=== PATIENT | female | born 1965 | race Caucasian/White ===

== ENCOUNTER 2016-11-14 01:05 | Emergency (ER) | payer MEDICARE, OTHER ==
[2016-11-14 01:13] VITALS: BP 182/86; PULSE 85; RESP 18; TEMP 98.2
[2016-11-14 01:25] LABS: Glucose,Whole Blood 173 mg/dL (75-99)
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
== END 2016-11-14 01:36 | disposition home or self-care (01) ==
LOC: EC 01:05
DX: E11.65 Type 2 diabetes mellitus with hyperglycemia (principal); Z79.4 Long term (current) use of insulin; E03.9 Hypothyroidism, unspecified; Z79.51 Long term (current) use of inhaled steroids; E78.5 Hyperlipidemia, unspecified; Z79.84 Long term (current) use of oral hypoglycemic drugs; Z88.6 Allergy status to analgesic agent; Z88.5 Allergy status to narcotic agent; G47.33 Obstructive sleep apnea (adult) (pediatric); J45.909 Unspecified asthma, uncomplicated; F41.9 Anxiety disorder, unspecified; F32.9 Major depressive disorder, single episode, unspecified; Z87.891 Personal history of nicotine dependence
CPT/HCPCS: 36415; 99283

== ENCOUNTER 2017-04-09 20:17 | Emergency (ER) | payer MEDICARE, OTHER ==
[2017-04-09 20:52] LABS: Glucose,Whole Blood 124 mg/dL (75-99)
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
[2017-04-09 21:09] LABS: Basophils % (A) 0 %; CHCM 33.2; Eosinophils # (A) 0.4 k/uL (0-0.7); Eosinophils % (A) 3 %; HCT 41.3 % (34.0-46.0); HDW 2.81; HGB 13.9 gm/dL (11.4-16.0); Luc # (Auto) 0.33; Luc % (Auto) 3; Lymphocytes # (A) 2.4 k/uL (1.0-4.8); Lymphocytes % (A) 22 %; MCH 30.5 pg (25.0-35.0); MCHC 33.6 g/dL (31.0-37.0); MCV 90.9 fL (80.0-100.0); Mean Platelet Volume 6.9; Monocytes # (A) 0.6 k/uL (0-1.0); Monocytes % (A) 6 %; Neutrophils # (A) 7.5 k/uL (1.3-7.7); Neutrophils % (A) 67 %; RBC 4.54 m/uL (3.80-5.40); RDW 14.4 % (11.5-15.5); WBC 11.2 k/uL (3.8-10.6); WBC (Perox) 11.27
[2017-04-09 21:28] LABS: ALT 39 U/L (9-52); AST 27 U/L (14-36); Alkaline Phosphatase 84 U/L (38-126); Anion Gap 10 mmol/L; Blood Urea Nitrogen 16 mg/dL (7-17); Calcium 9.4 mg/dL (8.4-10.2); Carbon Dioxide 31 mmol/L (22-30); Chloride 101 mmol/L (98-107); Glucose 120 mg/dL (74-99); Non-African American GFR(MDRD) >60 (>60 ml/min/1.73 sqM); Potassium 4.4 mmol/L (3.5-5.1); Sodium 142 mmol/L (137-145); Total Bilirubin 0.5 mg/dL (0.2-1.3); Total Protein 7.1 g/dL (6.3-8.2)
[2017-04-09 21:32] VITALS: RESP 18
[2017-04-09 22:45] VITALS: BP 124/56; PULSE 70; TEMP 98.9
== END 2017-04-09 22:45 | disposition home or self-care (01) ==
LOC: EC 20:17
DX: R20.2 Paresthesia of skin (principal); E78.5 Hyperlipidemia, unspecified; E11.9 Type 2 diabetes mellitus without complications; E03.9 Hypothyroidism, unspecified; J45.909 Unspecified asthma, uncomplicated; E66.01 Morbid (severe) obesity due to excess calories; F32.9 Major depressive disorder, single episode, unspecified; F41.9 Anxiety disorder, unspecified; Z87.891 Personal history of nicotine dependence; Z79.4 Long term (current) use of insulin; Z79.51 Long term (current) use of inhaled steroids; Z79.84 Long term (current) use of oral hypoglycemic drugs; Z79.899 Other long term (current) drug therapy; Z88.5 Allergy status to narcotic agent; Z88.6 Allergy status to analgesic agent; Z86.79 Personal history of other diseases of the circulatory system; Z68.44 Body mass index [BMI] 60.0-69.9, adult
CPT/HCPCS: 36415; 80053; 85025; 99284

== ENCOUNTER → 2017-04-14 | Outpatient (CLI) | payer MEDICARE, OTHER ==
[2017-04-14 15:50] VITALS: BP 159/63; PULSE 88; TEMP 97.8; BMI 55.0
[2017-04-14 16:41] LABS: CH 29.6; CHCM 31.5; HCT 44.4 % (34.0-46.0); HDW 2.72; HGB 13.8 gm/dL (11.4-16.0); Hypochromasia Slight; MCH 29.3 pg (25.0-35.0); MCHC 31.1 g/dL (31.0-37.0); MCV 94.2 fL (80.0-100.0); Mean Platelet Volume 7.3; RBC 4.72 m/uL (3.80-5.40); RDW 14.5 % (11.5-15.5); WBC 11.4 k/uL (3.8-10.6)
[2017-04-14 16:55] LABS: ALT 57 U/L (9-52); AST 35 U/L (14-36); Alkaline Phosphatase 88 U/L (38-126); Anion Gap 11 mmol/L; Blood Urea Nitrogen 16 mg/dL (7-17); Calcium 9.7 mg/dL (8.4-10.2); Carbon Dioxide 28 mmol/L (22-30); Chloride 104 mmol/L (98-107); Glucose 80 mg/dL (74-99); Iron 45 ug/dL (37-170); Non-African American GFR(MDRD) >60 (>60 ml/min/1.73 sqM); Potassium 4.6 mmol/L (3.5-5.1); Sodium 143 mmol/L (137-145); Total Bilirubin 0.5 mg/dL (0.2-1.3)
[2017-04-14 17:04] LABS: % Iron Saturation 12.7 % (20-50); Total Iron Binding Capacity 353 ug/dL (265-497)
[2017-04-14 18:01] LABS: Vitamin B12 662 pg/mL (239-931)
[2017-04-14 20:38] LABS: Cholesterol 127 mg/dL (<200); HDL Cholesterol 46 mg/dL (40-60); Triglycerides 190 mg/dL (<150)
[2017-04-14 20:50] LABS: Hemoglobin A1C 7.7 % (4.2-6.1)
--- NOTE | 2017-05-04 19:53 | P.PN ---
Progress Note - Text DATE OF CONSULTATION: 04/14/2017 REASON FOR CONSULTATION: Initial bariatric evaluation. HISTORY OF PRESENT ILLNESS: The patient is a 51-year-old female who presents with a long-standing history of morbid obesity. At her height of 5 foot 6.5, her ideal body weight is 154 pounds. Today she comes in weighing 362 pounds. Her highest weight is 380 pounds. She has been able to lose 50 pounds with caloric restriction. She has maintained 18 pound weight loss. She is 208 pounds overweight. Her personal goal is to get down under 200 pounds. She reports losing 2 inches from her height after developing osteoarthritis of her lower back including slipped disk of her spine. She has developed diabetes type 2 since 2014. She has been placed on insulin as of 2016. She has obstructive sleep apnea. She has tried weight loss with minimal success with caloric restriction. She has bilateral knee pain and bilateral edema from osteoarthritis. She denies any family history or personal history of Crohn's disease, gastrointestinal cancer, DVTs or pulmonary embolisms. She still has her gallbladder. She reports a family history of gallbladder disease in her mother. She also has a family history of morbid obesity. She comes in for evaluation for a sleeve gastrectomy. She reports eating 3 meals a day. She has history of an adjustable gastric band without improvement of her weight. PAST MEDICAL HISTORY: 1. Diabetes type 2, insulin dependent. 2. Asthma. 3. Morbid obesity. 4. Osteoarthritis of the bilateral hips. 5. Osteoarthritis of the bilateral knees. 6. Seasonal ALLERGIES. 7. Obstructive sleep apnea. 8. Osteoarthritis of the lower back. 9. Hypothyroidism. PAST SURGICAL HISTORY: 1. Lap band in 2008. 2. . 3. Tubal ligation. 4. Uterine ablation. 5. Postoperative nausea and vomiting. HOME MEDICATIONS: 1. Wellbutrin 2. Adderall. 3. Vitamin D. ALLERGIES: 1. Hydrocodone 2. Naproxen. SOCIAL HISTORY: No active tobacco use. She uses a walker for mobility. FAMILY HISTORY: Denies any DVTs, pulmonary embolisms in her family. Denies any ulcerative colitis disease or Crohn's. She does have a family history of morbid obesity. Daughter with easy bruising. She reports a family history of gallbladder disease in her mother. She also has a family history of morbid obesity. REVIEW OF ORGAN SYSTEMS: CONSTITUTIONAL: At her height of 5 foot 6.5, her ideal body weight is 154 pounds. Today she comes in weighing 362 pounds. Her highest weight is 380 pounds. She has been able to lose 50 pounds with caloric restriction. She has maintained 18 pound weight loss. She is 208 pounds overweight. HEENT: Denies any active troubles with vision or hearing. ENDOCRINE: Has diabetes and hypothyroidism. CARDIOVASCULAR: No reports of palpitations or heart attacks or chest pain. RESPIRATORY: Has sleep apnea. Has asthma. GI: Denies any bright red blood per rectum, diarrhea or constipation. Has intermittent heartburn. MUSCULOSKELETAL: Has osteoarthritis of the knees and lower back. NEURO: No reports of headaches or seizure disorders. PSYCH: Has depression without suicidal ideation. Has anxiety. HEMATOLOGIC: Denies any abnormal bleeding or bruising. PHYSICAL EXAM: VITAL SIGNS: height 5 foot 6.5 inches, weight 362 pounds. BMI 57.6 Vital Signs Temp 97.8 F 04/14/17 15:29 Pulse 88 04/14/17 15:29 Resp BP 159/63 04/14/17 15:29 Pulse Ox GENERAL: Well-developed female in no acute distress. HEENT: No scleral icterus. Extraocular was grossly intact. No nasal drainage. NECK: Supple without lymphadenopathy. CHEST: Nonlabored respirations with equal bilateral excursions. CARDIOVASCULAR: Regular rate. Distal 2+ pulses. ABDOMEN: Obese, soft, nontender, nondistended. MUSCULOSKELETAL: No clubbing, cyanosis. Has 1+ bilateral edema. Gross strength 5 /5 distal lower extremities. NEURO: No focal or lateralizing signs. Cranial nerves 2 through 12 grossly within normal limits. PSYCH: Appropriate affect. Alert and oriented to person, place and time. ASSESSMENT: 1. Morbid obesity due to excess calories. 2. Body mass index of 57.6. 3. History of adjustable gastric band. 4. Family history of morbid obesity. 5. Diabetes type 2, insulin dependent. 6. Asthma. 7. Vitamin D deficiency. 8. Osteoarthritis of the lower back. 9. Osteoarthritis of the bilateral knees. 10. Obstructive sleep apnea. 11. Seasonal ALLERGIES. 12. Obstructive sleep apnea. 13. Hypothyroidism. 14. Hypertensive heart disease. 15. Leukocytosis. 16. Hypertriglyceridemia. 17. Vitamin D deficiency. PLAN: 1. I have recommended that she proceed with an upper endoscopy as she has history of reflux disease. 2. Per insurance guidelines, recommend medical supervised weight loss. 3. Recommend a bariatric metabolic panel to evaluate for micro, including macronutrient deficiencies. 4. Dietary surveillance and counseling was reviewed with goal protein intake of 70 grams daily. 5. Psych assessment recommended with history of depression and anxiety. 6. Recommend 12-lead EKG for cardiac risk assessment. 7. Medical risk assessment advised. 8. As she has minimal improvement with her adjustable gastric band, may need removal. 9. Recommend Vitamin D supplement 59621 units weekly. Thank you for this consultation. Laboratory Last Values WBC 11.4 k/uL (3.8-10.6) H 04/14/17 16:24 RBC 4.72 m/uL (3.80-5.40) 04/14/17 16:24 Hgb 13.8 gm/dL (11.4-16.0) 04/14/17 16:24 Hct 44.4 % (34.0-46.0) 04/14/17 16:24 MCV 94.2 fL (80.0-100.0) 04/14/17 16:24 MCH 29.3 pg (25.0-35.0) 04/14/17 16:24 MCHC 31.1 g/dL (31.0-37.0) 04/14/17 16:24 RDW 14.5 % (11.5-15.5) 04/14/17 16:24 Plt Count 336 k/uL (150-450) 04/14/17 16:24 Hypochromasia Slight 04/14/17 16:24 Sodium 143 mmol/L (137-145) 04/14/17 16:24 Potassium 4.6 mmol/L (3.5-5.1) 04/14/17 16:24 Chloride 104 mmol/L (98-107) 04/14/17 16:24 Carbon Dioxide 28 mmol/L (22-30) 04/14/17 16:24 Anion Gap 11 mmol/L 04/14/17 16:24 BUN 16 mg/dL (7-17) 04/14/17 16:24 Creatinine 0.90 mg/dL (0.52-1.04) 04/14/17 16:24 Est GFR (MDRD) Af Amer >60 (>60 ml/min/1.73 sqM) 04/14/17 16:24 Est GFR (MDRD) Non-Af >60 (>60 ml/min/1.73 sqM) 04/14/17 16:24 Glucose 80 mg/dL (74-99) 04/14/17 16:[address] Glu mg/dL 174 mg/dL 04/14/17 16:24 Hemoglobin A1c 7.7 % (4.2-6.1) H 04/14/17 16:24 Calcium 9.7 mg/dL (8.4-10.2) 04/14/17 16:24 Iron 45 ug/dL (37-170) 04/14/17 16:24 TIBC 353 ug/dL (265-497) 04/14/17 16:24 % Saturation 12.7 % (20-50) L 04/14/17 16:24 Ferritin 23 ng/mL (11-264) 04/14/17 16:24 Total Bilirubin 0.5 mg/dL (0.2-1.3) 04/14/17 16:24 AST 35 U/L (14-36) 04/14/17 16:24 ALT 57 U/L (9-52) H 04/14/17 16:24 Alkaline Phosphatase 88 U/L (38-126) 04/14/17 16:24 Total Protein 7.0 g/dL (6.3-8.2) 04/14/17 16:24 Albumin 4.2 g/dL (3.5-5.0) 04/14/17 16:24 Triglycerides 190 mg/dL (<150) H 04/14/17 16:24 Cholesterol 127 mg/dL (<200) 04/14/17 16:24 LDL Cholesterol, Calc 43 mg/dL (0-99) 04/14/17 16:24 HDL Cholesterol 46 mg/dL (40-60) 04/14/17 16:24 Vitamin B1 72 ug/L (38-122) 04/14/17 16:24 Vitamin B12 662 pg/mL (239-931) 04/14/17 16:24 Vitamin D 25-Hydroxy 10.4 ng/mL (30.0-100.0) L 04/14/17 16:24 Folate 13.60 ng/mL (>2.75) 04/14/17 16:24 TSH 3.020 mIU/L (0.465-4.680) 04/14/17 16:24
== END | disposition home or self-care (01) ==
LOC: BARWHC3 13:55
PROVIDERS: ATTEND Surgery Plastic and Reconstructive Surgery
DX: Z48.815 Encounter for surgical aftercare following surgery on the digestive system (principal); E66.01 Morbid (severe) obesity due to excess calories; J45.909 Unspecified asthma, uncomplicated; E55.9 Vitamin D deficiency, unspecified; M47.816 Spondylosis without myelopathy or radiculopathy, lumbar region; M17.0 Bilateral primary osteoarthritis of knee; G47.33 Obstructive sleep apnea (adult) (pediatric); E03.9 Hypothyroidism, unspecified; I11.9 Hypertensive heart disease without heart failure; D72.829 Elevated white blood cell count, unspecified; E78.1 Pure hyperglyceridemia; E11.9 Type 2 diabetes mellitus without complications; Z68.43 Body mass index [BMI] 50.0-59.9, adult; Z79.4 Long term (current) use of insulin; Z79.899 Other long term (current) drug therapy; Z88.5 Allergy status to narcotic agent; Z88.6 Allergy status to analgesic agent; Z98.84 Bariatric surgery status
CPT/HCPCS: 84425; 80061; 80053; 82607; 82728; 83036; 82746; 83540; 83550; 84443; 85027; 82306; G0463; 99211

== ENCOUNTER 2017-05-05 06:47 | Day surgery (SDC) | payer MEDICARE, OTHER ==
[2017-04-30 10:18] VITALS: BMI 57.5
[~2017-05-05 06:47] MED LIST: DEXAMETHASONE SOD PHOSPHATE 10 MG/ML 1 ML VIAL IV ONE; LACTATED RINGERS 1,000 ML IV SCH; MIDAZOLAM 2 MG/2 ML VIAL IV PRN; ONDANSETRON 4 MG/2 ML VIAL IVP ONE; SCOPOLAMINE 1.5MG/72HR PATCH TRANSDERM ONE; fentaNYL (PF) 50 MCG/ML 2 ML AMP IV PRN
[2017-05-05 07:50] VITALS: TEMP 98.2
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
[2017-05-05] MEDS ORDERED: LACTATED RINGERS 1,000 ML IV ONE (07:54)
[2017-05-05] MEDS ORDERED: LIDOCAINE 1% INJ 10MG/ML (20 ML MDV) ONE (08:02)
[2017-05-05] MEDS ORDERED: PROPOFOL 10 MG/ML 20 ML VIAL IV ONE (08:02)
[2017-05-05 08:07] LABS: Glucose,Whole Blood 158 mg/dL (75-99)
--- NOTE | 2017-05-05 08:31 | P.PCN ---
Date of Procedure: 05/05/17 Preoperative Diagnosis: Postoperative Diagnosis: Procedure(s) Performed: Implants: Indications for Procedure: Operative Findings: Description of Procedure: PREOPERATIVE DIAGNOSIS: Gastroesophageal reflux disease. Morbid obesity. POSTOPERATIVE DIAGNOSIS: Morbid obesity. Gastritis. Gastroesophageal reflux disease. Diaphragmatic hiatal hernia, sliding type. Erosive esophagitis. Severe obstructive sleep apnea. OPERATION: Esophagogastroduodenoscopy with biopsies along antrum. SURGEON: Tila Banks MD ANESTHESIA: MAC. INDICATIONS: The patient is a 51-year-old female who presents with a history of reflux disease. Benefits and risks of the procedure were described. Informed consent was obtained. DESCRIPTION: The patient was brought into the endoscopy suite and laid in the left lateral decubitus position. An Olympus gastroscope was passed along the posterior oropharynx down to the distal esophagus where the squamocolumnar junction was encountered at 38 cm from the incisors. The stomach was entered and no bile reflux was found. Additional findings are listed below. Biopsies with cold forceps were obtained of the antrum. The first through third portion of the duodenum was examined and unremarkable. Retroflexion of the scope confirmed Hill grade 4 lower esophageal valve. The squamocolumnar junction demostrated early and acute LA grade B erosive esophagitis. The stomach was desufflated. The patient tolerated the procedure well. FINDINGS: Squamocolumnar junction 38 cm from the incisors. Diaphragmatic hiatus at 40 cm. Hiatal hernia 2 cm, sliding type. Hill grade 4 lower esophageal valve. LA grade B erosive esophagitis. No active duodenitis. Chronic gastritis. RECOMMENDATIONS: Start medical therapy. Further recommendations pending results of pathology report. Upper endoscopy as needed. Will benefit from antireflux surgical procedure Plan - Discharge Summary New Discharge Prescriptions: New Ergocalciferol [Vitamin D2 (DRISDOL)] 50,000 unit PO Q7D #12 cap Omeprazole 40 mg PO DAILY #30 capsule.dr No Action Simvastatin [Zocor] 40 mg PO HS Fluticasone/Salmeterol [Advair 250-50 Diskus] 1 puff INHALATION RT-BID Levothyroxine Sodium [Synthroid] 25 mcg PO DAILY Albuterol Inhaler [Ventolin Hfa Inhaler] 2 puff INHALATION RT-Q6H PRN PRN Reason: Shortness Of Breath Escitalopram [Lexapro] 10 mg PO DAILY metFORMIN HCL 1,000 mg PO BID lamoTRIgine 200 mg PO QAM Insulin Glargine [Lantus] 100 unit SQ QAM ARIPiprazole [Abilify] 5 mg PO DAILY Albuterol Nebulized [Ventolin Nebulized] 2.5 mg INHALATION Q4H PRN #25 nebu PRN Reason: Shortness Of Breath glipiZIDE [Glucotrol] 10 mg PO AC-BID Enalapril [Vasotec] 20 mg PO DAILY Discharge Medication List Fluticasone/Salmeterol [Advair 250-50 Diskus] 1 puff INHALATION RT-BID 10/11/14 [History] Levothyroxine Sodium [Synthroid] 25 mcg PO DAILY 10/11/14 [History] Simvastatin [Zocor] 40 mg PO HS 10/11/14 [History] Albuterol Inhaler [Ventolin Hfa Inhaler] 2 puff INHALATION RT-Q6H PRN 04/12/15 [ History] Escitalopram [Lexapro] 10 mg PO DAILY 12/11/15 [History] lamoTRIgine 200 mg PO QAM 12/11/15 [History] metFORMIN HCL 1,000 mg PO BID 12/11/15 [History] Insulin Glargine [Lantus] 100 unit SQ QAM 07/08/16 [History] ARIPiprazole [Abilify] 5 mg PO DAILY 07/30/16 [History] Albuterol Nebulized [Ventolin Nebulized] 2.5 mg INHALATION Q4H PRN #25 nebu [Rx] glipiZIDE [Glucotrol] 10 mg PO AC-BID 11/14/16 [History] Enalapril [Vasotec] 20 mg PO DAILY 04/09/17 [History] Ergocalciferol [Vitamin D2 (DRISDOL)] 50,000 unit PO Q7D #12 cap 05/05/17 [Rx] Omeprazole 40 mg PO DAILY #30 capsule. 05/05/17 [Rx] Follow up Appointment(s)/Referral(s): Tila Banks MD [STAFF PHYSICIAN] - 05/19/17 ([facility]) Patient Instructions/Handouts: Gastroesophageal Reflux Disease (GEN), Hiatal Hernia (DC), Vitamin D (By mouth), Vitamin D Deficiency (GEN) Activity/Diet/Wound Care/Special Instructions: Medication is at your local pharmacy Discharge Disposition: HOME SELF-CARE
[2017-05-05 08:54] VITALS: BP 127/69; PULSE 95; RESP 18
[2017-05-05 08:55] LABS: Glucose,Whole Blood 150 mg/dL (75-99)
== END 2017-05-05 09:15 | disposition home or self-care (01) ==
LOC: ORWHC2ENDO 06:47
PROVIDERS: ATTEND Surgery Plastic and Reconstructive Surgery
DX: K29.50 Unspecified chronic gastritis without bleeding (principal); K21.0 Gastro-esophageal reflux disease with esophagitis; K44.9 Diaphragmatic hernia without obstruction or gangrene; E66.01 Morbid (severe) obesity due to excess calories; G47.33 Obstructive sleep apnea (adult) (pediatric); Z99.89 Dependence on other enabling machines and devices; J45.909 Unspecified asthma, uncomplicated; E11.9 Type 2 diabetes mellitus without complications; E78.5 Hyperlipidemia, unspecified; E07.9 Disorder of thyroid, unspecified; I10 Essential (primary) hypertension; Z79.84 Long term (current) use of oral hypoglycemic drugs; Z79.4 Long term (current) use of insulin; Z79.51 Long term (current) use of inhaled steroids; Z79.899 Other long term (current) drug therapy; Z88.6 Allergy status to analgesic agent; Z88.5 Allergy status to narcotic agent; Z87.891 Personal history of nicotine dependence
CPT/HCPCS: 88305; 88342; 43239; J2001; J2704

== ENCOUNTER → 2017-05-19 | Outpatient (CLI) | payer MEDICARE, OTHER ==
[2017-05-19 14:30] VITALS: BP 128/66; PULSE 52; RESP 16; TEMP 98.6; BMI 58.1
--- NOTE | 2017-06-12 21:51 | P.PN ---
Progress Note - Text DATE OF CONSULTATION: 05/19/2017 CHIEF COMPLAINT: Bariatric assessment. HISTORY OF PRESENT ILLNESS: The patient is a 51-year-old female who presents with a long-standing history of morbid obesity. At her height of 5 foot 6.5, her ideal body weight is 154 pounds. Today she comes in weighing 362 pounds. Her highest weight was 380 pounds. Today she comes in weighing 365 pounds. She has gained 3 pounds in 1 month. She has also completed upper endoscopy findings consistent with H. pylori gastritis. She is evaluating for bariatric procedures. She is seeking a Diandra-en-Y gastric bypass. She is 211 pounds overweight. Her body mass index is reduced from 60.5 down to 58.1. PAST MEDICAL HISTORY: 1. Diabetes type 2, insulin dependent. 2. Asthma. 3. Morbid obesity. 4. Osteoarthritis of the bilateral hips. 5. Osteoarthritis of the bilateral knees. 6. Seasonal ALLERGIES. 7. Obstructive sleep apnea. 8. Osteoarthritis of the lower back. 9. Hypothyroidism. PAST SURGICAL HISTORY: 1. Lap band in 2008. 2. . 3. Tubal ligation. 4. Uterine ablation. 5. Postoperative nausea and vomiting. HOME MEDICATIONS: 1. Wellbutrin 2. Adderall. 3. Vitamin D. ALLERGIES: 1. Hydrocodone 2. Naproxen. SOCIAL HISTORY: No active tobacco use. She uses a walker for mobility. FAMILY HISTORY: Denies any DVTs, pulmonary embolisms in her family. Denies any ulcerative colitis disease or Crohn's. She does have a family history of morbid obesity. Daughter with easy bruising. She reports a family history of gallbladder disease in her mother. She also has a family history of morbid obesity. REVIEW OF ORGAN SYSTEMS: CONSTITUTIONAL: At her height of 5 foot 6.5, her ideal body weight is 154 pounds. Today she comes in weighing 362 pounds. Her highest weight is 380 pounds. She is 211 pounds overweight. Her body mass index is reduced from 60.5 down to 58.1. HEENT: Denies any active troubles with vision or hearing. ENDOCRINE: Has diabetes and hypothyroidism. CARDIOVASCULAR: No reports of palpitations or heart attacks or chest pain. RESPIRATORY: Has sleep apnea. Has asthma. GI: Denies any bright red blood per rectum, diarrhea or constipation. Has intermittent heartburn. MUSCULOSKELETAL: Has osteoarthritis of the knees and lower back. NEURO: No reports of headaches or seizure disorders. PSYCH: Has depression without suicidal ideation. Has anxiety. HEMATOLOGIC: Denies any abnormal bleeding or bruising. SKIN: Has panniculitis. No recent skin cancer. PHYSICAL EXAM: VITAL SIGNS: height 5 foot 6.5 inches, weight 365 pounds. BMI 58.1 Vital Signs Temp 98.6 F 05/19/17 14:28 Pulse 52 L 05/19/17 14:28 Resp 16 05/19/17 14:28 BP 128/66 05/19/17 14:28 Pulse Ox GENERAL: Well-developed female in no acute distress. HEENT: No scleral icterus. Extraocular was grossly intact. No nasal drainage. NECK: Supple without lymphadenopathy. CHEST: Nonlabored respirations with equal bilateral excursions. CARDIOVASCULAR: Regular rate. Distal 2+ pulses. ABDOMEN: Obese, soft, nontender, nondistended. MUSCULOSKELETAL: No clubbing, cyanosis. Has 1+ bilateral edema. Gross strength 5 /5 distal lower extremities. NEURO: No focal or lateralizing signs. Cranial nerves 2 through 12 grossly within normal limits. PSYCH: Appropriate affect. Alert and oriented to person, place and time. EGD FINDINGS: Squamocolumnar junction 38 cm from the incisors. Diaphragmatic hiatus at 40 cm. Hiatal hernia 2 cm, sliding type. Hill grade 4 lower esophageal valve. LA grade B erosive esophagitis. No active duodenitis. Chronic gastritis. LABS: White blood cell count is elevated. Hemoglobin A1c 7.7%. Vitamin D low at 10.4. ASSESSMENT: 1. Morbid obesity due to excess calories. 2. Body mass index of 58.1. 3. History of adjustable gastric band. 4. Family history of morbid obesity. 5. Diabetes type 2, insulin dependent. 6. Asthma. 7. Vitamin D deficiency. 8. Osteoarthritis of the lower back. 9. Osteoarthritis of the bilateral knees. 10. Obstructive sleep apnea. 11. Seasonal ALLERGIES. 12. Obstructive sleep apnea. 13. Hypothyroidism. 14. Hypertensive heart disease. 15. Leukocytosis. 16. Hypertriglyceridemia. 17. Vitamin D deficiency. 18. H. pylori gastritis. PLAN: 1. I have gone over options of bariatric procedures including her band, sleeve and Diandra-en-Y gastric bypass. 2. Benefits and risks including bleeding, infection, leaks and nutritional deficiencies. 3. Recommend treatment of vitamin D deficiency with 50,000 units weekly. 4. Also recommend treatment of H. pylori gastritis for at least 2 weeks. 5. Will need completion of bariatric profile including psych as well as primary care provider. 6. Surgery is pending complete treatment of her H. pylori gastritis and will need repeat H. pylori testing prior to any bariatric procedure. 7. Also recommend repeat vitamin D treatment results.
== END | disposition home or self-care (01) ==
LOC: BARWHC3 13:21
PROVIDERS: ATTEND Surgery Plastic and Reconstructive Surgery
DX: Z48.815 Encounter for surgical aftercare following surgery on the digestive system (principal); E11.9 Type 2 diabetes mellitus without complications; J45.909 Unspecified asthma, uncomplicated; E55.9 Vitamin D deficiency, unspecified; M47.816 Spondylosis without myelopathy or radiculopathy, lumbar region; M17.0 Bilateral primary osteoarthritis of knee; G47.33 Obstructive sleep apnea (adult) (pediatric); E03.9 Hypothyroidism, unspecified; I11.9 Hypertensive heart disease without heart failure; D72.829 Elevated white blood cell count, unspecified; E78.1 Pure hyperglyceridemia; B96.81 Helicobacter pylori [H. pylori] as the cause of diseases classified elsewhere; J30.2 Other seasonal allergic rhinitis; E66.01 Morbid (severe) obesity due to excess calories; Z68.43 Body mass index [BMI] 50.0-59.9, adult; Z79.4 Long term (current) use of insulin; Z79.899 Other long term (current) drug therapy; Z88.5 Allergy status to narcotic agent; Z88.6 Allergy status to analgesic agent; Z98.84 Bariatric surgery status
CPT/HCPCS: 99211

== ENCOUNTER → 2017-06-02 | Outpatient (CLI) | payer MEDICARE, OTHER ==
[2017-06-02 15:21] VITALS: BP 114/67; PULSE 80; RESP 16; TEMP 98.8; BMI 58.5
--- NOTE | 2017-06-13 17:27 | P.PN ---
Progress Note - Text DATE OF SERVICE: 06/02/2017 CHIEF COMPLAINT: Bariatric assessment. HISTORY OF PRESENT ILLNESS: The patient is a 51-year-old female who presents with a long-standing history of morbid obesity. She completed an upper endoscopy with findings consistent with hiatal hernia including reflux disease. She also has history of H. pylori gastritis. She is evaluating for the gastric bypass to address her diabetes. Separately she is pending completion of her bariatric profile. She is pending medical assessment including psych assessment. She has history of diabetes, sleep apnea, hypertension as a result of her obesity. At her height of 5 foot 6.5, her ideal body weight is 154 pounds. Today she comes in weighing 367 pounds. She gained 5 pounds in 2 weeks. Her highest weight was 380 pounds. She is 213 pounds overweight. Her body mass index is reduced from 60.5 down to 58.5. PAST MEDICAL HISTORY: 1. Diabetes type 2, insulin dependent. 2. Asthma. 3. Morbid obesity. 4. Osteoarthritis of the bilateral hips. 5. Osteoarthritis of the bilateral knees. 6. Seasonal ALLERGIES. 7. Obstructive sleep apnea. 8. Osteoarthritis of the lower back. 9. Hypothyroidism. 10. H. pylori gastritis. PAST SURGICAL HISTORY: 1. Lap band in 2008. 2. . 3. Tubal ligation. 4. Uterine ablation. 5. Postoperative nausea and vomiting. 6. EGD. HOME MEDICATIONS: 1. Metformin. 2. Lamotrigine. 3. Glipizide. 4. Zocor. 5. Omeprazole. 6. Synthroid. 7. Lantus. 8. Advair. 9. Lexapro. 10. Vitamin D 11. Vasotec. 12. Amoxicillin 13. Albuterol 14. Abilify. ALLERGIES: 1. Hydrocodone 2. Naproxen. SOCIAL HISTORY: No active tobacco use. She uses a walker for mobility. FAMILY HISTORY: Denies any DVTs, pulmonary embolisms in her family. Denies any ulcerative colitis disease or Crohn's. She does have a family history of morbid obesity. Daughter with easy bruising. She reports a family history of gallbladder disease in her mother. She also has a family history of morbid obesity. REVIEW OF ORGAN SYSTEMS: CONSTITUTIONAL: At her height of 5 foot 6.5, her ideal body weight is 154 pounds. Today she comes in weighing 367 pounds. Her highest weight is 380 pounds. She is 213 pounds overweight. Her body mass index is reduced from 60.5 down to 58.5. HEENT: Denies any active troubles with vision or hearing. ENDOCRINE: Has diabetes and hypothyroidism. CARDIOVASCULAR: No reports of palpitations or heart attacks or chest pain. RESPIRATORY: Has sleep apnea. Has asthma. GI: Denies any bright red blood per rectum, diarrhea or constipation. Has intermittent heartburn. MUSCULOSKELETAL: Has osteoarthritis of the knees and lower back. NEURO: No reports of headaches or seizure disorders. PSYCH: Has depression without suicidal ideation. Has anxiety. HEMATOLOGIC: Denies any abnormal bleeding or bruising. SKIN: Has panniculitis. No recent skin cancer. PHYSICAL EXAM: VITAL SIGNS: height 5 foot 6.5 inches, weight 367 pounds. BMI 58.5. Vital Signs 06/02/17 15:17 Temperature 98.8 F Pulse Rate 80 Respiratory 16 Rate Blood Pressure 114/67 GENERAL: Well-developed female in no acute distress. HEENT: No scleral icterus. Extraocular was grossly intact. No nasal drainage. NECK: Supple without lymphadenopathy. CHEST: Nonlabored respirations with equal bilateral excursions. CARDIOVASCULAR: Regular rate. Distal 2+ pulses. ABDOMEN: Obese, soft, nontender, nondistended. MUSCULOSKELETAL: No clubbing, cyanosis, or edema. Gross strength 5/5 distal lower extremities. NEURO: No focal or lateralizing signs. Cranial nerves 2 through 12 grossly within normal limits. PSYCH: Appropriate affect. Alert and oriented to person, place and time. SKIN: Has panniculitis. Good skin turgor. LABS: White blood cell count is elevated. Hemoglobin A1c 7.7%. Vitamin D low at 10.4. PATHOLOGY: H. pylori gastritis. ASSESSMENT: 1. Morbid obesity due to excess calories. 2. Body mass index of 58.5. 3. H. pylori gastritis. 4. Family history of morbid obesity. 5. Diabetes type 2, insulin dependent. 6. Asthma. 7. Vitamin D deficiency. 8. Osteoarthritis of the lower back. 9. Osteoarthritis of the bilateral knees. 10. Obstructive sleep apnea. 11. Seasonal ALLERGIES. 12. Obstructive sleep apnea. 13. Hypothyroidism. 14. Hypertensive heart disease. 15. Leukocytosis. 16. Hypertriglyceridemia. 17. Vitamin D deficiency. PLAN: 1. For her H. pylori gastritis, recommend at minimum 2 week antibiotic treatment including Flagyl and amoxicillin. Her insurance does not cover additional antibiotics. 2. Recommend completion of her bariatric metabolic profile. 3. Recommend completion of her psych assessment. 4. Recommend repeat upper endoscopy for history of H. pylori gastritis. 5. Will need nutrition classes. 6. She demonstrates difficult to understand the bariatric lifestyle. Recommend additional education. 7. Her surgery is on hold until repeat treatment and finding of H. pylori gastritis. 8. Recommend follow-up upon completion of her bariatric workup.
== END | disposition home or self-care (01) ==
LOC: BARWHC3 14:15
PROVIDERS: ATTEND Surgery Plastic and Reconstructive Surgery
DX: E66.01 Morbid (severe) obesity due to excess calories (principal); K29.70 Gastritis, unspecified, without bleeding; E11.9 Type 2 diabetes mellitus without complications; J45.909 Unspecified asthma, uncomplicated; E55.9 Vitamin D deficiency, unspecified; M47.816 Spondylosis without myelopathy or radiculopathy, lumbar region; M17.0 Bilateral primary osteoarthritis of knee; G47.33 Obstructive sleep apnea (adult) (pediatric); J30.2 Other seasonal allergic rhinitis; I11.0 Hypertensive heart disease with heart failure; D72.829 Elevated white blood cell count, unspecified; E78.1 Pure hyperglyceridemia; Z79.4 Long term (current) use of insulin; Z68.43 Body mass index [BMI] 50.0-59.9, adult; Z79.899 Other long term (current) drug therapy; Z98.84 Bariatric surgery status
CPT/HCPCS: 99211

== ENCOUNTER → 2017-06-14 | Outpatient (CLI) | payer MEDICARE, OTHER ==
[2017-06-14 17:17] VITALS: BMI 59.7
== END | disposition home or self-care (01) ==
LOC: BARWHC3 08:39
PROVIDERS: ATTEND Surgery Plastic and Reconstructive Surgery
DX: E66.01 Morbid (severe) obesity due to excess calories (principal); Z68.43 Body mass index [BMI] 50.0-59.9, adult; Z71.3 Dietary counseling and surveillance
CPT/HCPCS: 97804

== ENCOUNTER 2017-07-05 20:05 | Emergency (ER) | payer MEDICARE, OTHER ==
[2017-07-05 20:11] VITALS: RESP 18
[2017-07-05 20:20] LABS: Glucose,Whole Blood 183 mg/dL (75-99)
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
[2017-07-05 20:50] LABS: Basophils % (A) 0 %; CH 30.6; CHCM 33.6; Eosinophils # (A) 0.3 k/uL (0-0.7); Eosinophils % (A) 3 %; HCT 40.8 % (34.0-46.0); HDW 2.65; HGB 13.1 gm/dL (11.4-16.0); Luc # (Auto) 0.27; Luc % (Auto) 2; Lymphocytes # (A) 2.3 k/uL (1.0-4.8); Lymphocytes % (A) 20 %; MCH 29.5 pg (25.0-35.0); MCHC 32.2 g/dL (31.0-37.0); MCV 91.6 fL (80.0-100.0); Mean Platelet Volume 7.8; Monocytes # (A) 0.7 k/uL (0-1.0); Monocytes % (A) 6 %; Neutrophils % (A) 69 %; RBC 4.45 m/uL (3.80-5.40); RDW 15.5 % (11.5-15.5); WBC 11.6 k/uL (3.8-10.6); WBC (Perox) 11.21
--- NOTE | 2017-07-05 21:03 | XR ---
Exam: X-ray tibia and fibula left TECHNIQUE: 2 views of the left tibia and fibula were obtained. HISTORY: Pain COMPARISON: April 12, 2015. FINDINGS: No acute fracture subluxation is identified. There are no osteolytic or osteoblastic lesions. There i s mineralized focus medial and posterior to the tibia which was present on the previous study. IMPRESSION: No acute abnormality identified.
[2017-07-05 21:11] LABS: ALT 54 U/L (9-52); AST 33 U/L (14-36); Alkaline Phosphatase 96 U/L (38-126); Anion Gap 10 mmol/L; Blood Urea Nitrogen 21 mg/dL (7-17); Calcium 9.7 mg/dL (8.4-10.2); Carbon Dioxide 30 mmol/L (22-30); Chloride 98 mmol/L (98-107); Creatine Kinase 63 U/L (30-135); Glucose 207 mg/dL (74-99); Non-African American GFR(MDRD) >60 (>60 ml/min/1.73 sqM); Potassium 4.9 mmol/L (3.5-5.1); Sodium 138 mmol/L (137-145); Total Bilirubin 0.5 mg/dL (0.2-1.3); Total Protein 6.9 g/dL (6.3-8.2)
--- NOTE | 2017-07-05 21:31 | US ---
EXAMINATION TYPE: US venous doppler duplex LE BI DATE OF EXAM: 07/05/2017 9:22 PM COMPARISON: NONE CLINICAL HISTORY: Pain. SIDE PERFORMED: Bilateral TECHNIQUE: The lower extremity deep venous system is examined utilizing real time linear array sonog deya with graded compression, doppler sonography and color-flow sonography. VESSELS IMAGED: External Iliac Vein (EIV) Common Femoral Vein Deep Femoral Vein not seen due to obesity and swelling Greater Saphenous Vein *not seen due to obesity and swelling Femoral Vein Popliteal Vein Small Saphenous Vein * Proximal Calf Veins (* superficial vessels) Patient 5'6", 371lbs, with severe leg swelling and edema. Right Leg: Exam severely limited, unable to visualize for compression views, appears negative for DV T in this very limited study. Left Leg: Exam severely limited, unable to visualize for compression views, appears negative for DVT in this very limited study. IMPRESSION: Grayscale, color doppler, spectral doppler imaging performed of the deep veins of the lo wer extremities. This examination is suboptimal due to patient obesity and swelling. No definite deep venous thrombosis is identified.
[2017-07-05 21:44] LABS: Appearance,Urine Clear (Clear); Bilirubin,Urine Negative (Negative); Glucose,Urine (UA) Negative (Negative); Ketones,Urine Negative (Negative); Leukocyte Esterase,Urine Negative (Negative); Nitrite,Urine Negative (Negative); PH, Urine 5.5 (5.0-8.0); Protein,Urine Trace (Negative); Specific Gravity,Urine 1.025 (1.001-1.035); UA Billing (MACRO vs. MICRO) CHEM
[2017-07-05 22:08] VITALS: BP 129/60; PULSE 75; TEMP 98
== END 2017-07-05 22:08 | disposition home or self-care (01) ==
LOC: EC 20:05
DX: E10.42 Type 1 diabetes mellitus with diabetic polyneuropathy (principal); J44.9 Chronic obstructive pulmonary disease, unspecified; K21.9 Gastro-esophageal reflux disease without esophagitis; E78.5 Hyperlipidemia, unspecified; E03.9 Hypothyroidism, unspecified; E66.01 Morbid (severe) obesity due to excess calories; Z68.43 Body mass index [BMI] 50.0-59.9, adult; F32.9 Major depressive disorder, single episode, unspecified; F41.9 Anxiety disorder, unspecified; Z87.891 Personal history of nicotine dependence; Z79.4 Long term (current) use of insulin; Z79.899 Other long term (current) drug therapy; Z88.5 Allergy status to narcotic agent; M79.605 Pain in left leg; M79.604 Pain in right leg
CPT/HCPCS: 36415; 80053; 81003; 82009; 82550; 83605; 85025; 93970; 99285

== ENCOUNTER → 2017-07-07 | Outpatient (CLI) | payer MEDICARE, OTHER ==
[2017-07-07 16:08] VITALS: BP 136/63; PULSE 72; RESP 16; TEMP 98.1; BMI 60.9
--- NOTE | 2017-07-31 18:19 | P.PN ---
Progress Note - Text DATE OF SERVICE: 07/07/2017 CHIEF COMPLAINT: Bariatric assessment. HISTORY OF PRESENT ILLNESS: The patient is a 51-year-old female who presents with diabetes, sleep apnea, hypertension as a result of her obesity. At her height of 5 foot 6.5, her ideal body weight is 154 pounds. Today she comes in weighing 382 pounds. She gained 8 pounds in 1 month. Today is her highest weight. She is 228 pounds overweight. Her body mass index is 60.9. She has completed a dietary class however with moderate difficulty understanding the details and function of her surgery. She still pending completion of treatment for H. pylori gastritis. Concerns has been expressed by the dietitian regarding the patient's understanding of her bariatric diet postprocedure. She denies any new complaints today. She is a value for the gastric bypass. PAST MEDICAL HISTORY: 1. Diabetes type 2, insulin dependent. 2. Asthma. 3. Morbid obesity. 4. Osteoarthritis of the bilateral hips. 5. Osteoarthritis of the bilateral knees. 6. Seasonal ALLERGIES. 7. Obstructive sleep apnea. 8. Osteoarthritis of the lower back. 9. Hypothyroidism. 10. H. pylori gastritis. PAST SURGICAL HISTORY: 1. Lap band in 2008. 2. . 3. Tubal ligation. 4. Uterine ablation. 5. Postoperative nausea and vomiting. 6. EGD. HOME MEDICATIONS: 1. Metformin. 2. Lamotrigine. 3. Glipizide. 4. Zocor. 5. Omeprazole. 6. Synthroid. 7. Lantus. 8. Advair. 9. Lexapro. 10. Vitamin D 11. Vasotec. 12. Amoxicillin 13. Albuterol 14. Abilify. ALLERGIES: 1. Hydrocodone 2. Naproxen. SOCIAL HISTORY: No active tobacco use. She uses a walker for mobility. FAMILY HISTORY: Denies any DVTs, pulmonary embolisms in her family. Denies any ulcerative colitis disease or Crohn's. She does have a family history of morbid obesity. Daughter with easy bruising. She reports a family history of gallbladder disease in her mother. She also has a family history of morbid obesity. REVIEW OF ORGAN SYSTEMS: CONSTITUTIONAL: At her height of 5 foot 6.5, her ideal body weight is 154 pounds. Today she comes in weighing 367 pounds. Her highest weight is 380 pounds. She is 213 pounds overweight. Her body mass index is reduced from 60.5 down to 58.5. HEENT: Denies any active troubles with vision or hearing. ENDOCRINE: Has diabetes and hypothyroidism. CARDIOVASCULAR: No reports of palpitations or heart attacks or chest pain. RESPIRATORY: Has sleep apnea. Has asthma. GI: Denies any bright red blood per rectum, diarrhea or constipation. Has intermittent heartburn. Has H. pylori gastritis. MUSCULOSKELETAL: Has osteoarthritis of the knees and lower back. NEURO: No reports of headaches or seizure disorders. PSYCH: Has depression without suicidal ideation. Has anxiety. HEMATOLOGIC: Denies any abnormal bleeding or bruising. SKIN: Has panniculitis. No recent skin cancer. PHYSICAL EXAM: VITAL SIGNS: height 5 foot 6.5 inches, weight 382 pounds. BMI 60.9. Vital Signs Temp 98.1 F 07/07/17 16:05 Pulse 72 07/07/17 16:05 Resp 16 07/07/17 16:05 BP 136/63 07/07/17 16:05 Pulse Ox GENERAL: Well-developed female in no acute distress. HEENT: No scleral icterus. Extraocular was grossly intact. No nasal drainage. NECK: Supple without lymphadenopathy. CHEST: Nonlabored respirations with equal bilateral excursions. CARDIOVASCULAR: Regular rate. Distal 2+ pulses. ABDOMEN: Obese, soft, nontender, nondistended. MUSCULOSKELETAL: No clubbing, cyanosis, or edema. Gross strength 5/5 distal lower extremities. NEURO: No focal or lateralizing signs. Cranial nerves 2 through 12 grossly within normal limits. PSYCH: Appropriate affect. Alert and oriented to person, place and time. SKIN: Has panniculitis. Good skin turgor. LABS: White blood cell count is elevated. Hemoglobin A1c 7.7%. Vitamin D low at 10.4. PATHOLOGY: H. pylori gastritis. ASSESSMENT: 1. Morbid obesity due to excess calories. 2. Body mass index of 60.9. 3. H. pylori gastritis. 4. Family history of morbid obesity. 5. Diabetes type 2, insulin dependent. 6. Asthma. 7. Vitamin D deficiency. 8. Osteoarthritis of the lower back. 9. Osteoarthritis of the bilateral knees. 10. Obstructive sleep apnea. 11. Seasonal ALLERGIES. 12. Obstructive sleep apnea. 13. Hypothyroidism. 14. Hypertensive heart disease. 15. Leukocytosis. 16. Hypertriglyceridemia. 17. Vitamin D deficiency. PLAN: 1. She has had incomplete treatment of H. pylori gastritis secondary to difficulty of coverage of her antibiotics due to insurance. 2. Recommend repeat testing for H. pylori. She still reports epigastric abdominal pain and we'll proceed with a repeat upper endoscopy. 3. Recommend reeducation regarding gastrectomy diets including with a history of diabetes. 4. At this time, patient demonstrates difficulty with understanding the bariatric process including diet. She will need additional time to understand her procedure prior to surgery. 5. She is seeking the gastric bypass and is currently on hold pending repeat upper endoscopy including repeat dietary classes for both diabetes and gastrectomy diets.
== END | disposition home or self-care (01) ==
LOC: BARWHC3 15:09
PROVIDERS: ATTEND Surgery Plastic and Reconstructive Surgery
DX: Z48.815 Encounter for surgical aftercare following surgery on the digestive system (principal); E66.01 Morbid (severe) obesity due to excess calories; Z68.44 Body mass index [BMI] 60.0-69.9, adult; K29.70 Gastritis, unspecified, without bleeding; B96.81 Helicobacter pylori [H. pylori] as the cause of diseases classified elsewhere; E11.9 Type 2 diabetes mellitus without complications; J45.909 Unspecified asthma, uncomplicated; E55.9 Vitamin D deficiency, unspecified; M16.0 Bilateral primary osteoarthritis of hip; M47.816 Spondylosis without myelopathy or radiculopathy, lumbar region; M17.0 Bilateral primary osteoarthritis of knee; G47.33 Obstructive sleep apnea (adult) (pediatric); E03.9 Hypothyroidism, unspecified; I11.9 Hypertensive heart disease without heart failure; D72.829 Elevated white blood cell count, unspecified; E78.1 Pure hyperglyceridemia; Z79.4 Long term (current) use of insulin; Z88.5 Allergy status to narcotic agent; Z88.6 Allergy status to analgesic agent; Z79.899 Other long term (current) drug therapy; Z79.51 Long term (current) use of inhaled steroids; Z98.84 Bariatric surgery status
CPT/HCPCS: 99211

== ENCOUNTER → 2017-09-15 | Outpatient (CLI) | payer MEDICARE, OTHER ==
[2017-09-15 13:50] VITALS: BP 135/61; PULSE 85; RESP 16; TEMP 98.9; BMI 59.4
--- NOTE | 2017-11-13 22:58 | P.PN ---
Subjective Progress Note Date: 09/15/17 DATE OF SERVICE: 09/15/2017 CHIEF COMPLAINT: Bariatric assessment. HISTORY OF PRESENT ILLNESS: The patient is a 52-year-old female who presents with diabetes, sleep apnea, hypertension as a result of her obesity. She has been undergoing the bariatric program. She denies any abdominal pain. She is evaluating for the gastric bypass. At her height of 5 foot 6.5, her ideal body weight is 154 pounds. Today she comes in weighing 373 pounds. Her weight is stable in the last 2 months. Her highest weight is 385 pounds. She is 219 pounds overweight. Her body mass index is reduced from 61.3 down to 59.5. PAST MEDICAL HISTORY: 1. Diabetes type 2, insulin dependent. 2. Asthma. 3. Morbid obesity. 4. Osteoarthritis of the bilateral hips. 5. Osteoarthritis of the bilateral knees. 6. Seasonal ALLERGIES. 7. Obstructive sleep apnea. 8. Osteoarthritis of the lower back. 9. Hypothyroidism. 10. H. pylori gastritis. 11. Congestive heart failure. PAST SURGICAL HISTORY: 1. Upper endoscopy. 2. . 3. Tubal ligation. 4. Uterine ablation. 5. Postoperative nausea and vomiting. HOME MEDICATIONS: 1. Metformin. 2. Lamotrigine. 3. Glipizide. 4. Zocor. 5. Omeprazole. 6. Synthroid. 7. Lantus. 8. Advair. 9. Lexapro. 10. Vitamin D 11. Vasotec. 12. Amoxicillin 13. Albuterol 14. Abilify. 15. Lasix. ALLERGIES: 1. Hydrocodone 2. Naproxen. SOCIAL HISTORY: No active tobacco use. She uses a walker for mobility. FAMILY HISTORY: Denies any DVTs, pulmonary embolisms in her family. Denies any ulcerative colitis disease or Crohn's. She does have a family history of morbid obesity. Daughter with easy bruising. She reports a family history of gallbladder disease in her mother. She also has a family history of morbid obesity. REVIEW OF ORGAN SYSTEMS: CONSTITUTIONAL: At her height of 5 foot 6.5, her ideal body weight is 154 pounds. Today she comes in weighing 373 pounds. Her highest weight is 385 pounds. She is 219 pounds overweight. Her body mass index is reduced from 61.3 down to 59.5. HEENT: Denies any active troubles with vision or hearing. ENDOCRINE: Has diabetes and hypothyroidism. CARDIOVASCULAR: No reports of palpitations or heart attacks or chest pain. RESPIRATORY: Has sleep apnea. Has asthma. History of COPD exacerbation. GI: Denies any bright red blood per rectum, diarrhea or constipation. Has intermittent heartburn. Has H. pylori gastritis now resolved. MUSCULOSKELETAL: Has osteoarthritis of the knees and lower back. NEURO: No reports of headaches or seizure disorders. PSYCH: Has depression without suicidal ideation. Has anxiety. HEMATOLOGIC: Denies any abnormal bleeding or bruising. SKIN: Has panniculitis. No recent skin cancer. PHYSICAL EXAM: VITAL SIGNS: Height 5 foot 6.5 inches. Weight 373 pounds. BMI 59.5. Vital Signs Temp 98.9 F 09/15/17 13:47 Pulse 85 09/15/17 13:47 Resp 16 09/15/17 13:47 BP 135/61 09/15/17 13:47 Pulse Ox GENERAL: Well-developed female in no acute distress. HEENT: No scleral icterus. Extraocular was grossly intact. No nasal drainage. NECK: Supple without lymphadenopathy. CHEST: Nonlabored respirations with equal bilateral excursions. CARDIOVASCULAR: Regular rate. Distal 2+ pulses. ABDOMEN: Obese, soft, nontender, nondistended. MUSCULOSKELETAL: No clubbing, cyanosis, or edema. Gross strength 5/5 distal lower extremities. NEURO: No focal or lateralizing signs. Cranial nerves 2 through 12 grossly within normal limits. PSYCH: Appropriate affect. Alert and oriented to person, place and time. SKIN: Has panniculitis. Good skin turgor. ASSESSMENT: 1. Morbid obesity due to excess calories. 2. Body mass index of 61.3 down to 59.5. 3. Congestive heart failure. 4. Diabetes type 2, insulin dependent. 5. Osteoarthritis of the lower back. 6. Osteoarthritis of the bilateral knees. 7. Obstructive sleep apnea, severe. 8. Seasonal ALLERGIES. 9. Chronic obstructive pulmonary disease. 10. Hypothyroidism. 11. Hypertensive heart disease. 12. Hypertriglyceridemia. PLAN: 1. Bariatric options between a sleeve and a Diandra-en-Y gastric bypass were reviewed in detail. She elected for a Diandra-en-Y gastric bypass. 2. The [place] [facility] Data was also reviewed with benefits and risks as described. 3. An 8 page second-generation bariatric consent form was reviewed in detail including potential of bleeding, infection, leaks, adequate weight loss, nutritional deficiencies which she demonstrated understanding of the risks. 4. Recommend 2 week high-protein low caloric 800 kcal diet to address hepatomegaly. 5. Preoperative labs including comprehensive metabolic panel and CBC with type and screen. 6. DVT prophylaxis per [place] [facility]. 7. Antibiotic prophylaxis. 8. Inpatient hospitalization anticipated for more than 2 nights. 9. All questions and concerns were addressed with the patient. 10. Recommend diet classes. Objective - Vital Signs Vital signs: Vital Signs Temp 98.9 F 09/15/17 13:47 Pulse 85 09/15/17 13:47 Resp 16 09/15/17 13:47 BP 135/61 09/15/17 13:47 Pulse Ox
== END | disposition home or self-care (01) ==
LOC: BARWHC3 13:20
PROVIDERS: ATTEND Surgery Plastic and Reconstructive Surgery
DX: Z48.815 Encounter for surgical aftercare following surgery on the digestive system (principal); E66.01 Morbid (severe) obesity due to excess calories; Z68.43 Body mass index [BMI] 50.0-59.9, adult; I50.9 Heart failure, unspecified; E11.9 Type 2 diabetes mellitus without complications; Z79.4 Long term (current) use of insulin; M47.816 Spondylosis without myelopathy or radiculopathy, lumbar region; M17.0 Bilateral primary osteoarthritis of knee; G47.33 Obstructive sleep apnea (adult) (pediatric); J30.2 Other seasonal allergic rhinitis; J44.9 Chronic obstructive pulmonary disease, unspecified; E03.9 Hypothyroidism, unspecified; I11.9 Hypertensive heart disease without heart failure; E78.1 Pure hyperglyceridemia; Z79.899 Other long term (current) drug therapy; Z79.51 Long term (current) use of inhaled steroids; Z88.5 Allergy status to narcotic agent; Z88.6 Allergy status to analgesic agent; Z98.890 Other specified postprocedural states
CPT/HCPCS: 99211

== ENCOUNTER → 2017-09-20 | Outpatient (CLI) | payer MEDICARE, OTHER ==
[2017-09-20 10:34] LABS: Basophils % (A) 0 %; CH 29.6; CHCM 32.2; Eosinophils # (A) 0.2 k/uL (0-0.7); Eosinophils % (A) 2 %; HCT 41.8 % (34.0-46.0); HGB 13.2 gm/dL (11.4-16.0); Luc # (Auto) 0.39; Luc % (Auto) 4; Lymphocytes # (A) 2.4 k/uL (1.0-4.8); Lymphocytes % (A) 23 %; MCH 29.2 pg (25.0-35.0); MCHC 31.6 g/dL (31.0-37.0); MCV 92.3 fL (80.0-100.0); Mean Platelet Volume 7.1; Monocytes # (A) 0.6 k/uL (0-1.0); Monocytes % (A) 5 %; Neutrophils # (A) 6.9 k/uL (1.3-7.7); Neutrophils % (A) 66 %; RBC 4.53 m/uL (3.80-5.40); RDW 14.2 % (11.5-15.5); WBC 10.5 k/uL (3.8-10.6); WBC (Perox) 10.57
[2017-09-20 11:06] LABS: ALT 50 U/L (9-52); AST 43 U/L (14-36); Alkaline Phosphatase 79 U/L (38-126); Anion Gap 10 mmol/L; Blood Urea Nitrogen 20 mg/dL (7-17); Calcium 9.8 mg/dL (8.4-10.2); Carbon Dioxide 30 mmol/L (22-30); Chloride 99 mmol/L (98-107); Glucose 147 mg/dL (74-99); Non-African American GFR(MDRD) 60 (>60 ml/min/1.73 sqM); Potassium 4.7 mmol/L (3.5-5.1); Sodium 139 mmol/L (137-145); Total Bilirubin 0.4 mg/dL (0.2-1.3); Total Protein 6.8 g/dL (6.3-8.2)
== END | disposition home or self-care (01) ==
LOC: LABPAT 09:55
PROVIDERS: ATTEND Surgery Plastic and Reconstructive Surgery
DX: Z01.810 Encounter for preprocedural cardiovascular examination (principal)
CPT/HCPCS: 36415; 80053; 85025

== ENCOUNTER → 2017-09-28 | Outpatient (CLI) | payer MEDICARE, OTHER | END | disposition home or self-care (01) | LOC: LABWHC1 16:51 | PROVIDERS: ATTEND Surgery Plastic and Reconstructive Surgery | DX: Z01.810 Encounter for preprocedural cardiovascular examination (principal) | CPT/HCPCS: 86850; 86900; 86901; 93005 ==

== ENCOUNTER → 2017-09-30 | Day surgery (SDC) | payer MEDICARE, OTHER ==
[2017-09-28 15:33] VITALS: BMI 57.9
[~2017-09-30] MED LIST changes: +CHLORHEXIDINE GLUCONATE 15 ML CUP MUCOUS MEM ONE; +ENOXAPARIN 40 MG/0.4 ML SYRINGE SQ STA; +HYDROmorphone 0.5 MG/0.5 ML SYRINGE IVP PRN; -LACTATED RINGERS 1,000 ML IV SCH; +PANTOPRAZOLE 40 MG/10 ML VIAL IV STA; -SCOPOLAMINE 1.5MG/72HR PATCH TRANSDERM ONE; +SCOPOLAMINE 1.5MG/72HR PATCH TRANSDERM STA; +ceFAZolin 3 GM in SODIUM CHLORIDE 0.9% 100 ML IVPB ONE; -fentaNYL (PF) 50 MCG/ML 2 ML AMP IV PRN
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
[2017-09-30 10:51] VITALS: PULSE 83; RESP 16; TEMP 97.7
[2017-09-30] MEDS: LACTATED RINGERS 1,000 ML IV SCH (10:58)
[2017-09-30 11:06] LABS: Glucose,Whole Blood 182 mg/dL (75-99)
[2017-09-30 13:36] VITALS: BP 120/60
--- NOTE | 2017-09-30 16:45 | P.PN ---
Progress Note - Text Progress Note Date: 09/30/17 Secondary to moderate delay from previous case, case has now been rescheduled to tomorrow. All questions and answers have been discussed with the patient. Patient has been discharged home for surgery tomorrow.
== END ==
LOC: ORWHC2ENDO 10:11 → UNDOADMIN 10:11 → 2ORWHC 10:11 → EDSTATUS 13:55 → UNDODISIN 15:55
PROVIDERS: ATTEND Surgery Plastic and Reconstructive Surgery
DX: E66.01 Morbid (severe) obesity due to excess calories (principal); Z53.8 Procedure and treatment not carried out for other reasons; I11.0 Hypertensive heart disease with heart failure; I50.9 Heart failure, unspecified; E55.9 Vitamin D deficiency, unspecified; E03.9 Hypothyroidism, unspecified; E11.9 Type 2 diabetes mellitus without complications; E78.1 Pure hyperglyceridemia; G47.33 Obstructive sleep apnea (adult) (pediatric); J44.9 Chronic obstructive pulmonary disease, unspecified; K21.9 Gastro-esophageal reflux disease without esophagitis; M16.0 Bilateral primary osteoarthritis of hip; M17.0 Bilateral primary osteoarthritis of knee; M47.9 Spondylosis, unspecified; Z68.43 Body mass index [BMI] 50.0-59.9, adult; Z79.4 Long term (current) use of insulin; Z79.899 Other long term (current) drug therapy; Z83.3 Family history of diabetes mellitus; Z87.891 Personal history of nicotine dependence; Z98.84 Bariatric surgery status; Z88.5 Allergy status to narcotic agent; Z88.8 Allergy status to other drugs, medicaments and biological substances
CPT/HCPCS: 86900; 86901; 86850; 93005; J1100; J2405; J1650; C9113

== ENCOUNTER → 2017-10-06 | Outpatient (CLI) | payer MEDICARE, OTHER ==
[2017-10-06 16:40] VITALS: BMI 57.9
[2017-10-06 16:57] VITALS: BP 128/57; PULSE 82; RESP 16; TEMP 98.3
--- NOTE | 2017-11-20 22:21 | P.PN ---
Subjective Progress Note Date: 10/06/17 DATE OF SERVICE: 10/06/2017 CHIEF COMPLAINT: Follow gastric bypass HISTORY OF PRESENT ILLNESS: Arielle Calabrese is a 52-year-old female who is status post robotic-assisted gastric bypass 10/01/2017. She is now postoperative day 5. She has discontinued her insulin and diabetic medications. She is tolerating diet. GAL drain with moderate serous drainage. She is passing flatus. She is pending bowel movement. Pain is controlled. At her height of 5 foot 6.5, her ideal body weight is 154 pounds. Today she comes in weighing 363 pounds. She has lost 10 pounds in 3 weeks. Her highest weight is 385 pounds. Her body mass index is reduced from 61.3 down to 57.9. PHYSICAL EXAM: VITAL SIGNS: Height 5 foot 6.5 inches. Weight 363 pounds. BMI 57.9. Vital Signs Temp 98.3 F 10/06/17 16:51 Pulse 82 10/06/17 16:51 Resp 16 10/06/17 16:51 BP 128/57 10/06/17 16:51 Pulse Ox GENERAL: Well-developed female in no acute distress. HEENT: No scleral icterus. Extraocular was grossly intact. No nasal drainage. NECK: Supple without lymphadenopathy. CHEST: Nonlabored respirations with equal bilateral excursions. CARDIOVASCULAR: Regular rate. Distal 2+ pulses. ABDOMEN: Obese, soft, nontender, mild distention. GAL serosanguineous. No signs of infection. Dressing discontinued. MUSCULOSKELETAL: No clubbing, cyanosis, or edema. Gross strength 5/5 distal lower extremities. NEURO: No focal or lateralizing signs. Cranial nerves 2 through 12 grossly within normal limits. PSYCH: Appropriate affect. Alert and oriented to person, place and time. SKIN: Has panniculitis. Good skin turgor. ASSESSMENT: 1. Morbid obesity due to excess calories. 2. Body mass index of 61.3 down to 57.9 3. Congestive heart failure. 4. Diabetes type 2, insulin dependent. 5. Osteoarthritis of the lower back. 6. Osteoarthritis of the bilateral knees. 7. Obstructive sleep apnea, severe. 8. Seasonal ALLERGIES. 9. Chronic obstructive pulmonary disease. 10. Hypothyroidism. 11. Hypertensive heart disease. 12. Hypertriglyceridemia. 13. Status post gastric bypass. PLAN: 1. Continue GAL drain. 2. Milk of magnesia for constipation. 3. Follow-up in 1 week. 4. Continue checking blood sugars. Objective - Vital Signs Vital signs: Vital Signs Temp 98.3 F 10/06/17 16:51 Pulse 82 10/06/17 16:51 Resp 16 10/06/17 16:51 BP 128/57 10/06/17 16:51 Pulse Ox Intake & Output 10/05/17 10/06/17 10/06/17 18:59 06:59 18:59 Weight 165.198 kg
== END | disposition home or self-care (01) ==
LOC: BARWHC3 15:53
PROVIDERS: ATTEND Surgery Plastic and Reconstructive Surgery
DX: Z48.89 Encounter for other specified surgical aftercare (principal); E66.01 Morbid (severe) obesity due to excess calories; I11.0 Hypertensive heart disease with heart failure; I50.9 Heart failure, unspecified; E11.9 Type 2 diabetes mellitus without complications; K59.00 Constipation, unspecified; M17.0 Bilateral primary osteoarthritis of knee; M47.9 Spondylosis, unspecified; G47.33 Obstructive sleep apnea (adult) (pediatric); J30.2 Other seasonal allergic rhinitis; J44.9 Chronic obstructive pulmonary disease, unspecified; E03.9 Hypothyroidism, unspecified; E78.1 Pure hyperglyceridemia; Z98.890 Other specified postprocedural states; Z98.84 Bariatric surgery status; Z79.4 Long term (current) use of insulin; Z68.43 Body mass index [BMI] 50.0-59.9, adult
CPT/HCPCS: 97803; G0463; 99211

== ENCOUNTER → 2017-10-14 | Outpatient (CLI) | payer MEDICARE, OTHER ==
[2017-10-14 11:16] VITALS: BMI 56.6
[2017-10-14 11:32] VITALS: BP 154/83; PULSE 86; RESP 16; TEMP 98.2
--- NOTE | 2017-11-30 06:01 | P.PN ---
Subjective Progress Note Date: 10/14/17 DATE OF SERVICE: 10/14/2017 CHIEF COMPLAINT: Follow gastric bypass HISTORY OF PRESENT ILLNESS: Arielle Calabrese is a 52-year-old female who is status post robotic-assisted gastric bypass 10/01/2017. She is now 2 weeks out. She went to the ER less than 5 days ago as her GAL drain fell off. No reports of nausea or vomiting. No reports of abdominal pain. She is tolerating her liquids. No reports of fevers or chills. Her blood sugar is improving. She is off all diabetic medications. At her height of 5 foot 6.5, her ideal body weight is 154 pounds. Today she comes in weighing 355 pounds. She has lost 8 pounds in 1 week. Her highest weight is 385 pounds. Total weight loss of 30 pounds. Her body mass index is reduced from 61.3 down to 56.6. PHYSICAL EXAM: VITAL SIGNS: Height 5 foot 6.5 inches. Weight 355 pounds. BMI 56.6 Vital Signs Temp 98.2 F 10/14/17 11:29 Pulse 86 10/14/17 11:29 Resp 16 10/14/17 11:29 BP 154/83 10/14/17 11:29 Pulse Ox GENERAL: Well-developed female in no acute distress. HEENT: No scleral icterus. Extraocular was grossly intact. No nasal drainage. NECK: Supple without lymphadenopathy. CHEST: Nonlabored respirations with equal bilateral excursions. CARDIOVASCULAR: Regular rate. Distal 2+ pulses. ABDOMEN: Obese, soft, nontender, mild distention. GAL serosanguineous. No signs of infection. GAL drain discontinued at bedside. MUSCULOSKELETAL: No clubbing, cyanosis, or edema. Gross strength 5/5 distal lower extremities. NEURO: No focal or lateralizing signs. Cranial nerves 2 through 12 grossly within normal limits. PSYCH: Appropriate affect. Alert and oriented to person, place and time. ASSESSMENT: 1. Morbid obesity due to excess calories. 2. Body mass index of 61.3 down to 56.6 3. Congestive heart failure. 4. Diabetes type 2, insulin dependent. 5. Osteoarthritis of the lower back. 6. Osteoarthritis of the bilateral knees. 7. Obstructive sleep apnea, severe. 8. Seasonal ALLERGIES. 9. Chronic obstructive pulmonary disease. 10. Hypothyroidism. 11. Hypertensive heart disease. 12. Hypertriglyceridemia. 13. Status post gastric bypass. PLAN: 1. Her GAL drain has been discontinued. 2. Her constipation has also resolved. 3. She is high risk for presentation to the ER including readmission and recommend follow-up in 1 week. Objective - Vital Signs Vital signs: Intake & Output 10/13/17 10/14/17 10/14/17 18:59 06:59 18:59 Weight 161.479 kg
== END | disposition home or self-care (01) ==
LOC: BARWHC3 10:12
PROVIDERS: ATTEND Surgery Plastic and Reconstructive Surgery
DX: Z48.815 Encounter for surgical aftercare following surgery on the digestive system (principal); E66.01 Morbid (severe) obesity due to excess calories; I50.9 Heart failure, unspecified; E11.9 Type 2 diabetes mellitus without complications; M47.816 Spondylosis without myelopathy or radiculopathy, lumbar region; M17.0 Bilateral primary osteoarthritis of knee; G47.33 Obstructive sleep apnea (adult) (pediatric); J30.2 Other seasonal allergic rhinitis; J44.9 Chronic obstructive pulmonary disease, unspecified; E03.9 Hypothyroidism, unspecified; I11.9 Hypertensive heart disease without heart failure; E78.1 Pure hyperglyceridemia; Z68.43 Body mass index [BMI] 50.0-59.9, adult; Z79.4 Long term (current) use of insulin; Z98.84 Bariatric surgery status
CPT/HCPCS: 97803; G0463; 99211

== ENCOUNTER → 2017-10-20 | Outpatient (CLI) | payer MEDICARE, OTHER ==
[2017-10-21 11:32] VITALS: BP 174/82; PULSE 68; RESP 16; TEMP 98.4; BMI 55.9
--- NOTE | 2017-12-01 04:50 | P.PN ---
Subjective Progress Note Date: 10/20/17 DATE OF SERVICE: 10/20/2017 CHIEF COMPLAINT: Follow gastric bypass HISTORY OF PRESENT ILLNESS: Arielle Calabrese is a 52-year-old female who is status post robotic-assisted gastric bypass 10/01/2017. She is now 3 weeks out. Over the last week, she had troubles with hypoglycemic events with blood sugar is less than 50. Her diet has been adjusted. Overall she is feeling much better. No reports of nausea and vomiting. No reports of abdominal pain. She has been discontinued off her diabetic medications. At her height of 5 foot 6.5, her ideal body weight is 154 pounds. Today she comes in weighing 351 pounds. She has lost 4 pounds since her last visit 1 week ago. Her highest weight is 385 pounds. Total weight loss of 34 pounds, left.. Percent excess weight loss is 15% lifetime. Her body mass index is reduced from 61.3 down to 56.0. PHYSICAL EXAM: VITAL SIGNS: Height 5 foot 6.5 inches. Weight 351 pounds. BMI 56.0 Vital Signs Temp 98.4 F 10/20/17 15:00 Pulse 68 10/20/17 15:00 Resp 16 10/20/17 15:00 BP 174/82 10/20/17 15:00 Pulse Ox GENERAL: Well-developed female in no acute distress. HEENT: No scleral icterus. Extraocular was grossly intact. No nasal drainage. NECK: Supple without lymphadenopathy. CHEST: Nonlabored respirations with equal bilateral excursions. CARDIOVASCULAR: Regular rate. Distal 2+ pulses. ABDOMEN: Obese, soft, nontender, nondistended. No signs of infection. MUSCULOSKELETAL: No clubbing, cyanosis, or edema. Gross strength 5/5 distal lower extremities. NEURO: No focal or lateralizing signs. Cranial nerves 2 through 12 grossly within normal limits. PSYCH: Appropriate affect. Alert and oriented to person, place and time. ASSESSMENT: 1. Morbid obesity due to excess calories. 2. Body mass index of 61.3 down to 56.0. 3. Congestive heart failure, improved. 4. Diabetes type 2, insulin dependent, improved. 5. Osteoarthritis of the lower back, improved. 6. Osteoarthritis of the bilateral knees, improved. 7. Obstructive sleep apnea, severe, improved. 8. Seasonal ALLERGIES. 9. Chronic obstructive pulmonary disease. 10. Hypothyroidism. 11. Hypertensive heart disease. 12. Hypertriglyceridemia. 13. Status post gastric bypass. PLAN: 1. All dressings were discontinued. 2. She is eager to start exercising. 3. Dietitian consultation advised with patient's hypoglycemic events. Patient reports eating high carbohydrate foods which is now curtailed. 4. Follow-up in 2 weeks.
== END | disposition home or self-care (01) ==
LOC: BARWHC3 15:36
PROVIDERS: ATTEND Surgery Plastic and Reconstructive Surgery
DX: Z48.815 Encounter for surgical aftercare following surgery on the digestive system (principal); E16.1 Other hypoglycemia; E66.01 Morbid (severe) obesity due to excess calories; I11.0 Hypertensive heart disease with heart failure; I50.9 Heart failure, unspecified; E11.9 Type 2 diabetes mellitus without complications; E03.9 Hypothyroidism, unspecified; M47.9 Spondylosis, unspecified; M17.0 Bilateral primary osteoarthritis of knee; G47.33 Obstructive sleep apnea (adult) (pediatric); J30.2 Other seasonal allergic rhinitis; J44.9 Chronic obstructive pulmonary disease, unspecified; E78.1 Pure hyperglyceridemia; Z98.84 Bariatric surgery status; Z79.4 Long term (current) use of insulin; Z68.43 Body mass index [BMI] 50.0-59.9, adult
CPT/HCPCS: 99211

== ENCOUNTER → 2017-11-05 | Outpatient (CLI) | payer MEDICARE, OTHER ==
[2017-11-05 10:29] VITALS: BP 128/88; PULSE 76; TEMP 97.8
[2017-11-05 11:07] VITALS: BMI 52.0
[2017-11-05 11:46] LABS: HCT 46.6 % (34.0-46.0); HGB 13.5 gm/dL (11.4-16.0); Hypochromasia Moderate; MCH 26.9 pg (25.0-35.0); MCV 92.8 fL (80.0-100.0); Mean Platelet Volume 8.1; Platelet Count 381 k/uL (150-450); RBC 5.02 m/uL (3.80-5.40); RDW 15.9 % (11.5-15.5); WBC 9.6 k/uL (3.8-10.6)
[2017-11-05 11:56] LABS: ALT 81 U/L (9-52); AST 67 U/L (14-36); Albumin 4.4 g/dL (3.5-5.0); Alkaline Phosphatase 108 U/L (38-126); Anion Gap 13 mmol/L; Blood Urea Nitrogen 11 mg/dL (7-17); Calcium 9.9 mg/dL (8.4-10.2); Carbon Dioxide 31 mmol/L (22-30); Chloride 98 mmol/L (98-107); Cholesterol 184 mg/dL (<200); Glucose 178 mg/dL (74-99); HDL Cholesterol 51 mg/dL (40-60); LDL Cholesterol,Calculated 106 mg/dL (0-99); Magnesium 1.6 mg/dL (1.6-2.3); Phosphorus 3.9 mg/dL (2.5-4.5); Potassium 4.1 mmol/L (3.5-5.1); Sodium 142 mmol/L (137-145); Total Protein 7.6 g/dL (6.3-8.2); Triglycerides 135 mg/dL (<150)
[2017-11-05 11:58] LABS: Partial Thromboplastin Time 23.6 sec (22.0-30.0); Prothrombin Time 10.2 sec (9.0-12.0)
[2017-11-05 15:55] LABS: Iron Saturation 15.67 (12.00-45.00)
[2017-11-05 16:22] LABS: Parathyroid Hormone Intact 98.6 pg/mL (14.0-72.0)
[2017-11-05 18:52] LABS: Hemoglobin A1C 7.9 % (4.0-6.0)
[2017-11-09 05:27] LABS: Vitamin A 46 ug/dL (38-106)
[2017-11-09 05:37] LABS: Zinc, Serum 88 ug/dL (60-130)
[2017-11-09 07:12] LABS: Vitamin B1 67 ug/L (38-122)
[2017-11-09 14:29] LABS: Selenium 124 mcg/L (63-160)
--- NOTE | 2017-12-01 22:52 | P.PN ---
Subjective Progress Note Date: 11/05/17 DATE OF SERVICE: 11/05/2017 CHIEF COMPLAINT: Follow gastric bypass HISTORY OF PRESENT ILLNESS: Arielle Calabrese is a 52-year-old female who is status post robotic-assisted gastric bypass 10/01/2017. She is now 1 month out. She reports that her blood sugars are under control. She is tolerating diet. No reports of fevers or chills. No reports of nausea or vomiting. At her height of 5 foot 6.5, her ideal body weight is 154 pounds. Today she comes in weighing 326 pounds. She has lost 25 pounds since her last visit 2 weeks ago. Her highest weight is 385 pounds. Total weight loss of 59 pounds, lifetime. Percent excess weight loss is 25% lifetime. Her body mass index is reduced from 61.3 down to 52.0. PHYSICAL EXAM: VITAL SIGNS: Height 5 foot 6.5 inches. Weight 326 pounds. BMI 52.0 Vital Signs Temp 97.8 F 11/05/17 10:22 Pulse 76 11/05/17 10:22 Resp BP 128/88 11/05/17 10:22 Pulse Ox GENERAL: Well-developed and in no acute distress. HEENT: No scleral icterus. Extraocular was grossly intact. No nasal drainage. NECK: Supple without lymphadenopathy. CHEST: Nonlabored respirations with equal bilateral excursions. CARDIOVASCULAR: Regular rate. Distal 2+ pulses. ABDOMEN: Obese, soft, nontender, nondistended. All wounds completely granulated. No signs of infection. MUSCULOSKELETAL: No clubbing, cyanosis, or edema. Gross strength 5/5 distal lower extremities. NEURO: No focal or lateralizing signs. Cranial nerves 2 through 12 grossly within normal limits. PSYCH: Appropriate affect. Alert and oriented to person, place and time. ASSESSMENT: 1. Morbid obesity due to excess calories. 2. Body mass index of 61.3 down to 52.0. 3. Congestive heart failure, improved. 4. Diabetes type 2, insulin dependent, improved. 5. Osteoarthritis of the lower back, improved. 6. Osteoarthritis of the bilateral knees, improved. 7. Obstructive sleep apnea, severe, improved. 8. Seasonal ALLERGIES. 9. Chronic obstructive pulmonary disease. 10. Hypothyroidism. 11. Hypertensive heart disease. 12. Hypertriglyceridemia. 13. Status post gastric bypass. PLAN: 1. Overall, she is doing well. 2. Recommend bariatric lab panel. 3. Recommend evaluation with dietitian. 4. Follow-up in 2-3 weeks. LABS: Laboratory Last Values WBC 9.6 k/uL (3.8-10.6) 11/05/17 11:18 RBC 5.02 m/uL (3.80-5.40) 11/05/17 11:18 Hgb 13.5 gm/dL (11.4-16.0) 11/05/17 11:18 Hct 46.6 % (34.0-46.0) H 11/05/17 11:18 MCV 92.8 fL (80.0-100.0) 11/05/17 11:18 MCH 26.9 pg (25.0-35.0) 11/05/17 11:18 MCHC 29.0 g/dL (31.0-37.0) L 11/05/17 11:18 RDW 15.9 % (11.5-15.5) H 11/05/17 11:18 Plt Count 381 k/uL (150-450) 11/05/17 11:18 Hypochromasia Moderate 11/05/17 11:18 PT 10.2 sec (9.0-12.0) 11/05/17 11:18 INR 1.0 (<1.2) 11/05/17 11:18 APTT 23.6 sec (22.0-30.0) 11/05/17 11:18 Sodium 142 mmol/L (137-145) 11/05/17 11:18 Potassium 4.1 mmol/L (3.5-5.1) 11/05/17 11:18 Chloride 98 mmol/L (98-107) 11/05/17 11:18 Carbon Dioxide 31 mmol/L (22-30) H 11/05/17 11:18 Anion Gap 13 mmol/L 11/05/17 11:18 BUN 11 mg/dL (7-17) 11/05/17 11:18 Creatinine 0.90 mg/dL (0.52-1.04) 11/05/17 11:18 Est GFR (MDRD) Af Amer >60 (>60 ml/min/1.73 sqM) 11/05/17 11:18 Est GFR (MDRD) Non-Af >60 (>60 ml/min/1.73 sqM) 11/05/17 11:18 Glucose 178 mg/dL (74-99) H 11/05/17 11:[address] Glu mg/dL 180 11/05/17 11:18 Hemoglobin A1c 7.9 % (4.0-6.0) H 11/05/17 11:18 Calcium 9.9 mg/dL (8.4-10.2) 11/05/17 11:18 Phosphorus 3.9 mg/dL (2.5-4.5) 11/05/17 11:18 Magnesium 1.6 mg/dL (1.6-2.3) 11/05/17 11:18 Iron 55 ug/dL (50-170) 11/05/17 11:18 TIBC 351 ug/dL (228-460) 11/05/17 11:18 Iron Saturation 15.67 (12.00-45.00) 11/05/17 11:18 Ferritin 63.1 ng/mL (10.0-291.0) 11/05/17 11:18 Total Bilirubin 1.0 mg/dL (0.2-1.3) 11/05/17 11:18 AST 67 U/L (14-36) H 11/05/17 11:18 ALT 81 U/L (9-52) H 11/05/17 11:18 Alkaline Phosphatase 108 U/L (38-126) 11/05/17 11:18 Total Protein 7.6 g/dL (6.3-8.2) 11/05/17 11:18 Albumin 4.4 g/dL (3.5-5.0) 11/05/17 11:18 Prealbumin 20.0 mg/dL (18.0-42.0) 11/05/17 11:18 Triglycerides 135 mg/dL (<150) 11/05/17 11:18 Cholesterol 184 mg/dL (<200) 11/05/17 11:18 LDL Cholesterol, Calc 106 mg/dL (0-99) H 11/05/17 11:18 HDL Cholesterol 51 mg/dL (40-60) 11/05/17 11:18 Vitamin A 46 ug/dL (38-106) 11/05/17 11:18 Vitamin B1 67 ug/L (38-122) 11/05/17 11:18 Vitamin B12 1389.0 pg/mL (200.0-944.0) H 11/05/17 11:18 Vitamin D 25-Hydroxy 34.0 ng/mL (30.0-100.0) 11/05/17 11:18 Folate 12.0 ng/mL 11/05/17 11:18 TSH 2.430 mIU/L (0.465-4.680) 11/05/17 11:18 PTH Intact 98.6 pg/mL (14.0-72.0) H 11/05/17 11:18 Copper 1611 ug/L (810-1990) 11/05/17 11:18 Selenium 124 mcg/L (63-160) 11/05/17: Zinc 88 ug/dL (60-130) 11/05/17 11:18 Parathyroid hormone elevated, vitamin B12 elevated, LDL elevated, hemoglobin A1c down from 8.8 to 7.9% Findings consistent with secondary hyperparathyroidism. Recommend increase calcium intake. Objective - Vital Signs Vital signs: Vital Signs Temp 97.8 F 11/05/17 10:22 Pulse 76 11/05/17 10:22 Resp BP 128/88 11/05/17 10:22 Pulse Ox Intake & Output 11/04/17 11/05/17 11/05/17 18:59 06:59 18:59 Weight 148.279 kg - Labs CBC & Chem 7: 11/05/17 11:18 11/05/17 11:18 Labs: Abnormal Lab Results - Last 24 Hours (Table) 11/05/17 Range/Units 11:18 Hct 46.6 H (34.0-46.0) % MCHC 29.0 L (31.0-37.0) g/dL RDW 15.9 H (11.5-15.5) %
== END | disposition home or self-care (01) ==
LOC: BARWHC3 09:41
PROVIDERS: ATTEND Surgery Plastic and Reconstructive Surgery
DX: E66.01 Morbid (severe) obesity due to excess calories (principal); E21.1 Secondary hyperparathyroidism, not elsewhere classified; D50.9 Iron deficiency anemia, unspecified; K90.9 Intestinal malabsorption, unspecified; E55.9 Vitamin D deficiency, unspecified; K74.1 Hepatic sclerosis; N19 Unspecified kidney failure; K50.90 Crohn's disease, unspecified, without complications
CPT/HCPCS: 84255; 84134; 84425; 80061; 80053; 82607; 82728; 82525; 82746; 83540; 83550; 83735; 84100; 84443; 84590; 84630; 85027; 85610; 85730; 82306; 83970; 83036; 97803; G0463; 99211

== ENCOUNTER 2018-01-27 20:33 | Emergency (ER) | payer MEDICARE, OTHER ==
[2018-01-27] MEDS ORDERED: SODIUM CHLORIDE 0.9% 1,000 ML IV STA (21:24)
[2018-01-27] MEDS ORDERED: MECLIZINE 12.5 MG TAB PO STA (21:25)
[2018-01-27] MEDS ORDERED: METOCLOPRAMIDE 5 MG/ML 2 ML VIAL IVP STA (21:25)
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
[2018-01-27 21:45] LABS: ALT 46 U/L (9-52); AST 42 U/L (14-36); Albumin 4.1 g/dL (3.5-5.0); Alkaline Phosphatase 87 U/L (38-126); Anion Gap 14 mmol/L; Blood Urea Nitrogen 20 mg/dL (7-17); Calcium 9.8 mg/dL (8.4-10.2); Carbon Dioxide 28 mmol/L (22-30); Chloride 101 mmol/L (98-107); Glucose 121 mg/dL (74-99); Magnesium 1.9 mg/dL (1.6-2.3); Potassium 4.4 mmol/L (3.5-5.1); Sodium 143 mmol/L (137-145); Total Bilirubin 0.5 mg/dL (0.2-1.3); Total Protein 7.1 g/dL (6.3-8.2)
[2018-01-27 21:50] LABS: Creatine Kinase 72 U/L (30-135)
--- NOTE | 2018-01-27 21:58 | XR ---
EXAMINATION: XR chest 2V DATE AND TIME: 01/27/2018 9:44 PM ORDERING PROVIDER: Akil New DO CLINICAL INDICATION: pain, dizzy TECHNIQUE: PA and lateral COMPARISON: 10/02/2017 DESCRIPTION: The overlying soft tissues are prominent. Taking factor into consideration, the lungs are clear. The pleural spaces are negative. The cardiac silhouette is not enlarged. The skeletal structures are intact without focal findings. IMPRESSION: NO ACUTE PROCESS.
[2018-01-27 22:02] LABS: Creatine Kinase MB 0.7 ng/mL (0.0-2.4); Troponin I <0.012 ng/mL (0.000-0.034)
[2018-01-27 22:15] LABS: Anisocytosis Slight; Basophils % (A) 0 %; Eosinophils # (A) 0.3 k/uL (0-0.7); Eosinophils % (A) 3 %; HCT 41.2 % (34.0-46.0); HGB 13.6 gm/dL (11.4-16.0); Lymphocytes # (A) 2.7 k/uL (1.0-4.8); Lymphocytes % (A) 25 %; MCH 28.3 pg (25.0-35.0); MCHC 32.9 g/dL (31.0-37.0); MCV 86.1 fL (80.0-100.0); Mean Platelet Volume 9.4; Monocytes # (A) 0.7 k/uL (0-1.0); Monocytes % (A) 6 %; Neutrophils % (A) 64 %; Platelet Count 383 k/uL (150-450); RBC 4.79 m/uL (3.80-5.40); RDW 16.4 % (11.5-15.5)
--- NOTE | 2018-01-27 22:34 | CT ---
EXAMINATION: CT brain wo con DATE AND TIME: 01/27/2018 10:11 PM ORDERING PROVIDER: Akil New DO CLINICAL INDICATION: Vertigo TECHNIQUE: Standard departmental protocol. COMPARISON: 11/02/2015 DESCRIPTION: The calvarium is intact. There is no intracranial hemorrhage. There is no mass or mass e ffect. There is no definite new attenuation defect. Remainder of the intra-axial and extra-axial comp artment examination is unremarkable. The paranasal sinuses, middle ear cavities, and mastoid sinus ai r cells are clear. The orbits are intact. IMPRESSION: NO ACUTE PROCESS.
[2018-01-27 23:09] VITALS: BP 123/70; PULSE 81; RESP 16; TEMP 97
== END 2018-01-27 23:08 | disposition home or self-care (01) ==
LOC: EC 20:33
DX: R42 Dizziness and giddiness (principal); R07.89 Other chest pain; R40.2142 Coma scale, eyes open, spontaneous, at arrival to emergency department; R40.2252 Coma scale, best verbal response, oriented, at arrival to emergency department; R40.2362 Coma scale, best motor response, obeys commands, at arrival to emergency department; K21.9 Gastro-esophageal reflux disease without esophagitis; J45.909 Unspecified asthma, uncomplicated; E78.5 Hyperlipidemia, unspecified; I10 Essential (primary) hypertension; E03.9 Hypothyroidism, unspecified; F41.9 Anxiety disorder, unspecified; F32.9 Major depressive disorder, single episode, unspecified; E66.01 Morbid (severe) obesity due to excess calories; Z68.42 Body mass index [BMI] 45.0-49.9, adult; G47.33 Obstructive sleep apnea (adult) (pediatric); Z99.89 Dependence on other enabling machines and devices; Z87.891 Personal history of nicotine dependence; Z79.51 Long term (current) use of inhaled steroids; Z79.899 Other long term (current) drug therapy; Z88.8 Allergy status to other drugs, medicaments and biological substances; Z88.5 Allergy status to narcotic agent; Z88.6 Allergy status to analgesic agent
CPT/HCPCS: 99284; 96374; 96361 ×2; 36415; 93005; 84439; 84481; 80053; 82550; 82553; 83735; 84443; 84484; 85025; 71046; 70450; J2765

== ENCOUNTER → 2018-02-12 | Outpatient (CLI) | payer MEDICARE, OTHER ==
[2018-02-12 10:01] LABS: ALT 42 U/L (9-52); AST 40 U/L (14-36); Albumin 4.1 g/dL (3.5-5.0); Alkaline Phosphatase 113 U/L (38-126); Anion Gap 12 mmol/L; Blood Urea Nitrogen 12 mg/dL (7-17); Calcium 9.9 mg/dL (8.4-10.2); Carbon Dioxide 32 mmol/L (22-30); Chloride 99 mmol/L (98-107); Cholesterol 141 mg/dL (<200); Glucose 137 mg/dL (74-99); HDL Cholesterol 51 mg/dL (40-60); LDL Cholesterol,Calculated 70 mg/dL (0-99); Magnesium 1.8 mg/dL (1.6-2.3); Phosphorus 4.4 mg/dL (2.5-4.5); Potassium 4.6 mmol/L (3.5-5.1); Sodium 143 mmol/L (137-145); Total Bilirubin 0.8 mg/dL (0.2-1.3); Total Protein 7.2 g/dL (6.3-8.2); Triglycerides 98 mg/dL (<150)
[2018-02-12 10:11] LABS: Anisocytosis Slight; HCT 45.8 % (34.0-46.0); HGB 14.6 gm/dL (11.4-16.0); MCH 28.2 pg (25.0-35.0); MCV 88.2 fL (80.0-100.0); Platelet Count 415 k/uL (150-450); RBC 5.19 m/uL (3.80-5.40); RDW 16.1 % (11.5-15.5); WBC 10.2 k/uL (3.8-10.6)
[2018-02-12 10:23] LABS: Partial Thromboplastin Time 23.5 sec (22.0-30.0)
[2018-02-12 17:06] LABS: Iron Saturation 11.43 (12.00-45.00)
[2018-02-12 17:14] LABS: Vitamin D 25 Hydroxy 39.1 ng/mL (30.0-100.0)
[2018-02-12 17:56] LABS: Parathyroid Hormone Intact 45.7 pg/mL (14.0-72.0)
[2018-02-12 18:03] LABS: Folate, Serum 22.2 ng/mL
[2018-02-12 20:39] LABS: Hemoglobin A1C 6.9 % (4.0-6.0)
[2018-02-15 06:36] LABS: Vitamin A 35 ug/dL (38-106)
[2018-02-15 06:46] LABS: Vitamin B1 67 ug/L (38-122)
[2018-02-16 12:07] LABS: Zinc, Serum 97 ug/dL (60-130)
== END | disposition home or self-care (01) ==
LOC: LABWHC1 09:22
PROVIDERS: ATTEND Surgery Plastic and Reconstructive Surgery
DX: E66.01 Morbid (severe) obesity due to excess calories (principal); E21.1 Secondary hyperparathyroidism, not elsewhere classified; E89.1 Postprocedural hypoinsulinemia; D50.9 Iron deficiency anemia, unspecified; K90.9 Intestinal malabsorption, unspecified; E44.0 Moderate protein-calorie malnutrition; E55.9 Vitamin D deficiency, unspecified; K74.1 Hepatic sclerosis; N19 Unspecified kidney failure; K50.90 Crohn's disease, unspecified, without complications
CPT/HCPCS: 36415; 80053; 80061; 82306; 82525; 82607; 82728; 82746; 83036; 83540; 83550; 83735; 83970; 84100; 84134; 84255; 84425; 84443; 84590; 84630; 85027; 85610; 85730

== ENCOUNTER 2018-02-15 06:41 | Day surgery (SDC) | payer MEDICARE, OTHER ==
[2018-02-08 14:44] VITALS: BMI 44.5
[~2018-02-15 06:41] MED LIST changes: -CHLORHEXIDINE GLUCONATE 15 ML CUP MUCOUS MEM ONE; -DEXAMETHASONE SOD PHOSPHATE 10 MG/ML 1 ML VIAL IV ONE; -ENOXAPARIN 40 MG/0.4 ML SYRINGE SQ STA; -HYDROmorphone 0.5 MG/0.5 ML SYRINGE IVP PRN; +LACTATED RINGERS 1,000 ML IV SCH; +LIDOCAINE 1% 20 ML VIAL (10MG/ML) FOR IV START INTRADERMA PRN; -ONDANSETRON 4 MG/2 ML VIAL IVP ONE; -PANTOPRAZOLE 40 MG/10 ML VIAL IV STA; +Pre Op ABX Message 1 EACH MISC MISCELLANE ONE; -SCOPOLAMINE 1.5MG/72HR PATCH TRANSDERM STA; -ceFAZolin 3 GM in SODIUM CHLORIDE 0.9% 100 ML IVPB ONE; +fentaNYL (PF) 50 MCG/ML 2 ML AMP IV PRN
[2018-02-15 07:15] VITALS: RESP 20; TEMP 97.4
[2018-02-15] MEDS: CYCLOPENTOLATE 1% OPHTH SOLN 2 ML BTL OP ONE ×3 (07:17→07:38)
[2018-02-15] MEDS: PHENYLEPHRINE 10% OPHTH DROPS 5 ML BTL OP ONE ×3 (07:22→07:44)
[2018-02-15 07:35] LABS: Glucose,Whole Blood 125 mg/dL (75-99)
[2018-02-15] MEDS: FLURBIPROFEN 0.03% OPHTH DROPS 2.5 ML BTL OP ONE ×3 (07:35→07:46)
[2018-02-15] MEDS ORDERED: FAMOTIDINE 20 MG/2 ML VIAL IVP ONE (07:42)
[2018-02-15] MEDS ORDERED: PROPOFOL 10 MG/ML 20 ML VIAL IV ONE (08:11)
[2018-02-15] MEDS ORDERED: EPINEPHrine (PF) 0.5 ML in BALANCED SALT IRRIG SOLN COMB2 500 ML IRRIGATION ONE (08:15)
[2018-02-15] MEDS ORDERED: BALANCED SALT IRRIG SOLN COMB2 15 ML IRRIG.SOLN IRRIGATION ONE (08:17)
[2018-02-15] MEDS ORDERED: NEOMYCIN-POLYMYXIN-DEXAMETH OINT 3.5 GM TUBE LEFT EYE ONE (08:17)
--- NOTE | 2018-02-15 08:34 | P.OP ---
Date of Procedure: 02/15/18 Procedure(s) Performed: PREOPERATIVE DIAGNOSIS: Cataract, left eye. POSTOPERATIVE DIAGNOSIS: Cataract, left eye. OPERATION: Phacoemulsification cataract, left eye. DESCRIPTION OF PROCEDURE: The patient was taken to the preoperative holding area. Intravenous Propofol was given so as to bring about adequate sedation. The following mixture was given for local anesthesia: 5 mL of 2% lidocaine, 5 mL of 0.75% Marcaine, and 1 mL of Wydase. Approximately 4 mL was injected in the retrobulbar space of the surgical eye. Additional 1 mL was then directed to the temporal area of the surgical eye. This was performed to allow adequate neurological block of the facial muscles. The patient was revived and then taken into the operative room. The patient was prepped and draped in the usual sterile manner for the operative eye. A lid speculum was put into position. The conjunctiva was resected back from the limbus in the 12 o'clock position. Bleeding was controlled with electrocautery. A #69 blade was then used and a half-thickness scleral incision approximately 1-mm posterior to the limbus was made on bare sclera. This was shelved in the clear cornea using a crescent knife. Next a 15-degree blade was used to make a stab incision at the 3 o' clock position at the corneolimbal interface. Keratome blade was then used and the superior wound was extended into the anterior chamber. Viscoelastic was injected into the anterior chamber and to maintain its form. Next, a cystotome was used and a continuous anterior capsulotomy was made without difficulty. Hydrodissection using a blunt cannula and BSS was performed. Phaco probe was then employed and a groove extending from 12 to 6 o'clock in the lens was created. A Kris wand was used through the stab incision so as to perform a divide and conquer technique. Next an irrigation aspiration probe was utilized and any residual cortex was removed from the eye. Again, viscoelastic was injected into the anterior chamber. An David posterior chamber lens implant was placed in the cartridge and injected into the anterior chamber without difficulty. The [employer] Technologies[employer] hook was utilized to spin the lens into position and this was again performed without any difficulty. The irrigation and aspiration probe was again employed and any residual viscoelastic was removed from the eye. Then BSS was injected into the limbal stab incision and the anterior chamber re-inflated. The conjunctiva was reapproximated using electrocautery. One drop of 0.25% Timoptic was placed over the corneal along with TobraDex ophthalmic ointment. Two sterile patches and a Oreilly eye shield were taped into position. The patient was transported to the recovery room in stable condition. Pathology: none sent Condition: stable Disposition: same day
[2018-02-15 08:57] VITALS: BP 133/65; PULSE 81
[2018-02-15] MEDS ORDERED: BUPIVACAINE (PF) 0.75% 5 ML, HYALURONIDASE, HUMAN RECOMB 150 UNIT, LIDOCAINE 2% (PF) 10... MISCELLANE ONE ×3 (23:00)
[2018-02-15] MEDS ORDERED: TIMOLOL 0.5% OPHTH DROPS 5 ML BTL OP ONE (23:00)
[2018-02-15] MEDS ORDERED: GENTAMICIN/PREDNISOL AC OPHTH OINT 3.5GM OPHTHALMIC ONE (23:00)
== END 2018-02-15 09:16 | disposition home or self-care (01) ==
LOC: OR 06:41
PROVIDERS: ATTEND Ophthalmology
DX: E11.36 Type 2 diabetes mellitus with diabetic cataract (principal); I10 Essential (primary) hypertension; E78.5 Hyperlipidemia, unspecified; J45.909 Unspecified asthma, uncomplicated; G47.33 Obstructive sleep apnea (adult) (pediatric); E07.9 Disorder of thyroid, unspecified; K21.9 Gastro-esophageal reflux disease without esophagitis; F32.9 Major depressive disorder, single episode, unspecified; E66.01 Morbid (severe) obesity due to excess calories; Z68.41 Body mass index [BMI] 40.0-44.9, adult; Z98.84 Bariatric surgery status; Z79.890 Hormone replacement therapy; Z79.891 Long term (current) use of opiate analgesic; Z79.899 Other long term (current) drug therapy; Z88.6 Allergy status to analgesic agent; Z88.5 Allergy status to narcotic agent; Z88.8 Allergy status to other drugs, medicaments and biological substances
CPT/HCPCS: 66984; V2632; J3470; J2001; J0171; J2704

== ENCOUNTER → 2018-03-16 | Outpatient (CLI) | payer MEDICARE, OTHER ==
[2018-03-16 16:35] VITALS: BP 121/77; PULSE 68; TEMP 97.7; BMI 41.6
--- NOTE | 2018-03-16 17:49 | P.PN ---
Subjective Progress Note Date: 03/16/18 DATE OF SERVICE: 03/16/2018 CHIEF COMPLAINT: Follow gastric bypass HISTORY OF PRESENT ILLNESS: Arielle Calabrese is a 52-year-old female who is status post robotic-assisted gastric bypass 10/01/2017. She is now 6 months out. She has great energy. She has lost over 100+ pounds. No reports of abdominal pain. No reports of trouble swallowing. She is tolerating diet. No dumping syndrome. At her height of 5 foot 6.5, her ideal body weight is 154 pounds. Today she comes in weighing 261 pounds from 281 pounds. She has lost 20 pounds since her last visit 1 month ago. Her highest weight is 385 pounds. Total weight loss of 124 pounds, lifetime. Percent excess weight loss is 53% lifetime. Her body mass index is reduced from 61.3 down to 41.7. PAST MEDICAL HISTORY: 1. Diabetes type 2, insulin dependent, resolved. 2. Asthma. 3. Morbid obesity. 4. Osteoarthritis of the bilateral hips. 5. Osteoarthritis of the bilateral knees. 6. Seasonal ALLERGIES. 7. Obstructive sleep apnea, improved 8. Osteoarthritis of the lower back. 9. Hypothyroidism 10. H. pylori gastritis. 11. Congestive heart failure, resolved. PAST SURGICAL HISTORY: 1. Upper endoscopy. 2. . 3. Tubal ligation. 4. Uterine ablation. 5. Postoperative nausea and vomiting. 6. Gastric bypass HOME MEDICATIONS: 1. Lamotrigine. 2. Omeprazole. 3. Synthroid. 4. Advair. 5. Lexapro. 6. Vitamin D 7. Abilify. ALLERGIES: 1. Hydrocodone 2. Naproxen. SOCIAL HISTORY: No active tobacco use. She uses a walker for mobility. FAMILY HISTORY: Denies any DVTs, pulmonary embolisms in her family. Denies any ulcerative colitis disease or Crohn's. She does have a family history of morbid obesity. Daughter with easy bruising. She reports a family history of gallbladder disease in her mother. She also has a family history of morbid obesity. REVIEW OF ORGAN SYSTEMS: CONSTITUTIONAL: At her height of 5 foot 6.5, her ideal body weight is 154 pounds. Today she comes in weighing 261 pounds from 281 pounds. She has lost 20 pounds since her last visit 1 month ago. Her highest weight is 385 pounds. Total weight loss of 124 pounds, lifetime. Percent excess weight loss is 53% lifetime. Her body mass index is reduced from 61.3 down to 41.7. HEENT: Denies any active troubles with vision or hearing. ENDOCRINE: Has diabetes and hypothyroidism. Insulin-dependent diabetes resolved. CARDIOVASCULAR: No reports of palpitations or heart attacks or chest pain. RESPIRATORY: Has sleep apnea, resolved. Has asthma. History of COPD exacerbation. GI: Denies any bright red blood per rectum, diarrhea or constipation. Gastroesophageal reflux disease resolved. MUSCULOSKELETAL: Has osteoarthritis of the knees and lower back. NEURO: No reports of headaches or seizure disorders. PSYCH: Has depression without suicidal ideation. Has anxiety. HEMATOLOGIC: Denies any abnormal bleeding or bruising. SKIN: Has panniculitis. No recent skin cancer. PHYSICAL EXAM: VITAL SIGNS: Height 5 foot 6.5 inches. Weight 261 pounds. BMI 41.7 Vital Signs Temp 97.7 F 03/16/18 16:29 Pulse 68 03/16/18 16:29 Resp BP 121/77 03/16/18 16:29 Pulse Ox GENERAL: Well-developed and in no acute distress. HEENT: No scleral icterus. Extraocular was grossly intact. No nasal drainage. NECK: Supple without lymphadenopathy. CHEST: Nonlabored respirations with equal bilateral excursions. CARDIOVASCULAR: Regular rate. Distal 2+ pulses. ABDOMEN: Obese, soft, nontender, nondistended. No incisional hernia. MUSCULOSKELETAL: No clubbing, cyanosis, or edema. Gross strength 5/5 distal lower extremities. NEURO: No focal or lateralizing signs. Cranial nerves 2 through 12 grossly within normal limits. PSYCH: Appropriate affect. Alert and oriented to person, place and time. SKIN: Good skin turgor. Well perfused. LABS: Hgb A1C improved from 8.8-6.9% Iron is low. AST and ALT improved Vitamin A low ASSESSMENT: 1. Morbid obesity due to excess calories. 2. Body mass index of 61.3 down to 41.7 3. Iron deficiency anemia 4. Diabetes type 2, insulin dependent, improved. 5. Osteoarthritis of the lower back, improved. 6. Osteoarthritis of the bilateral knees, improved. 7. Obstructive sleep apnea, resolved. 8. Chronic obstructive pulmonary disease, improved. 9. Hypertensive heart disease. 10. Status post gastric bypass. 11. Vitamin A deficiency. 12. Dietary surveillance and counseling PLAN: 1. Bariatric bloodwork was reviewed. 2. Recommend Vitamin A supplement. 3. Recommend reduction of carbohydrate intake including to cut back of popcorn. 4. July follow-up. Objective - Vital Signs Vital signs: Vital Signs Temp 97.7 F 03/16/18 16:29 Pulse 68 03/16/18 16:29 Resp BP 121/77 03/16/18 16:29 Pulse Ox Intake & Output 03/15/18 03/16/18 03/16/18 18:59 06:59 18:59 Weight 118.841 kg
== END | disposition home or self-care (01) ==
LOC: BARWHC3 15:42
PROVIDERS: ATTEND Surgery Plastic and Reconstructive Surgery
DX: E66.01 Morbid (severe) obesity due to excess calories (principal); Z68.41 Body mass index [BMI] 40.0-44.9, adult; D50.9 Iron deficiency anemia, unspecified; E03.9 Hypothyroidism, unspecified; E11.9 Type 2 diabetes mellitus without complications; M17.0 Bilateral primary osteoarthritis of knee; Z79.4 Long term (current) use of insulin; J44.9 Chronic obstructive pulmonary disease, unspecified; E50.9 Vitamin A deficiency, unspecified; Z98.84 Bariatric surgery status; I11.9 Hypertensive heart disease without heart failure
CPT/HCPCS: 99211

== ENCOUNTER 2018-05-29 14:50 | Emergency (ER) | payer MEDICARE, OTHER ==
[2018-05-29 15:32] VITALS: BP 119/71; PULSE 80; RESP 18; TEMP 98.5
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
== END 2018-05-29 16:00 | disposition home or self-care (01) ==
LOC: EC 14:50
DX: L25.9 Unspecified contact dermatitis, unspecified cause (principal); J45.909 Unspecified asthma, uncomplicated; E78.5 Hyperlipidemia, unspecified; I10 Essential (primary) hypertension; K21.9 Gastro-esophageal reflux disease without esophagitis; E03.9 Hypothyroidism, unspecified; G47.33 Obstructive sleep apnea (adult) (pediatric); F32.9 Major depressive disorder, single episode, unspecified; F41.9 Anxiety disorder, unspecified; E66.01 Morbid (severe) obesity due to excess calories; Z87.891 Personal history of nicotine dependence; Z79.51 Long term (current) use of inhaled steroids; Z79.899 Other long term (current) drug therapy; Z88.5 Allergy status to narcotic agent; Z88.6 Allergy status to analgesic agent; Z88.8 Allergy status to other drugs, medicaments and biological substances; Z86.79 Personal history of other diseases of the circulatory system; Z99.89 Dependence on other enabling machines and devices; Z68.34 Body mass index [BMI] 34.0-34.9, adult
CPT/HCPCS: 99282

== ENCOUNTER 2018-06-03 20:05 | Emergency (ER) | payer MEDICARE, OTHER ==
[2018-06-03] MEDS ORDERED: ONDANSETRON 4 MG/2 ML VIAL IVP STA (22:35)
[2018-06-03] MEDS ORDERED: SODIUM CHLORIDE 0.9% 1,000 ML IV STA (22:35)
[2018-06-03] MEDS ORDERED: ACETAMINOPHEN IV (For NPO) 1,000 MG in EMPTY BAG 1 BAG IVPB ONE (22:37)
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
[2018-06-03 23:11] LABS: ALT 37 U/L (9-52); AST 31 U/L (14-36); Albumin 3.7 g/dL (3.5-5.0); Alkaline Phosphatase 86 U/L (38-126); Amylase 48 U/L (30-110); Anion Gap 6 mmol/L; Blood Urea Nitrogen 12 mg/dL (7-17); Calcium 9.4 mg/dL (8.4-10.2); Carbon Dioxide 29 mmol/L (22-30); Chloride 103 mmol/L (98-107); Glucose 109 mg/dL (74-99); Lipase 177 U/L (23-300); Sodium 138 mmol/L (137-145); Total Bilirubin 0.4 mg/dL (0.2-1.3); Total Protein 6.4 g/dL (6.3-8.2)
[2018-06-03 23:12] LABS: Anisocytosis Slight; Basophils % (A) 0 %; Eosinophils # (A) 0.2 k/uL (0-0.7); Eosinophils % (A) 2 %; HCT 38.7 % (34.0-46.0); HGB 12.4 gm/dL (11.4-16.0); Lymphocytes # (A) 2.6 k/uL (1.0-4.8); Lymphocytes % (A) 30 %; MCHC 32.1 g/dL (31.0-37.0); MCV 87.3 fL (80.0-100.0); Mean Platelet Volume 7.7; Monocytes # (A) 0.5 k/uL (0-1.0); Monocytes % (A) 6 %; Neutrophils # (A) 5.1 k/uL (1.3-7.7); Neutrophils % (A) 59 %; Platelet Count 327 k/uL (150-450); RBC 4.43 m/uL (3.80-5.40); WBC 8.7 k/uL (3.8-10.6)
[2018-06-03 23:15] LABS: Appearance,Urine Clear (Clear); Bacteria,Urine Rare /hpf; Bilirubin,Urine Negative (Negative); Blood,Urine Trace (Negative); Color,Urine Light Yellow; Glucose,Urine (UA) Negative (Negative); Ketones,Urine Negative (Negative); Leukocyte Esterase,Urine Negative (Negative); Nitrite,Urine Negative (Negative); Protein,Urine Negative (Negative); RBC,Urine 1 /hpf (0-5); Specific Gravity,Urine 1.007 (1.001-1.035); Squamous Epithelial Cell,Urine <1 /hpf (0-4); Urobilinogen,Urine <2.0 mg/dL (<2.0); WBC,Urine <1 /hpf (0-5)
--- NOTE | 2018-06-03 23:59 | CT ---
EXAMINATION TYPE: CT abdomen pelvis w con DATE OF EXAM: 06/03/2018 COMPARISON: 08/13/2017 HISTORY: Generalized abd pain after eating CT DLP: 1594.40 mGycm Automated exposure control for dose reduction was used. TECHNIQUE: Helical acquisition of images was performed from the lung bases through the pelvis. CONTRAST: Performed with Oral Contrast and with IV Contrast, patient injected with 100 mL of Isovue 300. FINDINGS: Lung bases are clear of consolidation. There is no pleural effusion. There is no pericardial effusion . Liver shows no focal defect. Bile ducts are not dilated. Gallbladder appears normal. Spleen appears n ormal. There is surgical clips consistent with bariatric surgery. There is no adrenal mass. There is 4.5 cm cortical cyst on the anterior left kidney. There is no hydr onephrosis. There is no retroperitoneal adenopathy. There is no ascites. I see no intestinal wall thi ckening. There are no dilated loops. Bladder distends smoothly. There is no pelvic mass. Hysterectomy is noted. There is degenerative disc space narrowing in the lumbar spine. There is no compression fr acture. Appendix is not seen. There is no sign of appendicitis. IMPRESSION: PREVIOUS SURGERY. NO SIGN OF ACUTE ABDOMEN AND PELVIS. NO ADVERSE CHANGE COMPARED TO OLD EXAM.
[2018-06-04] MEDS ORDERED: SODIUM CHLORIDE 0.9% 1,000 ML IV STA (00:31)
[2018-06-04 02:17] VITALS: BP 116/68; PULSE 60; RESP 18; TEMP 98.2
== END 2018-06-04 02:17 | disposition home or self-care (01) ==
LOC: EC 20:05
DX: K52.9 Noninfective gastroenteritis and colitis, unspecified (principal); J45.909 Unspecified asthma, uncomplicated; K21.9 Gastro-esophageal reflux disease without esophagitis; E78.5 Hyperlipidemia, unspecified; I10 Essential (primary) hypertension; F41.9 Anxiety disorder, unspecified; F32.9 Major depressive disorder, single episode, unspecified; G40.909 Epilepsy, unspecified, not intractable, without status epilepticus; E03.9 Hypothyroidism, unspecified; G47.33 Obstructive sleep apnea (adult) (pediatric); Z99.89 Dependence on other enabling machines and devices; E66.01 Morbid (severe) obesity due to excess calories; Z68.35 Body mass index [BMI] 35.0-35.9, adult; Z98.84 Bariatric surgery status; Z90.710 Acquired absence of both cervix and uterus; Z87.891 Personal history of nicotine dependence; Z79.51 Long term (current) use of inhaled steroids; Z79.899 Other long term (current) drug therapy; Z88.8 Allergy status to other drugs, medicaments and biological substances; Z88.5 Allergy status to narcotic agent; Z88.6 Allergy status to analgesic agent
CPT/HCPCS: 36415; 80053; 82150; 83690; 85025; 81001; 74177; 99284; 96365; 96366; 96375; 96361 ×2; J2405; J0131; Q9967

== ENCOUNTER 2018-06-16 16:57 | Emergency (ER) | payer MEDICARE, OTHER ==
[2018-06-16 17:29] VITALS: BP 126/60; PULSE 64; RESP 18; TEMP 98.2
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
== END 2018-06-16 18:07 | disposition home or self-care (01) ==
LOC: EC 16:57
DX: S09.90XA Unspecified injury of head, initial encounter (principal); E78.5 Hyperlipidemia, unspecified; I10 Essential (primary) hypertension; J45.909 Unspecified asthma, uncomplicated; G40.909 Epilepsy, unspecified, not intractable, without status epilepticus; K21.9 Gastro-esophageal reflux disease without esophagitis; E03.9 Hypothyroidism, unspecified; G47.33 Obstructive sleep apnea (adult) (pediatric); F32.9 Major depressive disorder, single episode, unspecified; F41.9 Anxiety disorder, unspecified; E66.01 Morbid (severe) obesity due to excess calories; Z87.891 Personal history of nicotine dependence; Z79.51 Long term (current) use of inhaled steroids; Z79.899 Other long term (current) drug therapy; Z88.5 Allergy status to narcotic agent; Z88.6 Allergy status to analgesic agent; Z88.8 Allergy status to other drugs, medicaments and biological substances; Z86.79 Personal history of other diseases of the circulatory system; Z68.35 Body mass index [BMI] 35.0-35.9, adult; Z99.89 Dependence on other enabling machines and devices; W22.8XXA Striking against or struck by other objects, initial encounter; Y93.89 Activity, other specified
CPT/HCPCS: 99283

== ENCOUNTER 2018-06-19 13:02 | Emergency (ER) | payer MEDICARE, OTHER ==
[2018-06-19 13:23] VITALS: RESP 16
[2018-06-19] MEDS ORDERED: SODIUM CHLORIDE 0.9% 500 ML IV STA (14:12)
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
[2018-06-19] MEDS ORDERED: LIDOCAINE 1%-EPI 1:100,000 30 ML VIAL SQ STA (14:55)
[2018-06-19 15:06] LABS: Anisocytosis Slight; Basophils % (A) 0 %; Eosinophils # (A) 0.2 k/uL (0-0.7); Eosinophils % (A) 2 %; HCT 39.3 % (34.0-46.0); HGB 12.9 gm/dL (11.4-16.0); Lymphocytes # (A) 1.8 k/uL (1.0-4.8); Lymphocytes % (A) 18 %; MCH 29.2 pg (25.0-35.0); MCHC 32.8 g/dL (31.0-37.0); MCV 88.8 fL (80.0-100.0); Mean Platelet Volume 7.7; Monocytes # (A) 0.5 k/uL (0-1.0); Monocytes % (A) 5 %; Neutrophils # (A) 7.5 k/uL (1.3-7.7); Neutrophils % (A) 74 %; Platelet Count 320 k/uL (150-450); RBC 4.42 m/uL (3.80-5.40); RDW 16.3 % (11.5-15.5); WBC 10.1 k/uL (3.8-10.6)
[2018-06-19 15:15] LABS: Partial Thromboplastin Time 23.8 sec (22.0-30.0); Prothrombin Time 10.1 sec (9.0-12.0)
[2018-06-19 15:20] LABS: ALT 33 U/L (9-52); AST 31 U/L (14-36); Albumin 3.8 g/dL (3.5-5.0); Alkaline Phosphatase 93 U/L (38-126); Anion Gap 8 mmol/L; Blood Urea Nitrogen 11 mg/dL (7-17); Calcium 9.6 mg/dL (8.4-10.2); Carbon Dioxide 27 mmol/L (22-30); Chloride 105 mmol/L (98-107); Glucose 108 mg/dL (74-99); Magnesium 1.9 mg/dL (1.6-2.3); Potassium 4.2 mmol/L (3.5-5.1); Sodium 140 mmol/L (137-145); Total Bilirubin 0.6 mg/dL (0.2-1.3); Total Protein 6.6 g/dL (6.3-8.2)
[2018-06-19 15:48] VITALS: BP 169/80; PULSE 72; TEMP 98
== END 2018-06-19 16:08 | disposition home or self-care (01) ==
LOC: EC 13:02
DX: K64.5 Perianal venous thrombosis (principal); J44.9 Chronic obstructive pulmonary disease, unspecified; E78.5 Hyperlipidemia, unspecified; G47.33 Obstructive sleep apnea (adult) (pediatric); Z99.89 Dependence on other enabling machines and devices; E66.01 Morbid (severe) obesity due to excess calories; Z68.31 Body mass index [BMI] 31.0-31.9, adult; Z87.891 Personal history of nicotine dependence; Z79.51 Long term (current) use of inhaled steroids; Z79.899 Other long term (current) drug therapy; Z88.8 Allergy status to other drugs, medicaments and biological substances; Z88.5 Allergy status to narcotic agent; Z88.6 Allergy status to analgesic agent
CPT/HCPCS: 36415; 46083; 80053; 82272; 83605; 83735; 85025; 85610; 85730; 86850; 86900; 86901; 93005; 99283

== ENCOUNTER → 2018-07-06 | Outpatient (CLI) | payer MEDICARE, OTHER ==
--- NOTE | 2018-07-06 16:19 | P.PN ---
Subjective Progress Note Date: 07/06/18 HPI: She has lost over 170 pounds. Protein intake is under 75 grams. She is vomiting at most once week. She has been to the ER 3x last month from rectal bleeding to abdominal pain. ABDOMEN: Soft, nontender PLAN: 1. Needs labs 2. Recommend goal intake of 75 grams daily. 3. Colonoscopy and EGD.
[2018-07-06 16:37] VITALS: BP 113/55; PULSE 66; RESP 16; TEMP 98.5; BMI 32.9
[2018-07-06 17:15] LABS: Anisocytosis Slight; HCT 39.8 % (34.0-46.0); HGB 12.6 gm/dL (11.4-16.0); MCH 29.5 pg (25.0-35.0); MCHC 31.6 g/dL (31.0-37.0); MCV 93.5 fL (80.0-100.0); Mean Platelet Volume 7.2; Platelet Count 324 k/uL (150-450); RBC 4.26 m/uL (3.80-5.40); RDW 16.1 % (11.5-15.5); WBC 9.8 k/uL (3.8-10.6)
[2018-07-06 17:30] LABS: Partial Thromboplastin Time 23.1 sec (22.0-30.0); Prothrombin Time 10.1 sec (9.0-12.0)
[2018-07-06 17:41] LABS: ALT 29 U/L (9-52); AST 28 U/L (14-36); Albumin 3.8 g/dL (3.5-5.0); Alkaline Phosphatase 84 U/L (38-126); Anion Gap 7 mmol/L; Blood Urea Nitrogen 11 mg/dL (7-17); Calcium 9.3 mg/dL (8.4-10.2); Carbon Dioxide 31 mmol/L (22-30); Chloride 103 mmol/L (98-107); Cholesterol 137 mg/dL (<200); Glucose 102 mg/dL (74-99); HDL Cholesterol 46 mg/dL (40-60); LDL Cholesterol,Calculated 48 mg/dL (0-99); Magnesium 1.9 mg/dL (1.6-2.3); Potassium 4.3 mmol/L (3.5-5.1); Sodium 141 mmol/L (137-145); Total Bilirubin 0.4 mg/dL (0.2-1.3); Total Protein 6.6 g/dL (6.3-8.2); Triglycerides 217 mg/dL (<150)
[2018-07-07 04:59] LABS: Hemoglobin A1C 5.9 % (4.0-6.0)
[2018-07-07 06:42] LABS: Parathyroid Hormone Intact 48.8 pg/mL (14.0-72.0)
[2018-07-07 06:52] LABS: Iron Saturation 14.48 (12.00-45.00)
[2018-07-07 07:00] LABS: Vitamin D 25 Hydroxy 32.8 ng/mL (30.0-100.0)
[2018-07-07 11:23] LABS: Folate, Serum 16.2 ng/mL
[2018-07-07 13:19] LABS: Zinc, Serum 72 ug/dL (60-130)
[2018-07-08 06:13] LABS: Vitamin A 45 ug/dL (38-106)
[2018-07-08 08:04] LABS: Vitamin B1 95 ug/L (38-122)
[2018-07-08 17:13] LABS: Selenium 114 mcg/L (63-160)
== END | disposition home or self-care (01) ==
LOC: BARWHC3 14:01
PROVIDERS: ATTEND Surgery Plastic and Reconstructive Surgery
DX: E66.01 Morbid (severe) obesity due to excess calories (principal); E21.1 Secondary hyperparathyroidism, not elsewhere classified; D50.9 Iron deficiency anemia, unspecified; K90.9 Intestinal malabsorption, unspecified; E44.0 Moderate protein-calorie malnutrition; E55.9 Vitamin D deficiency, unspecified; K74.1 Hepatic sclerosis; N19 Unspecified kidney failure; K50.90 Crohn's disease, unspecified, without complications
CPT/HCPCS: 84255; 84134; 84425; 80061; 80053; 82607; 82728; 82525; 82746; 83540; 83550; 83735; 84100; 84443; 84590; 84630; 85027; 85610; 85730; 82306; 83970; 83036; 97803; 36415; G0463; 99211

== ENCOUNTER 2018-07-17 21:22 | Emergency (ER) | payer MEDICARE, OTHER ==
[2018-07-17] MEDS ORDERED: ACETAMINOPHEN TAB 500 MG TAB PO STA (22:56)
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
--- NOTE | 2018-07-17 23:43 | XR ---
EXAMINATION TYPE: XR Hip LT and AP Pelvis DATE OF EXAM: 07/17/2018 COMPARISON: NONE HISTORY: Left hip pain TECHNIQUE: A single AP view of the pelvis is obtained. Two views of the left hip are obtained. FINDINGS: The pelvic ring is intact. Proximal left femur and hip joint appear intact. Sacroiliac jo-ann nts appear normal. There is no sign of hip dysplasia. Left acetabulum appears intact. IMPRESSION: Normal pelvis and left hip exam.
[2018-07-18 00:12] VITALS: BP 139/76; PULSE 87; RESP 18; TEMP 97.7
== END 2018-07-18 00:13 | disposition home or self-care (01) ==
LOC: EC 21:22
DX: M25.552 Pain in left hip (principal); E78.5 Hyperlipidemia, unspecified; I10 Essential (primary) hypertension; J45.909 Unspecified asthma, uncomplicated; G47.33 Obstructive sleep apnea (adult) (pediatric); Z87.891 Personal history of nicotine dependence; Z88.5 Allergy status to narcotic agent; Z88.6 Allergy status to analgesic agent; Z88.8 Allergy status to other drugs, medicaments and biological substances; Z79.51 Long term (current) use of inhaled steroids; Z79.899 Other long term (current) drug therapy; Z99.89 Dependence on other enabling machines and devices; W19.XXXA Unspecified fall, initial encounter; Y92.89 Other specified places as the place of occurrence of the external cause; Y93.89 Activity, other specified
CPT/HCPCS: 73502; 99283

== ENCOUNTER 2018-08-23 10:34 | Emergency (ER) | payer MEDICARE, OTHER ==
[2018-08-23 10:56] VITALS: RESP 18
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
--- NOTE | 2018-08-23 12:07 | CT ---
EXAMINATION TYPE: CT brain cspine wo con DATE OF EXAM: 08/23/2018 COMPARISON: Brain 01/27/2018 HISTORY: 53-year-old female Fall today with head and neck pain CT DLP: 988.9 mGycm Automated exposure control for dose reduction was used. Technique: Examination of the head was done in axial plane without intravenous contrast. Coronal and sagittal reconstructions performed. CT of the cervical spine was obtained in axial plane without intravenous injection of contrast mater ial. Coronal and sagittal reformatted images were obtained from the axial views for evaluation of f ractures, spinal alignment and canal. FINDINGS: Head: There is no evidence of acute intracranial hemorrhage, acute ischemic changes, mass, mass-effect, or extra-axial fluid collection. There is no effacement of cerebral sulci or basal subarachnoid cister ns. There is no hydrocephalus. There is no midline shift. Whelan-white matter distinction is preserv ed. Paranasal sinuses and mastoid air cells well pneumatized. Orbits and globes are intact. Cervical spine: No craniocervical junction abnormality, predental space widening, or prevertebral soft tissue swellin g. Preserved alignment of the cervical spine were reversal of the normal cervical lordosis. Moderate disc/endplate degenerative changes especially in the mid to lower cervical spine. Artifact f rom the patient's shoulders limits assessment of the spinal canal from C6 and below. Disc osteophyte complexes at C6/C7 and C7-T1 likely contribute to mild spinal canal stenosis. Multilevel facet and uncovertebral joint degenerative change. No acute fracture of the cervical spine. Status post variable mild narrowing of the neural foramen throughout. Sagittal and coronal reformatted images confirm above findings. COMBINED IMPRESSION: 1. No acute intracranial abnormality seen. 2. No acute fracture or malalignment of the cervical spine. Reversal of the normal cervical lordosis could be positional or due to muscle spasm. There is moderate spondylotic change mid to lower cervica l spine.
[2018-08-23] MEDS ORDERED: Acetaminophen-Codeine 300-30mg TAB PO STA (12:34)
--- NOTE | 2018-08-23 12:34 | XR ---
EXAMINATION TYPE: XR thoracic spine 2V DATE OF EXAM: 08/23/2018 CLINICAL HISTORY: Back pain after a fall. TECHNIQUE: Frontal, lateral, and swimmer's view of thoracic spine are obtained. COMPARISON: None. FINDINGS: Thoracic spine show satisfactory alignment without evidence of acute fracture or dislocatio n. Mild multilevel degenerative changes are seen as intervertebral disc space narrowing, endplate scl erosis and small anterior osteophytes. Vertebral body heights and disc space heights are preserved. V isualized ribs are unremarkable. IMPRESSION: No acute fracture or dislocation is seen in the thoracic spine.
[2018-08-23 13:14] VITALS: BP 147/78; PULSE 62; TEMP 98
== END 2018-08-23 13:08 | disposition home or self-care (01) ==
LOC: EC 10:34
DX: S20.229A Contusion of unspecified back wall of thorax, initial encounter (principal); S09.90XA Unspecified injury of head, initial encounter; M54.2 Cervicalgia; R40.2412 Glasgow coma scale score 13-15, at arrival to emergency department; J45.909 Unspecified asthma, uncomplicated; K21.9 Gastro-esophageal reflux disease without esophagitis; G47.33 Obstructive sleep apnea (adult) (pediatric); E07.9 Disorder of thyroid, unspecified; F41.9 Anxiety disorder, unspecified; F32.9 Major depressive disorder, single episode, unspecified; Z87.891 Personal history of nicotine dependence; Z99.89 Dependence on other enabling machines and devices; Z90.710 Acquired absence of both cervix and uterus; Z98.84 Bariatric surgery status; Z98.890 Other specified postprocedural states; Z79.51 Long term (current) use of inhaled steroids; Z79.899 Other long term (current) drug therapy; Z88.5 Allergy status to narcotic agent; Z88.6 Allergy status to analgesic agent; Z88.8 Allergy status to other drugs, medicaments and biological substances; W01.198A Fall on same level from slipping, tripping and stumbling with subsequent striking against other object, initial encounter; Y92.69 Other specified industrial and construction area as the place of occurrence of the external cause; Y99.0 Civilian activity done for income or pay
CPT/HCPCS: 70450; 72070; 72125; 99284

== ENCOUNTER 2018-08-23 14:35 | Emergency (ER) | payer MEDICARE, OTHER ==
[2018-08-23 15:00] VITALS: BP 127/73; PULSE 70; RESP 18; TEMP 98.7
[2018-08-23] MEDS ORDERED: ONDANSETRON 4 MG/2 ML VIAL IM STA (15:02)
[2018-08-23] MEDS ORDERED: ONDANSETRON 4 MG ODT STARTER PACK 2 TAB BTL PO STA (15:39)
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
== END 2018-08-23 15:58 | disposition home or self-care (01) ==
LOC: EC 14:35
DX: S09.90XD Unspecified injury of head, subsequent encounter (principal); R11.0 Nausea; R42 Dizziness and giddiness; J45.909 Unspecified asthma, uncomplicated; K21.9 Gastro-esophageal reflux disease without esophagitis; G47.33 Obstructive sleep apnea (adult) (pediatric); E07.9 Disorder of thyroid, unspecified; F41.9 Anxiety disorder, unspecified; F32.9 Major depressive disorder, single episode, unspecified; Z87.891 Personal history of nicotine dependence; Z99.89 Dependence on other enabling machines and devices; Z90.710 Acquired absence of both cervix and uterus; Z98.84 Bariatric surgery status; Z98.890 Other specified postprocedural states; Z79.51 Long term (current) use of inhaled steroids; Z79.899 Other long term (current) drug therapy; Z88.5 Allergy status to narcotic agent; Z88.6 Allergy status to analgesic agent; Z88.8 Allergy status to other drugs, medicaments and biological substances; W01.198D Fall on same level from slipping, tripping and stumbling with subsequent striking against other object, subsequent encounter
CPT/HCPCS: 99283; 96372; J2405; S0119

== ENCOUNTER 2018-08-25 14:45 | Emergency (ER) | payer OTHER ==
[2018-08-25 15:12] VITALS: BP 126/78; PULSE 65; RESP 20; TEMP 98.2
[2018-08-25] MEDS ORDERED: MECLIZINE 12.5 MG TAB PO STA (16:06)
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
== END 2018-08-25 17:18 | disposition home or self-care (01) ==
LOC: EC 14:45
DX: R42 Dizziness and giddiness (principal); R11.2 Nausea with vomiting, unspecified; R19.7 Diarrhea, unspecified; K21.9 Gastro-esophageal reflux disease without esophagitis; I10 Essential (primary) hypertension; G40.909 Epilepsy, unspecified, not intractable, without status epilepticus; E03.9 Hypothyroidism, unspecified; F41.9 Anxiety disorder, unspecified; F32.9 Major depressive disorder, single episode, unspecified; G47.33 Obstructive sleep apnea (adult) (pediatric); Z99.89 Dependence on other enabling machines and devices; Z87.891 Personal history of nicotine dependence; Z79.51 Long term (current) use of inhaled steroids; Z79.899 Other long term (current) drug therapy; Z88.8 Allergy status to other drugs, medicaments and biological substances; Z88.5 Allergy status to narcotic agent; Z88.6 Allergy status to analgesic agent
CPT/HCPCS: 99284

== ENCOUNTER → 2018-09-14 | Outpatient (CLI) | payer MEDICARE, OTHER ==
--- NOTE | 2018-09-14 15:26 | P.PN ---
Subjective Progress Note Date: 09/14/18 HPI: Doing great. No more diabetes. She still uses her CPAP but is smaller. She now has a job. She complains of her skin. Her is at bedside. She is eating large port ABDOMEN: Unremarkable PLAN: 1. She is 11 months out. 2. She has lost 180 months. She went down from 383 pounds 206 pounds. 3. Recommend labs
--- NOTE | 2018-09-14 15:33 | P.PN ---
Subjective Progress Note Date: 09/14/18 DATE OF SERVICE: 09/14/2018 CHIEF COMPLAINT: Follow gastric bypass HISTORY OF PRESENT ILLNESS: Arielle Calabrese is a 53-year-old female who is status post robotic-assisted gastric bypass 10/01/2017. She is 1 year out. She is doing great. She has no more diabetes. She still uses her CPAP in lower rate. She now has a job. She complains of her skin at her pannus. Her is at bedside. At her height of 5 foot 6.5, her ideal body weight is 154 pounds. Today she comes in weighing 206 pounds from 207 pounds, 2 months ago. She has lost 1 pound in 2 months. Her highest weight is 385 pounds. Total weight loss of 179 pounds, lifetime. Percent excess weight loss is 78 % lifetime. Her body mass index is reduced from 61.3 down to 32.8. PAST MEDICAL HISTORY: 1. Diabetes type 2, insulin dependent, resolved. 2. Asthma. 3. Morbid obesity, BMI 61.3, initial 4. Osteoarthritis of the bilateral hips. 5. Osteoarthritis of the bilateral knees. 6. Seasonal ALLERGIES. 7. Obstructive sleep apnea, improved 8. Osteoarthritis of the lower back. 9. Hypothyroidism 10. H. pylori gastritis. 11. Congestive heart failure, resolved. PAST SURGICAL HISTORY: 1. Upper endoscopy. 2. . 3. Tubal ligation. 4. Uterine ablation. 5. Postoperative nausea and vomiting. 6. Gastric bypass HOME MEDICATIONS: 1. Lamotrigine. 2. Omeprazole. 3. Synthroid. 4. Advair. 5. Lexapro. 6. Vitamin D 7. Abilify. ALLERGIES: 1. Hydrocodone 2. Naproxen. SOCIAL HISTORY: No active tobacco use. She uses a walker for mobility. FAMILY HISTORY: Denies any DVTs, pulmonary embolisms in her family. Denies any ulcerative colitis disease or Crohn's. She does have a family history of morbid obesity. Daughter with easy bruising. She reports a family history of gallbladder disease in her mother. She also has a family history of morbid obesity. REVIEW OF ORGAN SYSTEMS: CONSTITUTIONAL: At her height of 5 foot 6.5, her ideal body weight is 154 pounds. Her highest weight is 385 pounds. Her body mass index is reduced from 61.3. HEENT: Denies any active troubles with vision or hearing. ENDOCRINE: Has diabetes and hypothyroidism. Insulin-dependent diabetes resolved. CARDIOVASCULAR: No reports of palpitations or heart attacks or chest pain. RESPIRATORY: Has sleep apnea, resolved. Has asthma. History of COPD exacerbation. GI: Has bright red blood per rectum. Gastroesophageal reflux disease resolved. MUSCULOSKELETAL: Has osteoarthritis of the knees and lower back. NEURO: No reports of headaches or seizure disorders. PSYCH: Has depression without suicidal ideation. Has anxiety. HEMATOLOGIC: Denies any abnormal bleeding or bruising. SKIN: Has panniculitis. No recent skin cancer. PHYSICAL EXAM: VITAL SIGNS: Height 5 foot 6.5 inches. Weight 206 pounds. BMI 32.8 Vital Signs Temp 98.0 F 09/14/18 15:36 Pulse 71 09/14/18 15:36 Resp BP 121/59 09/14/18 15:36 Pulse Ox GENERAL: Well-developed and in no acute distress. HEENT: No scleral icterus. Extraocular was grossly intact. No nasal drainage. NECK: Supple without lymphadenopathy. CHEST: Nonlabored respirations with equal bilateral excursions. CARDIOVASCULAR: Regular rate. Distal 2+ pulses. ABDOMEN: Soft, nontender MUSCULOSKELETAL: No clubbing, cyanosis, or edema. NEURO: No focal or lateralizing signs. Cranial nerves 2 through 12 grossly within normal limits. PSYCH: Appropriate affect. Alert and oriented to person, place and time. SKIN: Good skin turgor. Well perfused. ASSESSMENT: 1. Morbid obesity due to excess calories. 2. Body mass index of 61.3 down to 32.8 3. Iron deficiency anemia 4. Diabetes type 2, insulin dependent, improved. 5. Osteoarthritis of the lower back, improved. 6. Osteoarthritis of the bilateral knees, improved. 7. Obstructive sleep apnea, resolved. 8. Chronic obstructive pulmonary disease, improved. 9. Hypertensive heart disease. 10. Status post gastric bypass. 11. Vitamin A deficiency. 12. Dietary surveillance and counseling 13. Status post massive weight loss 159 pounds PLAN: 1. She is 11 months out. 2. She has lost almost 180 months. She went down from 383 pounds 206 pounds. 3. Recommend bariatric labs 4. Evaluation for skin removal surgery in March 2019.
[2018-09-14 15:56] VITALS: BP 121/59; PULSE 71; TEMP 98; BMI 32.7
== END | disposition home or self-care (01) ==
LOC: BARWHC3 14:09
PROVIDERS: ATTEND Surgery Plastic and Reconstructive Surgery
DX: Z48.815 Encounter for surgical aftercare following surgery on the digestive system (principal); E66.01 Morbid (severe) obesity due to excess calories; D50.9 Iron deficiency anemia, unspecified; E11.9 Type 2 diabetes mellitus without complications; I11.9 Hypertensive heart disease without heart failure; E50.9 Vitamin A deficiency, unspecified; J45.909 Unspecified asthma, uncomplicated; E03.9 Hypothyroidism, unspecified; M16.0 Bilateral primary osteoarthritis of hip; M17.0 Bilateral primary osteoarthritis of knee; G47.33 Obstructive sleep apnea (adult) (pediatric); M47.816 Spondylosis without myelopathy or radiculopathy, lumbar region; Z68.32 Body mass index [BMI] 32.0-32.9, adult; Z71.3 Dietary counseling and surveillance; Z79.899 Other long term (current) drug therapy; Z79.51 Long term (current) use of inhaled steroids; Z79.4 Long term (current) use of insulin; Z88.5 Allergy status to narcotic agent; Z88.6 Allergy status to analgesic agent; Z87.19 Personal history of other diseases of the digestive system; Z98.890 Other specified postprocedural states; Z98.84 Bariatric surgery status
CPT/HCPCS: 99211

== ENCOUNTER 2018-09-19 10:53 | Observation (INO) | payer MEDICARE, OTHER ==
[2018-09-19] MEDS ORDERED: SODIUM CHLORIDE 0.9% 1,000 ML IV ONE (11:35)
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
[2018-09-19 12:10] LABS: Basophils % (A) 0 %; Eosinophils # (A) 0.2 k/uL (0-0.7); Eosinophils % (A) 3 %; HGB 13.3 gm/dL (11.4-16.0); Lymphocytes # (A) 2.4 k/uL (1.0-4.8); Lymphocytes % (A) 31 %; MCH 30.1 pg (25.0-35.0); MCHC 32.4 g/dL (31.0-37.0); MCV 92.9 fL (80.0-100.0); Mean Platelet Volume 6.8; Monocytes # (A) 0.4 k/uL (0-1.0); Monocytes % (A) 5 %; Neutrophils # (A) 4.6 k/uL (1.3-7.7); Neutrophils % (A) 59 %; Platelet Count 331 k/uL (150-450); RBC 4.42 m/uL (3.80-5.40); RDW 14.3 % (11.5-15.5); WBC 7.8 k/uL (3.8-10.6)
[2018-09-19 12:12] LABS: Appearance,Urine Cloudy (Clear); Bacteria,Urine Moderate /hpf; Bilirubin,Urine Negative (Negative); Blood,Urine Negative (Negative); Color,Urine Light Yellow; Glucose,Urine (UA) Negative (Negative); Ketones,Urine Negative (Negative); Leukocyte Esterase,Urine Negative (Negative); Nitrite,Urine Negative (Negative); PH, Urine 7.5 (5.0-8.0); Protein,Urine Negative (Negative); RBC,Urine 1 /hpf (0-5); Specific Gravity,Urine 1.007 (1.001-1.035); Squamous Epithelial Cell,Urine 16 /hpf (0-4); Urobilinogen,Urine <2.0 mg/dL (<2.0); WBC,Urine 5 /hpf (0-5)
[2018-09-19 12:19] LABS: Amphetamine Screen,Urine Not Detected (NotDetected); Barbiturate Screen,Urine Not Detected (NotDetected); Benzodiazepines Screen,Urine Not Detected (NotDetected); Cocaine Screen,Urine Not Detected (NotDetected); Methadone Screen, Urine Not Detected (NotDetected); Opiate Screen,Urine Not Detected (NotDetected); Oxycodone Screen, Urine Not Detected (NotDetected); Phencyclidine Screen,Urine Not Detected (NotDetected); Tricyclic Antidepressant,Urine Not Detected (NotDetected); Urn Cannabinoid Scrn Not Detected (NotDetected)
--- NOTE | 2018-09-19 12:21 | XR ---
EXAMINATION TYPE: XR chest 2V DATE OF EXAM: 09/19/2018 HISTORY: Shortness of breath. COMPARISON: None. TECHNIQUE: Single view of the chest is submitted. FINDINGS: Demonstrated are scattered senescent parenchymal change. There is no evidence for focal infiltrate. The heart is stable. Hilar and mediastinal structures are within normal limits. Degenerative changes are seen of the dorsal spine. IMPRESSION: 1. Chronic changes without evidence for acute pulmonary disease.
--- NOTE | 2018-09-19 12:24 | CT ---
EXAMINATION TYPE: CT brain wo con DATE OF EXAM: 09/19/2018 COMPARISON: 08/23/2018 HISTORY: Poor historian. Altered mental status. CT DLP: 1262.4 mGycm Automated exposure control for dose reduction was used. FINDINGS: There is no acute intracranial hemorrhage, mass effect, or midline shift identified. The ventricles and sulci are within normal limits in size. The globes are intact and the visualized sinuses are mere ar. Recommend MRI of symptoms persist. IMPRESSION: No acute intracranial hemorrhage, mass effect, or midline shift is seen.
[2018-09-19 12:31] LABS: Chloride 108 mmol/L (98-107)
[2018-09-19 12:33] LABS: ALT 21 U/L (9-52); AST 34 U/L (14-36); Albumin 3.2 g/dL (3.5-5.0); Alkaline Phosphatase 68 U/L (38-126); Anion Gap 5 mmol/L; Blood Urea Nitrogen 11 mg/dL (7-17); Calcium 8.7 mg/dL (8.4-10.2); Carbon Dioxide 27 mmol/L (22-30); Glucose 93 mg/dL (74-99); Sodium 140 mmol/L (137-145); Total Bilirubin 0.7 mg/dL (0.2-1.3)
[2018-09-19 12:50] LABS: Prothrombin Time 10.2 sec (9.0-12.0)
[2018-09-19 12:58] LABS: Potassium 4.4 mmol/L (3.5-5.1)
[2018-09-19] MEDS ORDERED: NALOXONE 0.4 MG/ML 1 ML VIAL IV PRN (13:27)
[2018-09-19] MEDS: SODIUM CHLORIDE 0.9% 1,000 ML IV SCH (13:41)
[2018-09-19] MEDS ORDERED: ACETAMINOPHEN TAB 500 MG TAB PO STA (14:36)
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
[2018-09-19] MEDS ORDERED: CYCLOBENZAPRINE 10 MG TAB PO PRN (22:30)
[2018-09-19] MEDS ORDERED: ALBUTEROL NEBULIZED 2.5 MG/3 ML INHALATION PRN (22:30)
[2018-09-19] MEDS ORDERED: MECLIZINE 25 MG TAB PO PRN (22:30)
[2018-09-19] MEDS ORDERED: ALBUTEROL INHALER 60 PUFF/8 GM INHALER INHALATION PRN (22:30)
[2018-09-19] MEDS: ATORVASTATIN 10 MG TAB PO SCH (23:19)
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
[2018-09-20] MEDS: lamoTRIgine 100 MG TAB PO SCH (09:02)
[2018-09-20] MEDS: amLODIPine 5 MG TAB PO SCH (09:02)
[2018-09-20] MEDS: ESCITALOPRAM 10 MG TAB PO SCH (09:02)
[2018-09-20] MEDS: ENOXAPARIN 40 MG/0.4 ML SYRINGE SQ SCH (09:02)
[2018-09-20] MEDS: LEVOTHYROXINE 25 MCG TAB PO SCH (09:02)
[2018-09-20] MEDS: ARIPiprazole 5 MG TAB PO SCH (09:03)
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
--- NOTE | 2018-09-20 15:49 | MR ---
EXAMINATION TYPE: MR brain wo con DATE OF EXAM: 09/20/2018 COMPARISON: CT brain from yesterday and older CTs. HISTORY: Altered Mental Status on admission yesterday. TECHNIQUE: Multiplanar, multisequence imaging of the brain and brainstem is performed without IV cont rast. FINDINGS: Diffusion weighted images demonstrate no evidence of a recent infarct or other diffusion abnormality. There is no worrisome extra-axial fluid collection. The ventricular system and cisternal spaces are normal in size and appearance. The brain volume is age appropriate. There is occasional focus of T2 hyperintensity seen throughout the white matter bilaterally. Less than 8 lesions are felt present. La rgest measures 4 to 5 mm posterior left frontal lobe axial image 21 at level of pérez radiata. Midline structures demonstrate normal morphology. The craniocervical junction appears within normal limits. Normal vascular flow voids are present. The visualized sinuses are clear and the globes are i ntact. IMPRESSION: 1. No evidence of a recent infarct. 2. Mild to minimal nonspecific white matter changes most likely on basis of product of chronic small vessel ischemic change in patient of this age. Other etiologies not excluded.
[2018-09-20 16:41] LABS: Hemoglobin A1C 5.9 % (4.0-6.0)
[2018-09-20] MEDS: SODIUM CHLORIDE 0.9% 1,000 ML IV SCH (17:18)
[2018-09-20] MEDS: ATORVASTATIN 10 MG TAB PO SCH (20:56)
--- NOTE | 2018-09-20 22:28 | PN ---
PROGRESS NOTE DATE OF SERVICE: 09/20/2018. PRESENTING COMPLAINT: Headache. INTERVAL HISTORY: This is a patient who recently hit her head on the pavement and had evidence of headache and forgetfulness. Workup has come back to be negative till now, including biochemical disorders. The initial suspicion has been of concussion leading to some amount of amnesia. REVIEW OF SYSTEMS: Done for constitutional, cardiovascular, GI, pulmonary and relevant findings as above. CURRENT MEDICATIONS: Reviewed. PHYSICAL EXAMINATION: VITAL SIGNS: Temperature 98.4, pulse 84, respiratory 18, blood pressure 130/84, pulse ox 94 percent on room air. GENERAL APPEARANCE: Sitting at the edge of bed, slightly slow appearing. EYES: Pupils are equal. Conjunctivae normal. HEENT: External appearance of nose and ears normal. Oral cavity normal. NECK: JVD not raised. Mass not palpable. RESPIRATORY: Effort normal. LUNGS are clear. CARDIOVASCULAR: 1st and 2nd sounds normal. No edema. ABDOMEN: Soft. Liver and spleen not palpable. PSYCHIATRY: Patient does answer questions but somewhat slowly. INVESTIGATIONS: B12 normal. TSH normal. MRI of the brain shows some chronic changes. ASSESSMENT: 1. Possible postconcussion syndrome from blunt injury to the head. 2. Hypothyroid. 3. Depression/anxiety not otherwise specified. 4. Essential hypertension. 5. Intermittent asthma. 6. Obesity, BMI 33. 7. Postconcussion syndrome with possibly some minor neuro cognitive impairment. PLAN: Care was discussed with the patient and the . Psychiatry consult was ordered by Dr. Bocanegra. Per Psychiatry, nothing further to be added at this point. MMODL / IJN: [id number] /
--- NOTE | 2018-09-20 23:34 | EEG ---
ELECTROENCEPHALOGRAM REPORT DATE OF SERVICE: 09/20/2018 REASON FOR TESTING: Altered mental status and memory loss. DESCRIPTION OF THE PROCEDURE: This EEG was performed using a 21-channel digital electroencephalograph, following international 10-20 system. DESCRIPTION OF THE RECORDING: From the beginning of the tracing, and with the patient's eyes closed, the background rhythm was mostly consisting of 9 Hz alpha frequency in the posterior occipital leads. No obvious asymmetry is seen. Photic stimulation was performed with a good driving response seen. Occasional sharp wave activity is noticed. Occasional dysregulation is seen. Hyperventilation was not performed. The patient does reach stage II of sleep during the tracing and occasional sleep spindles are seen. No generalized epileptic activity is noticed. Her EKG lead showed a regular rate and rhythm. INTERPRETATION: This asleep and awake EEG is abnormal due to the presence of occasional sharp wave activity and dysregulation. These findings could be consistent with a reduced seizure threshold. No obvious generalized epileptic activity is seen. Clinical correlation is recommended. BRIAN / JANETH: [id number] /
[2018-09-21] MEDS: LEVOTHYROXINE 25 MCG TAB PO SCH (06:17)
[2018-09-21] MEDS: amLODIPine 5 MG TAB PO SCH (10:00)
[2018-09-21] MEDS: lamoTRIgine 100 MG TAB PO SCH (10:00)
[2018-09-21] MEDS: ARIPiprazole 5 MG TAB PO SCH (10:00)
[2018-09-21] MEDS: ENOXAPARIN 40 MG/0.4 ML SYRINGE SQ SCH (10:00)
[2018-09-21] MEDS: ESCITALOPRAM 10 MG TAB PO SCH (10:00)
[2018-09-21] MEDS: SODIUM CHLORIDE 0.9% 1,000 ML IV SCH (11:46)
--- NOTE | 2018-09-21 15:14 | DS ---
DISCHARGE SUMMARY DATE OF ADMISSION: 09/19/2018 DATE OF DISCHARGE: 08/21/2018 FINAL DIAGNOSES: 1. Acute postconcussion syndrome from blunt injury to the head. 2. Hypothyroid. 3. Depression, anxiety not otherwise specified. 4. Essential hypertension. 5. Intermittent asthma. 6. Obesity, body mass index 33. HOSPITAL COURSE: This patient presents with episodes of headache, episodes of confusion. Patient had hit her head on the curb, on . She has had 2 visits to the ER. Patient's CT scan of the brain and MRI was otherwise unremarkable. EEG showed some reduced seizure threshold, but patient by the day of discharge had greatly turned around. Doing much better. It is felt to be all part of postconcussion syndrome. Today spoke to the patient and the , the patient not to go to back to work at least until she is seen by the family doctor, even though she has improved immensely and doing better. PHYSICAL EXAMINATION: Temperature 97.9, pulse 56, respirations 16, blood pressure 130/73, pulse ox 98% on room air. PSYCH: AO x3, now. LABS: PH is normal. B12 was normal. CONSULTATION: Dr. Bocanegra from Neurology. DISCHARGE MEDICATIONS: 1. Ventolin HFA 2 puffs q.4 p.r.n. 2. Abilify 5 mg p.o. daily. 3. Lexapro 10 mg p.o. daily. 4. Synthroid 25 mcg p.o. daily. 5. Norvasc 5 mg p.o. daily. 6. Lamictal 200 mg p.o. daily. 7. Ventolin 2.5 q.6 p.r.n. 8. Flexeril 10 mg q.8 p.r.n. 9. Zocor 20 mg q.h.s. FOLLOW UP: Follow up with Deysi Sequeira in 1 week. Follow up with Dr. Bocanegra in 1 week. SPECIAL NOTE: Patient not to return to work until cleared by Deysi Sequeira. Discussion and discharge planning more than 35 minutes. MMODL / IJN: [id number] /
[2018-09-21 15:19] VITALS: BP 132/58; PULSE 59; RESP 18; TEMP 98.3
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
== END 2018-09-21 15:16 | disposition home or self-care (01) ==
LOC: EC 10:53 → 4MS4W 13:27
PROVIDERS: ADMIT Hospitalist; ATTEND Hospitalist
DX: F07.81 Postconcussional syndrome (principal); K21.9 Gastro-esophageal reflux disease without esophagitis; J45.20 Mild intermittent asthma, uncomplicated; I10 Essential (primary) hypertension; F40.240 Claustrophobia; F32.9 Major depressive disorder, single episode, unspecified; E78.5 Hyperlipidemia, unspecified; E11.9 Type 2 diabetes mellitus without complications; E03.9 Hypothyroidism, unspecified; F41.9 Anxiety disorder, unspecified; E66.2 Morbid (severe) obesity with alveolar hypoventilation; Z68.33 Body mass index [BMI] 33.0-33.9, adult; R11.0 Nausea; Z79.51 Long term (current) use of inhaled steroids; Z79.890 Hormone replacement therapy; Z79.899 Other long term (current) drug therapy; Z88.5 Allergy status to narcotic agent; Z88.6 Allergy status to analgesic agent; Z88.8 Allergy status to other drugs, medicaments and biological substances; Z86.69 Personal history of other diseases of the nervous system and sense organs; Z90.710 Acquired absence of both cervix and uterus; Z98.84 Bariatric surgery status; Z87.891 Personal history of nicotine dependence; W01.198A Fall on same level from slipping, tripping and stumbling with subsequent striking against other object, initial encounter; Y99.0 Civilian activity done for income or pay; Z87.820 Personal history of traumatic brain injury; Z91.81 History of falling; Z84.1 Family history of disorders of kidney and ureter; Z83.3 Family history of diabetes mellitus
CPT/HCPCS: 96361 ×3; 96372 ×2; 96360; 99285; 36415; 95819; 93005; 97116; 97162; 97530; 97166; 80053; 84443; 82607; 85025; 85610; 85730; 81001; 80306; 83036; 71046; 70450; 70551; G0378 ×3; G0515; J1650 ×2

== ENCOUNTER 2018-11-23 11:38 | Emergency (ER) | payer MEDICARE, OTHER ==
[2018-11-23 11:48] VITALS: BP 138/62; PULSE 72; RESP 18; TEMP 98.2
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
--- NOTE | 2018-11-23 12:59 | ED ---
Medical Decision Making - Medical Decision Making Chaperoned by Graham Mckay. Disposition Clinical Impression: [facility] Disposition: HOME SELF-CARE Condition: Stable Instructions (If sedation given, give patient instructions): Acute Rash (ED) Additional Instructions: Patient to adhere to previously discussed treatment plan and will take medication(s) as directed. Patient to follow up with PCP in 1-2 days. Patient to return to ED if symptoms do not improve. Prescriptions: Clotrimazole [Clotrimazole 1% Top Soln] 1 applic TOPICAL Q12HR 14 Days #1 tube Is patient prescribed a controlled substance at d/c from ED?: No Referrals: Deysi Sequeira MD [Primary Care Provider] - 1-2 days
== END 2018-11-23 13:18 | disposition home or self-care (01) ==
LOC: EC 11:38
DX: L30.4 Erythema intertrigo (principal); J45.909 Unspecified asthma, uncomplicated; I10 Essential (primary) hypertension; G47.33 Obstructive sleep apnea (adult) (pediatric); Z99.89 Dependence on other enabling machines and devices; E03.9 Hypothyroidism, unspecified; F32.9 Major depressive disorder, single episode, unspecified; F41.9 Anxiety disorder, unspecified; Z87.891 Personal history of nicotine dependence; Z79.890 Hormone replacement therapy; Z79.899 Other long term (current) drug therapy; Z88.5 Allergy status to narcotic agent; Z88.6 Allergy status to analgesic agent; Z88.8 Allergy status to other drugs, medicaments and biological substances; Z98.84 Bariatric surgery status
CPT/HCPCS: 99283

== ENCOUNTER 2018-11-27 08:00 | Emergency (ER) | payer MEDICARE, OTHER ==
[2018-11-27 08:04] VITALS: RESP 18
[2018-11-27] MEDS ORDERED: SODIUM CHLORIDE 0.9% 1,000 ML IV STA (08:14)
[2018-11-27] MEDS ORDERED: ONDANSETRON 4 MG/2 ML VIAL IVP STA (08:14)
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
[2018-11-27 09:33] LABS: ALT 47 U/L (9-52); AST 42 U/L (14-36); Albumin 4.2 g/dL (3.5-5.0); Alkaline Phosphatase 92 U/L (38-126); Anion Gap 6 mmol/L; Blood Urea Nitrogen 10 mg/dL (7-17); Calcium 9.8 mg/dL (8.4-10.2); Carbon Dioxide 31 mmol/L (22-30); Chloride 105 mmol/L (98-107); Glucose 106 mg/dL (74-99); Lipase 322 U/L (23-300); Potassium 4.4 mmol/L (3.5-5.1); Sodium 142 mmol/L (137-145); Total Bilirubin 0.8 mg/dL (0.2-1.3)
[2018-11-27 09:40] LABS: Basophils % (A) 0 %; Eosinophils # (A) 0.2 k/uL (0-0.7); Eosinophils % (A) 3 %; HGB 14.1 gm/dL (11.4-16.0); Lymphocytes # (A) 2.1 k/uL (1.0-4.8); Lymphocytes % (A) 28 %; MCH 30.9 pg (25.0-35.0); MCHC 32.9 g/dL (31.0-37.0); MCV 93.9 fL (80.0-100.0); Mean Platelet Volume 7.2; Monocytes # (A) 0.5 k/uL (0-1.0); Monocytes % (A) 6 %; Neutrophils # (A) 4.6 k/uL (1.3-7.7); Neutrophils % (A) 61 %; Platelet Count 301 k/uL (150-450); RBC 4.58 m/uL (3.80-5.40); WBC 7.6 k/uL (3.8-10.6)
[2018-11-27 09:56] LABS: Appearance,Urine Clear (Clear); Bacteria,Urine Rare /hpf; Bilirubin,Urine Negative (Negative); Blood,Urine Negative (Negative); Color,Urine Yellow; Glucose,Urine (UA) Negative (Negative); Ketones,Urine Negative (Negative); Leukocyte Esterase,Urine Small (Negative); Mucus,Urine Rare /hpf; Nitrite,Urine Negative (Negative); Protein,Urine Negative (Negative); RBC,Urine 1 /hpf (0-5); Specific Gravity,Urine 1.013 (1.001-1.035); Squamous Epithelial Cell,Urine 4 /hpf (0-4); Urobilinogen,Urine <2.0 mg/dL (<2.0); WBC,Urine 5 /hpf (0-5)
[2018-11-27 16:51] VITALS: BP 138/80; PULSE 59; TEMP 97.8
== END 2018-11-27 11:00 | disposition home or self-care (01) ==
LOC: EC 08:00
DX: K52.9 Noninfective gastroenteritis and colitis, unspecified (principal); J45.909 Unspecified asthma, uncomplicated; I10 Essential (primary) hypertension; E03.9 Hypothyroidism, unspecified; G47.33 Obstructive sleep apnea (adult) (pediatric); Z99.89 Dependence on other enabling machines and devices; F32.9 Major depressive disorder, single episode, unspecified; F41.9 Anxiety disorder, unspecified; Z87.891 Personal history of nicotine dependence; Z79.899 Other long term (current) drug therapy; Z79.890 Hormone replacement therapy; Z88.5 Allergy status to narcotic agent; Z88.6 Allergy status to analgesic agent; Z88.8 Allergy status to other drugs, medicaments and biological substances; Z98.84 Bariatric surgery status
CPT/HCPCS: 99284; 96374; 96361; 36415; 80053; 83690; 85025; 81001; J2405

== ENCOUNTER 2018-12-12 05:39 | Emergency (ER) | payer MEDICARE, OTHER ==
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
[2018-12-12 06:58] LABS: Basophils % (A) 0 %; Eosinophils # (A) 0.3 k/uL (0-0.7); Eosinophils % (A) 3 %; HCT 35.7 % (34.0-46.0); HGB 12.2 gm/dL (11.4-16.0); Lymphocytes # (A) 2.9 k/uL (1.0-4.8); Lymphocytes % (A) 34 %; MCH 31.8 pg (25.0-35.0); MCHC 34.2 g/dL (31.0-37.0); MCV 92.9 fL (80.0-100.0); Mean Platelet Volume 7.1; Monocytes # (A) 0.6 k/uL (0-1.0); Monocytes % (A) 7 %; Neutrophils # (A) 4.4 k/uL (1.3-7.7); Neutrophils % (A) 53 %; Platelet Count 306 k/uL (150-450); RBC 3.85 m/uL (3.80-5.40); RDW 14.7 % (11.5-15.5); WBC 8.3 k/uL (3.8-10.6)
[2018-12-12 07:10] LABS: ALT 30 U/L (9-52); AST 33 U/L (14-36); Albumin 3.9 g/dL (3.5-5.0); Alkaline Phosphatase 84 U/L (38-126); Anion Gap 7 mmol/L; Blood Urea Nitrogen 12 mg/dL (7-17); Calcium 9.6 mg/dL (8.4-10.2); Carbon Dioxide 29 mmol/L (22-30); Chloride 105 mmol/L (98-107); Glucose 107 mg/dL (74-99); Potassium 4.3 mmol/L (3.5-5.1); Sodium 141 mmol/L (137-145); Total Bilirubin 0.5 mg/dL (0.2-1.3); Total Protein 6.7 g/dL (6.3-8.2)
--- NOTE | 2018-12-12 07:31 | CT ---
EXAMINATION TYPE: CT brain jasmin lee con DATE OF EXAM: 12/12/2018 COMPARISON: 09/19/2018 HISTORY: Pain CT DLP: 1462.2 mGycm, Automated exposure control for dose reduction was used. CONTRAST: Patient injected with 0 mL of Isovue 300. CT of the brain is performed utilizing 3 mm thick sections through the posterior fossa and 3 mm thick sections through the remaining calvarium. Study is performed within 24 hours of arrival to the hospital. No abnormal hyperdensity is present to suggest an acute intracranial hemorrhage. No mass lesion is evident. No acute infarcts are evident. Ventricles and sulci are appropriate for the patient age. Paranasal sinuses and mastoid air cells within the [id number] are clear. IMPRESSIONS: 1. No acute intracranial process. CT cervical spine. COMPARISON: None CT of the cervical spine is performed in the axial plane at 2 mm thick sections. Reconstructed image s in the coronal, and sagittal plane are reviewed on the computer. No acute fractures are evident. Vertebral body alignment is normal. Diffuse disc space narrowing is present greater at C5-6 C6-7 and C7-T1. Some posterior endplate spurr ing is present at C6-7 with mild to moderate anterior thecal sac compression. Uncovertebral joint hyp ertrophy is present C6-7 and C5-6 with mild foraminal narrowing. Facet hypertrophy is present on the right at C3-4. Vertebral body heights are preserved. No spinal canal stenosis is evident. IMPRESSIONS: 1. Mild degenerative changes within the cervical spine. 2. No acute osseous abnormality cervical spine
[2018-12-12 07:38] LABS: Appearance,Urine Clear (Clear); Bilirubin,Urine Negative (Negative); Blood,Urine Negative (Negative); Color,Urine Light Yellow; Glucose,Urine (UA) Negative (Negative); Ketones,Urine Negative (Negative); Leukocyte Esterase,Urine Negative (Negative); Nitrite,Urine Negative (Negative); PH, Urine 7.5 (5.0-8.0); Protein,Urine Negative (Negative); Specific Gravity,Urine 1.005 (1.001-1.035); Urobilinogen,Urine <2.0 mg/dL (<2.0)
--- NOTE | 2018-12-12 08:19 | XR ---
EXAMINATION TYPE: XR chest 2V DATE OF EXAM: 12/12/2018 COMPARISON: 09/19/2018 INDICATION: Fall, medial chest pain TECHNIQUE: Frontal and lateral views of the chest are obtained. FINDINGS: The heart size is mildly prominent. The pulmonary vasculature is normal. The lungs are clear. IMPRESSION: 1. No acute pulmonary process. 2. Mild cardiomegaly.
[2018-12-12 08:51] VITALS: BP 147/77; PULSE 59; RESP 20; TEMP 98.4
== END 2018-12-12 08:50 | disposition home or self-care (01) ==
LOC: EC 05:39
DX: S06.0X0A Concussion without loss of consciousness, initial encounter (principal); M47.892 Other spondylosis, cervical region; R07.81 Pleurodynia; I11.9 Hypertensive heart disease without heart failure; J45.909 Unspecified asthma, uncomplicated; E78.5 Hyperlipidemia, unspecified; E03.9 Hypothyroidism, unspecified; R56.9 Unspecified convulsions; F41.9 Anxiety disorder, unspecified; F32.9 Major depressive disorder, single episode, unspecified; G47.33 Obstructive sleep apnea (adult) (pediatric); Z99.89 Dependence on other enabling machines and devices; Z87.891 Personal history of nicotine dependence; Z79.890 Hormone replacement therapy; Z79.899 Other long term (current) drug therapy; Z88.8 Allergy status to other drugs, medicaments and biological substances; Z88.5 Allergy status to narcotic agent; Z88.6 Allergy status to analgesic agent; W10.9XXA Fall (on) (from) unspecified stairs and steps, initial encounter; Y92.009 Unspecified place in unspecified non-institutional (private) residence as the place of occurrence of the external cause
CPT/HCPCS: 36415; 70450; 71046; 72125; 80053; 81003; 84484; 85025; 93005; 99284

== ENCOUNTER 2018-12-24 10:55 | Emergency (ER) | payer MEDICARE, OTHER ==
[2018-12-24 11:03] VITALS: BP 137/65; PULSE 64; RESP 18
[2018-12-24] MEDS ORDERED: DIPHENOX-ATROP STARTER PACK 8 TAB BTL PO STA (11:45)
[2018-12-24] MEDS ORDERED: DIPHENOX-ATROP STARTER PACK 8 TAB BTL PO PRN (11:48)
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
== END 2018-12-24 12:09 | disposition home or self-care (01) ==
LOC: EC 10:55
DX: R19.7 Diarrhea, unspecified (principal); R11.2 Nausea with vomiting, unspecified; J45.909 Unspecified asthma, uncomplicated; E78.5 Hyperlipidemia, unspecified; I10 Essential (primary) hypertension; E03.9 Hypothyroidism, unspecified; R56.9 Unspecified convulsions; F41.9 Anxiety disorder, unspecified; F32.9 Major depressive disorder, single episode, unspecified; G47.33 Obstructive sleep apnea (adult) (pediatric); Z99.89 Dependence on other enabling machines and devices; Z98.84 Bariatric surgery status; Z90.710 Acquired absence of both cervix and uterus; Z87.891 Personal history of nicotine dependence; Z79.890 Hormone replacement therapy; Z79.899 Other long term (current) drug therapy; Z88.8 Allergy status to other drugs, medicaments and biological substances; Z88.5 Allergy status to narcotic agent; Z88.6 Allergy status to analgesic agent
CPT/HCPCS: 99283

== ENCOUNTER 2019-01-06 14:35 | Emergency (ER) | payer MEDICARE, OTHER ==
--- NOTE | 2019-01-06 15:58 | CT ---
EXAMINATION TYPE: CT brain sallyine wo con DATE OF EXAM: 01/06/2019 COMPARISON: NONE HISTORY: Fall with left posterior head injury. Visual disturbance. CT DLP: 1436 mGycm. Automated Exposure Control for Dose Reduction was Utilized. TECHNIQUE: CT scan of the head and cervical spine are performed without contrast. FINDINGS: There is no acute intracranial hemorrhage, mass effect, or midline shift identified. The ventricles and sulci are within normal limits in size. The globes are intact and the visualized sin uses are clear. Atherosclerosis is noted of the intracranial vasculature. No suspicious extra-axial f luid collection. Cervical spine is visualized in its entirety from C1 through upper thoracic levels and demonstrates s atisfactory alignment without evidence of acute fracture. Mild to moderate multilevel degenerative di sc disease is seen of the cervical spine with variable degrees of neural foraminal narrowing as resul t. Very mild anterolisthesis of C3 on C4 is likely on a degenerative basis as the facets remain align ed. There is straightening of the usual cervical lordosis. 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 Prevertebral soft tissue appears within normal limits. The C1-C2 articu lation is unremarkable. IMPRESSION: 1. There is no acute fracture or dislocation evident in the cervical spine. 2. No acute intracranial hemorrhage, mass effect, or midline shift is seen. 3. Very mild anterolisthesis of C3 on C4 is likely on a degenerative basis as there is [id number] te multilevel degenerative disc disease of the cervical spine. Straightening of usual cervical lordos is may be on the basis of muscular sprain/spasm or patient positioning.
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
[2019-01-06 16:52] VITALS: BP 138/58; PULSE 59; RESP 16; TEMP 98
== END 2019-01-06 16:52 | disposition home or self-care (01) ==
LOC: EC 14:35
DX: S09.90XA Unspecified injury of head, initial encounter (principal); J45.909 Unspecified asthma, uncomplicated; E78.5 Hyperlipidemia, unspecified; I10 Essential (primary) hypertension; G47.33 Obstructive sleep apnea (adult) (pediatric); E03.9 Hypothyroidism, unspecified; F32.9 Major depressive disorder, single episode, unspecified; F41.9 Anxiety disorder, unspecified; Z87.891 Personal history of nicotine dependence; Z88.5 Allergy status to narcotic agent; Z88.6 Allergy status to analgesic agent; Z88.8 Allergy status to other drugs, medicaments and biological substances; Z79.890 Hormone replacement therapy; Z79.899 Other long term (current) drug therapy; Z86.69 Personal history of other diseases of the nervous system and sense organs; Z99.89 Dependence on other enabling machines and devices; Z86.39 Personal history of other endocrine, nutritional and metabolic disease; Z98.84 Bariatric surgery status; W17.89XA Other fall from one level to another, initial encounter; Y93.89 Activity, other specified; Y92.29 Other specified public building as the place of occurrence of the external cause
CPT/HCPCS: 70450; 72125; 99284

== ENCOUNTER 2019-01-14 13:36 | Emergency (ER) | payer MEDICARE, OTHER ==
[2019-01-14 13:51] VITALS: TEMP 98.5
[2019-01-14] MEDS ORDERED: LOPERAMIDE 2 MG CAP PO STA (13:56)
[2019-01-14] MEDS ORDERED: SODIUM CHLORIDE 0.9% 1,000 ML IV STA (13:56)
[2019-01-14 14:21] LABS: Basophils % (A) 0 %; Eosinophils # (A) 0.3 k/uL (0-0.7); Eosinophils % (A) 4 %; HGB 13.5 gm/dL (11.4-16.0); Lymphocytes # (A) 2.4 k/uL (1.0-4.8); Lymphocytes % (A) 33 %; MCH 30.5 pg (25.0-35.0); MCHC 32.2 g/dL (31.0-37.0); MCV 94.8 fL (80.0-100.0); Mean Platelet Volume 7.2; Monocytes # (A) 0.4 k/uL (0-1.0); Monocytes % (A) 6 %; Neutrophils # (A) 3.9 k/uL (1.3-7.7); Neutrophils % (A) 54 %; Platelet Count 367 k/uL (150-450); RBC 4.43 m/uL (3.80-5.40); RDW 13.5 % (11.5-15.5); WBC 7.2 k/uL (3.8-10.6)
[2019-01-14 14:25] LABS: ALT 32 U/L (9-52); AST 30 U/L (14-36); Alkaline Phosphatase 99 U/L (38-126); Anion Gap 6 mmol/L; Blood Urea Nitrogen 11 mg/dL (7-17); Calcium 9.9 mg/dL (8.4-10.2); Carbon Dioxide 32 mmol/L (22-30); Chloride 102 mmol/L (98-107); Glucose 106 mg/dL (74-99); Lipase 116 U/L (23-300); Potassium 4.6 mmol/L (3.5-5.1); Sodium 140 mmol/L (137-145); Total Bilirubin 0.8 mg/dL (0.2-1.3)
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
[2019-01-14 15:39] VITALS: BP 130/70; PULSE 68; RESP 18
== END 2019-01-14 15:39 | disposition home or self-care (01) ==
LOC: EC 13:36
DX: A08.4 Viral intestinal infection, unspecified (principal); J45.909 Unspecified asthma, uncomplicated; E78.5 Hyperlipidemia, unspecified; I10 Essential (primary) hypertension; E03.9 Hypothyroidism, unspecified; F32.9 Major depressive disorder, single episode, unspecified; F41.9 Anxiety disorder, unspecified; Z87.891 Personal history of nicotine dependence; Z98.84 Bariatric surgery status; Z88.5 Allergy status to narcotic agent; Z88.6 Allergy status to analgesic agent; Z88.8 Allergy status to other drugs, medicaments and biological substances; Z79.890 Hormone replacement therapy; Z79.899 Other long term (current) drug therapy; Z86.69 Personal history of other diseases of the nervous system and sense organs
CPT/HCPCS: 36415; 80053; 83690; 85025; 96360; 96361; 99284

== ENCOUNTER 2019-01-26 18:42 | Emergency (ER) | payer MEDICARE, OTHER ==
[2019-01-26] MEDS ORDERED: ACETAMINOPHEN TAB 325 MG TAB PO STA (19:37)
--- NOTE | 2019-01-26 19:37 | CT ---
EXAMINATION TYPE: CT brain jasmin wo con DATE OF EXAM: 01/26/2019 COMPARISON: 01/06/2019 HISTORY: Fall, frontal injury and injury to nose. CT DLP: 1344.6 mGycm Automated exposure control for dose reduction was used. TECHNIQUE: CT scan of the head and cervical spine are performed without contrast. FINDINGS: Ventricles of normal size. There is no mass effect nor midline shift. There is no sign of intracranial hemorrhage. Calvarium is intact. Cervical vertebra show some straightening. There is hypertrophic anterior spurring at C4-5 C5-6. Post erior elements are intact. Facet joints are intact. The skull base is intact. There is mild hypertrop hic facet arthropathy. IMPRESSION: Negative CT scan of the brain. Spondylotic changes in the cervical spine. No fracture. Brain and cervical spine not significantly different than old exam.
--- NOTE | 2019-01-26 19:38 | XR ---
EXAMINATION TYPE: XR wrist complete LT DATE OF EXAM: 01/26/2019 COMPARISON: NONE HISTORY: Wrist pain TECHNIQUE: 4 views FINDINGS: There is nondisplaced 1 cm chip fracture of the radial styloid process. There is no disloca tion. Scaphoid is intact. IMPRESSION: There is radial styloid process chip fracture.
--- NOTE | 2019-01-26 19:40 | XR ---
EXAMINATION TYPE: XR hand complete LT DATE OF EXAM: 01/26/2019 COMPARISON: NONE HISTORY: Hand and wrist pain TECHNIQUE: 3 views FINDINGS: Metacarpals are intact. There is narrowing and spurring at the first carpometacarpal joint. I see no fracture nor dislocation. There are no erosions. IMPRESSION: No acute abnormality of the left hand. Radial styloid process fracture noted.
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
[2019-01-26 20:35] VITALS: BP 133/78; PULSE 72; RESP 20; TEMP 98
== END 2019-01-26 20:35 | disposition home or self-care (01) ==
LOC: EC 18:42
DX: S52.515A Nondisplaced fracture of left radial styloid process, initial encounter for closed fracture (principal); S00.31XA Abrasion of nose, initial encounter; E78.5 Hyperlipidemia, unspecified; I10 Essential (primary) hypertension; G47.33 Obstructive sleep apnea (adult) (pediatric); E03.9 Hypothyroidism, unspecified; F41.9 Anxiety disorder, unspecified; F32.9 Major depressive disorder, single episode, unspecified; J44.9 Chronic obstructive pulmonary disease, unspecified; Z79.890 Hormone replacement therapy; Z79.899 Other long term (current) drug therapy; Z88.5 Allergy status to narcotic agent; Z88.8 Allergy status to other drugs, medicaments and biological substances; Z88.6 Allergy status to analgesic agent; Z87.891 Personal history of nicotine dependence; Z98.84 Bariatric surgery status; W01.0XXA Fall on same level from slipping, tripping and stumbling without subsequent striking against object, initial encounter; Y92.009 Unspecified place in unspecified non-institutional (private) residence as the place of occurrence of the external cause
CPT/HCPCS: 29125; 70450; 72125; 99284

== ENCOUNTER 2019-02-01 07:57 | Day surgery (SDC) | payer MEDICARE, OTHER ==
[2019-01-30 16:42] VITALS: BMI 32.7
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
[~2019-02-01 07:57] MED LIST changes: -LIDOCAINE 1% 20 ML VIAL (10MG/ML) FOR IV START INTRADERMA PRN; -MIDAZOLAM 2 MG/2 ML VIAL IV PRN; -Pre Op ABX Message 1 EACH MISC MISCELLANE ONE; -fentaNYL (PF) 50 MCG/ML 2 ML AMP IV PRN
[2019-02-01 08:19] VITALS: TEMP 96.5
[2019-02-01 08:23] LABS: Glucose,Whole Blood 111 mg/dL (75-99)
[2019-02-01] MEDS ORDERED: PROPOFOL 10 MG/ML 20 ML VIAL IV ONE (08:27)
[2019-02-01 09:26] VITALS: RESP 16
--- NOTE | 2019-02-01 09:34 | P.PCN ---
Date of Procedure: 02/01/19 Description of Procedure: PREOPERATIVE DIAGNOSIS: Colonoscopy screening, first POSTOPERATIVE DIAGNOSIS: Colonoscopy screening, first Multiple tubular adenomas throughout the colon. OPERATION: Colonoscopy to the ileocecal valve and appendiceal orifice. Colonoscopy with multiple hot snare polypectomies SURGEON: Tila Banks MD. ANESTHESIA: MAC. INDICATIONS: The patient is a 53-year-old female who presents for her first colonoscopy screening. Benefits and risks were described and informed consent was obtained. DESCRIPTION OF PROCEDURE: The patient had undergone Gatorade, MiraLAX and Dulcolax prep. She had been brought into the operating room and laid in the left lateral decubitus position. After adequate intravenous sedation, the rectum was examined with 2% lidocaine jelly. No external hemorrhoids were encountered. The rectal tone was within normal limits. No lesions were palpated in the rectal vault. An Olympus colonoscope was advanced until the ileocecal valve and appendiceal orifice were clearly viewed. The prep was fair. No scattered diverticulosis was encountered. Multiple colonic polyps were found and addressed with snare polypectomy. No evidence of focal colitis was found. Retroflexion of the scope demonstrated no internal hemorrhoids without active bleeding or inflammation. The colon was desufflated. The patient had tolerated the procedure well. Withdrawal time was over 6 minutes. FINDINGS: Aronchik preparation quality scale 3 (1-5), fair prep limiting complete visualization of the mucosal folds. No internal hemorrhoids No external hemorrhoids No arteriovenous malformations. No sigmoid diverticulosis. Removal of 5 polyps: - Snare polypectomy cecum, 15 mm tubulovillous adenoma polyp. - Snare polypectomy proximal ascending colon, 20 mm flat villous adenoma polyp. - Snare polypectomy hepatic flexure, 15 mm flat villous adenoma polyp. - Snare polypectomy proximal transverse, 12 mm flat villous adenoma polyp. - Snare polypectomy proximal transverse, 8 mm flat villous adenoma polyp. No focal colitis. RECOMMENDATIONS: Given severity of malignant tubular adenomas, recommend repeat colonoscopy 1 year, January 2020 Plan - Discharge Summary New Discharge Prescriptions: No Action amLODIPine [Norvasc] 5 mg PO DAILY Levothyroxine Sodium [Synthroid] 25 mcg PO DAILY Escitalopram [Lexapro] 10 mg PO DAILY lamoTRIgine [LaMICtal] 200 mg PO DAILY ARIPiprazole [Abilify] 5 mg PO DAILY Donepezil [Aricept] 5 mg PO DAILY Simvastatin [Zocor] 20 mg PO HS Discharge Medication List ARIPiprazole [Abilify] 5 mg PO DAILY 08/23/18 [History] Escitalopram [Lexapro] 10 mg PO DAILY 08/23/18 [History] Levothyroxine Sodium [Synthroid] 25 mcg PO DAILY 08/23/18 [History] amLODIPine [Norvasc] 5 mg PO DAILY 08/23/18 [History] lamoTRIgine [LaMICtal] 200 mg PO DAILY 08/23/18 [History] Donepezil [Aricept] 5 mg PO DAILY 11/23/18 [History] Simvastatin [Zocor] 20 mg PO HS 12/12/18 [History] Follow up Appointment(s)/Referral(s): Tila Banks MD [STAFF PHYSICIAN] - 02/28/19 Patient Instructions/Handouts: *[facility] - (Anesthesia) Endoscopy Discharge Instructions, Colonoscopy (DC), Colorectal Polyps (DC) Activity/Diet/Wound Care/Special Instructions: Repeat colonoscopy one year, January 2020 for multiple high risk malignant polyps Discharge Disposition: HOME SELF-CARE
[2019-02-01 09:45] VITALS: BP 127/82; PULSE 67
== END 2019-02-01 10:11 | disposition home or self-care (01) ==
LOC: ORWHC2ENDO 07:57
PROVIDERS: ATTEND Surgery Plastic and Reconstructive Surgery
DX: Z12.11 Encounter for screening for malignant neoplasm of colon (principal); D12.0 Benign neoplasm of cecum; D12.3 Benign neoplasm of transverse colon; D12.2 Benign neoplasm of ascending colon; E11.9 Type 2 diabetes mellitus without complications; K21.9 Gastro-esophageal reflux disease without esophagitis; M19.90 Unspecified osteoarthritis, unspecified site; I10 Essential (primary) hypertension; I20.8 Other forms of angina pectoris; F32.9 Major depressive disorder, single episode, unspecified; F41.9 Anxiety disorder, unspecified; F40.240 Claustrophobia; G47.33 Obstructive sleep apnea (adult) (pediatric); J45.909 Unspecified asthma, uncomplicated; E03.9 Hypothyroidism, unspecified; Z87.891 Personal history of nicotine dependence; Z98.84 Bariatric surgery status; Z79.899 Other long term (current) drug therapy; Z79.890 Hormone replacement therapy; Z88.5 Allergy status to narcotic agent; Z88.6 Allergy status to analgesic agent; Z88.8 Allergy status to other drugs, medicaments and biological substances; Z99.89 Dependence on other enabling machines and devices
CPT/HCPCS: 88305; 45385; J2704

== ENCOUNTER 2019-02-04 00:12 | Emergency (ER) | payer MEDICARE, OTHER ==
[2019-02-04 00:25] VITALS: TEMP 98.5
[2019-02-04] MEDS ORDERED: LIDOCAINE 5% PATCH TOPICAL STA (00:34)
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
--- NOTE | 2019-02-04 00:58 | XR ---
EXAM: XR Chest, 2 Views CLINICAL HISTORY: left rib pain TECHNIQUE: Frontal and lateral views of the chest. COMPARISON: 12-12-18 FINDINGS: Lungs: Unremarkable. No consolidation. Pleural space: Unremarkable. No pneumothorax. Heart: Unremarkable. No cardiomegaly. Mediastinum: Unremarkable. Bones/joints: Unremarkable. IMPRESSION: No acute findings or substantial change
[2019-02-04 01:15] VITALS: BP 140/87; PULSE 62; RESP 17
== END 2019-02-04 01:21 | disposition home or self-care (01) ==
LOC: EC 00:12
DX: S20.212A Contusion of left front wall of thorax, initial encounter (principal); I10 Essential (primary) hypertension; G40.909 Epilepsy, unspecified, not intractable, without status epilepticus; G47.30 Sleep apnea, unspecified; E03.9 Hypothyroidism, unspecified; F41.9 Anxiety disorder, unspecified; F32.9 Major depressive disorder, single episode, unspecified; E78.5 Hyperlipidemia, unspecified; Z79.890 Hormone replacement therapy; Z79.899 Other long term (current) drug therapy; Z88.5 Allergy status to narcotic agent; Z88.6 Allergy status to analgesic agent; Z88.8 Allergy status to other drugs, medicaments and biological substances; Z87.891 Personal history of nicotine dependence; Z98.84 Bariatric surgery status; W01.0XXA Fall on same level from slipping, tripping and stumbling without subsequent striking against object, initial encounter
CPT/HCPCS: 71046; 99284

== ENCOUNTER → 2019-03-08 | Outpatient (CLI) | payer MEDICARE, OTHER ==
[2019-03-08 14:01] VITALS: BP 105/65; PULSE 69; RESP 16; TEMP 98.4; BMI 33.2
--- NOTE | 2019-03-08 15:35 | P.PN ---
Subjective Progress Note Date: 03/08/19 HPI: She reports eating more foods. She has gained 3 pounds. She has panniculitis. She has decreased her CPAP requirement ABDOMEN: Panniculitis, 5 to 10 pounds ASSESSMENT: 1. Panniculitis PLAN: 1. Adjustment of diet to low carb 2. Panniculectomy packet given Objective - Vital Signs Vital signs: Vital Signs Temp 98.4 F 03/08/19 13:52 Pulse 69 03/08/19 13:52 Resp 16 03/08/19 13:52 BP 105/65 03/08/19 13:52 Pulse Ox Intake & Output 03/07/19 03/08/19 03/08/19 18:59 06:59 18:59 Weight 94.801 kg
[2019-03-08 16:02] LABS: HCT 38.8 % (34.0-46.0); HGB 12.6 gm/dL (11.4-16.0); MCH 29.6 pg (25.0-35.0); MCHC 32.3 g/dL (31.0-37.0); MCV 91.4 fL (80.0-100.0); Mean Platelet Volume 7.2; Platelet Count 423 k/uL (150-450); RBC 4.25 m/uL (3.80-5.40); RDW 13.1 % (11.5-15.5); WBC 9.6 k/uL (3.8-10.6)
[2019-03-08 16:09] LABS: INR 0.9 (<1.2); Partial Thromboplastin Time 24.4 sec (22.0-30.0); Prothrombin Time 9.7 sec (9.0-12.0)
[2019-03-09 02:25] LABS: Parathyroid Hormone Intact 37.7 pg/mL (14.0-72.0)
[2019-03-09 03:22] LABS: LDL Cholesterol,Calculated 69.2 mg/dL (0.0-131.0); VLDL Calculation 15.8 mg/dL (5.00-40.00)
[2019-03-09 03:23] LABS: Albumin 4.6 g/dL (3.80-4.90); Albumin/Globulin Ratio 2.19 (1.60-3.17); Anion Gap 10.6 mmol/L (4.00-12.00); Calcium 9.7 mg/dL (8.7-10.3); Carbon Dioxide 28.4 mmol/L (21.6-31.8); Globulin 2.1 g/dL (1.6-3.3); Magnesium 2.1 mg/dL (1.5-2.4); Phosphorus 4.3 mg/dL (2.4-5.1); Potassium 4.4 mmol/L (3.5-5.5); Total Bilirubin 0.3 mg/dL (0.3-1.2); Total Protein 6.7 g/dL (6.2-8.2)
[2019-03-09 03:36] LABS: Vitamin D 25 Hydroxy 27.6 ng/mL (30.0-100.0)
[2019-03-09 03:38] LABS: Folate, Serum 17.2 ng/mL; Iron Saturation 6.65 (12.00-45.00)
[2019-03-09 04:43] LABS: Hemoglobin A1C 5.9 % (4.0-6.0)
[2019-03-09 15:14] LABS: Zinc, Serum 58 ug/dL (60-130)
[2019-03-10 06:43] LABS: Vit B1(Thiamine) 110 ug/L (38-122)
== END | disposition home or self-care (01) ==
LOC: BARWHC3 13:35
PROVIDERS: ATTEND Surgery Plastic and Reconstructive Surgery
DX: E66.01 Morbid (severe) obesity due to excess calories (principal); E21.1 Secondary hyperparathyroidism, not elsewhere classified; E89.1 Postprocedural hypoinsulinemia; D50.9 Iron deficiency anemia, unspecified; K90.9 Intestinal malabsorption, unspecified; E55.9 Vitamin D deficiency, unspecified; K76.9 Liver disease, unspecified; N19 Unspecified kidney failure; K50.90 Crohn's disease, unspecified, without complications; Z68.33 Body mass index [BMI] 33.0-33.9, adult
CPT/HCPCS: 84255; 84134; 84425; 80061; 80053; 82607; 82728; 82525; 82746; 83540; 83550; 83735; 84100; 84443; 84590; 84630; 85027; 85610; 85730; 82306; 83970; 83036; 97803; 36415; G0463; 99211

== ENCOUNTER 2019-06-23 09:38 | Day surgery (SDC) | payer MEDICARE, OTHER ==
[2019-06-22 14:14] VITALS: BMI 32.9
[~2019-06-23 09:38] MED LIST changes: +LIDOCAINE 1% 20 ML VIAL (10MG/ML) FOR IV START INTRADERMA PRN
[2019-06-23 10:29] VITALS: RESP 16; TEMP 97.6
[2019-06-23 10:33] LABS: Glucose,Whole Blood 101 mg/dL (75-99)
[2019-06-23] MEDS ORDERED: MIDAZOLAM 2 MG/2 ML VIAL ONE (11:27)
[2019-06-23] MEDS ORDERED: PROPOFOL 10 MG/ML 20 ML VIAL IV ONE (11:27)
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
--- NOTE | 2019-06-23 11:44 | P.PCN ---
Date of Procedure: 06/23/19 Description of Procedure: PREOPERATIVE DIAGNOSIS: History of gastric ulcers Lower GI bleed Epigastric abdominal pain Dysphagia. s/p Diandra-en-y gastric bypass. Nausea with vomiting. Morbid obesity. Diabetes type 2. POSTOPERATIVE DIAGNOSIS: History of gastric ulcers Lower GI bleed Epigastric abdominal pain Dysphagia. s/p Diandra-en-y gastric bypass. Nausea with vomiting. Morbid obesity. Diabetes type 2. 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 INDICATIONS: The patient is a 53-year-old female who presents with a history of gastric ulcers. Benefits and risks of the procedure were described. Informed consent was obtained. DESCRIPTION: The patient was brought into the endoscopy suite and laid in the left lateral decubitus position. After a timeout was confirmed, the procedure was initiated. An Olympus gastroscope was passed along the posterior oropharynx down to the distal esophagus where the squamocolumnar junction was unremarkable. The gastric pouch was entered. A gastrojejunal stricture of 15 mm was found as the adult gastroscope was 9.5 mm in size. The scope was advanced up to 60 cm from the incisors into the Diandra limb. Multiple and large chronic gastrojejunal marginal ulcer over 1 cm without bleeding was encountered. Dilation was avoided with large marginal ulcer. The GI tract was desufflated. The patient tolerated the procedure well. FINDINGS: Stricture of approximately 15 mm encountered. Large chronic gastrojejunal ulceration encountered over 1-cm RECOMMENDATIONS: Start combined therapy of Carafate and omeprazole of at least 4 weeks. Follow-up in 3-4 weeks repeat upper endoscopy Plan - Discharge Summary Discharge Rx Participant: No New Discharge Prescriptions: New Sucralfate [Carafate] 1 gm PO BID #560 ml Omeprazole 40 mg PO DAILY #90 capsule. No Action amLODIPine [Norvasc] 5 mg PO DAILY Levothyroxine Sodium [Synthroid] 25 mcg PO DAILY Escitalopram [Lexapro] 10 mg PO DAILY lamoTRIgine [LaMICtal] 200 mg PO DAILY ARIPiprazole [Abilify] 5 mg PO DAILY Multivitamin [Multivitamins Adult Gummies] 1 tab PO DAILY Simvastatin [Zocor] 20 mg PO HS Discharge Medication List ARIPiprazole [Abilify] 5 mg PO DAILY 10/23/18 [History] Escitalopram [Lexapro] 10 mg PO DAILY 08/23/18 [History] Levothyroxine Sodium [Synthroid] 25 mcg PO DAILY 08/23/18 [History] amLODIPine [Norvasc] 5 mg PO DAILY 08/23/18 [History] lamoTRIgine [LaMICtal] 200 mg PO DAILY 08/23/18 [History] Multivitamin [Multivitamins Adult Gummies] 1 tab PO DAILY 03/16/19 [History] Simvastatin [Zocor] 20 mg PO HS 06/22/19 [History] Omeprazole 40 mg PO DAILY #90 capsule. 06/23/19 [Rx] Sucralfate [Carafate] 1 gm PO BID #560 ml 06/23/19 [Rx] Follow up Appointment(s)/Referral(s): [facility] [[facility]] - 07/12/19 Patient Instructions/Handouts: Peptic Ulcer (DC), Diet for Stomach Ulcers and Gastritis (ED) Activity/Diet/Wound Care/Special Instructions: Avoid aspirin, Aleve, Motrin, ibuprofen, Excedrin for severe large ulcer. Discharge Disposition: HOME SELF-CARE
[2019-06-23 12:01] VITALS: BP 147/83; PULSE 53
== END 2019-06-23 12:21 | disposition home or self-care (01) ==
LOC: ORWHC2ENDO 09:38
PROVIDERS: ATTEND Surgery Plastic and Reconstructive Surgery
DX: K95.89 Other complications of other bariatric procedure (principal); K28.4 Chronic or unspecified gastrojejunal ulcer with hemorrhage; K31.89 Other diseases of stomach and duodenum; E66.01 Morbid (severe) obesity due to excess calories; Z68.32 Body mass index [BMI] 32.0-32.9, adult; E78.5 Hyperlipidemia, unspecified; G40.909 Epilepsy, unspecified, not intractable, without status epilepticus; I10 Essential (primary) hypertension; J44.9 Chronic obstructive pulmonary disease, unspecified; K21.9 Gastro-esophageal reflux disease without esophagitis; M19.90 Unspecified osteoarthritis, unspecified site; R13.10 Dysphagia, unspecified; Z79.899 Other long term (current) drug therapy; Z87.11 Personal history of peptic ulcer disease; Z87.891 Personal history of nicotine dependence; Z88.5 Allergy status to narcotic agent; Z88.6 Allergy status to analgesic agent; Z98.84 Bariatric surgery status; Z79.890 Hormone replacement therapy
CPT/HCPCS: 43235; J2250; J2704

== ENCOUNTER → 2019-07-05 | Outpatient (CLI) | payer MEDICARE, OTHER ==
[2019-07-05 15:46] VITALS: BP 108/64; PULSE 72; TEMP 98.5; BMI 33.7
--- NOTE | 2019-07-05 16:35 | P.PN ---
Subjective Progress Note Date: 07/05/19 HPI: She has severe gastric ulcer. She has lost over 170 pounds. She has a severe epigastric pain. She is off her CPAP and sleep apnea is gone. ABDOMEN: Pannus over 10 pounds. ASSESSMENT: 1. Morbid obesity 2. Pannus PLAN: 1. Will need repeat EGD for end of Jul 2. Panniculectomy evaluation 2. Will need pictures of her pannus. Objective - Vital Signs Vital signs: Vital Signs Temp 98.5 F 07/05/19 15:43 Pulse 72 07/05/19 15:43 Resp BP 108/64 07/05/19 15:43 Pulse Ox Intake & Output 07/04/19 07/05/19 07/05/19 18:59 06:59 18:59 Weight 96.162 kg
== END ==
LOC: BARWHC3 14:53
PROVIDERS: ATTEND Surgery Plastic and Reconstructive Surgery
DX: E66.01 Morbid (severe) obesity due to excess calories (principal); E65 Localized adiposity; Z68.33 Body mass index [BMI] 33.0-33.9, adult
CPT/HCPCS: 99211

== ENCOUNTER → 2019-07-31 | Day surgery (SDC) | payer MEDICARE, OTHER ==
[2019-07-26 15:40] VITALS: BMI 33.0
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
[~2019-07-31] MED LIST changes: +LIDOCAINE 1% INJ 10MG/ML (20 ML MDV) ONE; +PROPOFOL 10 MG/ML 20 ML VIAL IV ONE
[2019-07-31 07:47] VITALS: TEMP 98.2
[2019-07-31 07:54] LABS: Glucose,Whole Blood 107 mg/dL (75-99)
--- NOTE | 2019-07-31 08:09 | P.PCN ---
Date of Procedure: 07/31/19 Description of Procedure: PREOPERATIVE DIAGNOSIS: History of gastric ulcers Epigastric abdominal pain Dysphagia. s/p Diandra-en-y gastric bypass. POSTOPERATIVE DIAGNOSIS: History of gastric ulcers Epigastric abdominal pain Dysphagia. s/p Diandra-en-y gastric bypass. Gastrojejunal stricture with resolved chronic ulcer OPERATION: Esophagogastrojejunoscopy with balloon dilation 20 mm SURGEON: Tila Banks MD ANESTHESIA: MAC. INDICATIONS: The patient is a 53-year-old female who presents with a history of gastric ulcers. Benefits and risks of the procedure were described. Informed consent was obtained. DESCRIPTION: The patient was brought into the endoscopy suite and laid in the left lateral decubitus position. After a timeout was confirmed, the procedure was initiated. An Olympus gastroscope was passed along the posterior oropharynx down to the distal esophagus where the squamocolumnar junction was unremarkable. The gastric pouch was entered. A gastrojejunal stricture of 15 mm was found as the adult gastroscope was 9.5 mm in size. A [employer] 20 mm balloon dilator was placed and inflated to 20 mm. The balloon was left in place for 1 minute and deflated. The scope was advanced up to 60 cm from the incisors into the Diandra limb. No further gastrojejunal marginal ulcer was encountered. The GI tract was desufflated. The patient tolerated the procedure well. FINDINGS: Stricture of approximately 15 mm dilated to 20 mm Resolved large chronic gastrojejunal ulceration RECOMMENDATIONS: Upper endoscopy as needed Plan - Discharge Summary Discharge Rx Participant: No New Discharge Prescriptions: No Action amLODIPine [Norvasc] 5 mg PO DAILY Levothyroxine Sodium [Synthroid] 25 mcg PO DAILY Escitalopram [Lexapro] 10 mg PO DAILY lamoTRIgine [LaMICtal] 200 mg PO DAILY ARIPiprazole [Abilify] 5 mg PO DAILY Multivitamin [Multivitamins Adult Gummies] 1 tab PO DAILY Simvastatin [Zocor] 20 mg PO HS Sucralfate [Carafate] 1 gm PO BID #560 ml Omeprazole 40 mg PO DAILY #90 capsule.dr Discharge Medication List ARIPiprazole [Abilify] 5 mg PO DAILY 08/23/18 [History] Escitalopram [Lexapro] 10 mg PO DAILY 08/23/18 [History] Levothyroxine Sodium [Synthroid] 25 mcg PO DAILY 08/23/18 [History] amLODIPine [Norvasc] 5 mg PO DAILY 08/23/18 [History] lamoTRIgine [LaMICtal] 200 mg PO DAILY 08/23/18 [History] Multivitamin [Multivitamins Adult Gummies] 1 tab PO DAILY 03/16/19 [History] Simvastatin [Zocor] 20 mg PO HS 06/22/19 [History] Omeprazole 40 mg PO DAILY #90 capsule. 06/23/19 [Rx] Sucralfate [Carafate] 1 gm PO BID #560 ml 06/23/19 [Rx] Follow up Appointment(s)/Referral(s): [facility] [place], [place] [NON-STAFF] - 08/09/19 Patient Instructions/Handouts: Esophageal Dilation (DC) Activity/Diet/Wound Care/Special Instructions: Diet as tolerated Discharge Disposition: HOME SELF-CARE
[2019-07-31 08:32] VITALS: BP 138/78; PULSE 65; RESP 16
== END | disposition home or self-care (01) ==
LOC: ORWHC2ENDO 07:23
PROVIDERS: ATTEND Surgery Plastic and Reconstructive Surgery
DX: K95.89 Other complications of other bariatric procedure (principal); K31.89 Other diseases of stomach and duodenum; R13.10 Dysphagia, unspecified; Z79.899 Other long term (current) drug therapy; Z87.11 Personal history of peptic ulcer disease; Z87.19 Personal history of other diseases of the digestive system; Z98.84 Bariatric surgery status; J44.9 Chronic obstructive pulmonary disease, unspecified; K21.9 Gastro-esophageal reflux disease without esophagitis; E78.5 Hyperlipidemia, unspecified; I10 Essential (primary) hypertension; F40.240 Claustrophobia; Z87.891 Personal history of nicotine dependence; E07.9 Disorder of thyroid, unspecified; Z79.890 Hormone replacement therapy; Z88.8 Allergy status to other drugs, medicaments and biological substances; Z88.5 Allergy status to narcotic agent; G40.909 Epilepsy, unspecified, not intractable, without status epilepticus; F32.9 Major depressive disorder, single episode, unspecified; F41.9 Anxiety disorder, unspecified; M19.90 Unspecified osteoarthritis, unspecified site
CPT/HCPCS: 43249; J2001; J2704; C1726

== ENCOUNTER 2019-09-11 11:20 | Emergency (ER) | payer MEDICARE, OTHER ==
[2019-09-11 11:44] VITALS: BP 137/61; PULSE 63; RESP 18; TEMP 98.3
[2019-09-11] MEDS ORDERED: cefTRIAXone 250 MG VIAL IM STA (12:22)
[2019-09-11] MEDS ORDERED: DOXYCYCLINE 100 MG CAP PO STA (12:22)
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
[2019-09-12 15:37] LABS: C. trachomatis,PCR Negative (Neg,Equiv); Chlamydia trachomatis Source Urine
[2019-09-12 15:59] LABS: N. gonorrhoeae,PCR Negative (Neg,Equiv); Neisseria Source Urine
== END 2019-09-11 12:58 | disposition home or self-care (01) ==
LOC: EC 11:20
DX: T74.21XA Adult sexual abuse, confirmed, initial encounter (principal); E78.5 Hyperlipidemia, unspecified; I10 Essential (primary) hypertension; G40.909 Epilepsy, unspecified, not intractable, without status epilepticus; E07.9 Disorder of thyroid, unspecified; F41.9 Anxiety disorder, unspecified; F32.9 Major depressive disorder, single episode, unspecified; Z87.891 Personal history of nicotine dependence; Z79.890 Hormone replacement therapy; Z79.899 Other long term (current) drug therapy; Z88.8 Allergy status to other drugs, medicaments and biological substances; Z88.5 Allergy status to narcotic agent; Z88.6 Allergy status to analgesic agent; Y07.9 Unspecified perpetrator of maltreatment and neglect
CPT/HCPCS: 99284; 96372; 87491; 87591; J0696

== ENCOUNTER 2019-10-18 14:48 | Emergency (ER) | payer MEDICARE, OTHER ==
[2019-10-18 14:58] VITALS: TEMP 98.3
[2019-10-18 16:22] VITALS: BP 121/78; PULSE 78; RESP 18
--- NOTE | 2019-10-18 16:30 | XR ---
EXAMINATION TYPE: XR knee complete LT DATE OF EXAM: 10/18/2019 COMPARISON: None HISTORY: Pain, clicking range of motion TECHNIQUE: Three-view left knee FINDINGS: There is loss of the medial compartment joint space. Milder narrowing of the lateral compar tment joint space is present. Medial and lateral femoral condylar and tibial plateau spurs are presen t. Posterior patellar spurring is present superiorly and inferiorly. There is narrowing of the patell ofemoral joint space. No joint effusion is evident. No acute fractures or dislocations are evident. IMPRESSION: 1. Moderate degenerative changes left knee greater in the medial compartment and patellofemoral join t space.
[2019-10-18] MEDS ORDERED: ACET/COD 300 MG/30 MG STARTER PACK 6 TAB BTL PO STA (16:35)
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
== END 2019-10-18 16:46 | disposition home or self-care (01) ==
LOC: EC 14:48
DX: M17.12 Unilateral primary osteoarthritis, left knee (principal); E78.5 Hyperlipidemia, unspecified; I10 Essential (primary) hypertension; G40.909 Epilepsy, unspecified, not intractable, without status epilepticus; E07.9 Disorder of thyroid, unspecified; F32.9 Major depressive disorder, single episode, unspecified; F41.9 Anxiety disorder, unspecified; Z87.891 Personal history of nicotine dependence; Z88.5 Allergy status to narcotic agent; Z88.6 Allergy status to analgesic agent; Z88.8 Allergy status to other drugs, medicaments and biological substances; Z79.890 Hormone replacement therapy; Z79.899 Other long term (current) drug therapy; Z98.84 Bariatric surgery status
CPT/HCPCS: 99284

== ENCOUNTER → 2020-03-20 | Outpatient (CLI) | payer MEDICARE, OTHER ==
--- NOTE | 2020-03-20 14:57 | P.PN ---
Subjective Progress Note Date: 03/20/20 DATE OF SERVICE: 03/20/2020 CHIEF COMPLAINT: Status post gastric bypass HISTORY OF PRESENT ILLNESS: Arielle Calabrese is a 54-year-old female status post robotic-assisted gastric bypass 10/01/2017. She is 2.5 years out. She comes in with new complaints of having blood in her stools. She is taking omeprazole. She also comes in complaints with her pannus with chronic panniculitis despite treatment with Nystatin powders. She also has history of colon polyps and is due for scope in January 2020. She presents today for blood in her stools and troubles with her pannus. She also reports eating more food in the last 6+ months especially worsened with present pandemic. At her height of 5 foot 6.5, her ideal body weight is 154 pounds. Today she comes in weighing 256 pounds from 212 pounds, 8 months ago. She has gained 45 pounds in 8 months. Her highest weight is 385 pounds. Total weight loss of 129 pounds, lifetime. Percent excess weight loss is 56 % lifetime. Her body mass index is reduced from 61.3 down to 40.9. PAST MEDICAL HISTORY: 1. Diabetes type 2, insulin dependent, resolved. 2. Asthma. 3. Morbid obesity, BMI 61.3, initial 4. Osteoarthritis of the bilateral hips. 5. Osteoarthritis of the bilateral knees. 6. Seasonal ALLERGIES. 7. Obstructive sleep apnea, improved 8. Osteoarthritis of the lower back. 9. Hypothyroidism 10. H. pylori gastritis. 11. Congestive heart failure, resolved. PAST SURGICAL HISTORY: 1. Upper endoscopy. 2. . 3. Tubal ligation. 4. Uterine ablation. 5. Postoperative nausea and vomiting. 6. Gastric bypass HOME MEDICATIONS: Home Medications Medication Instructions Recorded Confirmed ARIPiprazole [Abilify] 5 mg PO DAILY 08/23/18 07/31/19 Escitalopram [Lexapro] 10 mg PO DAILY 08/23/18 07/31/19 Levothyroxine Sodium [Synthroid] 25 mcg PO DAILY 08/23/18 07/31/19 amLODIPine [Norvasc] 5 mg PO DAILY 08/23/18 07/31/19 lamoTRIgine [LaMICtal] 200 mg PO DAILY 08/23/18 07/31/19 Multivitamin [Multivitamins Adult 1 tab PO DAILY 03/16/19 07/31/19 Gummies] Simvastatin [Zocor] 20 mg PO HS 06/22/19 07/31/19 Previous Rx's Medication Instructions Recorded Omeprazole 40 mg PO DAILY #90 capsule. 06/23/19 Sucralfate [Carafate] 1 gm PO BID #560 ml 06/23/19 Doxycycline [Vibramycin] 100 mg PO BID #14 cap 09/11/19 Nystatin 100,000 Unit/gm Powd 1 applic TOPICAL BID #60 powder 03/20/20 [Mycostatin Powder] ALLERGIES: Allergies Allergy/AdvReac Type Severity Reaction Status Date / Time enalapril Allergy Anaphylaxis Verified 07/05/19 15:46 hydrocodone bitartrate Allergy Anaphylaxis Verified 07/05/19 15:46 [From Vicodin] naproxen [From Naprosyn] Allergy Anaphylaxis Verified 07/05/19 15:46 propoxyphene Allergy Anaphylaxis Verified 07/05/19 15:46 [From Darvocet-N] SOCIAL HISTORY: No active tobacco use. She uses a walker for mobility. FAMILY HISTORY: Denies any DVTs, pulmonary embolisms in her family. Denies any ulcerative colitis disease or Crohn's. She does have a family history of morbid obesity. Daughter with easy bruising. She reports a family history of gallbladder disease in her mother. She also has a family history of morbid obesity. REVIEW OF ORGAN SYSTEMS: CONSTITUTIONAL: At her height of 5 foot 6.5, her ideal body weight is 154 pounds. Her highest weight is 385 pounds. Her body mass index is reduced from 61.3. HEENT: Denies any active troubles with vision or hearing. ENDOCRINE: Has diabetes and hypothyroidism. Insulin-dependent diabetes resolved. CARDIOVASCULAR: No reports of palpitations or heart attacks or chest pain. Congestive heart failure resolved. RESPIRATORY: Has sleep apnea, resolved. Has asthma. History of COPD exacerbation. GI: Has bright red blood per rectum. Gastroesophageal reflux disease resolved. MUSCULOSKELETAL: Has osteoarthritis of the knees and lower back. NEURO: No reports of headaches or seizure disorders. PSYCH: Has depression without suicidal ideation. Has anxiety. HEMATOLOGIC: Denies any abnormal bleeding or bruising. SKIN: Has panniculitis. No recent skin cancer. PHYSICAL EXAM: VITAL SIGNS: Height 5 foot 6.5 inches. Weight 256 pounds. BMI 40.9 Vital Signs Temp 98.2 F 03/20/20 15:31 Pulse 68 03/20/20 15:31 Resp BP 102/66 03/20/20 15:31 Pulse Ox GENERAL: Well-developed and in no acute distress. HEENT: No scleral icterus. Extraocular was grossly intact. No nasal drainage. NECK: Supple without lymphadenopathy. CHEST: Nonlabored respirations with equal bilateral excursions. CARDIOVASCULAR: Regular rate. Distal 2+ pulses. ABDOMEN: Soft, nontender. Pannus over 10 pounds extends over pubis 5 cm with hyperemia. MUSCULOSKELETAL: No clubbing, cyanosis, or edema. NEURO: No focal or lateralizing signs. Cranial nerves 2 through 12 grossly within normal limits. PSYCH: Appropriate affect. Alert and oriented to person, place and time. SKIN: Good skin turgor. Well perfused. REPORT: Upper endoscopy September 2019 showed resolved gastrojejunal ulcer with dilation 15 to 20 mm. COLONOSCOPY FINDINGS: [place]ch[place] preparation quality scale 3 (1-5), fair prep limiting complete visualization of the mucosal folds. No internal hemorrhoids No external hemorrhoids No arteriovenous malformations. No sigmoid diverticulosis. Removal of 5 polyps: - Snare polypectomy cecum, 15 mm tubulovillous adenoma polyp. - Snare polypectomy proximal ascending colon, 20 mm flat villous adenoma polyp. - Snare polypectomy hepatic flexure, 15 mm flat villous adenoma polyp. - Snare polypectomy proximal transverse, 12 mm flat villous adenoma polyp. - Snare polypectomy proximal transverse, 8 mm flat villous adenoma polyp. No focal colitis. ASSESSMENT: 1. Morbid obesity due to excess calories. 2. Body mass index of 61.3 down to 40.9 3. Iron deficiency anemia 4. Diabetes type 2, insulin dependent, improved. 5. Osteoarthritis of the lower back, improved. 6. Osteoarthritis of the bilateral knees, improved. 7. Obstructive sleep apnea, improved 8. Chronic obstructive pulmonary disease, improved. 9. Hypertensive heart disease. 10. Status post gastric bypass. 11. Vitamin A deficiency. 12. Dietary surveillance and counseling 13. Status post massive weight loss 176 pounds 14. Panniculitis 15. Weight gain following bariatric procedure 16. Colon polyps PLAN: 1. She has history of blood in her stools and polyps, recommend colonoscopy as she is past due from January 2020, 1 month past. 2. Also recommend upper endoscopy for history of blood in stools including ulcers. Continue omeprazole. 3. Continue Nystatin powder for panniculitis. She is looking into skin removal surgery. 4. Recommend bariatric labs.
[2020-03-20 15:33] VITALS: BP 102/66; PULSE 68; TEMP 98.2; BMI 40.8
== END | disposition home or self-care (01) ==
LOC: BARWHC3 14:01
PROVIDERS: ATTEND Surgery Plastic and Reconstructive Surgery
DX: Z48.815 Encounter for surgical aftercare following surgery on the digestive system (principal); E66.01 Morbid (severe) obesity due to excess calories; D50.9 Iron deficiency anemia, unspecified; E11.9 Type 2 diabetes mellitus without complications; M17.0 Bilateral primary osteoarthritis of knee; G47.33 Obstructive sleep apnea (adult) (pediatric); J44.9 Chronic obstructive pulmonary disease, unspecified; I11.9 Hypertensive heart disease without heart failure; E50.9 Vitamin A deficiency, unspecified; M16.0 Bilateral primary osteoarthritis of hip; K63.5 Polyp of colon; K95.89 Other complications of other bariatric procedure; M79.3 Panniculitis, unspecified; Z68.41 Body mass index [BMI] 40.0-44.9, adult; Z98.84 Bariatric surgery status; Z71.3 Dietary counseling and surveillance; Z83.49 Family history of other endocrine, nutritional and metabolic diseases; Z79.2 Long term (current) use of antibiotics; Z79.890 Hormone replacement therapy; Z79.4 Long term (current) use of insulin; Z79.899 Other long term (current) drug therapy; Z88.6 Allergy status to analgesic agent; Z88.5 Allergy status to narcotic agent; Z88.8 Allergy status to other drugs, medicaments and biological substances
CPT/HCPCS: 99211

== ENCOUNTER → 2020-04-02 | Outpatient (CLI) | payer MEDICARE, OTHER | END | disposition home or self-care (01) | LOC: LABWHC1 14:22 | PROVIDERS: ATTEND Surgery Plastic and Reconstructive Surgery | DX: Z11.59 Encounter for screening for other viral diseases (principal) ==

== ENCOUNTER 2020-04-04 07:35 | Day surgery (SDC) | payer MEDICARE, OTHER ==
[2020-04-03 11:12] VITALS: BMI 39.7
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
[~2020-04-04 07:35] MED LIST changes: -LIDOCAINE 1% 20 ML VIAL (10MG/ML) FOR IV START INTRADERMA PRN; -LIDOCAINE 1% INJ 10MG/ML (20 ML MDV) ONE; -PROPOFOL 10 MG/ML 20 ML VIAL IV ONE
[2020-04-04 07:53] VITALS: TEMP 97.4
[2020-04-04] MEDS ORDERED: PROPOFOL 10 MG/ML 20 ML VIAL IV ONE (08:00)
[2020-04-04] MEDS ORDERED: LIDOCAINE 1% INJ 10MG/ML (20 ML MDV) ONE (08:00)
--- NOTE | 2020-04-04 08:38 | P.HPADDEND ---
H&P Addendum H&P Addendum Date: 04/04/20 Patient comes in with history of polyps. Last colonoscopy 5 years. Sigmoidoscopy with polypectomy
--- NOTE | 2020-04-04 08:42 | P.PCN ---
Date of Procedure: 04/04/20 Description of Procedure: PREOPERATIVE DIAGNOSIS: Personal history of colon polyps POSTOPERATIVE DIAGNOSIS: Personal history of colon polyps Tubular adenoma transverse colon OPERATION: Colonoscopy to the ileocecal valve and appendiceal orifice. Colonoscopy with multiple hot snare polypectomies SURGEON: Tila Banks MD. ANESTHESIA: MAC. INDICATIONS: The patient is an 54-year-old male who presents with history of colon polyps. Last colonoscopy 5 years. Benefits and risks were described and informed consent was obtained. DESCRIPTION OF PROCEDURE: The patient had undergone Suprep. She had been brought into the operating room and laid in the left lateral decubitus position. After adequate intravenous sedation, the rectum was examined with 2% lidocaine jelly. The prostate was unremarkable. No external hemorrhoids were encountered. The rectal tone was within normal limits. No lesions were palpated in the rectal vault. An Olympus colonoscope was advanced until the ileocecal valve and appendiceal orifice were clearly viewed. The prep was poor. No sigmoid diverticulosis was encountered. Multiple colonic polyps were found and snare polypectomy. No evidence of focal colitis was found. Retroflexion of the scope demonstrated no internal hemorrhoids without active bleeding or inflammation. The colon was desufflated. The patient had tolerated the procedure well. Withdrawal time was over 6 minutes. FINDINGS: Aronchick preparation quality scale 3 (1-5) No internal hemorrhoids No external hemorrhoids No arteriovenous malformations. No sigmoid diverticulosis Removal of 2 polyps: - Snare polypectomy mid and distal transverse colon, 4 and 5 mm tubulovillous adenoma polyp. No focal colitis. RECOMMENDATIONS: Repeat colonoscopy 3 years, 2022 Plan - Discharge Summary Discharge Rx Participant: No New Discharge Prescriptions: Continue amLODIPine [Norvasc] 5 mg PO QAM Levothyroxine Sodium [Synthroid] 25 mcg PO QAM Escitalopram [Lexapro] 10 mg PO QAM lamoTRIgine [LaMICtal] 200 mg PO QAM ARIPiprazole [Abilify] 5 mg PO QAM Multivitamin [Multivitamins Adult Gummies] 1 tab PO DAILY Simvastatin [Zocor] 20 mg PO HS Sucralfate [Carafate] 1 gm PO BID #560 ml diphenhydrAMINE [Benadryl] 25 mg PO TID PRN PRN Reason: allergies Omeprazole 20 mg PO BID Acetaminophen [Tylenol Extra Strength] 1,000 mg PO Q8H PRN PRN Reason: Pain Discharge Medication List ARIPiprazole [Abilify] 5 mg PO QAM 08/23/18 [History] Escitalopram [Lexapro] 10 mg PO QAM 08/23/18 [History] Levothyroxine Sodium [Synthroid] 25 mcg PO QAM 08/23/18 [History] amLODIPine [Norvasc] 5 mg PO QAM 08/23/18 [History] lamoTRIgine [LaMICtal] 200 mg PO QAM 08/23/18 [History] Multivitamin [Multivitamins Adult Gummies] 1 tab PO DAILY 03/16/19 [History] Simvastatin [Zocor] 20 mg PO HS 06/22/19 [History] Sucralfate [Carafate] 1 gm PO BID #560 ml 06/23/19 [Rx] Acetaminophen [Tylenol Extra Strength] 1,000 mg PO Q8H PRN 04/03/20 [History] Omeprazole 20 mg PO BID 04/03/20 [History] diphenhydrAMINE [Benadryl] 25 mg PO TID PRN 04/03/20 [History] [facility] [place] [place] [facility] [place] [facility] Patient Instructions/Handouts: *Surgery [facility] - (Anesthesia) Endoscopy Discharge Instructions, Colonoscopy (DC), Colorectal Polyps (DC) Discharge Disposition: HOME SELF-CARE
[2020-04-04 08:48] LABS: Glucose,Whole Blood 132 mg/dL (75-99)
[2020-04-04 09:30] VITALS: BP 124/60; PULSE 81; RESP 16
== END 2020-04-04 09:55 | disposition home or self-care (01) ==
LOC: ORWHC2ENDO 07:35
PROVIDERS: ATTEND Surgery Plastic and Reconstructive Surgery
DX: Z12.11 Encounter for screening for malignant neoplasm of colon (principal); D12.3 Benign neoplasm of transverse colon; I10 Essential (primary) hypertension; J44.9 Chronic obstructive pulmonary disease, unspecified; E11.9 Type 2 diabetes mellitus without complications; K21.9 Gastro-esophageal reflux disease without esophagitis; E78.5 Hyperlipidemia, unspecified; M19.90 Unspecified osteoarthritis, unspecified site; E07.9 Disorder of thyroid, unspecified; F41.9 Anxiety disorder, unspecified; F32.9 Major depressive disorder, single episode, unspecified; G40.909 Epilepsy, unspecified, not intractable, without status epilepticus; F40.240 Claustrophobia; Z86.010 Personal history of colon polyps; Z90.710 Acquired absence of both cervix and uterus; Z98.84 Bariatric surgery status; Z90.89 Acquired absence of other organs; Z98.41 Cataract extraction status, right eye; Z98.42 Cataract extraction status, left eye; Z96.652 Presence of left artificial knee joint; Z87.891 Personal history of nicotine dependence; Z79.890 Hormone replacement therapy; Z79.899 Other long term (current) drug therapy; Z88.5 Allergy status to narcotic agent; Z88.6 Allergy status to analgesic agent; Z88.8 Allergy status to other drugs, medicaments and biological substances
CPT/HCPCS: 88305; 45385; J2001; J2704

== ENCOUNTER 2020-04-12 11:09 | Observation (INO) | payer MEDICARE, OTHER ==
[2020-04-12] MEDS ORDERED: METOCLOPRAMIDE 5 MG/ML 2 ML VIAL IVP STA (11:59)
[2020-04-12] MEDS ORDERED: SODIUM CHLORIDE 0.9% 500 ML 500 ML IV STA (11:59)
[2020-04-12] MEDS ORDERED: PANTOPRAZOLE 40 MG/10 ML VIAL IVP STA (11:59)
[2020-04-12] MEDS ORDERED: SODIUM CHLORIDE 0.9% 1,000 ML IV STA (11:59)
[2020-04-12] MEDS ORDERED: diphenhydrAMINE 50 MG/ML 1 ML VIAL IVP STA (11:59)
[2020-04-12 12:12] LABS: Basophils % (A) 0 %; Eosinophils # (A) 0.2 k/uL (0-0.7); Eosinophils % (A) 2 %; HCT 44.5 % (34.0-46.0); Lymphocytes # (A) 1.9 k/uL (1.0-4.8); Lymphocytes % (A) 15 %; MCH 30.8 pg (25.0-35.0); MCHC 33.8 g/dL (31.0-37.0); MCV 91.4 fL (80.0-100.0); Mean Platelet Volume 7.6; Monocytes # (A) 0.6 k/uL (0-1.0); Monocytes % (A) 4 %; Neutrophils # (A) 9.6 k/uL (1.3-7.7); Neutrophils % (A) 77 %; Platelet Count 384 k/uL (150-450); RBC 4.87 m/uL (3.80-5.40); RDW 13.3 % (11.5-15.5); WBC 12.5 k/uL (3.8-10.6)
[2020-04-12 12:21] LABS: ALT 13 U/L (4-34); AST 27 U/L (14-36); African American GFR (CKD) >90 (>60 ml/min/1.73 sqM); Albumin 4.1 g/dL (3.5-5.0); Alkaline Phosphatase 119 U/L (38-126); Amylase 47 U/L (30-110); Anion Gap 10 mmol/L; Blood Urea Nitrogen 15 mg/dL (7-17); Calcium 9.3 mg/dL (8.4-10.2); Carbon Dioxide 26 mmol/L (22-30); Chloride 99 mmol/L (98-107); Glucose 139 mg/dL (74-99); Non-African American GFR(CKD) 82 (>60 ml/min/1.73 sqM); Potassium 4.9 mmol/L (3.5-5.1); Sodium 135 mmol/L (137-145); Total Bilirubin 0.9 mg/dL (0.2-1.3); Total Protein 7.2 g/dL (6.3-8.2)
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
[2020-04-12 12:31] LABS: Appearance,Urine Turbid (Clear); Bacteria,Urine Many /hpf; Bilirubin,Urine 1+ (Negative); Blood,Urine Negative (Negative); Color,Urine Yellow; Glucose,Urine (UA) Negative (Negative); Ketones,Urine Trace (Negative); Leukocyte Esterase,Urine Moderate (Negative); Mucus,Urine Few /hpf; Nitrite,Urine Negative (Negative); PH, Urine 5.5 (5.0-8.0); Protein,Urine 1+ (Negative); RBC,Urine 4 /hpf (0-5); Specific Gravity,Urine 1.027 (1.001-1.035); Squamous Epithelial Cell,Urine 35 /hpf (0-4); WBC,Urine 25 /hpf (0-5)
--- NOTE | 2020-04-12 12:32 | XR ---
EXAMINATION TYPE: XR KUB DATE OF EXAM: 04/12/2020 Comparison: 08/13/2017 Clinical History: 54-year-old female abdominal pain Findings: Lung bases are clear. No evidence for free intraperitoneal air. Scattered air-fluid levels throughout seen to be located within small bowel and colon. Suspect scattered prominent air within the colon rather than small bowel. Impression: Scattered air-fluid levels seem to be located within both small and large bowel. Prominent air suspec kiran to be located within colon rather than small bowel. Generalized ileus or enteritis is favored ove r early small bowel obstruction. Radiographic follow-up if patient's symptoms do not improve.
[2020-04-12] MEDS ORDERED: NALOXONE 0.4 MG/ML 1 ML VIAL IV PRN (13:07)
[2020-04-12] MEDS ORDERED: ONDANSETRON 4 MG/2 ML VIAL IVP PRN (13:07)
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
[2020-04-12] MEDS ORDERED: LIDOCAINE 1% INJ 10MG/ML (20 ML MDV) ONE (14:38)
[2020-04-12] MEDS ORDERED: PROPOFOL 10 MG/ML 20 ML VIAL IV ONE (14:38)
[2020-04-12 15:02] VITALS: BMI 39.9
--- NOTE | 2020-04-12 15:06 | P.PCN ---
Date of Procedure: 04/12/20 Description of Procedure: PREOPERATIVE DIAGNOSES: 1. Epigastric abdominal pain. 2. Nausea and vomiting. 3. History of gastric bypass. 4. History of gastric ulcers. 5. Morbid obesity due to excess calories 6. History of gastrointestinal hemorrhage POSTOPERATIVE DIAGNOSES: 1. Acute on chronic gastrojejunal ulcerations with obstruction PROCEDURE PERFORMED: Esophagogastrojejunoscopy. SURGEON: Tila Banks MD ANESTHESIA: MAC. INDICATIONS: The patient is a 54-year-old female who comes in with acute epigastric abdominal pain including intractable nausea and vomiting. She has history of gastric ulcers. Upper endoscopy is offered for diagnosis regarding her abdominal pain. DESCRIPTION: Patient was brought to the endoscopy suite and laid in the left lateral decubitus position. After adequate IV sedation, a bite block was placed. An Olympus gastroscope was passed along the posterior oropharynx down to the distal esophagus where the squamocolumnar junction was unremarkable. Gastric pouch 5 cm in length. An acute anastomotic stricture with ulceration was identified along the gastrojejunal anastomosis. Stricture of 10 mm was identified as the scope was gently advanced. Multiple marginal ulcers extending onto the jejunum at least 5 cm distal to the anastomosis was also identified with chronic features. No active bleeding was found. The large 1 cm ulceration was found without perforation of the anastomosis. The scope was advanced 60 cm from the incisors. No evidence of foreign body was found. The GI tract was desufflated. The patient tolerated the procedure well. FINDINGS: 1. Large severe acute on chronic gastrojejunal ulceration 1 cm along anastomosis. 2. Multiple jejunal ulcerations identified without bleeding PLAN: 1. Recommend start of high-dose Protonix 40 mg twice daily including Carafate 3 times daily. 2. May need future balloon dilation once all ulcers resolve. 3. Recommend proceeding with a CT of the abdomen and pelvis as patient reports inability to pass flatus and clinical bowel obstruction
--- NOTE | 2020-04-12 16:17 | CT ---
EXAMINATION TYPE: CT abdomen pelvis w con DATE OF EXAM: 04/12/2020 COMPARISON: 06/03/2018 HISTORY: 54-year-old female Abdominal pain TECHNIQUE: Contiguous axial scanning of the abdomen and pelvis following administration of 100 ml Iso thaddeus 300 IV contrast. Delayed images through the kidneys and coronal/sagittal reconstructions perform ed. CT DLP: 2418.4 mGycm Automated exposure control for dose reduction was used. FINDINGS: Heart upper limits of normal in size without pericardial effusion. Mild circumferential wall thickeni ng distal esophagus. Strandy atelectasis in the lower lungs without pleural effusion. Status post antecolic Javon-en-Y gastric bypass. There is fat stranding along the Javon limb with devante density along its associated mesentery. Degener ative chest after the gastrojejunostomy is thickened and slightly irregular. Some thickening at the l ower anastomosis as well. Mildly enlarged lymphadenopathy in this region measuring up to 1 cm is unch anged. Some images may suggest some pulling of the mesentery, for example, coronal image 32 and 31 No focal liver lesion or biliary ductal dilatation. Portal venous system is patent. Adrenal glands, right kidney, spleen, and pancreas show no gross abnormality. Suspect a phrygian cap at the gallbladder fundus. No significant stool burden. No pericolic inflammatory change. Bladder not distended. Uterus surgically absent. Neither ovary clearly visualized. No abnormal fluid collection the pelvis or pelvic lymphadenopathy. Bones: Mild degenerative changes at the hips. Degenerative disc disease L5/S1. Facet arthropathy lowe r lumbar spine. IMPRESSION: STATUS POST ANTECOLIC JAVON-EN-Y GASTRIC BYPASS. There is moderate wall thickening and inflammation al richard the jejunum just after the gastrojejunostomy, some wall thickening at the lower anastomosis, and new edematous change throughout the associated mesentery. Correlate for a significant but nonspecific enteritis versus inflammation relating to ulcer disease or internal hernia.
[2020-04-12] MEDS ORDERED: SODIUM CHLORIDE 0.9% 1,000 ML IV ONE (16:41)
[2020-04-12] MEDS: SUCRALFATE 1 GM TAB PO SCH (17:01)
[2020-04-12] MEDS: SODIUM CHLORIDE 0.9% 1,000 ML IV SCH (17:29)
[2020-04-12] MEDS: PANTOPRAZOLE 40 MG/10 ML VIAL IV SCH (21:05)
[2020-04-13] MEDS: SODIUM CHLORIDE 0.9% 1,000 ML IV SCH ×3 (00:55→11:48)
[2020-04-13] MEDS ORDERED: LEVOTHYROXINE 25 MCG TAB PO SCH (06:30)
[2020-04-13 07:03] LABS: Glucose,Whole Blood 122 mg/dL (75-99)
[2020-04-13 07:13] LABS: Basophils % (A) 0 %; Eosinophils # (A) 0.3 k/uL (0-0.7); Eosinophils % (A) 3 %; HCT 37.9 % (34.0-46.0); HGB 12.5 gm/dL (11.4-16.0); Lymphocytes # (A) 2.2 k/uL (1.0-4.8); Lymphocytes % (A) 22 %; MCH 30.6 pg (25.0-35.0); MCHC 32.8 g/dL (31.0-37.0); MCV 93.1 fL (80.0-100.0); Mean Platelet Volume 7.6; Monocytes # (A) 0.5 k/uL (0-1.0); Monocytes % (A) 5 %; Neutrophils # (A) 6.6 k/uL (1.3-7.7); Neutrophils % (A) 66 %; Platelet Count 319 k/uL (150-450); RBC 4.08 m/uL (3.80-5.40); RDW 13.5 % (11.5-15.5); WBC 9.9 k/uL (3.8-10.6)
[2020-04-13 07:20] VITALS: BP 105/68; PULSE 70; RESP 17; TEMP 97.8
[2020-04-13] MEDS: PANTOPRAZOLE 40 MG/10 ML VIAL IV SCH (07:30)
[2020-04-13] MEDS: SUCRALFATE 1 GM TAB PO SCH ×2 (07:30→11:48)
[2020-04-13] MEDS ORDERED: ARIPiprazole 5 MG TAB PO SCH (09:00)
[2020-04-13] MEDS ORDERED: lamoTRIgine 100 MG TAB PO SCH (09:00)
[2020-04-13] MEDS ORDERED: amLODIPine 5 MG TAB PO SCH (09:00)
[2020-04-13] MEDS ORDERED: ESCITALOPRAM 10 MG TAB PO SCH (09:00)
[2020-04-13 10:15] LABS: ALT 11 U/L (4-34); AST 22 U/L (14-36); African American GFR (CKD) >90 (>60 ml/min/1.73 sqM); Albumin 3.3 g/dL (3.5-5.0); Alkaline Phosphatase 89 U/L (38-126); Anion Gap 6 mmol/L; Blood Urea Nitrogen 13 mg/dL (7-17); Calcium 8.8 mg/dL (8.4-10.2); Carbon Dioxide 26 mmol/L (22-30); Chloride 105 mmol/L (98-107); Glucose 120 mg/dL (74-99); Non-African American GFR(CKD) 89 (>60 ml/min/1.73 sqM); Potassium 4.5 mmol/L (3.5-5.1); Sodium 137 mmol/L (137-145); Total Bilirubin 0.6 mg/dL (0.2-1.3); Total Protein 5.8 g/dL (6.3-8.2)
[2020-04-13 11:18] LABS: Glucose,Whole Blood 114 mg/dL (75-99)
[2020-04-13 11:19] LABS: Ferritin 33.7 ng/mL (10.0-291.0)
[2020-04-13 11:58] LABS: Hemoglobin A1C 6.6 % (4.0-6.0)
[2020-04-13 12:16] LABS: Folate, Serum 21.7 ng/mL; Iron 30 ug/dL (50-170); Total Iron Binding Capacity 303 ug/dL (228-460)
--- NOTE | 2020-04-13 13:55 | P.PN ---
Subjective Progress Note Date: 04/13/20 CHIEF COMPLAINT: Acute periumbilical abdominal pain with nausea and vomiting HISTORY OF PRESENT ILLNESS: Arielle Calabrese is a 54-year-old female who was admitted yesterday secondary to acute on simple umbilical abdominal pain with nausea and vomiting. She has history of gastrojejunal ulcers. Yesterday, upper endoscopy demonstrated multiple large acute on chronic gastrojejunal ulcerations with obstruction extending to the Diandra limb of the jejunum. Additionally, CT of the abdomen and pelvis was obtained. She reports feeling better today. Abdominal pain is resolved. She is tolerating liquid diet. REVIEW OF ORGAN SYSTEMS: No chest pain. No fevers or chills. PHYSICAL EXAM: VITAL SIGNS: Reviewed. GENERAL: Well-developed and in no acute distress. HEENT: No scleral icterus. Extraocular was grossly intact. No nasal drainage. NECK: Supple without lymphadenopathy. CHEST: Nonlabored respirations with equal bilateral excursions. CARDIOVASCULAR: Regular rate. Distal 2+ pulses. ABDOMEN: MUSCULOSKELETAL: No clubbing, cyanosis, or edema. NEURO: No focal or lateralizing signs. Cranial nerves 2 through 12 grossly within normal limits. PSYCH: Appropriate affect. Alert and oriented to person, place and time. SKIN: Good skin turgor. Well perfused. LABS: WBC down from 12,500-9900. STUDIES: CT of the abdomen and pelvis and independent reviewed demonstrating moderate gaseous distention of the small bowel including the colon. No free air or perforation identified. RADIOLOGY: CT of the abdomen and pelvis port also reviewed of edema along the mesentery were enteritis versus internal hernia cannot be excluded. ASSESSMENT: 1. Acute epigastric abdominal pain, history of gastric bypass 2. History of gastric intestine bleeding due to gastrojejunal ulcer 3. Morbid obesity due to excess calories. 4. Body mass index of 61.3 down to 40.0 5. Hypertensive heart disease. 6. Dehydration 7. Acute on chronic gastrojejunal ulcerations with obstruction PLAN: 1. Additional labs for history of gastric bypass were obtained for macro micronutrient deficiencies. 2. After 3 L of normal saline boluses yesterday, white blood cell count improved. 3. Protonix 40 mg twice daily including Carafate 1 g 3 times daily advised for severe ulcerations. 4. Adjust diet to full liquid and pured. 5. Will need repeat upper endoscopy as outpatient in 4 weeks. 6. Patient clinically stable and agreeable for discharge. Objective - Vital Signs Vital signs: Vital Signs Temp 97.8 F 04/13/20 07:19 Pulse 70 04/13/20 07:19 Resp 17 04/13/20 07:19 BP 105/68 04/13/20 07:19 Pulse Ox 93 L 04/13/20 07:19 Intake & Output 04/12/20 04/13/20 04/13/20 18:59 06:59 18:59 Intake Total 1150 Balance 1150 Weight 114.124 kg Intake: Intake, IV Titration 1150 Amount Sodium Chloride 0.9% 1, 1150 000 ml @ 100 mls/hr IV . Q10H MIRYAM Rx#:[id number] Other: Voiding Method Toilet Toilet # Voids 3 - Labs CBC & Chem 7: 04/13/20 06:49 04/13/20 06:49 Labs: Abnormal Lab Results - Last 24 Hours (Table) 04/12/20 04/12/20 04/12/20 Range/Units 11:15 11:15 12:00 WBC 12.5 H (3.8-10.6) k/uL Neutrophils # 9.6 H (1.3-7.7) k/uL Sodium 135 L (137-145) mmol/L Glucose 139 H (74-99) mg/dL POC Glucose (mg/dL) (75-99) mg/dL Urine Appearance Turbid H (Clear) Urine Protein 1+ H (Negative) Urine Ketones Trace H (Negative) Urine Bilirubin 1+ H (Negative) Ur Leukocyte Esterase Moderate H (Negative) Urine WBC 25 H (0-5) /hpf Ur Squamous Epith Cells 35 H (0-4) /hpf Urine Bacteria Many H (None) /hpf Urine Mucus Few H (None) /hpf 04/13/20 Range/Units 07:01 WBC (3.8-10.6) k/uL Neutrophils # (1.3-7.7) k/uL Sodium (137-145) mmol/L Glucose (74-99) mg/dL POC Glucose (mg/dL) 122 H (75-99) mg/dL Urine Appearance (Clear) Urine Protein (Negative) Urine Ketones (Negative) Urine Bilirubin (Negative) Ur Leukocyte Esterase (Negative) Urine WBC (0-5) /hpf Ur Squamous Epith Cells (0-4) /hpf Urine Bacteria (None) /hpf Urine Mucus (None) /hpf Microbiology - Last 24 Hours (Table) 04/12/20 12:00 Urine Culture - Preliminary Urine,Voided Assessment and Plan (1) Status post gastric bypass for obesity Current Visit: Yes Status: Acute Code(s): Z98.84 - BARIATRIC SURGERY STATUS SNOMED Code(s): 844857834 (2) Abdominal pain Current Visit: Yes Status: Acute Code(s): R10.9 - UNSPECIFIED ABDOMINAL PAIN SNOMED Code(s): 98025945 (3) Upper GI bleed Current Visit: Yes Status: Acute Code(s): K92.2 - GASTROINTESTINAL H EMORRHAGE, UNSPECIFIED SNOMED Code(s): 08560161 (4) Morbid obesity due to excess calories Current Visit: No Status: Acute Code(s): E66.01 - MORBID (SEVERE) OBESITY DUE TO EXCESS CALORIES SNOMED Code(s): 045301448
--- NOTE | 2020-04-13 14:01 | P.DS ---
Providers Date of admission: 04/12/20 13:10 Expected date of discharge: 04/13/20 Attending physician: Tila Banks Primary care physician: Deysi Sequeira - Discharge Diagnosis(es) (1) Status post gastric bypass for obesity Current Visit: Yes Status: Acute (2) Abdominal pain Current Visit: Yes Status: Acute (3) Upper GI bleed Current Visit: Yes Status: Acute (4) Morbid obesity due to excess calories Current Visit: No Status: Acute (5) Gastrojejunal ulcer with hemorrhage and obstruction Current Visit: Yes Status: Acute Hospital Course: HISTORY OF PRESENT ILLNESS: Arielle Calabrese is a 54-year-old female who was admitted yesterday secondary to acute on simple umbilical abdominal pain with nausea and vomiting. She has history of gastrojejunal ulcers. Yesterday, upper endoscopy demonstrated multiple large acute on chronic gastrojejunal ulcerations with obstruction extending to the Diandra limb of the jejunum. Today, her abdominal pain is resolved. She'll place on high dose Protonix 40 mg twice daily including Carafate 1 g 3 times daily. She is tolerating liquid diet. No reports of blood in stools. WBC improved. Patient to be discharged home with high-dose PPI including Carafate. Blenderized/pure diet described. Will need repeat upper endoscopy in 4 weeks. Patient Condition at Discharge: Stable Plan - Discharge Summary Discharge Rx Participant: No New Discharge Prescriptions: New Sucralfate [Carafate] 1 gm PO BID #120 tablet Omeprazole [PriLOSEC] 40 mg PO BID #120 cap Continue amLODIPine [Norvasc] 5 mg PO QAM Levothyroxine Sodium [Synthroid] 25 mcg PO QAM Escitalopram [Lexapro] 10 mg PO QAM lamoTRIgine [LaMICtal] 200 mg PO QAM ARIPiprazole [Abilify] 5 mg PO QAM Multivitamin [Multivitamins Adult Gummies] 1 tab PO DAILY Simvastatin [Zocor] 20 mg PO HS Acetaminophen [Tylenol Extra Strength] 1,000 mg PO Q8H PRN PRN Reason: Pain Discontinued Omeprazole 20 mg PO BID Calcium Carbonate/Vitamin D3 [Caltrate 600 Plus D3 Tablet] 1 tab PO DAILY Ferrous Sulfate [Iron] 325 mg PO DAILY Discharge Medication List ARIPiprazole [Abilify] 5 mg PO QAM 08/23/18 [History] Escitalopram [Lexapro] 10 mg PO QAM 08/23/18 [History] Levothyroxine Sodium [Synthroid] 25 mcg PO QAM 08/23/18 [History] amLODIPine [Norvasc] 5 mg PO QAM 08/23/18 [History] lamoTRIgine [LaMICtal] 200 mg PO QAM 08/23/18 [History] Multivitamin [Multivitamins Adult Gummies] 1 tab PO DAILY 03/16/19 [History] Simvastatin [Zocor] 20 mg PO HS 06/22/19 [History] Acetaminophen [Tylenol Extra Strength] 1,000 mg PO Q8H PRN 04/03/20 [History] Omeprazole [PriLOSEC] 40 mg PO BID #120 cap 04/13/20 [Rx] Sucralfate [Carafate] 1 gm PO BID #120 tablet 04/13/20 [Rx] Follow up Appointment(s)/Referral(s): Deysi Sequeira MD [Primary Care Provider] [facility] [place] [facility] - [facility]20 Patient Instructions/Handouts: Diet for Stomach Ulcers and Gastritis (ED), Complete Blenderized Diet (DC) Activity/Diet/Wound Care/Special Instructions: No solid foods such as steaks, pork champs, ham for 4 weeks. Discharge Disposition: HOME SELF-CARE
[2020-04-15 14:07] LABS: Vitamin D, 1, 25-Dihydroxy 27 pg/mL (20 - 79)
[2020-04-15 14:32] LABS: Zinc, Serum 59 ug/dL (60-130)
[2020-04-16 07:59] LABS: Vitamin A 46 ug/dL (38-106)
[2020-04-16 08:02] LABS: Vit B1(Thiamine) 86 ug/L (38-122)
[2020-04-18 02:29] LABS: Selenium 79 mcg/L (63-160)
== END 2020-04-13 14:57 | disposition home or self-care (01) ==
LOC: EC 11:09 → 4SSUR 13:10
PROVIDERS: ADMIT Surgery Plastic and Reconstructive Surgery; ATTEND Surgery Plastic and Reconstructive Surgery
DX: K28.0 Acute gastrojejunal ulcer with hemorrhage (principal); K28.4 Chronic or unspecified gastrojejunal ulcer with hemorrhage; K95.89 Other complications of other bariatric procedure; K29.71 Gastritis, unspecified, with bleeding; B96.81 Helicobacter pylori [H. pylori] as the cause of diseases classified elsewhere; E66.01 Morbid (severe) obesity due to excess calories; Z98.84 Bariatric surgery status; E86.0 Dehydration; J44.9 Chronic obstructive pulmonary disease, unspecified; E11.9 Type 2 diabetes mellitus without complications; M16.0 Bilateral primary osteoarthritis of hip; M17.0 Bilateral primary osteoarthritis of knee; J30.2 Other seasonal allergic rhinitis; G47.33 Obstructive sleep apnea (adult) (pediatric); M47.899 Other spondylosis, site unspecified; E03.9 Hypothyroidism, unspecified; E78.5 Hyperlipidemia, unspecified; I11.0 Hypertensive heart disease with heart failure; I50.9 Heart failure, unspecified; K21.9 Gastro-esophageal reflux disease without esophagitis; F40.240 Claustrophobia; F41.9 Anxiety disorder, unspecified; F32.9 Major depressive disorder, single episode, unspecified; Z03.818 Encounter for observation for suspected exposure to other biological agents ruled out; Z68.41 Body mass index [BMI] 40.0-44.9, adult; Z86.010 Personal history of colon polyps; Z79.899 Other long term (current) drug therapy; Z79.890 Hormone replacement therapy; Z88.8 Allergy status to other drugs, medicaments and biological substances; Z88.5 Allergy status to narcotic agent; Z88.6 Allergy status to analgesic agent; Z86.69 Personal history of other diseases of the nervous system and sense organs; Z91.81 History of falling; Z87.81 Personal history of (healed) traumatic fracture; Z98.890 Other specified postprocedural states; Z90.710 Acquired absence of both cervix and uterus; Z96.652 Presence of left artificial knee joint; Z90.89 Acquired absence of other organs; Z87.828 Personal history of other (healed) physical injury and trauma; Z98.41 Cataract extraction status, right eye; Z98.42 Cataract extraction status, left eye; Z87.891 Personal history of nicotine dependence; Z98.51 Tubal ligation status; Z91.89 Other specified personal risk factors, not elsewhere classified; Z87.19 Personal history of other diseases of the digestive system; Z87.09 Personal history of other diseases of the respiratory system; Z83.49 Family history of other endocrine, nutritional and metabolic diseases; Z82.49 Family history of ischemic heart disease and other diseases of the circulatory system; Z83.79 Family history of other diseases of the digestive system
CPT/HCPCS: 96361; 96374; 96375; 99285; 36415; 84255; 82652; 84425; 80053 ×2; 82607; 82728; 82150; 82525; 82746; 83540; 83550; 83690; 84443; 84590; 84630; 85025 ×2; 81001; 83970; 87086; 83036; 74018; 74177; 43235; G0378 ×2; U0003; J1200; J2765; J2001; J2704; C9113 ×2; Q9967

== ENCOUNTER → 2020-04-17 | Outpatient (CLI) | payer MEDICARE, OTHER ==
[2020-04-17 14:34] VITALS: BP 107/75; PULSE 81; RESP 16; TEMP 98.4; BMI 39.7
--- NOTE | 2020-04-17 15:09 | P.PN ---
Subjective Progress Note Date: 04/17/20 DATE OF SERVICE: 04/17/2020 CHIEF COMPLAINT: Status post gastric bypass HISTORY OF PRESENT ILLNESS: Arielle Calabrese is a 54-year-old female status post robotic-assisted gastric bypass 10/01/2017. She is status post colonoscopy for history of colon polyps. She was recently hospitalized for gastrointestinal bleeding including abdominal pain, with nausea and vomiting. Upper endoscopy was completed. She comes in after hospitalization. She is tolerating diet. She denies any new abdominal pain. She is doing well. At her height of 5 foot 6.5, her ideal body weight is 154 pounds. Today she comes in weighing 249 pounds from 256 pounds, 1 month ago. She has lost 7 pounds in 1 month. Her highest weight is 385 pounds. Total weight loss of 136 pounds, lifetime. Percent excess weight loss is 59 % lifetime. Her body mass index is reduced from 61.3 down to 39.7. PAST MEDICAL HISTORY: 1. Diabetes type 2, insulin dependent, resolved. 2. Asthma. 3. Morbid obesity, BMI 61.3, initial 4. Osteoarthritis of the bilateral hips. 5. Osteoarthritis of the bilateral knees. 6. Seasonal ALLERGIES. 7. Obstructive sleep apnea, improved 8. Osteoarthritis of the lower back. 9. Hypothyroidism 10. H. pylori gastritis. 11. Congestive heart failure, resolved. PAST SURGICAL HISTORY: 1. Upper endoscopy. 2. . 3. Tubal ligation. 4. Uterine ablation. 5. Postoperative nausea and vomiting. 6. Gastric bypass HOME MEDICATIONS: Home Medications Medication Instructions Recorded Confirmed ARIPiprazole [Abilify] 5 mg PO DAILY 08/23/18 07/31/19 Escitalopram [Lexapro] 10 mg PO DAILY 08/23/18 07/31/19 Levothyroxine Sodium [Synthroid] 25 mcg PO DAILY 08/23/18 07/31/19 amLODIPine [Norvasc] 5 mg PO DAILY 08/23/18 07/31/19 lamoTRIgine [LaMICtal] 200 mg PO DAILY 08/23/18 07/31/19 Multivitamin [Multivitamins Adult 1 tab PO DAILY 03/16/19 07/31/19 Gummies] Simvastatin [Zocor] 20 mg PO HS 06/22/19 07/31/19 Previous Rx's Medication Instructions Recorded Omeprazole 40 mg PO DAILY #90 capsule. 06/23/19 Sucralfate [Carafate] 1 gm PO BID #560 ml 06/23/19 Doxycycline [Vibramycin] 100 mg PO BID #14 cap 09/11/19 Nystatin 100,000 Unit/gm Powd 1 applic TOPICAL BID #60 powder 03/20/20 [Mycostatin Powder] ALLERGIES: Allergies Allergy/AdvReac Type Severity Reaction Status Date / Time enalapril Allergy Anaphylaxis Verified 07/05/19 15:46 hydrocodone bitartrate Allergy Anaphylaxis Verified 07/05/19 15:46 [From Vicodin] naproxen [From Naprosyn] Allergy Anaphylaxis Verified 07/05/19 15:46 propoxyphene Allergy Anaphylaxis Verified 07/05/19 15:46 [From Darvocet-N] SOCIAL HISTORY: No active tobacco use. She uses a walker for mobility. FAMILY HISTORY: Denies any DVTs, pulmonary embolisms in her family. Denies any ulcerative colitis disease or Crohn's. She does have a family history of morbid obesity. Daughter with easy bruising. She reports a family history of gallbladder disease in her mother. She also has a family history of morbid obesity. REVIEW OF ORGAN SYSTEMS: CONSTITUTIONAL: At her height of 5 foot 6.5, her ideal body weight is 154 pounds. Her highest weight is 385 pounds. Her body mass index is reduced from 61.3. HEENT: Denies any active troubles with vision or hearing. ENDOCRINE: Has diabetes and hypothyroidism. Insulin-dependent diabetes resolved. CARDIOVASCULAR: No reports of palpitations or heart attacks or chest pain. Congestive heart failure resolved. RESPIRATORY: Has sleep apnea, resolved. Has asthma. History of COPD exacerbation. GI: Has bright red blood per rectum. Gastroesophageal reflux disease resolved. MUSCULOSKELETAL: Has osteoarthritis of the knees and lower back. NEURO: No reports of headaches or seizure disorders. PSYCH: Has depression without suicidal ideation. Has anxiety. HEMATOLOGIC: Denies any abnormal bleeding or bruising. SKIN: Has panniculitis. No recent skin cancer. PHYSICAL EXAM: VITAL SIGNS: Height 5 foot 6.5 inches. Weight 249 pounds. BMI 39.7 Vital Signs Temp 98.4 F 04/17/20 14:31 Pulse 81 04/17/20 14:31 Resp 16 04/17/20 14:31 BP 107/75 04/17/20 14:31 Pulse Ox GENERAL: Well-developed and in no acute distress. HEENT: No scleral icterus. Extraocular was grossly intact. No nasal drainage. NECK: Supple without lymphadenopathy. CHEST: Nonlabored respirations with equal bilateral excursions. CARDIOVASCULAR: Regular rate. Distal 2+ pulses. ABDOMEN: Soft, nontender. Pannus over 10 pounds extends over pubis 5 cm with hyperemia. MUSCULOSKELETAL: No clubbing, cyanosis, or edema. NEURO: No focal or lateralizing signs. Cranial nerves 2 through 12 grossly within normal limits. PSYCH: Appropriate affect. Alert and oriented to person, place and time. SKIN: Good skin turgor. Well perfused. EGD FINDINGS: 1. Large severe acute on chronic gastrojejunal ulceration 1 cm along anastomosis. 2. Multiple jejunal ulcerations identified without bleeding COLONOSCOPY FINDINGS: Aronchick preparation quality scale 3 (1-5) No internal hemorrhoids No external hemorrhoids No arteriovenous malformations. No sigmoid diverticulosis Removal of 2 polyps: - Snare polypectomy mid and distal transverse colon, 4 and 5 mm tubulovillous adenoma polyp. No focal colitis. STUDIES: CT of the abdomen and pelvis independently reviewed with findings of left renal cyst, enlarged gastric pouch, gallbladder is still present. Mesenteric swirl identified with edema at the left upper quadrant present. RADIOLOGY: C of the abdomen and pelvis report demonstrated enteritis and wall thickening of the jejenum. ASSESSMENT: 1. Morbid obesity due to excess calories. 2. Body mass index of 61.3 down to 39.7 3. Iron deficiency anemia 4. Diabetes type 2, insulin dependent, improved. 5. Osteoarthritis of the lower back, improved. 6. Osteoarthritis of the bilateral knees, improved. 7. Obstructive sleep apnea, improved 8. Chronic obstructive pulmonary disease, improved. 9. Hypertensive heart disease. 10. Status post gastric bypass. 11. Vitamin A deficiency. 12. Dietary surveillance and counseling 13. Status post massive weight loss 176 pounds 14. Panniculitis 15. Weight gain following bariatric procedure 16. Colon polyps 17. Gastric ulcers 18. History of gastrointestinal bleed. PLAN: 1. With findings of large gastrojejunal ulcers, recommend repeat EGD in 4 weeks. 2. Omeprazole and Carafate for 4-6 weeks advised. Objective - Vital Signs Vital signs: Vital Signs Temp 98.4 F 04/17/20 14:31 Pulse 81 04/17/20 14:31 Resp 16 04/17/20 14:31 BP 107/75 04/17/20 14:31 Pulse Ox Intake & Output 04/16/20 04/17/20 04/17/20 18:59 06:59 18:59 Weight 113.398 kg
== END | disposition home or self-care (01) ==
LOC: BARWHC3 14:07
PROVIDERS: ATTEND Surgery Plastic and Reconstructive Surgery
DX: E66.01 Morbid (severe) obesity due to excess calories (principal); Z71.3 Dietary counseling and surveillance; Z68.39 Body mass index [BMI] 39.0-39.9, adult
CPT/HCPCS: 97803; G0463; 99211

== ENCOUNTER 2020-07-24 07:28 | Day surgery (SDC) | payer MEDICARE, OTHER ==
[2020-07-22 10:09] VITALS: BMI 39.7
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
[~2020-07-24 07:28] MED LIST changes: +MIDAZOLAM 2 MG/2 ML VIAL IV PRN; +fentaNYL (PF) 50 MCG/ML 2 ML AMP IVP PRN
[2020-07-24 07:50] VITALS: RESP 16; TEMP 97
[2020-07-24 08:00] LABS: Glucose,Whole Blood 148 mg/dL (75-99)
[2020-07-24] MEDS ORDERED: LIDOCAINE 1% INJ 10MG/ML (20 ML MDV) ONE (08:03)
[2020-07-24] MEDS ORDERED: PROPOFOL 10 MG/ML 20 ML VIAL IV ONE (08:03)
--- NOTE | 2020-07-24 08:25 | P.PCN ---
Date of Procedure: 07/24/20 Description of Procedure: PREOPERATIVE DIAGNOSIS: History of gastric ulcer with obstruction Morbid obesity. Diabetes type 2. POSTOPERATIVE DIAGNOSIS: History of gastric ulcer with obstruction Morbid obesity. Diabetes type 2. Gastrojejunal stricture without chronic ulcer without perforation OPERATION: Esophagogastrojejunoscopy with balloon dilatation from 15 to 20 mm. SURGEON: Tila Banks MD ANESTHESIA: MAC. INDICATIONS: The patient is a 54-year-old female who presents with a history of gastric ulcer with obstruction including nausea and vomiting. Benefits and risks of the procedure were described. Informed consent was obtained. DESCRIPTION: The patient was brought into the endoscopy suite and laid in the left lateral decubitus position. After a timeout was confirmed, the procedure was initiated. An Olympus gastroscope was passed along the posterior oropharynx down to the distal esophagus where the squamocolumnar junction was unremarkable. The gastric pouch was entered. A gastrojejunal stricture of 15 mm was found as the adult gastroscope was 9.5 mm in size. A Fair and Square balloon dilator was placed through the scope. Final insufflation up to 20 mm was performed with a total of 2 minutes. The scope was advanced up to 60 cm from the incisors into the Diandra limb. The mucosa of the gastrojejunal anastomosis was intact. Her previous chronic gastrojejunal marginal ulcer had resolved. No full-thickness injury was encountered. The GI tract was desufflated. The patient tolerated the procedure well. FINDINGS: Squamocolumnar junction unremarkable at 39 cm. Stricture of approximately 15 mm encountered. Resolved chronic gastrojejunal ulceration Successful balloon dilatation to 20 mm. Diaphragmatic hiatus at 40 cm. Anastomosis at 50 cm from the incisors RECOMMENDATIONS: May decrease omeprazole to 40 mg daily. Continue Carafate twice daily Plan - Discharge Summary Discharge Rx Participant: No New Discharge Prescriptions: Continue amLODIPine [Norvasc] 5 mg PO QAM Levothyroxine Sodium [Synthroid] 25 mcg PO QAM Escitalopram [Lexapro] 10 mg PO QAM lamoTRIgine [LaMICtal] 200 mg PO QAM ARIPiprazole [Abilify] 5 mg PO QAM Multivitamin [Multivitamins Adult Gummies] 1 tab PO DAILY Simvastatin [Zocor] 20 mg PO HS Acetaminophen [Tylenol Extra Strength] 1,000 mg PO Q8H PRN PRN Reason: Pain Sucralfate [Carafate] 1 gm PO BID #120 tablet Omeprazole [PriLOSEC] 40 mg PO BID #120 cap Discharge Medication List ARIPiprazole [Abilify] 5 mg PO QAM 08/23/18 [History] Escitalopram [Lexapro] 10 mg PO QAM 08/23/18 [History] Levothyroxine Sodium [Synthroid] 25 mcg PO QAM 08/23/18 [History] amLODIPine [Norvasc] 5 mg PO QAM 08/23/18 [History] lamoTRIgine [LaMICtal] 200 mg PO QAM 08/23/18 [History] Multivitamin [Multivitamins Adult Gummies] 1 tab PO DAILY 03/16/19 [History] Simvastatin [Zocor] 20 mg PO HS 06/22/19 [History] Acetaminophen [Tylenol Extra Strength] 1,000 mg PO Q8H PRN 04/03/20 [History] Omeprazole [PriLOSEC] 40 mg PO BID #120 cap 04/13/20 [Rx] Sucralfate [Carafate] 1 gm PO BID #120 tablet 04/13/20 [Rx] Follow up Appointment(s)/Referral(s): Tila Banks MD [STAFF PHYSICIAN] - 08/07/20 Patient Instructions/Handouts: Esophageal Dilation (DC) Activity/Diet/Wound Care/Special Instructions: Diet as tolerated Discharge Disposition: HOME SELF-CARE
[2020-07-24 08:36] VITALS: BP 105/65; PULSE 69
== END 2020-07-24 09:00 | disposition home or self-care (01) ==
LOC: ORWHC2ENDO 07:28
PROVIDERS: ATTEND Surgery Plastic and Reconstructive Surgery
DX: K56.699 Other intestinal obstruction unspecified as to partial versus complete obstruction (principal); E11.9 Type 2 diabetes mellitus without complications; E66.01 Morbid (severe) obesity due to excess calories; Z87.11 Personal history of peptic ulcer disease; K21.9 Gastro-esophageal reflux disease without esophagitis; J44.9 Chronic obstructive pulmonary disease, unspecified; E78.5 Hyperlipidemia, unspecified; I10 Essential (primary) hypertension; M19.90 Unspecified osteoarthritis, unspecified site; G40.909 Epilepsy, unspecified, not intractable, without status epilepticus; E07.9 Disorder of thyroid, unspecified; F40.240 Claustrophobia; Z98.84 Bariatric surgery status; Z98.891 History of uterine scar from previous surgery; Z90.710 Acquired absence of both cervix and uterus; Z90.89 Acquired absence of other organs; Z96.652 Presence of left artificial knee joint; Z79.890 Hormone replacement therapy; Z79.899 Other long term (current) drug therapy; Z88.8 Allergy status to other drugs, medicaments and biological substances; Z88.5 Allergy status to narcotic agent; Z88.6 Allergy status to analgesic agent; Z68.39 Body mass index [BMI] 39.0-39.9, adult
CPT/HCPCS: 43249; J2001; J2704; C1726

== ENCOUNTER → 2020-09-04 | Outpatient (CLI) | payer MEDICARE, OTHER ==
[2020-09-04 15:41] VITALS: BP 146/92; PULSE 80; TEMP 98.3; BMI 41.8
--- NOTE | 2020-09-04 16:12 | P.PN ---
Subjective Progress Note Date: 09/04/20 DATE OF SERVICE: 09/04/2020 CHIEF COMPLAINT: Status post gastric bypass HISTORY OF PRESENT ILLNESS: Arielle Calabrese is a 54-year-old female status post robotic-assisted gastric bypass 10/01/2017. She is 3 years out. She comes in with more weight gain. She is eating moderate carbohydrate. She is eating moderate candy including rice, breads, pasta, and potatoes. She has chronic ulcers. Her abdominal pain has improved. At her height of 5 foot 6.5, her ideal body weight is 154 pounds. Today she com es in weighing 262 pounds from 260 pounds, 1 month ago. She has gained 2 pounds in 1 months. Her highest weight is 385 pounds. Total weight loss of 123 pounds, lifetime. Percent excess weight loss is 53 % lifetime. Her body mass index is reduced from 61.3 down to 41.8. PHYSICAL EXAM: VITAL SIGNS: Height 5 foot 6.5 inches. Weight 262 pounds. BMI 41.8 Vital Signs Temp 98.3 F 09/04/20 15:38 Pulse 80 09/04/20 15:38 Resp BP 146/92 09/04/20 15:38 Pulse Ox GENERAL: Well-developed and in no acute distress. HEENT: No scleral icterus. Extraocular was grossly intact. No nasal drainage. NECK: Supple without lymphadenopathy. CHEST: Nonlabored respirations with equal bilateral excursions. CARDIOVASCULAR: Regular rate. Distal 2+ pulses. ABDOMEN: Soft, nontender. MUSCULOSKELETAL: No clubbing, cyanosis, or edema. NEURO: No focal or lateralizing signs. Cranial nerves 2 through 12 grossly within normal limits. PSYCH: Appropriate affect. Alert and oriented to person, place and time. SKIN: Good skin turgor. Well perfused. ASSESSMENT: 1. Morbid obesity due to excess calories. 2. Body mass index of 61.3 down to 41.8 3. Iron deficiency anemia 4. Diabetes type 2, insulin dependent, improved. 5. Osteoarthritis of the lower back, improved. 6. Osteoarthritis of the bilateral knees, improved. 7. Obstructive sleep apnea, improved 8. Chronic obstructive pulmonary disease, improved. 9. Hypertensive heart disease. 10. Status post gastric bypass. 11. Vitamin A deficiency. 12. Dietary surveillance and counseling 13. Status post massive weight loss 176 pounds 14. Panniculitis 15. Weight gain following bariatric procedure 16. Colon polyps 17. Gastric ulcers 18. History of gastrointestinal bleed. PLAN: 1. Strict dietary surveillance and counseling described including avoiding rice, breads, pasta, and potatoes 2. Protein intake over 65 grams daily described. 3. Recommend refill for sulcrafate for gastric ulcers Objective - Vital Signs Vital signs: Vital Signs Temp 98.3 F 09/04/20 15:38 Pulse 80 09/04/20 15:38 Resp BP 146/92 09/04/20 15:38 Pulse Ox Intake & Output 09/03/20 09/04/20 09/04/20 18:59 06:59 18:59 Weight 119.295 kg
== END | disposition home or self-care (01) ==
LOC: BARWHC3 14:55
PROVIDERS: ATTEND Surgery Plastic and Reconstructive Surgery
DX: E66.01 Morbid (severe) obesity due to excess calories (principal); D50.9 Iron deficiency anemia, unspecified; E11.9 Type 2 diabetes mellitus without complications; Z79.4 Long term (current) use of insulin; M47.9 Spondylosis, unspecified; M17.0 Bilateral primary osteoarthritis of knee; J44.9 Chronic obstructive pulmonary disease, unspecified; K25.9 Gastric ulcer, unspecified as acute or chronic, without hemorrhage or perforation; K92.2 Gastrointestinal hemorrhage, unspecified; I11.9 Hypertensive heart disease without heart failure; E50.9 Vitamin A deficiency, unspecified; Z71.3 Dietary counseling and surveillance; K63.5 Polyp of colon; M79.3 Panniculitis, unspecified; Z98.84 Bariatric surgery status; Z68.41 Body mass index [BMI] 40.0-44.9, adult
CPT/HCPCS: 97803; G0463; 99211

== ENCOUNTER → 2021-04-30 | Outpatient (CLI) | payer MEDICARE, OTHER ==
[2021-04-30 15:46] VITALS: BP 129/82; PULSE 91; RESP 18; TEMP 98.2; BMI 43.4
--- NOTE | 2021-04-30 16:01 | P.PN ---
Subjective Progress Note Date: 04/30/21 DATE OF SERVICE: 04/30/2021 CHIEF COMPLAINT: Status post gastric bypass HISTORY OF PRESENT ILLNESS: Arielle Calabrese is a 55-year-old female status post robotic-assisted gastric bypass 10/01/2017. She is 4 years out. She comes in with moderate weight gain. She has relapsed in her diet. She is eating moderate amount sugars. She has gained 70 pounds in 3 years. She is not keeping a food diary journal. She comes in with troubles of her morbid obesity. Also, she has personal history of colon polyps. She comes in consultation for weight re-gain and colon polyps. At her height of 5 foot 6.5, her ideal body weight is 154 pounds. Today she comes in weighing 272 pounds from 262 pounds, 8 months ago. She has gained 10 pounds in 8 months. Her highest weight is 385 pounds. Total weight loss of 113 pounds, lifetime. Percent excess weight loss is 49 % lifetime. Her body mass index is reduced from 61.3 down to 43.4. PAST MEDICAL HISTORY: 1. Morbid obesity, BMI 61.3, initial 2. Asthma. 3. Hypertensive heart disease 4. Osteoarthritis of the bilateral hips. 5. Osteoarthritis of the bilateral knees. 6. Seasonal ALLERGIES. 7. Obstructive sleep apnea 8. Osteoarthritis of the lower back. 9. Hypothyroidism 10. Depressive disorder 11. Hyperlipidemia 12. Colon polyps PAST SURGICAL HISTORY: 1. Upper endoscopy. 2. . 3. Tubal ligation. 4. Uterine ablation. 5. Postoperative nausea and vomiting. 6. Gastric bypass 7. Colonoscopy with polypectomy HOME MEDICATIONS: Home Medications Medication Instructions Recorded Confirmed ARIPiprazole [Abilify] 5 mg PO DAILY 08/23/18 07/11/21 Escitalopram [Lexapro] 10 mg PO DAILY 08/23/18 07/11/21 Levothyroxine Sodium [Synthroid] 25 mcg PO DAILY 08/23/18 07/11/21 amLODIPine [Norvasc] 5 mg PO DIRECTED 08/23/18 04/30/21 lamoTRIgine [LaMICtal] 200 mg PO DAILY 08/23/18 07/11/21 Multivitamin [Multivitamins Adult 1 tab PO DAILY 03/16/19 07/11/21 Gummies] Simvastatin [Zocor] 20 mg PO HS 06/22/19 07/11/21 Cephalexin [Keflex] 2,000 mg PO ONCE PRN 07/11/21 07/11/21 Vitamin A [Vitamin A (8,000 Units 2,400 mcg PO DAILY 07/11/21 07/11/21 = 2,400 MCG)] metFORMIN HCL [Glucophage] 1,000 mg PO BID 07/11/21 07/11/21 Previous Rx's Medication Instructions Recorded Omeprazole [PriLOSEC] 40 mg PO BID #120 cap 04/13/20 Sucralfate [Carafate] 1 gm PO BID #120 tab 09/04/20 ALLERGIES: Allergies Allergy/AdvReac Type Severity Reaction Status Date / Time enalapril Allergy Anaphylaxis Verified 07/11/21 19:52 hydrocodone bitartrate Allergy Anaphylaxis Verified 07/11/21 19:52 [From Vicodin] naproxen [From Naprosyn] Allergy Anaphylaxis Verified 07/11/21 19:52 propoxyphene Allergy Anaphylaxis Verified 07/11/21 19:52 [From Darvocet-N] SOCIAL HISTORY: No active tobacco use. She uses a walker for mobility. FAMILY HISTORY: Denies any DVTs, pulmonary embolisms in her family. Denies any ulcerative colitis disease or Crohn's. She does have a family history of morbid obesity. Daughter with easy bruising. She reports a family history of gallbladder disease in her mother. She also has a family history of morbid obesity. REVIEW OF ORGAN SYSTEMS: CONSTITUTIONAL: At her height of 5 foot 6.5, her ideal body weight is 154 pounds. Her highest weight is 385 pounds. Her body mass index is reduced from 6 1.3. HEENT: Denies any active troubles with vision or hearing. ENDOCRINE: Has diabetes and hypothyroidism. Insulin-dependent diabetes resolved. CARDIOVASCULAR: No reports of palpitations or heart attacks or chest pain. Congestive heart failure resolved. RESPIRATORY: Has sleep apnea, resolved. Has asthma. History of COPD exacerbation. GI: Has colon polyps. Gastroesophageal reflux disease resolved. MUSCULOSKELETAL: Has osteoarthritis of the knees and lower back. NEURO: No reports of headaches. Has seizure disorders. PSYCH: Has depression without suicidal ideation. Has anxiety. HEMATOLOGIC: Denies any abnormal bleeding or bruising. SKIN: Has panniculitis. No recent skin cancer. PHYSICAL EXAM: VITAL SIGNS: Height 5 foot 6.5 inches. Weight 272 pounds. BMI 43.4 Vital Signs Temp 98.2 F 04/30/21 15:42 Pulse 91 04/30/21 15:42 Resp 18 04/30/21 15:42 BP 129/82 04/30/21 15:42 Pulse Ox GENERAL: Well-developed and in no acute distress. HEENT: No scleral icterus. Extraocular was grossly intact. No nasal drainage. NECK: Supple without lymphadenopathy. CHEST: Nonlabored respirations with equal bilateral excursions. CARDIOVASCULAR: Regular rate. Distal 2+ pulses. ABDOMEN: Soft, nontender. MUSCULOSKELETAL: No clubbing, cyanosis, or edema. NEURO: No focal or lateralizing signs. Cranial nerves 2 through 12 grossly within normal limits. PSYCH: Appropriate affect. Alert and oriented to person, place and time. SKIN: Good skin turgor. Well perfused. ASSESSMENT: 1. Morbid obesity due to excess calories. 2. Body mass index of 61.3 down to 43.4 3. Iron deficiency anemia 4. Diabetes type 2, insulin dependent, improved. 5. Osteoarthritis of the lower back, improved. 6. Osteoarthritis of the bilateral knees, improved. 7. Obstructive sleep apnea, improved 8. Chronic obstructive pulmonary disease, improved. 9. Hypertensive heart disease. 10. Status post gastric bypass. 11. Vitamin A deficiency. 12. Dietary surveillance and counseling 13. Status post massive weight loss 176 pounds down to 113 pounds 14. Panniculitis 15. Weight gain following bariatric procedure 16. Colon polyps PLAN: 1. She has relapsed in her eating habit and has gained 70 pounds in 3 years. Plan for food diary journal. 2. Her last colonoscopy was last year with polyps. Colonoscopy recommended per screening guidelines. 3. Recommend batriatric labs. 4. She has hypothyroidism and may need correction of her hypothyroidism. Objective - Vital Signs Vital signs: Vital Signs Temp 98.2 F 04/30/21 15:42 Pulse 91 04/30/21 15:42 Resp 18 04/30/21 15:42 BP 129/82 04/30/21 15:42 Pulse Ox Intake & Output 04/29/21 04/30/21 04/30/21 18:59 06:59 18:59 Weight 123.831 kg - Labs CBC & Chem 7: 04/30/21 16:32 04/30/21 16:32
[2021-04-30 16:56] LABS: HCT 38.5 % (34.0-46.0); HGB 12.7 gm/dL (11.4-16.0); MCH 28.6 pg (25.0-35.0); MCV 86.7 fL (80.0-100.0); Mean Platelet Volume 7.4; Platelet Count 408 k/uL (150-450); RBC 4.45 m/uL (3.80-5.40); RDW 14.1 % (11.5-15.5); WBC 10.4 k/uL (3.8-10.6)
[2021-04-30 17:08] LABS: INR 0.9 (<1.2); Partial Thromboplastin Time 22.6 sec (22.0-30.0); Prothrombin Time 9.7 sec (9.0-12.0)
[2021-05-01 00:14] LABS: Hemoglobin A1C 7.3 % (4.0-6.0)
[2021-05-01 01:15] LABS: % Iron Saturation 13.07 (12.00-45.00); African American GFR (CKD) 82.3 (60.0-200.0); Albumin 4.4 g/dL (3.80-4.90); Albumin/Globulin Ratio 1.83 (1.60-3.17); Anion Gap 11.7 mmol/L (4.00-12.00); BUN/Creat Ratio 17.78 Ratio (12.00-20.00); Calcium 9.2 mg/dL (8.7-10.3); Carbon Dioxide 27.3 mmol/L (21.6-31.8); Chol/HDL Ratio 3.6; Globulin 2.4 g/dL (1.6-3.3); LDL Cholesterol,Calculated 83.8 mg/dL (0.0-131.0); Magnesium 1.6 mg/dL (1.5-2.4); Phosphorus 4.3 mg/dL (2.4-5.1); Potassium 4.7 mmol/L (3.5-5.5); Total Bilirubin 0.3 mg/dL (0.3-1.2); Total Protein 6.8 g/dL (6.2-8.2); VLDL Calculation 46.2 mg/dL (5.00-40.00)
[2021-05-01 04:29] LABS: Ferritin 8.1 ng/mL (10.0-291.0); Folate, Serum 22.4 ng/mL
[2021-05-01 13:32] LABS: Zinc, Serum 49 ug/dL (60-130)
[2021-05-02 09:01] LABS: Vitamin A 60 ug/dL (38-106)
[2021-05-02 09:09] LABS: Vit B1(Thiamine) 81 ug/L (38-122)
[2021-05-05 19:56] LABS: Selenium 109 mcg/L (63-160)
== END ==
LOC: BARWHC3 15:04
PROVIDERS: ATTEND Surgery Plastic and Reconstructive Surgery
DX: E66.01 Morbid (severe) obesity due to excess calories (principal); D50.9 Iron deficiency anemia, unspecified; E03.9 Hypothyroidism, unspecified; E11.9 Type 2 diabetes mellitus without complications; E78.5 Hyperlipidemia, unspecified; F32.9 Major depressive disorder, single episode, unspecified; G47.33 Obstructive sleep apnea (adult) (pediatric); I11.9 Hypertensive heart disease without heart failure; M47.9 Spondylosis, unspecified; E50.9 Vitamin A deficiency, unspecified; K63.5 Polyp of colon; J44.9 Chronic obstructive pulmonary disease, unspecified; M17.0 Bilateral primary osteoarthritis of knee; M79.3 Panniculitis, unspecified; Z79.4 Long term (current) use of insulin; Z98.84 Bariatric surgery status; Z68.41 Body mass index [BMI] 40.0-44.9, adult; Z71.3 Dietary counseling and surveillance; Z79.899 Other long term (current) drug therapy; Z88.5 Allergy status to narcotic agent; Z88.6 Allergy status to analgesic agent; Z88.8 Allergy status to other drugs, medicaments and biological substances
CPT/HCPCS: 84255; 84134; 84425; 80061; 80053; 82607; 82728; 82525; 82746; 83540; 83550; 83735; 84100; 84443; 84590; 84630; 85027; 85610; 85730; 82306; 83970; 83036; G0463; 99211

== ENCOUNTER 2021-07-05 03:55 | Emergency (ER) | payer MEDICARE, OTHER ==
[2021-07-05 04:05] VITALS: RESP 18
[2021-07-05] MEDS ORDERED: IPRATROPIUM-ALBUTEROL 3 ML NEB INHALATION STA (04:07)
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
--- NOTE | 2021-07-05 04:41 | XR ---
EXAMINATION TYPE: XR chest 2V DATE OF EXAM: 07/05/2021 COMPARISON: 02/04/2019 HISTORY: Rib pain TECHNIQUE: 2 views FINDINGS: Heart and mediastinum are normal. Lungs are clear. Diaphragm is normal. Bony thorax is inta ct. The pulmonary vascularity is normal. IMPRESSION: No cardiopulmonary disease. No change.
[2021-07-05 05:11] VITALS: PULSE 82
[2021-07-05 06:15] VITALS: BP 129/72; TEMP 98.9
== END 2021-07-05 06:25 | disposition home or self-care (01) ==
LOC: EC 03:55
DX: J44.1 Chronic obstructive pulmonary disease with (acute) exacerbation (principal); E11.36 Type 2 diabetes mellitus with diabetic cataract; E78.5 Hyperlipidemia, unspecified; F32.9 Major depressive disorder, single episode, unspecified; F41.9 Anxiety disorder, unspecified; G40.909 Epilepsy, unspecified, not intractable, without status epilepticus; I10 Essential (primary) hypertension; M19.90 Unspecified osteoarthritis, unspecified site; Z79.84 Long term (current) use of oral hypoglycemic drugs; Z87.891 Personal history of nicotine dependence; Z79.899 Other long term (current) drug therapy
CPT/HCPCS: 71046; 94640; 99285

== ENCOUNTER 2021-07-11 18:41 | Emergency (ER) | payer MEDICARE, OTHER ==
[2021-07-11] MEDS ORDERED: SODIUM CHLORIDE 0.9% 500 ML 500 ML IV ONE (18:49)
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
[2021-07-11 18:57] LABS: Glucose,Whole Blood 201 mg/dL (75-99)
[2021-07-11 19:07] VITALS: BP 160/89; PULSE 75; RESP 18; TEMP 98
[2021-07-11 19:24] LABS: Basophils % (A) 0 %; Eosinophils # (A) 0.3 k/uL (0-0.7); Eosinophils % (A) 2 %; HCT 39.7 % (34.0-46.0); HGB 12.7 gm/dL (11.4-16.0); Lymphocytes # (A) 2.5 k/uL (1.0-4.8); Lymphocytes % (A) 20 %; MCH 28.7 pg (25.0-35.0); MCHC 32.1 g/dL (31.0-37.0); MCV 89.7 fL (80.0-100.0); Mean Platelet Volume 7.5; Monocytes # (A) 0.6 k/uL (0-1.0); Monocytes % (A) 5 %; Neutrophils # (A) 8.6 k/uL (1.3-7.7); Neutrophils % (A) 71 %; Platelet Count 410 k/uL (150-450); RBC 4.42 m/uL (3.80-5.40); RDW 15.3 % (11.5-15.5); WBC 12.1 k/uL (3.8-10.6)
[2021-07-11 19:35] LABS: ALT 20 U/L (4-34); AST 30 U/L (14-36); African American GFR (CKD) >90 (>60 ml/min/1.73 sqM); Albumin 4.2 g/dL (3.5-5.0); Alkaline Phosphatase 93 U/L (38-126); Anion Gap 11 mmol/L; Blood Urea Nitrogen 16 mg/dL (7-17); Carbon Dioxide 23 mmol/L (22-30); Chloride 102 mmol/L (98-107); Creatine Kinase 50 U/L (30-135); Glucose 200 mg/dL (74-99); Non-African American GFR(CKD) 82 (>60 ml/min/1.73 sqM); Potassium 4.4 mmol/L (3.5-5.1); Sodium 136 mmol/L (137-145); Total Bilirubin 0.4 mg/dL (0.2-1.3); Total Protein 6.9 g/dL (6.3-8.2)
[2021-07-11 19:36] LABS: INR 0.9 (<1.2); Partial Thromboplastin Time 22.6 sec (22.0-30.0); Prothrombin Time 9.6 sec (9.0-12.0)
--- NOTE | 2021-07-11 19:46 | XR ---
EXAMINATION TYPE: XR chest 1V portable DATE OF EXAM: 07/11/2021 CLINICAL HISTORY: altered mental status. TECHNIQUE: Portable frontal view of the chest. COMPARISON: 07/05/2021 FINDINGS: Redemonstrated cardiomegaly. Pulmonary vasculature is normal. There is no focal air space o pacity. No pleural effusion. No pneumothorax seen. No acute displaced osseous fracture. IMPRESSION: No acute cardiopulmonary process.
--- NOTE | 2021-07-11 19:49 | CT ---
EXAMINATION TYPE: CT brain wo con DATE OF EXAM: 07/11/2021 HISTORY: AMS. CT DLP: 1247.4 mGycm. Automated Exposure Control for Dose Reduction was Utilized. TECHNIQUE: CT scan of the head is performed without contrast. COMPARISON: 01/26/2019 FINDINGS: There is no acute intracranial hemorrhage, midline shift, or mass effect identified. The ventricles, sulci, and cisterns are normal in size and configuration. No extra-axial fluid collection. No depressed calvarial fracture. Visualized sinuses and mastoid air cells are clear. IMPRESSION: No acute intracranial hemorrhage, midline shift, or mass effect.
[2021-07-11 20:06] LABS: Appearance,Urine Clear (Clear); Bilirubin,Urine Negative (Negative); Blood,Urine Negative (Negative); Color,Urine Light Yellow; Glucose,Urine (UA) Negative (Negative); Ketones,Urine Negative (Negative); Leukocyte Esterase,Urine Negative (Negative); Nitrite,Urine Negative (Negative); PH, Urine 5.5 (5.0-8.0); Protein,Urine Negative (Negative); Specific Gravity,Urine 1.006 (1.001-1.035); Urobilinogen,Urine <2.0 mg/dL (<2.0)
[2021-07-11 20:19] LABS: Amphetamine Screen,Urine Not Detected (NotDetected); Barbiturate Screen,Urine Not Detected (NotDetected); Benzodiazepines Screen,Urine Not Detected (NotDetected); Cocaine Screen,Urine Not Detected (NotDetected); Methadone Screen, Urine Not Detected (NotDetected); Opiate Screen,Urine Not Detected (NotDetected); Oxycodone Screen, Urine Not Detected (NotDetected); Phencyclidine Screen,Urine Not Detected (NotDetected); Tricyclic Antidepressant,Urine Not Detected (NotDetected); Urn Cannabinoid Scrn Not Detected (NotDetected)
== END 2021-07-11 21:40 | disposition home or self-care (01) ==
LOC: EC 18:41
DX: R41.0 Disorientation, unspecified (principal); E11.36 Type 2 diabetes mellitus with diabetic cataract; I10 Essential (primary) hypertension; J44.9 Chronic obstructive pulmonary disease, unspecified; G40.909 Epilepsy, unspecified, not intractable, without status epilepticus; K21.9 Gastro-esophageal reflux disease without esophagitis; M19.90 Unspecified osteoarthritis, unspecified site; F32.9 Major depressive disorder, single episode, unspecified; E78.5 Hyperlipidemia, unspecified; F41.9 Anxiety disorder, unspecified; Z79.84 Long term (current) use of oral hypoglycemic drugs; Z79.899 Other long term (current) drug therapy; Z79.890 Hormone replacement therapy; Z83.3 Family history of diabetes mellitus; Z82.49 Family history of ischemic heart disease and other diseases of the circulatory system; Z83.49 Family history of other endocrine, nutritional and metabolic diseases; Z87.891 Personal history of nicotine dependence; Z88.5 Allergy status to narcotic agent; Z88.6 Allergy status to analgesic agent; Z98.84 Bariatric surgery status
CPT/HCPCS: 36415; 70450; 71045; 80053; 80306; 81003; 82550; 84484; 85025; 85610; 85730; 93005; 99285

== ENCOUNTER 2022-04-10 09:23 | Emergency (ER) | payer MEDICARE, OTHER ==
[2022-04-10 10:13] VITALS: RESP 18; TEMP 98.8
[2022-04-10] MEDS ORDERED: diphenhydrAMINE 50 MG/ML 1 ML VIAL IVP STA (10:35)
[2022-04-10] MEDS ORDERED: KETOROLAC 15 MG/ML 1 ML VIAL IVP STA (10:35)
[2022-04-10] MEDS ORDERED: ONDANSETRON 4 MG/2 ML VIAL IVP STA (10:35)
[2022-04-10] MEDS ORDERED: SODIUM CHLORIDE 0.9% 1,000 ML IV STA (10:35)
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
[2022-04-10 11:20] LABS: Anisocytosis Slight; Basophils % (A) 0 %; Eosinophils # (A) 0.4 k/uL (0-0.7); Eosinophils % (A) 4 %; HCT 34.8 % (34.0-46.0); Hypochromasia Moderate; Lymphocytes % (A) 24 %; MCHC 31.5 g/dL (31.0-37.0); MCV 82.8 fL (80.0-100.0); Mean Platelet Volume 7.6; Monocytes # (A) 0.4 k/uL (0-1.0); Monocytes % (A) 5 %; Neutrophils # (A) 5.6 k/uL (1.3-7.7); Neutrophils % (A) 65 %; Platelet Count 435 k/uL (150-450); RBC 4.21 m/uL (3.80-5.40); RDW 16.5 % (11.5-15.5); WBC 8.6 k/uL (3.8-10.6)
[2022-04-10 11:33] LABS: African American GFR (CKD) >90 (>60 ml/min/1.73 sqM); Anion Gap 5 mmol/L; Blood Urea Nitrogen 10 mg/dL (7-17); Calcium 8.9 mg/dL (8.4-10.2); Carbon Dioxide 30 mmol/L (22-30); Chloride 101 mmol/L (98-107); Glucose 134 mg/dL (74-99); Non-African American GFR(CKD) >90 (>60 ml/min/1.73 sqM); Potassium 4.7 mmol/L (3.5-5.1); Sodium 136 mmol/L (137-145)
--- NOTE | 2022-04-10 11:39 | XR ---
EXAMINATION TYPE: XR chest 1V portable DATE OF EXAM: 04/10/2022 COMPARISON: 07/11/2021 INDICATION: Headache fever chills TECHNIQUE: Single frontal view of the chest is obtained. FINDINGS: The heart size is mildly prominent. The pulmonary vasculature is normal. The lungs are clear. IMPRESSION: 1. Cardiomegaly
--- NOTE | 2022-04-10 12:32 | CT ---
EXAMINATION TYPE: CT brain wo con DATE OF EXAM: 04/10/2022 COMPARISON: 07/11/2021 HISTORY: severe migraine CT DLP: 1151.4 mGycm Automated exposure control for dose reduction was used. FINDINGS: Ventricles are consistent with the patient's age. No midline shift or mass effect. No acute hemorrhag e. Low attenuation in the white matter left parietal lobe is nonspecific calvarium intact craniocervi elvira junction is maintained. Partially empty sella turcica. IMPRESSION: NO ACUTE HEMORRHAGE OR MASS EFFECT.
[2022-04-10 12:50] VITALS: BP 120/72; PULSE 66
[2022-04-10 13:00] LABS: Appearance,Urine Clear (Clear); Bilirubin,Urine Negative (Negative); Blood,Urine Negative (Negative); Color,Urine Light Yellow; Glucose,Urine (UA) Negative (Negative); Ketones,Urine Negative (Negative); Leukocyte Esterase,Urine Negative (Negative); Nitrite,Urine Negative (Negative); PH, Urine 7.5 (5.0-8.0); Protein,Urine Negative (Negative); Specific Gravity,Urine 1.008 (1.001-1.035); Urobilinogen,Urine <2.0 mg/dL (<2.0)
== END 2022-04-10 13:34 | disposition home or self-care (01) ==
LOC: EC 09:23
DX: R51.9 Headache, unspecified (principal); J44.9 Chronic obstructive pulmonary disease, unspecified; M19.90 Unspecified osteoarthritis, unspecified site; G40.909 Epilepsy, unspecified, not intractable, without status epilepticus; I10 Essential (primary) hypertension; E78.5 Hyperlipidemia, unspecified; F32.A Depression, unspecified; F41.9 Anxiety disorder, unspecified; E11.36 Type 2 diabetes mellitus with diabetic cataract; Z87.891 Personal history of nicotine dependence; K21.9 Gastro-esophageal reflux disease without esophagitis; Z79.84 Long term (current) use of oral hypoglycemic drugs; Z79.899 Other long term (current) drug therapy; Z20.822 Contact with and (suspected) exposure to COVID-19; Z88.5 Allergy status to narcotic agent; Z88.6 Allergy status to analgesic agent; Z88.8 Allergy status to other drugs, medicaments and biological substances
CPT/HCPCS: 36415; 80048; 85025; 81003; 87636; 71045; 70450; 99284; 96374; 96375 ×2; 96361; J1200; J2405; J1885

== ENCOUNTER 2022-07-12 01:04 | Emergency (ER) | payer MEDICARE, OTHER ==
[2022-07-12 01:35] VITALS: BP 137/75; PULSE 72; RESP 22; TEMP 98.7
--- NOTE | 2022-07-12 02:15 | XR ---
EXAMINATION TYPE: XR shoulder complete RT DATE OF EXAM: 07/12/2022 COMPARISON: NONE HISTORY: Shoulder pain TECHNIQUE: 3 views FINDINGS: There is no evidence of fracture nor dislocation. Joint spaces are fairly normal. There is minor spurring at the inferior glenohumeral joint. IMPRESSION: Mild osteoarthritis in the shoulder joint. No fracture.
[2022-07-12] MEDS ORDERED: Acetaminophen-Codeine 300-30mg TAB PO STA (02:59)
[2022-07-12] MEDS ORDERED: ACET/COD 300 MG/30 MG STARTER PACK 6 TAB BTL PO STA (02:59)
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
== END 2022-07-12 03:58 | disposition home or self-care (01) ==
LOC: EC 01:04
DX: M25.511 Pain in right shoulder (principal); J44.9 Chronic obstructive pulmonary disease, unspecified; E11.9 Type 2 diabetes mellitus without complications; K21.9 Gastro-esophageal reflux disease without esophagitis; E78.5 Hyperlipidemia, unspecified; I10 Essential (primary) hypertension; M19.90 Unspecified osteoarthritis, unspecified site; R56.9 Unspecified convulsions; Z88.8 Allergy status to other drugs, medicaments and biological substances; Z88.5 Allergy status to narcotic agent; Z88.6 Allergy status to analgesic agent; Z87.891 Personal history of nicotine dependence
CPT/HCPCS: 99283

== ENCOUNTER 2022-11-04 00:52 | Emergency (ER) | payer MEDICARE, OTHER ==
[2022-11-04 01:03] VITALS: RESP 16
[2022-11-04] MEDS ORDERED: SODIUM CHLORIDE 0.9% 1,000 ML IV STA (04:07)
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
[2022-11-04 04:13] VITALS: BP 132/62; PULSE 68; TEMP 98.6
== END 2022-11-04 04:42 | disposition home or self-care (01) ==
LOC: EC 00:52
DX: R00.2 Palpitations (principal); F41.9 Anxiety disorder, unspecified; F32.A Depression, unspecified; I10 Essential (primary) hypertension; J44.9 Chronic obstructive pulmonary disease, unspecified; K21.9 Gastro-esophageal reflux disease without esophagitis; G47.30 Sleep apnea, unspecified; M19.90 Unspecified osteoarthritis, unspecified site; E78.5 Hyperlipidemia, unspecified; E11.9 Type 2 diabetes mellitus without complications; E07.9 Disorder of thyroid, unspecified; Z79.84 Long term (current) use of oral hypoglycemic drugs; Z79.899 Other long term (current) drug therapy; Z79.890 Hormone replacement therapy; Z87.891 Personal history of nicotine dependence; Z88.5 Allergy status to narcotic agent; Z88.6 Allergy status to analgesic agent; Z88.8 Allergy status to other drugs, medicaments and biological substances
CPT/HCPCS: 93005; 99284

== ENCOUNTER → 2023-03-16 | Outpatient (CLI) | payer MEDICARE, OTHER ==
--- NOTE | 2023-03-18 22:32 | MM ---
Reason for Exam: Screening (asymptomatic). Last mammogram was performed 1 year(s) and 8 month(s) ago. Patient History: Menarche at age 10. First Full-Term at age 28. Late child-bearing (after 28). Left ovary removed at age 36. Right ovary removed at age 36. Hysterectomy at age 36. Postmenopausal. Risk Values: Amparo 5 year model risk: 1.9%. NCI Lifetime model risk: 10.2%. Prior Study Comparison: 07/09/2021 Bilateral Screening Mammogram, [facility]. Tissue Density: There are scattered fibroglandular densities. Findings: Analyzed By CAD. Pattern appears symmetrical and stable. Benign scattered punctate calcifications are present. No significant interval change is evident. No suspicious groups of microcalcifications, spiculated or lobular masses, architectural distortion or other secondary signs of malignancy are mammographically apparent. Overall Assessment: Benign, BI-RAD 2 Management: Screening Mammogram of both breasts in 1 year. A negative mammogram report should not preclude additional follow up of suspicious palpable abnormalities. Patient should continue monthly self breast exam. A clinical breast exam by your physician is recommended on an annual basis and results should be correlated with mammographic findings. Electronically signed and approved by: Ad Hall D.O. Radiologis
== END | disposition home or self-care (01) ==
LOC: RADMAMWWP 09:07
PROVIDERS: ATTEND Internal Medicine
DX: Z12.31 Encounter for screening mammogram for malignant neoplasm of breast (principal); Z78.0 Asymptomatic menopausal state; Z90.721 Acquired absence of ovaries, unilateral
CPT/HCPCS: 77063; 77067

== ENCOUNTER → 2023-03-17 | Outpatient (CLI) | payer MEDICARE, OTHER ==
[2023-03-17 15:49] VITALS: BP 133/73; PULSE 82; TEMP 98.7; BMI 46.7
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
== END ==
LOC: BARWHC3 15:13
PROVIDERS: ATTEND Surgery Plastic and Reconstructive Surgery
DX: E66.01 Morbid (severe) obesity due to excess calories (principal); E11.9 Type 2 diabetes mellitus without complications; K21.9 Gastro-esophageal reflux disease without esophagitis; I10 Essential (primary) hypertension; E78.5 Hyperlipidemia, unspecified; R56.9 Unspecified convulsions; J44.9 Chronic obstructive pulmonary disease, unspecified; Z87.891 Personal history of nicotine dependence; M19.90 Unspecified osteoarthritis, unspecified site; Z68.44 Body mass index [BMI] 60.0-69.9, adult; Z88.8 Allergy status to other drugs, medicaments and biological substances; Z88.5 Allergy status to narcotic agent
CPT/HCPCS: 99211

== ENCOUNTER 2023-03-18 15:24 | Emergency (ER) | payer MEDICARE, OTHER ==
[2023-03-18 16:01] VITALS: RESP 18; TEMP 98.2
[2023-03-18 16:02] LABS: Glucose,Whole Blood 287 mg/dL (70-110)
[2023-03-18 16:32] LABS: Anisocytosis Slight; Basophils % (A) 0 %; Eosinophils # (A) 0.2 k/uL (0-0.7); Eosinophils % (A) 2 %; HCT 37.7 % (34.0-46.0); HGB 11.7 gm/dL (11.4-16.0); Hypochromasia Slight; Lymphocytes # (A) 2.3 k/uL (1.0-4.8); Lymphocytes % (A) 26 %; MCH 26.5 pg (25.0-35.0); MCHC 31.2 g/dL (31.0-37.0); Mean Platelet Volume 7.9; Monocytes # (A) 0.4 k/uL (0-1.0); Monocytes % (A) 4 %; Neutrophils # (A) 5.8 k/uL (1.3-7.7); Neutrophils % (A) 66 %; Platelet Count 339 k/uL (150-450); RBC 4.44 m/uL (3.80-5.40); RDW 16.2 % (11.5-15.5); WBC 8.8 k/uL (3.8-10.6)
[2023-03-18 16:44] LABS: Albumin 3.9 g/dL (3.5-5.0); Calcium 9.1 mg/dL (8.4-10.2); Potassium 4.4 mmol/L (3.5-5.1); Total Bilirubin 0.4 mg/dL (0.2-1.3); Total Protein 6.9 g/dL (6.3-8.2)
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
[2023-03-18 17:25] LABS: Appearance,Urine Clear (Clear); Bilirubin,Urine Negative (Negative); Blood,Urine Negative (Negative); Color,Urine Yellow; Glucose,Urine (UA) Negative (Negative); Ketones,Urine Negative (Negative); Leukocyte Esterase,Urine Negative (Negative); Nitrite,Urine Negative (Negative); Protein,Urine Trace (Negative); Specific Gravity,Urine 1.027 (1.001-1.035)
[2023-03-18] MEDS ORDERED: ACETAMINOPHEN TAB 325 MG TAB PO STA (17:35)
[2023-03-18] MEDS ORDERED: SODIUM CHLORIDE 0.9% 1,000 ML IV ONE (18:09)
[2023-03-18 19:09] VITALS: BP 126/73; PULSE 88
== END 2023-03-18 20:27 | disposition home or self-care (01) ==
LOC: EC 15:24
DX: R20.2 Paresthesia of skin (principal); E11.65 Type 2 diabetes mellitus with hyperglycemia; J44.9 Chronic obstructive pulmonary disease, unspecified; E78.5 Hyperlipidemia, unspecified; I10 Essential (primary) hypertension; K21.9 Gastro-esophageal reflux disease without esophagitis; E07.9 Disorder of thyroid, unspecified; F41.9 Anxiety disorder, unspecified; F32.A Depression, unspecified; Z87.891 Personal history of nicotine dependence; Z79.84 Long term (current) use of oral hypoglycemic drugs; Z79.890 Hormone replacement therapy; Z79.899 Other long term (current) drug therapy; Z88.6 Allergy status to analgesic agent; Z88.5 Allergy status to narcotic agent
CPT/HCPCS: 36415; 80053; 81003; 84484; 85025; 93005; 96360; 99284

== ENCOUNTER → 2023-03-19 | Outpatient (CLI) | payer MEDICARE, OTHER ==
[2023-03-19 16:53] LABS: INR 0.9 (<1.2); Partial Thromboplastin Time 22.9 sec (22.0-30.0); Prothrombin Time 9.9 sec (9.0-12.0)
[2023-03-20 02:25] LABS: % Iron Saturation 6.96 (12.00-45.00); Total Iron Binding Capacity 497 ug/dL (228-460)
[2023-03-20 02:35] LABS: Ferritin 11.2 ng/mL (10.0-291.0); Iron 35 ug/dL (50-170); Magnesium 1.8 mg/dL (1.5-2.4); Phosphorus 3.4 mg/dL (2.4-5.1); Prealbumin 24.2 mg/dL (18.0-42.0)
[2023-03-20 02:36] LABS: Chol/HDL Ratio 3.08 Ratio; LDL Cholesterol,Calculated 94.4 mg/dL (0.0-131.0)
== END | disposition home or self-care (01) ==
LOC: LABWHC1 15:06
PROVIDERS: ATTEND Surgery Plastic and Reconstructive Surgery
DX: E66.01 Morbid (severe) obesity due to excess calories (principal); E89.1 Postprocedural hypoinsulinemia; D50.8 Other iron deficiency anemias; K91.2 Postsurgical malabsorption, not elsewhere classified; E46 Unspecified protein-calorie malnutrition; E55.9 Vitamin D deficiency, unspecified; K74.1 Hepatic sclerosis; N19 Unspecified kidney failure; T56.894A Toxic effect of other metals, undetermined, initial encounter; K50.90 Crohn's disease, unspecified, without complications
CPT/HCPCS: 36415; 80061; 82306; 82525; 82607; 82728; 82746; 83036; 83540; 83550; 83735; 83970; 84100; 84134; 84255; 84425; 84590; 84630; 85610; 85730

== ENCOUNTER 2023-04-04 12:27 | Observation (INO) | payer MEDICARE, OTHER ==
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
[2023-04-04 13:25] LABS: Partial Thromboplastin Time 22.9 sec (22.0-30.0); Prothrombin Time 10.2 sec (9.0-12.0)
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
[2023-04-04 13:31] LABS: ALT 18 U/L (4-34); AST 26 U/L (14-36); African American GFR (CKD) 77 (>60 ml/min/1.73 sqM); Alkaline Phosphatase 114 U/L (38-126); Anion Gap 6 mmol/L; Blood Urea Nitrogen 17 mg/dL (7-17); Calcium 9.2 mg/dL (8.4-10.2); Carbon Dioxide 31 mmol/L (22-30); Chloride 99 mmol/L (98-107); Glucose 167 mg/dL (74-99); Magnesium 1.8 mg/dL (1.6-2.3); Non-African American GFR(CKD) 67 (>60 ml/min/1.73 sqM); Potassium 4.5 mmol/L (3.5-5.1); Sodium 136 mmol/L (137-145); Total Bilirubin 0.5 mg/dL (0.2-1.3); Total Protein 6.9 g/dL (6.3-8.2)
[2023-04-04] MEDS ORDERED: ONDANSETRON 4 MG/2 ML VIAL IVP PRN (13:43)
[2023-04-04] MEDS ORDERED: NALOXONE 0.4 MG/ML 1 ML VIAL IV PRN (13:43)
[2023-04-04] MEDS ORDERED: ACETAMINOPHEN TAB 325 MG TAB PO PRN (13:43)
[2023-04-04] MEDS ORDERED: SODIUM CHLORIDE 0.9% 1,000 ML IV SCH (13:45)
--- NOTE | 2023-04-04 14:18 | CT ---
EXAMINATION TYPE: CT abdomen pelvis w con DATE OF EXAM: 04/04/2023 COMPARISON: 04/12/2020 HISTORY: Blood in stool. CT DLP: 3075 mGycm CONTRAST: CT scan of the abdomen and pelvis is performed without Oral Contrast and with IV Contrast, patient in jected with 100ML mL of Isovue 300. FINDINGS: LUNG BASES-: No visible nodule. No infiltrate. LIVER/GB: No calcified gallstones. No space occupying hepatic lesion. Biliary tree is of normal ca liber. PANCREAS: No inflammation. No distinct mass. SPLEEN: No splenic enlargement. No lesion seen. ADRENALS: No nodule. No thickening. KIDNEYS/BLADDER: No hydronephrosis. No nephrolithiasis. 6.3 cm left renal cyst. Urinary bladder carmine ssly unremarkable. BOWEL: Appendix not visualized. Diandra-en-Y gastric bypass noted. No evidence for bowel wall thickening or dilatation. No inflammatory process, abscess or free air. GENITAL ORGANS: No gross abnormality. LYMPH NODES: No greater than 1cm abdominal or pelvic lymph nodes are appreciated. AORTA: No significant abnormality. OSSEOUS STRUCTURES: No significant abnormality is seen. OTHER: No significant additional abnormality is seen. IMPRESSION: 1. Diandra-en-Y gastric bypass noted. No evidence for bowel wall thickening or dilatation. No inflammato ry process, abscess or free air.
[2023-04-04 14:25] LABS: Anisocytosis Slight; Basophils % (A) 0 %; Eosinophils # (A) 0.1 k/uL (0-0.7); Eosinophils % (A) 2 %; HCT 36.2 % (34.0-46.0); HGB 11.5 gm/dL (11.4-16.0); Hypochromasia Slight; Lymphocytes # (A) 1.7 k/uL (1.0-4.8); Lymphocytes % (A) 21 %; MCH 26.5 pg (25.0-35.0); MCHC 31.7 g/dL (31.0-37.0); MCV 83.6 fL (80.0-100.0); Mean Platelet Volume 7.6; Monocytes # (A) 0.5 k/uL (0-1.0); Monocytes % (A) 6 %; Neutrophils # (A) 5.5 k/uL (1.3-7.7); Neutrophils % (A) 69 %; Platelet Count 374 k/uL (150-450); RBC 4.33 m/uL (3.80-5.40); RDW 16.4 % (11.5-15.5)
[2023-04-04 17:49] LABS: Glucose,Whole Blood 254 mg/dL (70-110)
[2023-04-04] MEDS ORDERED: DEXTROSE 50% SYRINGE 50 ML IVP PRN ×2 (17:52)
[2023-04-04 20:39] LABS: Glucose,Whole Blood 84 mg/dL (70-110)
[2023-04-04] MEDS: INSULIN ASPART (NovoLOG) 100 UNIT/ML VIAL SQ SCH (21:12)
[2023-04-04] MEDS: SODIUM CHLORIDE 0.9% 1,000 ML IV SCH (21:17)
[2023-04-04] MEDS: busPIRone HCl 10 MG TAB PO SCH (21:22)
[2023-04-04] MEDS: glipiZIDE 5 MG TAB PO SCH (21:22)
[2023-04-04] MEDS: PANTOPRAZOLE 40 MG/10 ML VIAL IV SCH (21:22)
[2023-04-05 05:34] LABS: Glucose,Whole Blood 155 mg/dL (70-110)
[2023-04-05] MEDS: SODIUM CHLORIDE 0.9% 1,000 ML IV SCH ×3 (05:54→17:10)
[2023-04-05] MEDS: INSULIN ASPART (NovoLOG) 100 UNIT/ML VIAL SQ SCH ×4 (06:25→21:32)
[2023-04-05] MEDS ORDERED: IV FLUID CONTINUATION 1,000 ML IV ONE ×2 (07:39)
[2023-04-05] MEDS ORDERED: LIDOCAINE 2% INJ 20 MG/ML (2 ML VIAL) ONE (07:42)
[2023-04-05] MEDS ORDERED: PROPOFOL 10 MG/ML 20 ML VIAL IV ONE (07:42)
--- NOTE | 2023-04-05 08:03 | P.PCN ---
Date of Procedure: 04/05/23 Description of Procedure: PREOPERATIVE DIAGNOSIS: Acute gastrointestinal bleeding with melena Positive stool occult blood POSTOPERATIVE DIAGNOSIS: Acute gastritis with recent bleeding Gastrojejunal ulcer with bleeding Gastritis with bleeding OPERATION: Esophagojejunoscopy SURGEON: Tila Banks MD ANESTHESIA: MAC. INDICATIONS: The patient is a 57-year-old female who presents with gastrointestinal bleeding. Benefits and risks of the procedure were described. Informed consent was obtained. DESCRIPTION: The patient was brought into the endoscopy suite and laid in the left lateral decubitus position. An Olympus gastroscope was passed along the posterior oropharynx down to the distal esophagus where the squamocolumnar junction was encountered at 35 cm from the incisors. The gastric pouch was entered from her gastric bypass with recent bleeding identified along the anastomosis. The gastric pouch from 35-45 cm from the incisors. No foreign body identified. Additional findings are listed below. The stomach was desufflated. The patient tolerated the procedure well. FINDINGS: Squamocolumnar junction 35 cm from the incisors. Anastomosis at 45 cm from the incisors Active bleeding within gastric pouch with gastritis identified. Biopsies obtained gastric pouch. No strictures identified. RECOMMENDATIONS: Recommend proceeding with colonoscopy a patient reports blood in stools. Continue Protonix 40 mg twice a day
[2023-04-05] MEDS: glipiZIDE 5 MG TAB PO SCH ×2 (09:09→21:32)
[2023-04-05] MEDS: ESCITALOPRAM 10 MG TAB PO SCH (09:09)
[2023-04-05] MEDS: PIOGLITAZONE 45 MG TAB PO SCH (09:09)
[2023-04-05] MEDS: busPIRone HCl 10 MG TAB PO SCH ×2 (09:09→21:32)
[2023-04-05] MEDS: ARIPiprazole 5 MG TAB PO SCH (09:09)
[2023-04-05] MEDS: PANTOPRAZOLE 40 MG/10 ML VIAL IV SCH ×2 (09:09→21:33)
[2023-04-05] MEDS: lamoTRIgine 100 MG TAB PO SCH (09:09)
[2023-04-05 11:30] LABS: Glucose,Whole Blood 189 mg/dL (70-110)
[2023-04-05 11:54] LABS: Anisocytosis Slight; Basophils % (A) 0 %; Eosinophils # (A) 0.1 k/uL (0-0.7); Eosinophils % (A) 2 %; HCT 35.5 % (34.0-46.0); Hypochromasia Moderate; Lymphocytes # (A) 1.6 k/uL (1.0-4.8); Lymphocytes % (A) 24 %; MCH 26.8 pg (25.0-35.0); MCHC 31.1 g/dL (31.0-37.0); MCV 86.2 fL (80.0-100.0); Monocytes # (A) 0.4 k/uL (0-1.0); Monocytes % (A) 6 %; Neutrophils # (A) 4.5 k/uL (1.3-7.7); Neutrophils % (A) 67 %; Platelet Count 320 k/uL (150-450); RBC 4.12 m/uL (3.80-5.40); RDW 16.4 % (11.5-15.5); WBC 6.7 k/uL (3.8-10.6)
[2023-04-05 17:16] LABS: Glucose,Whole Blood 93 mg/dL (70-110)
[2023-04-05 20:14] LABS: Glucose,Whole Blood 207 mg/dL (70-110)
[2023-04-06] MEDS: SODIUM CHLORIDE 0.9% 1,000 ML IV SCH ×3 (03:57→15:34)
[2023-04-06] MEDS: INSULIN ASPART (NovoLOG) 100 UNIT/ML VIAL SQ SCH ×4 (06:38→21:11)
[2023-04-06 06:40] LABS: Glucose,Whole Blood 117 mg/dL (70-110)
[2023-04-06] MEDS ORDERED: LACTULOSE 20 GM/30 ML CUP PO ONE (08:00)
[2023-04-06 08:58] LABS: Anisocytosis Slight; Basophils % (A) 0 %; Eosinophils # (A) 0.2 k/uL (0-0.7); Eosinophils % (A) 3 %; HGB 10.5 gm/dL (11.4-16.0); Hypochromasia Moderate; Lymphocytes # (A) 2.1 k/uL (1.0-4.8); Lymphocytes % (A) 29 %; MCH 26.6 pg (25.0-35.0); MCHC 30.9 g/dL (31.0-37.0); Mean Platelet Volume 8.3; Monocytes # (A) 0.5 k/uL (0-1.0); Monocytes % (A) 6 %; Neutrophils # (A) 4.4 k/uL (1.3-7.7); Neutrophils % (A) 60 %; Platelet Count 309 k/uL (150-450); RBC 3.96 m/uL (3.80-5.40); RDW 16.4 % (11.5-15.5); WBC 7.3 k/uL (3.8-10.6)
[2023-04-06] MEDS: ARIPiprazole 5 MG TAB PO SCH (09:08)
[2023-04-06] MEDS: lamoTRIgine 100 MG TAB PO SCH (09:08)
[2023-04-06] MEDS: PANTOPRAZOLE 40 MG/10 ML VIAL IV SCH ×2 (09:08→21:17)
[2023-04-06] MEDS: busPIRone HCl 10 MG TAB PO SCH ×2 (09:09→21:17)
[2023-04-06] MEDS: ESCITALOPRAM 10 MG TAB PO SCH (09:09)
[2023-04-06] MEDS: glipiZIDE 5 MG TAB PO SCH ×2 (09:09→21:17)
[2023-04-06] MEDS: PIOGLITAZONE 45 MG TAB PO SCH (09:09)
[2023-04-06] MEDS ORDERED: PEG 3350 (236 GM/BTL) + LYTES 4,000 ML BOTTLE PO ONE (10:00)
[2023-04-06 11:36] LABS: Glucose,Whole Blood 99 mg/dL (70-110)
--- NOTE | 2023-04-06 13:09 | P.PN ---
Subjective Progress Note Date: 04/06/23 CHIEF COMPLAINT: GI bleed HISTORY OF PRESENT ILLNESS: Patient is currently undergoing bowel prep for colo noscopy tomorrow. She does report a little blood in in her stools. She did have EGD completed yesterday which had shown acute gastritis with recent bleeding, gastrojejunal with bleeding gastritis with bleeding. Patient denies any abdominal pain. Denies any nausea vomiting. Afebrile. Hemoglobin slightly down from 11-10.5 PHYSICAL EXAM: VITAL SIGNS: Reviewed GENERAL: Well-developed in no acute distress. HEENT: No sclera icterus. Extraocular movements grossly intact. Moist buccal mucosa. Head is atraumatic, normocephalic. Hears conversational speech. No nasal drainage. NECK: Supple without lymphadenopathy. CHEST: Non-labored respirations and equal bilateral excursions. CARDIOVASCULAR: Palpable 2+ radial pulses. ABDOMEN: Soft. Nondistended. Nontender. MUSCULOSKELETAL: No clubbing or cyanosis. NEUROLOGIC: No focal or lateralizing signs. Cranial nerves II through XII james sly intact. PSYCH: Appropriate affect. Alert and oriented to person, place and time. SKIN: Well perfused. Good skin turgor. ASSESSMENT: 1. Acute GI bleed with blood reported in stools 2. Melanotic stools patient status post EGD which had shown acute gastritis with recent bleeding, gastrojejunal with bleeding gastritis with bleeding. PLAN: -Continue PPI -Patient to have bowel prep today with lactulose -Clear liquid diet -Patient scheduled for colonoscopy tomorrow, 04/07/[address] -Continue monitoring signs or symptoms of bleeding -Continue to monitor hemoglobin Physician Flat Bed Operator note has been reviewed by physician. Signing provider agrees with the documented findings, assessment, and plan of care. Objective - Vital Signs Vital signs: Vital Signs Temp 98.3 F 04/06/23 07:53 Pulse 67 04/06/23 07:53 Resp 18 04/06/23 07:53 BP 129/77 04/06/23 07:53 Pulse Ox 93 L 04/06/23 07:53 FiO2 Intake & Output 04/05/23 04/06/23 04/06/23 18:59 06:59 18:59 Intake Total 900 200 Balance 900 200 Intake: IV 100 Intake, IV Titration 800 Amount Sodium Chloride 0.9% 1, 800 000 ml @ 130 mls/hr IV . [id number] MIRYAM Rx#:[id number] Oral 200 Other: # Voids 2 - Labs CBC & Chem 7: 04/06/23 08:14 04/04/23 13:02 Labs: Abnormal Lab Results - Last 24 Hours (Table) 04/05/23 04/05/23 04/06/23 Range/Units 11:04 20:11 06:37 Hgb (11.4-16.0) gm/dL MCHC (31.0-37.0) g/dL RDW (11.5-15.5) % POC Glucose (mg/dL) 207 H 117 H (70-110) mg/dL Hemoglobin A1c 7.2 H % 04/06/23 Range/Units 08:14 Hgb 10.5 L (11.4-16.0) gm/dL MCHC 30.9 L (31.0-37.0) g/dL RDW 16.4 H (11.5-15.5) % POC Glucose (mg/dL) (70-110) mg/dL Hemoglobin A1c %
[2023-04-06 16:13] LABS: Glucose,Whole Blood 89 mg/dL (70-110)
[2023-04-06 21:08] LABS: Glucose,Whole Blood 101 mg/dL (70-110)
[2023-04-07 06:08] LABS: Glucose,Whole Blood 109 mg/dL (70-110)
[2023-04-07] MEDS: INSULIN ASPART (NovoLOG) 100 UNIT/ML VIAL SQ SCH ×2 (06:10→12:01)
[2023-04-07] MEDS: SODIUM CHLORIDE 0.9% 1,000 ML IV SCH ×2 (06:11→07:42)
[2023-04-07] MEDS: glipiZIDE 5 MG TAB PO SCH (07:45)
[2023-04-07 08:39] LABS: Anisocytosis Slight; HCT 34.6 % (34.0-46.0); HGB 10.8 gm/dL (11.4-16.0); Hypochromasia Moderate; MCHC 31.3 g/dL (31.0-37.0); MCV 86.1 fL (80.0-100.0); Mean Platelet Volume 7.8; Platelet Count 315 k/uL (150-450); RBC 4.01 m/uL (3.80-5.40); RDW 16.6 % (11.5-15.5); WBC 6.8 k/uL (3.8-10.6)
[2023-04-07] MEDS: busPIRone HCl 10 MG TAB PO SCH (08:42)
[2023-04-07] MEDS: PIOGLITAZONE 45 MG TAB PO SCH (08:42)
[2023-04-07] MEDS: lamoTRIgine 100 MG TAB PO SCH (08:42)
[2023-04-07] MEDS: PANTOPRAZOLE 40 MG/10 ML VIAL IV SCH (08:43)
[2023-04-07] MEDS: ARIPiprazole 5 MG TAB PO SCH (08:43)
[2023-04-07] MEDS: ESCITALOPRAM 10 MG TAB PO SCH (08:43)
[2023-04-07 08:54] LABS: African American GFR (CKD) >90 (>60 ml/min/1.73 sqM); Anion Gap 1 mmol/L; Blood Urea Nitrogen 6 mg/dL (7-17); Calcium 8.5 mg/dL (8.4-10.2); Carbon Dioxide 36 mmol/L (22-30); Chloride 104 mmol/L (98-107); Glucose 107 mg/dL (74-99); Non-African American GFR(CKD) 84 (>60 ml/min/1.73 sqM); Potassium 4.3 mmol/L (3.5-5.1); Sodium 141 mmol/L (137-145)
[2023-04-07 10:56] LABS: Glucose,Whole Blood 126 mg/dL (70-110)
[2023-04-07] MEDS ORDERED: LIDOCAINE 2% INJ 20 MG/ML (2 ML VIAL) ONE (13:00)
[2023-04-07] MEDS ORDERED: PROPOFOL 10 MG/ML 20 ML VIAL IV ONE (13:00)
[2023-04-07] MEDS ORDERED: IV FLUID CONTINUATION 500 ML IV ONE (13:02)
--- NOTE | 2023-04-07 13:46 | P.PCN ---
Date of Procedure: 04/07/23 Description of Procedure: PREOPERATIVE DIAGNOSIS: Gastrointestinal bleeding with acute blood loss anemia POSTOPERATIVE DIAGNOSIS: Tubular adenoma ascending colon Scattered diverticulosis Internal hemorrhoids, grade 2 OPERATION: Colonoscopy to the ileocecal valve Colonoscopy with hot snare polypectomy SURGEON: Tila Banks MD. ANESTHESIA: MAC. INDICATIONS: The patient is an 57-year-old female who presents with anemia and GI bleed. Lower endoscopy of her for further assessment for source of bleed. DESCRIPTION OF PROCEDURE: The patient had undergone a GoLYTELY prep. The patient had been brought into the operating room and laid in the left lateral decubitus position. After adequate intravenous sedation, the rectum was examined with 2% lidocaine jelly. No external hemorrhoids were encountered. The rectal tone was within normal limits. No lesions were palpated in the rectal vault. An Olympus colonoscope was advanced until the cecum, ileocecal valve and appendiceal orifice were clearly viewed. The prep was good. Sigmoid diverticulosis was encountered. Colonic polyps were found and removed. No evidence of focal colitis was found. Retroflexion of the scope demonstrated grade 2 internal hemorrhoids without active bleeding or inflammation. The colon was desufflated. The patient had tolerated the procedure well. Withdrawal time was over 6 minutes. FINDINGS: Aronchick preparation quality scale 1+ (1-5) Internal hemorrhoids, grade 2 External hemorrhoids, grade 4. No arteriovenous malformations. Sigmoid diverticulosis Removal of 1 polyps: - Snare polypectomy ascending colon, 9 mm flat villous adenoma with bleeding No focal colitis. RECOMMENDATIONS: 1. Bleeding found and ascending colon from its adenoma, resected 2. Recommend start of diet 3. Repeat colonoscopy in 2 years, 2024 Plan - Discharge Summary Discharge Rx Participant: No New Discharge Prescriptions: No Action Levothyroxine Sodium [Synthroid] 25 mcg PO DAILY Escitalopram [Lexapro] 10 mg PO DAILY lamoTRIgine [LaMICtal] 200 mg PO DAILY Omeprazole [PriLOSEC] 40 mg PO BID #120 cap Atorvastatin [Lipitor] 20 mg PO HS Pioglitazone [Actos] 45 mg PO DAILY busPIRone HCL 10 mg PO BID glipiZIDE XL [Glucotrol Xl] 10 mg PO HS Ascorbic Acid [Vitamin C] 1,000 mg PO DAILY Vitamin A 2,400 mcg PO DAILY Semaglutide [Rybelsus] 3 mg PO DAILY ARIPiprazole [Abilify] 5 mg PO DAILY Multivitamins, Thera [Multivitamin (formulary)] 1 tab PO DAILY Cyanocobalamin (Vitamin B-12) [Vitamin B-12] 1,000 mcg PO DAILY Discharge Medication List Escitalopram [Lexapro] 10 mg PO DAILY 08/23/18 [History] Levothyroxine Sodium [Synthroid] 25 mcg PO DAILY 08/23/18 [History] lamoTRIgine [LaMICtal] 200 mg PO DAILY 08/23/18 [History] Omeprazole [PriLOSEC] 40 mg PO BID #120 cap 04/13/20 [Rx] Atorvastatin [Lipitor] 20 mg PO HS 04/10/22 [History] ARIPiprazole [Abilify] 5 mg PO DAILY 03/17/23 [History] Pioglitazone [Actos] 45 mg PO DAILY 03/17/23 [History] Semaglutide [Rybelsus] 3 mg PO DAILY 03/17/23 [History] busPIRone HCL 10 mg PO BID 03/17/23 [History] glipiZIDE XL [Glucotrol Xl] 10 mg PO HS 03/18/23 [History] Ascorbic Acid [Vitamin C] 1,000 mg PO DAILY 04/04/23 [History] Cyanocobalamin (Vitamin B-12) [Vitamin B-12] 1,000 mcg PO DAILY 04/04/23 [History] Multivitamins, Thera [Multivitamin (formulary)] 1 tab PO DAILY 04/04/23 [History] Vitamin A 2,400 mcg PO DAILY 04/04/23 [History] Follow up Appointment(s)/Referral(s): Deysi Sequeira MD [Primary Care Provider] - 1-2 days
[2023-04-07 15:04] VITALS: BP 157/82; PULSE 87; RESP 20; TEMP 97
--- NOTE | 2023-04-07 15:53 | P.DS ---
Providers Date of admission: 04/04/23 13:43 Expected date of discharge: 04/07/23 Attending physician: Tila Banks Primary care physician: Deysi Sequeira Hospital Course: Discharge diagnosis Acute gastritis with recent bleeding Gastrojejunal ulcer with bleeding Gastritis with bleeding Tubular adenoma ascending colon Scattered diverticulosis Internal hemorrhoids, grade 2 Hospital course Patient presented to the hospital GI bleed. She has crampy abdominal pain with nicolasa blood. She had EGD that had shown gastrojejunal ulcer with bleeding and evidence of gastritis with recent bleeding and gastritis with bleeding. Patient then had colonoscopy that showed a tubular adenoma of the ascending colon scattered diverticulosis and internal hemorrhoids. Patient is tolerating diet. No further abdominal pain. She'll be discharged home on the Carafate and continue Protonix. Patient is stable for discharge. Please refer to chart for any further details. Physician Vp Rheumatology note has been reviewed by physician. Signing provider agrees with the documented findings, assessment, and plan of care. Patient Condition at Discharge: Stable Plan - Discharge Summary Discharge Rx Participant: No New Discharge Prescriptions: New Sucralfate [Carafate] 1 gm PO BID #30 tablet Continue Levothyroxine Sodium [Synthroid] 25 mcg PO DAILY Escitalopram [Lexapro] 10 mg PO DAILY lamoTRIgine [LaMICtal] 200 mg PO DAILY Omeprazole [PriLOSEC] 40 mg PO BID #120 cap Atorvastatin [Lipitor] 20 mg PO HS Pioglitazone [Actos] 45 mg PO DAILY busPIRone HCL 10 mg PO BID glipiZIDE XL [Glucotrol XL] 10 mg PO HS Ascorbic Acid [Vitamin C] 1,000 mg PO DAILY Vitamin A 2,400 mcg PO DAILY Semaglutide [Rybelsus] 3 mg PO DAILY ARIPiprazole [Abilify] 5 mg PO DAILY Multivitamins, Thera [Multivitamin (formulary)] 1 tab PO DAILY Cyanocobalamin (Vitamin B-12) [Vitamin B-12] 1,000 mcg PO DAILY Discharge Medication List Escitalopram [Lexapro] 10 mg PO DAILY 08/23/18 [History] Levothyroxine Sodium [Synthroid] 25 mcg PO DAILY 08/23/18 [History] lamoTRIgine [LaMICtal] 200 mg PO DAILY 08/23/18 [History] Omeprazole [PriLOSEC] 40 mg PO BID #120 cap 04/13/20 [Rx] Atorvastatin [Lipitor] 20 mg PO HS 04/10/22 [History] ARIPiprazole [Abilify] 5 mg PO DAILY 03/17/23 [History] Pioglitazone [Actos] 45 mg PO DAILY 03/17/23 [History] Semaglutide [Rybelsus] 3 mg PO DAILY 03/17/23 [History] busPIRone HCL 10 mg PO BID 03/17/23 [History] glipiZIDE XL [Glucotrol XL] 10 mg PO HS 03/18/23 [History] Ascorbic Acid [Vitamin C] 1,000 mg PO DAILY 04/04/23 [History] Cyanocobalamin (Vitamin B-12) [Vitamin B-12] 1,000 mcg PO DAILY 04/04/23 [History] Multivitamins, Thera [Multivitamin (formulary)] 1 tab PO DAILY 04/04/23 [History] Vitamin A 2,400 mcg PO DAILY 04/04/23 [History] Sucralfate [Carafate] 1 gm PO BID #30 tablet 04/07/23 [Rx] Follow up Appointment(s)/Referral(s): Deysi Sequeira MD [Primary Care Provider] [facility] [place] [place] [facility] - 04/14/23 Patient Instructions/Handouts: Colorectal Polyps (GEN), Diverticulosis Diet (GEN) Activity/Diet/Wound Care/Special Instructions: Repeat colonoscopy 2 years, 2024 Discharge Disposition: HOME SELF-CARE
== END 2023-04-07 16:16 | disposition home or self-care (01) ==
LOC: EC 12:27 → 4SSUR 13:43 → OBSVTOIN 17:50 → INTOOBSV 17:50
PROVIDERS: ADMIT Surgery Plastic and Reconstructive Surgery; ATTEND Surgery Plastic and Reconstructive Surgery
DX: K29.01 Acute gastritis with bleeding (principal); D62 Acute posthemorrhagic anemia; K28.4 Chronic or unspecified gastrojejunal ulcer with hemorrhage; D12.2 Benign neoplasm of ascending colon; K64.8 Other hemorrhoids; K64.4 Residual hemorrhoidal skin tags; K57.30 Diverticulosis of large intestine without perforation or abscess without bleeding; J44.9 Chronic obstructive pulmonary disease, unspecified; E78.5 Hyperlipidemia, unspecified; G40.909 Epilepsy, unspecified, not intractable, without status epilepticus; E07.9 Disorder of thyroid, unspecified; K21.9 Gastro-esophageal reflux disease without esophagitis; M19.90 Unspecified osteoarthritis, unspecified site; F40.240 Claustrophobia; F41.9 Anxiety disorder, unspecified; F32.A Depression, unspecified; Z79.890 Hormone replacement therapy; Z79.84 Long term (current) use of oral hypoglycemic drugs; Z79.899 Other long term (current) drug therapy; Z88.5 Allergy status to narcotic agent; Z88.6 Allergy status to analgesic agent; Z88.8 Allergy status to other drugs, medicaments and biological substances; Z98.84 Bariatric surgery status; Z91.81 History of falling; Z86.39 Personal history of other endocrine, nutritional and metabolic disease; Z90.710 Acquired absence of both cervix and uterus; Z96.652 Presence of left artificial knee joint; Z98.42 Cataract extraction status, left eye; Z98.41 Cataract extraction status, right eye; Z98.891 History of uterine scar from previous surgery; Z98.890 Other specified postprocedural states; Z87.828 Personal history of other (healed) physical injury and trauma; Z82.49 Family history of ischemic heart disease and other diseases of the circulatory system; Z83.3 Family history of diabetes mellitus; Z84.1 Family history of disorders of kidney and ureter; Z83.49 Family history of other endocrine, nutritional and metabolic diseases
CPT/HCPCS: 96374; 99285; 36415; 86900; 86901; 88305 ×2; 80053; 80048; 83735; 85025 ×3; 85027; 85610; 85730; 86850; 83036; 74177; 45385; 43239; G0378 ×4; J2704 ×2; C9113 ×4; Q9967; J2001 ×2

== ENCOUNTER → 2023-04-14 | Outpatient (CLI) | payer MEDICARE, OTHER ==
[2023-04-14 16:21] VITALS: BP 122/75; PULSE 71; TEMP 98; BMI 47.2
--- NOTE | 2023-06-06 22:44 | P.PN ---
Subjective Progress Note Date: 04/14/23 DATE OF SERVICE: 04/14/2023 CHIEF COMPLAINT: Status post gastric bypass HISTORY OF PRESENT ILLNESS: Arielle Calabrese is a 57-year-old female status post robotic-assisted gastric bypass 10/01/2017. She is 6 years out. She was recently hospitalized for GI bleed where upper and lower scope was completed. No reports of abdominal pain. Bleeding has improved. At her height of 5 foot 6.5, her ideal body weight is 154 pounds. Her highest weight is 385 pounds. Her body mass index is reduced from 61.3. Today she comes in 296 pounds from 271 pounds, 2 years ago. She has gained 25 pounds in 2 years. Total weight loss of 89 pounds, lifetime. Percent excess weight loss is 38 % lifetime. Her body mass index is reduced from 61.3 down to 47.2 PAST MEDICAL HISTORY: 1. Morbid obesity, BMI 61.3, initial 2. Asthma. 3. Hypertensive heart disease 4. Osteoarthritis of the bilateral hips. 5. Osteoarthritis of the bilateral knees. 6. Seasonal ALLERGIES. 7. Obstructive sleep apnea 8. Osteoarthritis of the lower back. 9. Hypothyroidism 10. Depressive disorder 11. Hyperlipidemia 12. Colon polyps PAST SURGICAL HISTORY: 1. Upper endoscopy. 2. . 3. Tubal ligation. 4. Uterine ablation. 5. Postoperative nausea and vomiting. 6. Gastric bypass 7. Colonoscopy with polypectomy HOME MEDICATIONS: Home Medications Medication Instructions Recorded Confirmed Escitalopram [Lexapro] 10 mg PO DAILY 08/23/18 05/12/23 Levothyroxine Sodium [Synthroid] 25 mcg PO DAILY 08/23/18 05/12/23 lamoTRIgine [LaMICtal] 200 mg PO DAILY 08/23/18 05/12/23 Atorvastatin [Lipitor] 20 mg PO HS 04/10/22 05/12/23 ARIPiprazole [Abilify] 5 mg PO DAILY 03/17/23 05/12/23 Pioglitazone [Actos] 45 mg PO DAILY 03/17/23 05/12/23 Semaglutide [Rybelsus] 3 mg PO DAILY 03/17/23 05/12/23 busPIRone HCL 10 mg PO BID 03/17/23 05/12/23 glipiZIDE XL [Glucotrol XL] 10 mg PO HS 03/18/23 05/12/23 Previous Rx's Medication Instructions Recorded Omeprazole [PriLOSEC] 40 mg PO BID #120 cap 04/13/20 Sucralfate [Carafate] 1 gm PO BID #30 tablet 04/07/23 ALLERGIES: Allergies Allergy/AdvReac Type Severity Reaction Status Date / Time enalapril Allergy Anaphylaxis Verified 04/29/23 08:05 hydrocodone bitartrate Allergy Anaphylaxis Verified 04/29/23 08:05 [From Vicodin] naproxen [From Naprosyn] Allergy Anaphylaxis Verified 04/29/23 08:05 propoxyphene Allergy Anaphylaxis Verified 04/29/23 08:05 [From Darvocet-N] SOCIAL HISTORY: No active tobacco use. FAMILY HISTORY: Denies any DVTs, pulmonary embolisms in her family. Denies any ulcerative colitis disease or Crohn's. She does have a family history of morbid obesity. Daughter with easy bruising. She reports a family history of gallbladder disease in her mother. She also has a family history of morbid obesity. REVIEW OF ORGAN SYSTEMS: CONSTITUTIONAL: At her height of 5 foot 6.5, her ideal body weight is 154 pounds. Her highest weight is 385 pounds. Her body mass index is reduced from 61.3. HEENT: Denies any active troubles with vision or hearing. ENDOCRINE: Has diabetes and hypothyroidism. Insulin-dependent diabetes resolved. CARDIOVASCULAR: No reports of palpitations or heart attacks or chest pain. Congestive heart failure resolved. RESPIRATORY: Has sleep apnea, resolved. Has asthma. History of COPD exacerbation. GI: Has colon polyps. Gastroesophageal reflux disease resolved. Past GI bleed. MUSCULOSKELETAL: Has osteoarthritis of the knees and lower back. NEURO: No reports of headaches. Has seizure disorders. PSYCH: Has depression without suicidal ideation. Has anxiety. HEMATOLOGIC: Denies any abnormal bleeding or bruising. SKIN: Has panniculitis. No recent skin cancer. PHYSICAL EXAM: VITAL SIGNS: Height 5 foot 6.5 inches. Weight 296 pounds. BMI 47.2 Vital Signs Temp 98 F 04/14/23 16:17 Pulse 71 04/14/23 16:17 Resp BP 122/75 04/14/23 16:17 Pulse Ox FiO2 GENERAL: Well-developed and in no acute distress. HEENT: No scleral icterus. Extraocular was grossly intact. No nasal drainage. NECK: Supple without lymphadenopathy. CHEST: Nonlabored respirations with equal bilateral excursions. CARDIOVASCULAR: Regular rate. Distal 2+ pulses. ABDOMEN: Soft, nontender. MUSCULOSKELETAL: No clubbing, cyanosis, or edema. NEURO: No focal or lateralizing signs. Cranial nerves 2 through 12 grossly within normal limits. PSYCH: Appropriate affect. Alert and oriented to person, place and time. SKIN: Good skin turgor. Well perfused. EGD FINDINGS: Aronchick preparation quality scale 1+ (1-5) Internal hemorrhoids, grade 2 External hemorrhoids, grade 4. No arteriovenous malformations. Sigmoid diverticulosis Removal of 1 polyps: - Snare polypectomy ascending colon, 9 mm flat villous adenoma with bleeding No focal colitis. EGD FINDINGS: Squamocolumnar junction 35 cm from the incisors. Anastomosis at 45 cm from the incisors Active bleeding within gastric pouch with gastritis identified. Biopsies obtained gastric pouch. No strictures identified. Final Pathologic Diagnosis GASTRIC POUCH, BIOPSY: Reactive gastropathy with focal chronic inflammation. Final Pathologic Diagnosis ASCENDING COLON, BIOPSY: Fragmented tubulovillous adenoma. ASSESSMENT: 1. Morbid obesity due to excess calories. 2. Body mass index of 61.3 down to 47.2 3. Iron deficiency anemia 4. Diabetes type 2, insulin dependent, improved. 5. Osteoarthritis of the lower back, improved. 6. Osteoarthritis of the bilateral knees, improved. 7. Obstructive sleep apnea, improved 8. Chronic obstructive pulmonary disease, improved. 9. Hypertensive heart disease. 10. Status post gastric bypass. 11. Vitamin A deficiency. 12. Dietary surveillance and counseling 13. Status post massive weight loss 176 pounds down to 89 pounds 14. Panniculitis 15. Weight gain following bariatric procedure 16. Colon polyps 17. Sigmoid diverticulosis PLAN: 1. Recommend food diary journal. 2. Repeat colonoscopy in 2 years. 3. She is looking into panniculectomy. At this time due to moderate weight gain, recommend defer surgery at this time. Objective - Vital Signs Vital signs: Vital Signs Temp 98 F 04/14/23 16:17 Pulse 71 04/14/23 16:17 Resp BP 122/75 04/14/23 16:17 Pulse Ox FiO2
== END ==
LOC: BARWHC3 15:08
PROVIDERS: ATTEND Surgery Plastic and Reconstructive Surgery
DX: E66.01 Morbid (severe) obesity due to excess calories (principal); I11.9 Hypertensive heart disease without heart failure; G47.33 Obstructive sleep apnea (adult) (pediatric); D50.9 Iron deficiency anemia, unspecified; D12.2 Benign neoplasm of ascending colon; E03.9 Hypothyroidism, unspecified; E11.9 Type 2 diabetes mellitus without complications; E78.5 Hyperlipidemia, unspecified; F32.A Depression, unspecified; J44.9 Chronic obstructive pulmonary disease, unspecified; K31.9 Disease of stomach and duodenum, unspecified; M17.0 Bilateral primary osteoarthritis of knee; M79.3 Panniculitis, unspecified; K57.90 Diverticulosis of intestine, part unspecified, without perforation or abscess without bleeding; E55.9 Vitamin D deficiency, unspecified; Z98.84 Bariatric surgery status; Z88.5 Allergy status to narcotic agent; Z88.6 Allergy status to analgesic agent; Z79.84 Long term (current) use of oral hypoglycemic drugs; Z79.4 Long term (current) use of insulin; Z71.3 Dietary counseling and surveillance; Z79.890 Hormone replacement therapy; Z95.1 Presence of aortocoronary bypass graft; Z88.1 Allergy status to other antibiotic agents; Z88.8 Allergy status to other drugs, medicaments and biological substances; Z68.42 Body mass index [BMI] 45.0-49.9, adult; Z87.891 Personal history of nicotine dependence
CPT/HCPCS: 99211

== ENCOUNTER 2023-04-28 17:44 | Observation (INO) | payer MEDICARE, OTHER ==
[2023-04-28] MEDS ORDERED: SODIUM CHLORIDE 0.9% 1,000 ML IV STA ×2 (21:09→22:25)
[2023-04-28 21:33] LABS: Anisocytosis Slight; Basophils % (A) 0 %; Eosinophils # (A) 0.2 k/uL (0-0.7); Eosinophils % (A) 2 %; HCT 38.1 % (34.0-46.0); HGB 11.8 gm/dL (11.4-16.0); Hypochromasia Slight; Lymphocytes % (A) 29 %; MCH 26.1 pg (25.0-35.0); MCHC 31.1 g/dL (31.0-37.0); MCV 83.8 fL (80.0-100.0); Mean Platelet Volume 7.8; Monocytes # (A) 0.6 k/uL (0-1.0); Monocytes % (A) 6 %; Neutrophils # (A) 6.2 k/uL (1.3-7.7); Neutrophils % (A) 61 %; Platelet Count 382 k/uL (150-450); RBC 4.54 m/uL (3.80-5.40); RDW 16.3 % (11.5-15.5); WBC 10.1 k/uL (3.8-10.6)
[2023-04-28 21:42] LABS: Partial Thromboplastin Time 23.1 sec (22.0-30.0); Prothrombin Time 10.2 sec (9.0-12.0)
[2023-04-28 21:43] LABS: ALT 18 U/L (4-34); AST 26 U/L (14-36); African American GFR (CKD) 87 (>60 ml/min/1.73 sqM); Albumin 4.1 g/dL (3.5-5.0); Alkaline Phosphatase 120 U/L (38-126); Anion Gap 7 mmol/L; Blood Urea Nitrogen 18 mg/dL (7-17); Calcium 9.5 mg/dL (8.4-10.2); Carbon Dioxide 33 mmol/L (22-30); Chloride 99 mmol/L (98-107); Glucose 111 mg/dL (74-99); Lipase 133 U/L (23-300); Magnesium 1.8 mg/dL (1.6-2.3); Non-African American GFR(CKD) 76 (>60 ml/min/1.73 sqM); Potassium 4.2 mmol/L (3.5-5.1); Sodium 139 mmol/L (137-145); Total Bilirubin 0.4 mg/dL (0.2-1.3); Total Protein 7.2 g/dL (6.3-8.2)
[2023-04-28] MEDS ORDERED: MORPHINE SULFATE 4 MG/ML SYRINGE IV PRN (22:25)
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
--- NOTE | 2023-04-28 23:23 | CT ---
EXAMINATION TYPE: CT abdomen pelvis w con DATE OF EXAM: 04/28/2023 COMPARISON: 04/04/2023 HISTORY: abd pain CT DLP: 2891.9 mGycm CONTRAST: CT scan of the abdomen and pelvis is performed without Oral Contrast and with IV Contrast, patient in jected with 100 mL of Isovue 300. FINDINGS: LUNG BASES-: No visible nodule. No infiltrate. LIVER/GB: No calcified gallstones. No space occupying hepatic lesion. Biliary tree is of normal ca liber. PANCREAS: No inflammation. No distinct mass. SPLEEN: No splenic enlargement. No lesion seen. ADRENALS: No nodule. No thickening. KIDNEYS/BLADDER: No hydronephrosis. No nephrolithiasis. Stable left renal cyst. Urinary bladder carmine ssly unremarkable. BOWEL: Diandra-en-Y gastric bypass redemonstrated. No evidence for free air, abscess or leak. There is mild sma ll bowel wall thickening could reflect nonspecific enteritis. Large bowel is of normal caliber. No si gnificant diverticular disease. Normal-appearing appendix. GENITAL ORGANS: Hysterectomy changes. No evidence for adnexal mass. No free fluid. LYMPH NODES: No greater than 1cm abdominal or pelvic lymph nodes are appreciated. AORTA: No significant abnormality. OSSEOUS STRUCTURES: No significant abnormality is seen. OTHER: No significant additional abnormality is seen. IMPRESSION: 1. Mild small bowel wall thickening could reflect enteritis. Correlate clinically. 2. Diandra-en-Y gastric bypass redemonstrated and appears unremarkable.
[2023-04-29] MEDS ORDERED: MORPHINE SULFATE 4 MG/ML SYRINGE IV PRN (00:54)
[2023-04-29] MEDS ORDERED: NALOXONE 0.4 MG/ML 1 ML VIAL IV PRN (00:54)
[2023-04-29] MEDS ORDERED: ONDANSETRON 4 MG/2 ML VIAL IVP PRN (00:54)
[2023-04-29] MEDS: SODIUM CHLORIDE 0.9% 1,000 ML IV SCH ×4 (01:32→23:47)
[2023-04-29 06:27] LABS: Glucose,Whole Blood 129 mg/dL (70-110)
[2023-04-29] MEDS ORDERED: PANTOPRAZOLE 40 MG/10 ML VIAL IV SCH (09:00)
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
[2023-04-29 12:16] LABS: Glucose,Whole Blood 121 mg/dL (70-110)
--- NOTE | 2023-04-29 12:44 | NM ---
EXAMINATION TYPE: NM hepatobiliary w CCK DATE OF EXAM: 04/29/2023 12:28 PM COMPARISON: CT abdomen pelvis most recent from 04/28/2023, ultrasound 04/29/2023 CLINICAL INDICATION:Female, 57 years old with history of RUQ abdominal pain; TECHNIQUE: The patient was given 5.3 mCi of Technetium 99m-Mebrofenin as a radiotracer and multiple scintigraphic images were obtained of the abdomen. Gallbladder function was also assessed after the a dministration of 4 mL of Sincalide (cholecystokinin) and additional scintigraphic images were obtaine d of the abdomen. A region of interest was drawn over the gallbladder and a timing activity curve was generated. The gallbladder ejection fraction was calculated. FINDINGS: Normal uptake of radiotracer was identified within the liver with excretion into the hepatic and comm on biliary ducts within 8 minutes. There was normal progressive washout of the liver over the course of the study. Radiotracer uptake within the gallbladder 12 minutes as well as small bowel activity wa s identified at 16 minutes. Maximum calculated gallbladder ejection fraction is: 79% at 29 minutes (Normal gallbladder ejection fraction is > 35%) IMPRESSION: 1. Normal hepatobiliary scan. 2. Normal ejection fraction.
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
[2023-04-29] MEDS: SUCRALFATE 1 GM TAB PO SCH (17:12)
[2023-04-29 17:28] LABS: Glucose,Whole Blood 106 mg/dL (70-110)
--- NOTE | 2023-04-29 18:21 | US ---
EXAMINATION TYPE: US gallbladder DATE OF EXAM: 04/29/2023 COMPARISON: CT: 04/28/23 CLINICAL INDICATION: Female, 57 years old with history of RUQ abdominal pain; RUQ pain TECHNIQUE: Multiple sonographic images of the right upper quadrant are obtained. FINDINGS: EXAM MEASUREMENTS: Liver Length: 20.2 cm Gallbladder Wall: 0.24 cm CBD: 0.28 cm Right Kidney: 12.7 x 5.0 x 4.7 cm EXECUTIVE MANAGER NOTES: Pancreas: Duct measuring 3mm Liver: wnl Gallbladder: Fold near fundus. Appears wnl Evidence for sonographic Garcia's sign: No CBD: wnl Right Kidney: wnl IMPRESSION: No significant abnormality.
[2023-04-29 20:16] LABS: Glucose,Whole Blood 241 mg/dL (70-110)
[2023-04-29] MEDS ORDERED: SUCRALFATE 1 GM TAB PO SCH (21:00)
[2023-04-29] MEDS ORDERED: ATORVASTATIN 20 MG TAB PO SCH (21:00)
[2023-04-29] MEDS: busPIRone HCl 10 MG TAB PO SCH (21:25)
[2023-04-29] MEDS: PANTOPRAZOLE 40 MG/10 ML VIAL IV SCH (21:25)
[2023-04-30] MEDS: SODIUM CHLORIDE 0.9% 1,000 ML IV SCH (03:55)
[2023-04-30 06:06] LABS: Glucose,Whole Blood 105 mg/dL (70-110)
[2023-04-30] MEDS: SUCRALFATE 1 GM TAB PO SCH (06:16)
[2023-04-30] MEDS ORDERED: LEVOTHYROXINE 25 MCG TAB PO SCH (06:30)
[2023-04-30 07:33] VITALS: PULSE 72
[2023-04-30 08:52] LABS: ALT 15 U/L (8-44); AST 18 U/L (13-35); Albumin 3.7 d/dL (3.8-4.9); Albumin/Globulin Ratio 1.48 Ratio (1.60-3.17); Alkaline Phosphatase 121 U/L (41-126); BUN/Creat Ratio 12.38 Ratio (12.00-20.00); Blood Urea Nitrogen 9.9 mg/dL (9.0-27.0); Calcium 9.1 mg/dL (8.7-10.3); Carbon Dioxide 28.4 mmol/L (21.6-31.8); Chloride 104 mmol/L (96-109); Globulin 2.5 d/dL (1.6-3.3); Glucose 112 mg/dL (70-110); Sodium 143 mmol/L (135-145); Total Bilirubin 0.3 mg/dL (0.3-1.2); Total Protein 6.2 d/dL (6.2-8.2)
[2023-04-30] MEDS ORDERED: ARIPiprazole 5 MG TAB PO SCH (09:00)
[2023-04-30] MEDS ORDERED: lamoTRIgine 100 MG TAB PO SCH (09:00)
[2023-04-30] MEDS ORDERED: ENOXAPARIN 40 MG/0.4 ML SYRINGE SQ SCH (09:00)
[2023-04-30] MEDS ORDERED: NON FORMULARY DRUG (Semaglutide [Rybelsus] 3 MG Tablet) PO SCH (09:00)
[2023-04-30] MEDS ORDERED: ESCITALOPRAM 10 MG TAB PO SCH (09:00)
[2023-04-30 09:04] LABS: Basophils # (A) 0.02 X 10*3/uL (0.00-0.10); Basophils % (A) 0.2 %; Eosinophils # (A) 0.17 X 10*3/uL (0.04-0.35); HCT 36.3 % (37.2-46.3); HGB 10.8 d/dL (12.0-15.0); Lymphocytes # (A) 2.43 X 10*3/uL (0.90-5.00); Lymphocytes % (A) 28.8 %; MCH 25.6 pg (27.0-32.0); MCHC 29.8 d/dL (32.0-37.0); Mean Platelet Volume 10.7 FL (9.5-12.2); Monocytes # (A) 0.89 X 10*3/uL (0.20-1.00); Monocytes % (A) 10.6 %; NRBC Per 100 WBC 0 X 10*3/uL (0.00-0.01); Neutrophils % (A) 58.2 %; Platelet Count 320 X 10*3/uL (140-440); RBC 4.22 X 10*6/uL (4.10-5.20); WBC 8.43 X 10*3/uL (4.50-10.00)
[2023-04-30] MEDS: PANTOPRAZOLE 40 MG/10 ML VIAL IV SCH (09:20)
[2023-04-30] MEDS: busPIRone HCl 10 MG TAB PO SCH (09:21)
[2023-04-30 12:25] LABS: Glucose,Whole Blood 118 mg/dL (70-110)
--- NOTE | 2023-04-30 13:59 | P.PN ---
Subjective Progress Note Date: 04/30/23 CHIEF COMPLAINT: Abdominal pain HISTORY OF PRESENT ILLNESS: Patient reports her pain is improved. She is tolerating diet. She did have a normal bowel movement and no blood noted. Ultrasound and HIDA scan were normal. Hemoglobin stable at 10.8. PHYSICAL EXAM: VITAL SIGNS: Reviewed. GENERAL: Well-developed in no acute distress. HEENT: No sclera icterus. Extraocular movements grossly intact. Moist buccal mucosa. Head is atraumatic, normocephalic. ABDOMEN: Soft. Nondistended. Nontender. NEUROLOGIC: Alert and oriented. Cranial nerves II through XII grossly intact. ASSESSMENT: 1. Right-sided Abdominal pain resolved 2. GI bleed with Melanotic stools with bright red blood 3. Status post EGD and colonoscopy earlier in April with results showing acute gastritis with recent bleeding, gastrojejunal ulcer with bleeding and tubular adenoma of the ascending colon with polypectomy, scattered diverticulosis and hemorrhoids 4. Diabetes PLAN: -Patient can be discharged from surgical standpoint -No plan for repeat endoscopies -Continue omeprazole and Carafate -Discontinue taking vitamin C, multivitamin and vitamin B12 due to increased risk factors for bleeding with these medications Physician Paperhanger Supervisor note has been reviewed by physician. Signing provider agrees with the documented findings, assessment, and plan of care. Objective - Vital Signs Vital signs: Vital Signs Temp 97.9 F 04/30/23 07:01 Pulse 72 04/30/23 07:01 Resp 20 04/30/23 07:01 BP 134/88 04/30/23 07:01 Pulse Ox 91 L 04/30/23 07:01 FiO2 Intake & Output 04/29/23 04/30/23 04/30/23 18:59 06:59 18:59 Intake Total 0 180 Balance 0 180 Intake: Oral 0 180 Other: Voiding Method Toilet Toilet # Voids 2 1 - Labs CBC & Chem 7: 04/30/23 05:34 04/30/23 05:34 Labs: Abnormal Lab Results - Last 24 Hours (Table) 04/29/23 04/30/23 04/30/23 Range/Units 20:15 05:34 05:34 Hgb 10.8 L (12.0-15.0) d/dL Hct 36.3 L (37.2-46.3) % MCH 25.6 L (27.0-32.0) pg MCHC 29.8 L (32.0-37.0) d/dL RDW 16.0 H (11.5-14.5) % Glucose 112 H (70-110) mg/dL POC Glucose (mg/dL) 241 H (70-110) mg/dL Albumin 3.7 L (3.8-4.9) d/dL Albumin/Globulin Ratio 1.48 L (1.60-3.17) Ratio 04/30/ Range/Units 12:22 Hgb (12.0-15.0) d/dL Hct (37.2-46.3) % MCH (27.0-32.0) pg MCHC (32.0-37.0) d/dL RDW (11.5-14.5) % Glucose (70-110) mg/dL POC Glucose (mg/dL) 118 H (70-110) mg/dL Albumin (3.8-4.9) d/dL Albumin/Globulin Ratio (1.60-3.17) Ratio
[2023-04-30 15:11] VITALS: BP 150/84; RESP 18; TEMP 98.1
--- NOTE | 2023-05-01 16:44 | P.DS ---
Providers Date of admission: 04/29/23 00:56 Expected date of discharge: 04/30/23 Attending physician: Kali Elise Consults: 04/29/23 00:54 Consult Physician Routine Consulting Provider: Tila Banks Consult Reason/Comments: known Do you want consulting provider notified?: Yes Primary care physician: Deysi Sequeira Hospital Course: Final diagnosis -right upper quadrant abdominal pain and tenderness patient underwent HIDA scan as well as ultrasound of the abdomen -Complaints of upper GI bleed with melanotic stools although patient is not actively bleeding patient last stool was brown in color and patient hemoglobin is stable at this time, recent EGD and colonoscopy one month prior showing acute gastritis with recent bleeding, gastrojejunal ulcer with bleeding and tubular adenoma of the ascending colon with polypectomy, scattered diverticulosis and hemorrhoids -Type 2 diabetes mellitus -Hyperthyroidism -Depression -Morbid Obesity with a BMI 44.5 -DVT prophylaxis Discharge disposition Patient is being discharged in a stable condition with guarded prognosis to home. Patient will follow-up with Dr. Sequeira in the outpatient setting upon discharge. Patient is to continue with avoiding supplements and continuing with Carafate and Protonix as scheduled. Total time taken is greater than 35 minutes. Hospital course This is a 57-year-old female who was recently admitted with right upper quadrant abdominal pain and tenderness being followed by general surgery and underwent HIDA scan along with ultrasound of the abdomen which was negative. Patient maintained on pain management with no plans for surgical intervention and surgery has cleared the patient as patient is tolerating advanced diet. Recommend continue slow diet advancement over the next few days and continue with Carafate and Protonix. Patient also to avoid vitamin supplements and follow-up with surgery as well as family practice provider outpatient. Please refer to surgical notes for further HPI. Currently no reports of chest pain, shortness of breath, or palpitations. Patient is afebrile. No reports of nausea or vomiting and patient is tolerating diet. Patient will be discharged home today. Physical exam: Gen: This is a 57-year-old female who is awake, alert and oriented 3, well- developed, well-nourished, morbidly obese HEENT: Head is atraumatic, normocephalic. Pupils equal, round. Sclerae is anicteric. NECK: Supple. No JVD. No lymphadenopathy. No thyromegaly. LUNGS: Clear to auscultation. No wheezes or rhonchi. No intercostal retractions. HEART: Regular rate and rhythm. No murmur. ABDOMEN: Soft. Obese. Bowel sounds are present. No masses. No tenderness. EXTREMITIES: No pedal edema. No calf tenderness. NEUROLOGICAL: Patient is awake, alert and oriented x3. Cranial nerves 2 through 12 are grossly intact. Please refer to medication reconciliation sheet for a list of medications. The impression and plan of care has been dictated by Bertha Samuel, Nurse Practitioner as directed. Dr. Jarad MD I have performed a history and examination and MDM of this patient, discussed the same with the dictator, and agree with the dictator's assessment and plan as written ,documented as a scribe. Based on total visit time, I have performed more than 50% of the visit. Patient Condition at Discharge: Good Plan - Discharge Summary Discharge Rx Participant: No New Discharge Prescriptions: Continue Levothyroxine Sodium [Synthroid] 25 mcg PO DAILY Escitalopram [Lexapro] 10 mg PO DAILY lamoTRIgine [LaMICtal] 200 mg PO DAILY Omeprazole [PriLOSEC] 40 mg PO BID #120 cap Atorvastatin [Lipitor] 20 mg PO HS Pioglitazone [Actos] 45 mg PO DAILY busPIRone HCL 10 mg PO BID glipiZIDE XL [Glucotrol XL] 10 mg PO HS Semaglutide [Rybelsus] 3 mg PO DAILY ARIPiprazole [Abilify] 5 mg PO DAILY Sucralfate [Carafate] 1 gm PO BID #30 tablet Discontinued Ascorbic Acid [Vitamin C] 1,000 mg PO DAILY Vitamin A 2,400 mcg PO DAILY Multivitamins, Thera [Multivitamin (formulary)] 1 tab PO DAILY Cyanocobalamin (Vitamin B-12) [Vitamin B-12] 1,000 mcg PO DAILY Discharge Medication List Escitalopram [Lexapro] 10 mg PO DAILY 08/23/18 [History] Levothyroxine Sodium [Synthroid] 25 mcg PO DAILY 08/23/18 [History] lamoTRIgine [LaMICtal] 200 mg PO DAILY 08/23/18 [History] Omeprazole [PriLOSEC] 40 mg PO BID #120 cap 04/13/20 [Rx] Atorvastatin [Lipitor] 20 mg PO HS 04/10/22 [History] ARIPiprazole [Abilify] 5 mg PO DAILY 03/17/23 [History] Pioglitazone [Actos] 45 mg PO DAILY 03/17/23 [History] Semaglutide [Rybelsus] 3 mg PO DAILY 03/17/23 [History] busPIRone HCL 10 mg PO BID 03/17/23 [History] glipiZIDE XL [Glucotrol XL] 10 mg PO HS 03/18/23 [History] Sucralfate [Carafate] 1 gm PO BID #30 tablet 04/07/23 [Rx] Follow up Appointment(s)/Referral(s): Deysi Sequeira MD [Primary Care Provider] [facility] [place] [facility] - [facility]23 Patient Instructions/Handouts: Acute Abdominal Pain (DC) Activity/Diet/Wound Care/Special Instructions: activity limited until follow up follow up with pcp on discharge continue holding vitamin supplements take medications as prescribed follow up with surgery outpatient Discharge Disposition: HOME SELF-CARE
== END 2023-04-30 15:40 | disposition home or self-care (01) ==
LOC: EC 17:44 → 6NMEDSUR 04-29 00:56
PROVIDERS: ADMIT Hospitalist; ATTEND Hospitalist
DX: R10.11 Right upper quadrant pain (principal); K92.1 Melena; K52.9 Noninfective gastroenteritis and colitis, unspecified; K57.90 Diverticulosis of intestine, part unspecified, without perforation or abscess without bleeding; K64.9 Unspecified hemorrhoids; E11.9 Type 2 diabetes mellitus without complications; I10 Essential (primary) hypertension; J44.9 Chronic obstructive pulmonary disease, unspecified; E78.5 Hyperlipidemia, unspecified; G40.909 Epilepsy, unspecified, not intractable, without status epilepticus; K21.9 Gastro-esophageal reflux disease without esophagitis; M19.90 Unspecified osteoarthritis, unspecified site; E07.9 Disorder of thyroid, unspecified; F40.240 Claustrophobia; F32.A Depression, unspecified; F41.9 Anxiety disorder, unspecified; E66.01 Morbid (severe) obesity due to excess calories; Z68.41 Body mass index [BMI] 40.0-44.9, adult; Z79.890 Hormone replacement therapy; Z79.84 Long term (current) use of oral hypoglycemic drugs; Z79.899 Other long term (current) drug therapy; Z88.5 Allergy status to narcotic agent; Z88.6 Allergy status to analgesic agent; Z88.8 Allergy status to other drugs, medicaments and biological substances; Z87.11 Personal history of peptic ulcer disease; Z86.010 Personal history of colon polyps; Z90.710 Acquired absence of both cervix and uterus; Z98.84 Bariatric surgery status; Z98.891 History of uterine scar from previous surgery; Z96.652 Presence of left artificial knee joint; Z98.42 Cataract extraction status, left eye; Z98.41 Cataract extraction status, right eye; Z87.891 Personal history of nicotine dependence; Z87.828 Personal history of other (healed) physical injury and trauma; Z98.890 Other specified postprocedural states; Z83.49 Family history of other endocrine, nutritional and metabolic diseases; Z83.3 Family history of diabetes mellitus; Z84.1 Family history of disorders of kidney and ureter; Z82.49 Family history of ischemic heart disease and other diseases of the circulatory system
CPT/HCPCS: 96376 ×2; 96361 ×4; 96372; 96374; 99285; 36415; 80053 ×2; 83690; 83735; 84484; 85025 ×2; 85610; 85730; 76705; 74177; 78227; G0378 ×2; A9537; J2805; J1650; C9113 ×2; Q9967

== ENCOUNTER 2023-09-20 21:30 | Emergency (ER) | payer MEDICARE, OTHER ==
[2023-09-20] MEDS ORDERED: SODIUM CHLORIDE 0.9% 1,000 ML IV ONE (22:22)
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
[2023-09-20 23:20] LABS: Anisocytosis Slight; Basophils % (A) 0 %; Eosinophils # (A) 0.3 k/uL (0-0.7); Eosinophils % (A) 3 %; HCT 33.9 % (34.0-46.0); HGB 10.7 gm/dL (11.4-16.0); Hypochromasia Moderate; Lymphocytes # (A) 2.4 k/uL (1.0-4.8); Lymphocytes % (A) 25 %; MCH 25.3 pg (25.0-35.0); MCHC 31.5 g/dL (31.0-37.0); MCV 80.2 fL (80.0-100.0); Mean Platelet Volume 7.9; Microcytosis Slight; Monocytes # (A) 0.5 k/uL (0-1.0); Monocytes % (A) 5 %; Neutrophils # (A) 6.3 k/uL (1.3-7.7); Neutrophils % (A) 65 %; Platelet Count 375 k/uL (150-450); RBC 4.22 m/uL (3.80-5.40); RDW 17.2 % (11.5-15.5); WBC 9.7 k/uL (3.8-10.6)
[2023-09-20 23:50] VITALS: RESP 16
[2023-09-20 23:55] LABS: ALT 14 U/L (4-34); AST 20 U/L (14-36); African American GFR (CKD) >90 (>60 ml/min/1.73 sqM); Albumin 3.7 g/dL (3.5-5.0); Alkaline Phosphatase 108 U/L (38-126); Anion Gap 7 mmol/L; Blood Urea Nitrogen 20 mg/dL (7-17); Carbon Dioxide 28 mmol/L (22-30); Chloride 100 mmol/L (98-107); Creatine Kinase 51 U/L (30-135); Glucose 133 mg/dL (74-99); Magnesium 1.8 mg/dL (1.6-2.3); Non-African American GFR(CKD) 82 (>60 ml/min/1.73 sqM); Potassium 4.2 mmol/L (3.5-5.1); Sodium 135 mmol/L (137-145); Total Bilirubin 0.3 mg/dL (0.2-1.3); Total Protein 6.5 g/dL (6.3-8.2)
[2023-09-21 01:00] VITALS: BP 133/87; PULSE 87; TEMP 98.1
== END 2023-09-21 00:54 | disposition home or self-care (01) ==
LOC: EC 21:30
DX: E11.42 Type 2 diabetes mellitus with diabetic polyneuropathy (principal); E11.36 Type 2 diabetes mellitus with diabetic cataract; I10 Essential (primary) hypertension; G40.909 Epilepsy, unspecified, not intractable, without status epilepticus; E78.5 Hyperlipidemia, unspecified; F32.A Depression, unspecified; F41.9 Anxiety disorder, unspecified; J44.9 Chronic obstructive pulmonary disease, unspecified; E07.9 Disorder of thyroid, unspecified; Z79.84 Long term (current) use of oral hypoglycemic drugs; Z79.890 Hormone replacement therapy; Z79.899 Other long term (current) drug therapy; Z88.5 Allergy status to narcotic agent; Z88.6 Allergy status to analgesic agent; Z88.8 Allergy status to other drugs, medicaments and biological substances; Z87.891 Personal history of nicotine dependence; Z98.84 Bariatric surgery status
CPT/HCPCS: 36415; 80053; 82550; 83735; 85025; 96360; 99284

== ENCOUNTER 2023-09-30 17:49 | Emergency (ER) | payer MEDICARE, OTHER ==
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
[2023-09-30 21:38] VITALS: RESP 18; TEMP 98.6
[2023-09-30] MEDS ORDERED: GABAPENTIN 300 MG CAP PO STA (22:14)
[2023-09-30] MEDS ORDERED: ACETAMINOPHEN TAB 500 MG TAB PO STA (22:15)
[2023-09-30 22:31] LABS: Anisocytosis Slight; Basophils % (A) 0 %; Eosinophils # (A) 0.2 k/uL (0-0.7); Eosinophils % (A) 2 %; HCT 34.5 % (34.0-46.0); HGB 10.6 gm/dL (11.4-16.0); Hypochromasia Moderate; Lymphocytes % (A) 19 %; MCH 24.9 pg (25.0-35.0); MCHC 30.9 g/dL (31.0-37.0); MCV 80.6 fL (80.0-100.0); Mean Platelet Volume 8.1; Monocytes # (A) 0.6 k/uL (0-1.0); Monocytes % (A) 6 %; Neutrophils # (A) 7.5 k/uL (1.3-7.7); Neutrophils % (A) 71 %; Platelet Count 362 k/uL (150-450); RBC 4.28 m/uL (3.80-5.40); RDW 16.8 % (11.5-15.5); WBC 10.5 k/uL (3.8-10.6)
[2023-09-30 23:05] LABS: African American GFR (CKD) >90 (>60 ml/min/1.73 sqM); Anion Gap 9 mmol/L; Blood Urea Nitrogen 18 mg/dL (7-17); Calcium 8.9 mg/dL (8.4-10.2); Carbon Dioxide 31 mmol/L (22-30); Chloride 97 mmol/L (98-107); Glucose 97 mg/dL (74-99); Non-African American GFR(CKD) 82 (>60 ml/min/1.73 sqM); Potassium 4.1 mmol/L (3.5-5.1); Sodium 137 mmol/L (137-145)
[2023-10-01 00:41] VITALS: BP 149/100; PULSE 72
== END 2023-10-01 00:37 | disposition home or self-care (01) ==
LOC: EC 17:49
DX: E11.40 Type 2 diabetes mellitus with diabetic neuropathy, unspecified (principal); E11.36 Type 2 diabetes mellitus with diabetic cataract; E78.5 Hyperlipidemia, unspecified; I10 Essential (primary) hypertension; J44.9 Chronic obstructive pulmonary disease, unspecified; G40.909 Epilepsy, unspecified, not intractable, without status epilepticus; E07.9 Disorder of thyroid, unspecified; F41.9 Anxiety disorder, unspecified; F32.A Depression, unspecified; Z79.890 Hormone replacement therapy; Z79.84 Long term (current) use of oral hypoglycemic drugs; Z79.899 Other long term (current) drug therapy; Z88.6 Allergy status to analgesic agent; Z88.5 Allergy status to narcotic agent; Z88.8 Allergy status to other drugs, medicaments and biological substances; Z87.891 Personal history of nicotine dependence
CPT/HCPCS: 36415; 80048; 85025; 99284

== ENCOUNTER 2023-10-22 11:51 | Emergency (ER) | payer MEDICARE, OTHER ==
[2023-10-22 12:10] LABS: Glucose,Whole Blood 93 mg/dL (70-110)
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
[2023-10-22 12:37] VITALS: RESP 18; TEMP 96.8
[2023-10-22 12:39] LABS: Anisocytosis Slight; Basophils % (A) 0 %; Eosinophils # (A) 0.2 k/uL (0-0.7); Eosinophils % (A) 2 %; HGB 10.1 gm/dL (11.4-16.0); Hypochromasia Marked; Lymphocytes # (A) 2.2 k/uL (1.0-4.8); Lymphocytes % (A) 24 %; MCHC 30.7 g/dL (31.0-37.0); MCV 81.4 fL (80.0-100.0); Mean Platelet Volume 8.5; Monocytes # (A) 0.5 k/uL (0-1.0); Monocytes % (A) 6 %; Neutrophils # (A) 5.9 k/uL (1.3-7.7); Neutrophils % (A) 65 %; Platelet Count 357 k/uL (150-450); RBC 4.06 m/uL (3.80-5.40); RDW 17.1 % (11.5-15.5); WBC 9.1 k/uL (3.8-10.6)
[2023-10-22 12:51] LABS: Appearance,Urine Clear (Clear); Bilirubin,Urine Negative (Negative); Blood,Urine Negative (Negative); Color,Urine Yellow; Glucose,Urine (UA) Negative (Negative); Ketones,Urine Negative (Negative); Leukocyte Esterase,Urine Negative (Negative); Nitrite,Urine Negative (Negative); PH, Urine 5.5 (5.0-8.0); Protein,Urine Negative (Negative); Specific Gravity,Urine 1.021 (1.001-1.035)
[2023-10-22 13:02] LABS: ALT 16 U/L (4-34); AST 27 U/L (14-36); African American GFR (CKD) >90 (>60 ml/min/1.73 sqM); Albumin 3.7 g/dL (3.5-5.0); Alkaline Phosphatase 106 U/L (38-126); Anion Gap 8 mmol/L; Blood Urea Nitrogen 20 mg/dL (7-17); Calcium 8.5 mg/dL (8.4-10.2); Carbon Dioxide 28 mmol/L (22-30); Chloride 99 mmol/L (98-107); Glucose 105 mg/dL (74-99); Lipase 599 U/L (23-300); Non-African American GFR(CKD) 81 (>60 ml/min/1.73 sqM); Sodium 135 mmol/L (137-145); Total Bilirubin 0.4 mg/dL (0.2-1.3); Total Protein 6.5 g/dL (6.3-8.2)
--- NOTE | 2023-10-22 13:28 | CT ---
EXAMINATION TYPE: CT brain wo con DATE OF EXAM: 10/22/2023 COMPARISON: Unavailable. HISTORY: Altered mental status with fall. CT DLP: 1167.7 mGycm Automated exposure control for dose reduction was used. FINDINGS: There is no acute intracranial hemorrhage, mass, mass effect, midline shift, extra-axial fluid collec tion or hydrocephalus. The zambrano-white distinction is intact without evidence of an acute major vessel infarct. The visualized paranasal sinuses and mastoid air cells are clear. IMPRESSION: NO ACUTE INTRACRANIAL PROCESS.
[2023-10-22 13:30] LABS: Glucose,Whole Blood 180 mg/dL (70-110)
[2023-10-22 14:51] LABS: Glucose,Whole Blood 169 mg/dL (70-110)
[2023-10-22 15:28] VITALS: BP 123/59; PULSE 71
== END 2023-10-22 15:10 | disposition home or self-care (01) ==
LOC: EC 11:51
DX: E11.649 Type 2 diabetes mellitus with hypoglycemia without coma (principal); J44.9 Chronic obstructive pulmonary disease, unspecified; K21.9 Gastro-esophageal reflux disease without esophagitis; E78.5 Hyperlipidemia, unspecified; I10 Essential (primary) hypertension; E07.9 Disorder of thyroid, unspecified; F90.9 Attention-deficit hyperactivity disorder, unspecified type; F41.9 Anxiety disorder, unspecified; F31.9 Bipolar disorder, unspecified; Z87.891 Personal history of nicotine dependence; Z79.890 Hormone replacement therapy; Z79.899 Other long term (current) drug therapy; Z88.8 Allergy status to other drugs, medicaments and biological substances; Z20.822 Contact with and (suspected) exposure to COVID-19; Z79.84 Long term (current) use of oral hypoglycemic drugs; Z88.5 Allergy status to narcotic agent; Z88.6 Allergy status to analgesic agent
CPT/HCPCS: 36415; 70450; 80053; 81003; 82009; 83690; 85025; 87636; 93005; 99285

== ENCOUNTER 2023-10-28 16:07 | Emergency (ER) | payer MEDICARE, OTHER ==
[2023-10-28 16:46] LABS: Glucose,Whole Blood 102 mg/dL (70-110)
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
== END 2023-10-28 21:42 | disposition left against medical advice (07) ==
LOC: EC 16:07
DX: E11.649 Type 2 diabetes mellitus with hypoglycemia without coma (principal); I10 Essential (primary) hypertension; E07.9 Disorder of thyroid, unspecified; E78.5 Hyperlipidemia, unspecified; J44.9 Chronic obstructive pulmonary disease, unspecified; F41.9 Anxiety disorder, unspecified; F32.A Depression, unspecified; Z79.84 Long term (current) use of oral hypoglycemic drugs; Z79.890 Hormone replacement therapy; Z79.899 Other long term (current) drug therapy; Z88.6 Allergy status to analgesic agent; Z88.5 Allergy status to narcotic agent; Z53.29 Procedure and treatment not carried out because of patient's decision for other reasons
CPT/HCPCS: 36415; 99284

== ENCOUNTER 2024-01-20 06:47 | Day surgery (SDC) | payer MEDICARE, OTHER ==
[2024-01-18 17:42] VITALS: BMI 46.0
[2024-01-20 07:19] LABS: Glucose,Whole Blood 136 mg/dL (70-110)
[2024-01-20] MEDS: LACTATED RINGERS 1,000 ML IV SCH (07:19)
[2024-01-20 07:23] VITALS: RESP 16; TEMP 97
[2024-01-20] MEDS ORDERED: GLYCOPYRROLATE 0.2 MG/ML 2 ML VIAL ONE (07:39)
[2024-01-20] MEDS ORDERED: LIDOCAINE 1% INJ 10MG/ML (20 ML MDV) ONE (07:39)
[2024-01-20] MEDS ORDERED: PROPOFOL 10 MG/ML 20 ML VIAL IV ONE (07:39)
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
[2024-01-20 08:29] LABS: Glucose,Whole Blood 124 mg/dL (70-110)
[2024-01-20 08:32] VITALS: BP 107/64; PULSE 89
--- NOTE | 2024-01-20 08:40 | P.PCN ---
Date of Procedure: 01/20/24 Description of Procedure: PREOPERATIVE DIAGNOSIS: Dysphagia. s/p Diandra-en-y gastric bypass. Nausea with vomiting. Morbid obesity. Diabetes type 2. POSTOPERATIVE DIAGNOSIS: Dysphagia. s/p Diandra-en-y gastric bypass. Nausea with vomiting. Morbid obesity. Diabetes type 2. Esophageal stricture OPERATION: Esophagogastrojejunoscopy with rigid dilation 60 German SURGEON: Tila Banks MD ANESTHESIA: MAC. INDICATIONS: The patient is a 58-year-old female who presents with a history of dysphagia, gastric bypass. Benefits and risks of the procedure were described. Informed consent was obtained. DESCRIPTION: The patient was brought into the endoscopy suite and laid in the left lateral decubitus position. After a timeout was confirmed, the procedure was initiated. An Olympus gastroscope was passed along the posterior oropharynx down to the distal esophagus where the squamocolumnar junction was unremarkable. The gastric pouch was entered. An esophageal stricture of the upper esophageal sphincter was identified. A guidewire was placed. The scope was withdrawn and rigid dilator 60 German was placed over guidewire and left for 2 minutes. The rigid dilator was removed and scope was placed with no full-thickness injury was encountered. The GI tract was desufflated. The patient tolerated the procedure well. FINDINGS: Squamocolumnar junction unremarkable at 37 cm. Upper esophageal stenosis with stricture identified. Dilation to 60 German upper esophageal sphincter Chronic gastrojejunal ulceration encountered, 1 mm without active bleeding No gastrojejunal stricture Gastric pouch 5 cm RECOMMENDATIONS: Upper endoscopy as needed
== END 2024-01-20 09:15 | disposition home or self-care (01) ==
LOC: ORWHC2ENDO 06:47
PROVIDERS: ATTEND Surgery Plastic and Reconstructive Surgery
DX: K22.2 Esophageal obstruction (principal); K21.9 Gastro-esophageal reflux disease without esophagitis; J44.9 Chronic obstructive pulmonary disease, unspecified; I10 Essential (primary) hypertension; G47.33 Obstructive sleep apnea (adult) (pediatric); M19.90 Unspecified osteoarthritis, unspecified site; E78.5 Hyperlipidemia, unspecified; E66.01 Morbid (severe) obesity due to excess calories; E11.9 Type 2 diabetes mellitus without complications; E07.9 Disorder of thyroid, unspecified; G40.909 Epilepsy, unspecified, not intractable, without status epilepticus; Z79.84 Long term (current) use of oral hypoglycemic drugs; Z79.890 Hormone replacement therapy; Z87.891 Personal history of nicotine dependence; Z88.5 Allergy status to narcotic agent; Z88.6 Allergy status to analgesic agent; Z98.84 Bariatric surgery status; Z90.710 Acquired absence of both cervix and uterus; Z88.8 Allergy status to other drugs, medicaments and biological substances; Z68.42 Body mass index [BMI] 45.0-49.9, adult
CPT/HCPCS: 43248; J2001; J2704

== ENCOUNTER 2024-01-22 20:25 | Emergency (ER) | payer MEDICARE, OTHER ==
[2024-01-22 21:03] VITALS: TEMP 98
[2024-01-22 21:44] LABS: ALT 15 U/L (4-34); AST 26 U/L (14-36); African American GFR (CKD) >90 (>60 ml/min/1.73 sqM); Albumin 3.5 g/dL (3.5-5.0); Alkaline Phosphatase 114 U/L (38-126); Amylase 54 U/L (30-110); Anion Gap 6 mmol/L; Blood Urea Nitrogen 14 mg/dL (7-17); Calcium 8.6 mg/dL (8.4-10.2); Carbon Dioxide 28 mmol/L (22-30); Chloride 103 mmol/L (98-107); Glucose 129 mg/dL (74-99); Lipase 111 U/L (23-300); Non-African American GFR(CKD) 86 (>60 ml/min/1.73 sqM); Potassium 4.2 mmol/L (3.5-5.1); Sodium 137 mmol/L (137-145); Total Bilirubin 0.5 mg/dL (0.2-1.3); Total Protein 6.2 g/dL (6.3-8.2)
[2024-01-22] MEDS: ACETAMINOPHEN TAB 500 MG TAB PO STA (21:57)
[2024-01-22] MEDS: SODIUM CHLORIDE 0.9% 1,000 ML IV STA (21:58)
[2024-01-22 22:06] LABS: Anisocytosis Slight; Basophils % (A) 0 %; Eosinophils # (A) 0.2 k/uL (0-0.7); Eosinophils % (A) 2 %; HCT 36.1 % (34.0-46.0); Hypochromasia Moderate; Lymphocytes # (A) 2.1 k/uL (1.0-4.8); Lymphocytes % (A) 29 %; MCH 25.7 pg (25.0-35.0); MCHC 30.5 g/dL (31.0-37.0); MCV 84.1 fL (80.0-100.0); Mean Platelet Volume 10.4; Microcytosis Slight; Monocytes # (A) 0.4 k/uL (0-1.0); Monocytes % (A) 6 %; Neutrophils # (A) 4.4 k/uL (1.3-7.7); Neutrophils % (A) 61 %; Platelet Count 162 k/uL (150-450); RDW 19.7 % (11.5-15.5); WBC 7.2 k/uL (3.8-10.6)
--- NOTE | 2024-01-22 22:55 | CT ---
EXAMINATION TYPE: CT abdomen pelvis w con DATE OF EXAM: 01/22/2024 HISTORY: N/V/D CT DLP: 3065mGycm Automated Exposure Control for Dose Reduction was Utilized. CONTRAST: CT scan of the abdomen and pelvis is performed with IV Contrast, patient injected with 100ml mL of Is ovue 300. COMPARISON: Prior CT April 28, 2023 FINDINGS: LUNG BASES: No significant abnormality is appreciated. LIVER/GB: No significant abnormality is appreciated. PANCREAS: No significant abnormality is seen. SPLEEN: No significant abnormality is seen. ADRENALS: No significant abnormality is seen. KIDNEYS: Roughly 5.9 cm simple appearing thin-walled cyst in the left kidney again seen. No hydroneph rosis seen bilaterally. BOWEL: Surgical changes from gastric bypass procedure are redemonstrated. No abnormal small or large bowel dilatation. UTERUS/ADNEXA: Uterus surgically absent or markedly atrophic. LYMPH NODES: No greater than 1cm abdominal or pelvic lymph nodes are appreciated. OSSEOUS STRUCTURES: Multilevel vacuum disc phenomena and disc space narrowing in the mid to lower lum bar spine redemonstrated. Moderate narrowing of both hip joints. OTHER: No significant additional abnormality is seen. IMPRESSION: No bowel obstruction. No significant new or acute finding is seen to account for patient' s clinical symptoms.
[2024-01-22 23:28] VITALS: BP 139/69; PULSE 84; RESP 19
[2024-01-22 23:32] LABS: Appearance,Urine Clear (Clear); Bilirubin,Urine Negative (Negative); Blood,Urine Negative (Negative); Color,Urine Light Yellow; Glucose,Urine (UA) Negative (Negative); Ketones,Urine Negative (Negative); Leukocyte Esterase,Urine Negative (Negative); Nitrite,Urine Negative (Negative); Protein,Urine Negative (Negative); Specific Gravity,Urine 1.028 (1.001-1.035)
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
== END 2024-01-23 00:04 | disposition home or self-care (01) ==
LOC: EC 20:25
DX: K52.9 Noninfective gastroenteritis and colitis, unspecified (principal); Z87.891 Personal history of nicotine dependence; Z88.8 Allergy status to other drugs, medicaments and biological substances; Z88.5 Allergy status to narcotic agent; Z88.6 Allergy status to analgesic agent
CPT/HCPCS: 36415; 80053; 82150; 83690; 85025; 81003; 87636; 74177; 99285; 96360; Q9967

== ENCOUNTER → 2024-01-26 | Outpatient (CLI) | payer MEDICARE, OTHER ==
--- NOTE | 2024-01-26 15:45 | P.BASOAP ---
Subjective Progress Note Date: 01/26/24 She is eating turkey, potatoes and ham. She has regained 100 pounds! She has gained 7 more pounds. She was 201 pounds. She is eating fries. NO biscuits and gravy. Assessment/Plan Plan: Date: Initial Weight: 160.163 kg Initial BMI: Current Weight: Current BMI: Type of Surgery: Total Volume in Band: Previous Volume: Volume Removed: Volume Added: Band Size:
[2024-01-27 14:15] VITALS: BP 112/74; PULSE 82; TEMP 98; BMI 48.9
== END ==
LOC: BARWHC3 14:05
PROVIDERS: ATTEND Surgery Plastic and Reconstructive Surgery
DX: E66.01 Morbid (severe) obesity due to excess calories (principal); Z53.9 Procedure and treatment not carried out, unspecified reason
CPT/HCPCS: 99211

== ENCOUNTER → 2024-02-02 | Outpatient (CLI) | payer MEDICARE, OTHER ==
--- NOTE | 2024-02-02 14:52 | P.BASOAP ---
Subjective Progress Note Date: 02/02/24 She lost 8 pounds in 1 week. She feels full. She is following up with her daughter who is helping with her weight loss. She has food journal. FU in 2 weeks. Assessment/Plan Plan: Date: Initial Weight: 160.163 kg Initial BMI: Current Weight: Current BMI: Type of Surgery: Total Volume in Band: Previous Volume: Volume Removed: Volume Added: Band Size:
[2024-02-02 15:12] VITALS: BP 103/66; PULSE 73; RESP 16; TEMP 97.4; BMI 47.7
== END ==
LOC: BARWHC3 12:36
PROVIDERS: ATTEND Surgery Plastic and Reconstructive Surgery
DX: E66.01 Morbid (severe) obesity due to excess calories (principal); Z87.891 Personal history of nicotine dependence; Z98.84 Bariatric surgery status; Z88.8 Allergy status to other drugs, medicaments and biological substances; Z88.5 Allergy status to narcotic agent; Z68.42 Body mass index [BMI] 45.0-49.9, adult
CPT/HCPCS: 99211

== ENCOUNTER 2024-02-05 13:34 | Emergency (ER) | payer MEDICARE, OTHER ==
[2024-02-05 14:01] VITALS: RESP 18; TEMP 97.9
--- NOTE | 2024-02-05 15:02 | XR ---
EXAMINATION TYPE: XR chest 2V DATE OF EXAM: 02/05/2024 COMPARISON: 04/10/2022 HISTORY: Shortness of breath TECHNIQUE: Frontal and lateral views of the chest are obtained. FINDINGS: Scattered senescent parenchymal changes noted. Hyperinflation compatible with COPD. No evidence for infiltrate. No evidence for atelectasis. Heart size is stable. Mediastinal structures are stable and grossly unremarkable. No evidence for hilar prominence. Degenerative changes dorsal spine. IMPRESSION: 1. No evidence for acute pulmonary disease.
[2024-02-05] MEDS: IPRATROPIUM-ALBUTEROL 3 ML NEB INHALATION STA (15:34)
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
[2024-02-05] MEDS ORDERED: methylPREDNISolone SOD SUCCI 125 MG/2 ML VIAL ONE (16:09)
[2024-02-05] MEDS: methylPREDNISolone SOD SUCCI 125 MG/2 ML VIAL IM ONE (16:09)
[2024-02-05 16:27] VITALS: BP 112/64; PULSE 73
== END 2024-02-05 16:11 | disposition home or self-care (01) ==
LOC: EC 13:34
DX: J40 Bronchitis, not specified as acute or chronic (principal); R06.02 Shortness of breath; Z87.891 Personal history of nicotine dependence; Z88.8 Allergy status to other drugs, medicaments and biological substances
CPT/HCPCS: 99283 ×2; 96372 ×2; 94640; 87636; 71046; J2919

== ENCOUNTER 2024-02-06 07:47 | Observation (INO) | payer MEDICARE, OTHER ==
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
[2024-02-06] MEDS: methylPREDNISolone SOD SUCCI 125 MG/2 ML VIAL IV STA (08:08)
[2024-02-06] MEDS: ALBUTEROL NEBULIZED 2.5 MG/3 ML INHALATION STA (08:15)
[2024-02-06] MEDS: IPRATROPIUM 0.5 MG/2.5 ML NEBU INHALATION STA (08:15)
[2024-02-06 08:39] LABS: Anisocytosis Slight; Basophils % (A) 0 %; Eosinophils # (A) 0.1 k/uL (0-0.7); Eosinophils % (A) 1 %; HCT 38.5 % (34.0-46.0); HGB 11.8 gm/dL (11.4-16.0); Hypochromasia Moderate; Lymphocytes # (A) 1.3 k/uL (1.0-4.8); Lymphocytes % (A) 12 %; MCH 26.1 pg (25.0-35.0); MCHC 30.7 g/dL (31.0-37.0); MCV 85.1 fL (80.0-100.0); Mean Platelet Volume 8.6; Microcytosis Slight; Monocytes # (A) 0.5 k/uL (0-1.0); Monocytes % (A) 5 %; Neutrophils # (A) 9.2 k/uL (1.3-7.7); Neutrophils % (A) 82 %; Platelet Count 314 k/uL (150-450); RBC 4.53 m/uL (3.80-5.40); RDW 19.4 % (11.5-15.5); WBC 11.2 k/uL (3.8-10.6)
[2024-02-06 08:57] LABS: ALT 17 U/L (4-34); AST 25 U/L (14-36); African American GFR (CKD) >90 (>60 ml/min/1.73 sqM); Alkaline Phosphatase 113 U/L (38-126); Anion Gap 10 mmol/L; Blood Urea Nitrogen 16 mg/dL (7-17); Calcium 9.6 mg/dL (8.4-10.2); Carbon Dioxide 25 mmol/L (22-30); Chloride 103 mmol/L (98-107); Glucose 212 mg/dL (74-99); Magnesium 1.8 mg/dL (1.6-2.3); Non-African American GFR(CKD) >90 (>60 ml/min/1.73 sqM); Potassium 4.4 mmol/L (3.5-5.1); Sodium 138 mmol/L (137-145); Total Bilirubin 0.4 mg/dL (0.2-1.3)
--- NOTE | 2024-02-06 09:11 | XR ---
EXAMINATION TYPE: XR chest 2V DATE OF EXAM: 02/06/2024 COMPARISON: NONE HISTORY: Shortness of breath TECHNIQUE: Frontal and lateral views of the chest are obtained. FINDINGS: Scattered senescent parenchymal changes noted. Hyperinflation compatible with COPD. No evidence for infiltrate. No evidence for atelectasis. Cardiomegaly with pulmonary venous congestion. No overt failure at this time. No evidence of focal in filtrate. No sizable effusion. Mediastinal structures are stable and grossly unremarkable. No evidence for hilar prominence. Degenerative changes dorsal spine. IMPRESSION: 1. Cardiomegaly with pulmonary venous congestion.
[2024-02-06] MEDS: ACETAMINOPHEN TAB 500 MG TAB PO STA (10:01)
[2024-02-06] MEDS: SODIUM CHLORIDE 0.9% 1,000 ML IV ONE (10:01)
[2024-02-06] MEDS ORDERED: NALOXONE 0.4 MG/ML 1 ML VIAL IVP PRN (10:11)
[2024-02-06] MEDS ORDERED: IPRATROPIUM-ALBUTEROL 3 ML NEB INHALATION PRN (10:11)
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
[2024-02-06] MEDS: IPRATROPIUM-ALBUTEROL 3 ML NEB INHALATION SCH (11:32)
[2024-02-06 13:36] LABS: Glucose,Whole Blood 241 mg/dL (70-110)
[2024-02-06] MEDS: ACETAMINOPHEN TAB 325 MG TAB PO PRN (14:38)
[2024-02-06] MEDS: LEVOTHYROXINE 25 MCG TAB PO SCH (14:38)
[2024-02-06] MEDS: busPIRone HCl 10 MG TAB PO SCH (14:38)
[2024-02-06] MEDS: methylPREDNISolone SOD SUCCI 125 MG/2 ML VIAL IV SCH (14:38)
[2024-02-06] MEDS: lamoTRIgine 100 MG TAB PO SCH (14:38)
[2024-02-06] MEDS: MULTIVITAMINS, THERA 1 EACH TAB PO SCH (14:38)
[2024-02-06] MEDS: ESCITALOPRAM 10 MG TAB PO SCH (14:38)
[2024-02-06] MEDS: PANTOPRAZOLE 40 MG TABLET PO SCH (14:38)
[2024-02-06] MEDS: ARIPiprazole 5 MG TAB PO SCH (14:39)
[2024-02-06] MEDS: LORATADINE 10 MG TAB PO SCH (14:39)
[2024-02-06] MEDS: GABAPENTIN 300 MG CAP PO SCH (14:39)
[2024-02-06] MEDS ORDERED: guaiFENesin-DM 100-10MG/5ML 10 ML CUP PO PRN (15:52)
[2024-02-06] MEDS ORDERED: DEXTROSE 50% SYRINGE 50 ML IVP PRN ×2 (15:59)
[2024-02-06 17:21] LABS: Glucose,Whole Blood 282 mg/dL (70-110)
[2024-02-06] MEDS: HEPARIN SODIUM,PORCINE 5,000 UNIT/ML 1 ML VIAL SQ SCH (18:25)
[2024-02-06] MEDS: INSULIN ASPART (NovoLOG) 100 UNIT/ML VIAL SQ SCH (18:34)
[2024-02-06] MEDS: SYMBICORT 160-4.5 MCG INHALER INHALATION SCH (20:29)
[2024-02-06] MEDS: AMOXIC-POT CLAV 875-125MG 1 EACH TAB PO SCH (20:32)
[2024-02-06] MEDS: ATORVASTATIN 20 MG TAB PO SCH (20:32)
[2024-02-06 20:57] LABS: Glucose,Whole Blood 261 mg/dL (70-110)
[2024-02-06 21:46] VITALS: RESP 18
[2024-02-07 06:11] LABS: Glucose,Whole Blood 206 mg/dL (70-110)
[2024-02-07] MEDS: FERROUS SULFATE 325 MG TAB PO SCH (10:26)
[2024-02-07 11:32] LABS: Glucose,Whole Blood 244 mg/dL (70-110)
[2024-02-07 13:44] VITALS: BP 131/74; PULSE 80; TEMP 98.2
--- NOTE | 2024-02-07 14:13 | P.DS ---
Providers Date of admission: 02/06/24 10:11 Expected date of discharge: 02/07/24 Attending physician: Justine Sloan DO [facility] Course: Discharge Diagnosis: COPD with acute exacerbation. Patient requires nebulizer with DuoNeb treatments to manage COPD exacerbation. She is being discharged home on Augmentin 875/125 mg tablets for an additional 4 days along with prednisone 40 mg daily x 5 days and DuoNeb treatments. Patient instructed to use nebulizer treatments scheduled 4 times daily for the next week and then may transition to only as needed for shortness of breath and/or wheezing. Acute on chronic bronchitis Diabetes mellitus with hyperglycemia. Resume Actos and Mounjaro. Monitor blood glucose levels closely at home and follow carb consistent and heart healthy diet. -Hold Actos and Mounjaro and patient placed on glycemic protocol with NovoLog sliding scale. Hypothyroidism. Continue daily medication regimen with levothyroxine 25 mcg daily. Hyperlipidemia. Continue daily medication regimen with atorvastatin 20 mg nightly. Anxiety with depression. Patient to continue with Lamictal 200 mg daily, Lexapro 10 mg daily, BuSpar 10 mg twice daily, and Abilify 5 mg daily. Morbid obesity with BMI 48.4 kg/m. Recommend structured outpatient weight management program. Hospital Course: Patient is a 58-year-old female with a past medical history of COPD not oxygen dependent, hypothyroidism, type II gtg-yprfdej-amcehhhwu diabetes mellitus, hyperlipidemia, iron deficiency anemia, anxiety with depression, and morbid obesity status post bariatric surgery. She presented to the emergency department with a chief complaint of shortness of breath, cough, sore throat, and bodyaches x 4 days. Patient was seen in the emergency department on 02/05/2024 and underwent viral workup which was negative for COVID, influenza A, influenza B, and RSV and was discharged home on a Medrol Dosepak and Ventolin inhaler. Patient reports no improvement and only worsening of her symptoms along with an elevated temp of 100.9 F at home so she returned to the ER. Patient denies headache, lightheadedness, dizziness, chest pain or palpitations, abdominal pain, nausea, vomiting, or experiencing any difficulties with or changes in her urinary or bowel function, or experiencing any numbness/tingling/weakness/swelling in her extremities. She underwent evaluation in the emergency department. Vital signs upon arrival show blood pressure 134/64, heart rate 75, respiratory rate 18, temp 97.9 F, and SpO2 of 97% on room air. Labs completed and reviewed. CBC showing leukocytosis with WBC count of 11.2 otherwise normal findings. BMP unremarkable with exception of hyperglycemia with glucose of 212. Magnesium 1.8. Liver profile unremarkable. Troponin less than 0.012 and proBNP 552. Initial lactate was elevated at 2.6. EKG completed showing sinus rhythm at 92 bpm with no noted T wave or ST abnormalities showing no signs of acute ischemia. Chest x-ray showing hyperinflation compatible with COPD and cardiomegaly with pulmonary venous congestion but no overt failure at this time, no focal infiltrate or effusions reported. Patient was given nebulizer treatment, IV steroids, and empiric antibiotics in the emergency department. She was admitted under our services to observation unit for COPD exacerbation. She was placed on empiric antibiotics with Augmentin 875/125 mg tablets along with IV steroids and scheduled nebulizer treatments. Patient's condition remains stable. Respirations even, regular, and unlabored on room air. Patient speaking in full sentences without any noted difficulties. SpO2 at rest is 96% and with ambulation in halls 97%. Patient requires home nebulizer with DuoNeb treatments to manage COPD with acute exacerbation. She is being discharged home on Augmentin 875/125 mg tablets for an additional 4 days along with prednisone 40 mg daily x 5 days and DuoNeb treatments. Patient instructed to use nebulizer treatments scheduled 4 times daily for the next week and then may transition to only as needed for shortness of breath and/or wheezing thereafter. Patient to follow-up outpatient with PCP in 1 to 2 days and with sales and operations trainee in 1 week. Physical exam: Vital signs reviewed and stable. General: Nontoxic, no distress and appears stated age. Derm: Skin warm and dry, normal coloration for ethnicity. Head: Atraumatic, normocephalic and symmetric. Eyes: EOMs intact, no lid lag, and anicteric sclera Mouth: no lip lesions, mucus membranes moist. No erythema, edema, or lesions noted to pharynx. Cardiovascular: regular rate and rhythm with normal S1S2, no murmur, positive posterior tibial pulses bilaterally, and cap refill < 2 seconds. Lungs: Respirations even, regular, and unlabored on room air. Lungs with equal air entry and exit, minimal soft diffuse expiratory wheezes. No rhonchi, no rales, no wheezing, and no accessory muscle usage. Abdominal: soft, nontender to palpation, no guarding, no appreciable organomegaly Ext: ROM intact. No gross muscle atrophy, no edema, no contractures Neuro: Speech clear, face symmetrical and CN II-XII grossly intact with no noted focal neuro deficits Psych: Alert and oriented to person, place, time, and situation. Appropriate and pleasant affect. A total of 33 minutes of time were spent preparing this complex discharge summary. Pt was discharged on 02/07/2024 at 2 PM. Patient was seen independently by Nurse Practitioner. This document was prepared using [employer] dictation software. Please allow for errors in code enforcement officer while rare they do occur. I reviewed the documentation as provided by the CARI above, who is the original author of this note. I agree with the documented assessment and plan, with the following changes: none Patient Condition at Discharge: Stable Plan - Discharge Summary New Discharge Prescriptions: New Amoxic-Pot Clav 875-125Mg [Augmentin 875-125] 1 each PO Q12HR #8 tab Ipratropium-Albuterol Nebulize [Duoneb 0.5 mg-3 mg/3 ml Soln] 3 ml INHALATION RT-QID #120 each Budesonide-Formot 160-4.5 Mcg [Symbicort 160-4.5 Mcg Inhaler] 2 puff INHA LATION RT-BID 30 Days #1 inh predniSONE [Deltasone] 40 mg PO DAILY 5 Days #10 tab Continue Levothyroxine Sodium [Synthroid] 25 mcg PO DAILY Escitalopram [Lexapro] 10 mg PO DAILY lamoTRIgine [LaMICtal] 200 mg PO DAILY Omeprazole [PriLOSEC] 40 mg PO BID #120 cap Atorvastatin [Lipitor] 20 mg PO HS Pioglitazone [Actos] 45 mg PO DAILY busPIRone HCL 10 mg PO BID Multivitamins, Thera [Multivitamin (formulary)] 1 tab PO DAILY Ferrous Sulfate [Iron (65 MG Elemental)] 325 mg PO DAILY Loratadine [Claritin] 10 mg PO DAILY Gabapentin [Neurontin] 300 mg PO TID Tirzepatide [Mounjaro] 7.5 mg SQ CEJA ARIPiprazole [Abilify] 5 mg PO DAILY Ondansetron Odt [Zofran ODT] 4 mg PO Q8HR PRN #10 tab PRN Reason: Nausea Albuterol Inhaler [Ventolin Hfa Inhaler] 1 - 2 puff INHALATION RT-Q6H PRN PRN Reason: Shortness Of Breath Discontinued methylPREDNISolone Dose Pack [Medrol Dose Pack] See Taper PO DIRECTED Discharge Medication List Escitalopram [Lexapro] 10 mg PO DAILY 08/23/18 [History] Levothyroxine Sodium [Synthroid] 25 mcg PO DAILY 08/23/18 [History] lamoTRIgine [LaMICtal] 200 mg PO DAILY 08/23/18 [History] Omeprazole [PriLOSEC] 40 mg PO BID #120 cap 04/13/20 [Rx] Atorvastatin [Lipitor] 20 mg PO HS 04/10/22 [History] ARIPiprazole [Abilify] 5 mg PO DAILY 03/17/23 [History] Pioglitazone [Actos] 45 mg PO DAILY 03/17/23 [History] busPIRone HCL 10 mg PO BID 03/17/23 [History] Ferrous Sulfate [Iron (65 MG Elemental)] 325 mg PO DAILY 01/18/24 [History] Gabapentin [Neurontin] 300 mg PO TID 01/18/24 [History] Loratadine [Claritin] 10 mg PO DAILY 01/18/24 [History] Multivitamins, Thera [Multivitamin (formulary)] 1 tab PO DAILY 01/18/24 [History] Tirzepatide [Mounjaro] 7.5 mg SQ CEJA 01/18/24 [History] Ondansetron Odt [Zofran ODT] 4 mg PO Q8HR PRN #10 tab 01/22/24 [Rx] Albuterol Inhaler [Ventolin Hfa Inhaler] 1 - 2 puff INHALATION RT-Q6H PRN 02/06/24 [History] Amoxic-Pot Clav 875-125Mg [Augmentin 875-125] 1 each PO Q12HR #8 tab 02/07/24 [Rx] Budesonide-Formot 160-4.5 Mcg [Symbicort 160-4.5 Mcg Inhaler] 2 puff INHALATION RT-BID 30 Days #1 inh 02/07/24 [Rx] Ipratropium-Albuterol Nebulize [Duoneb 0.5 mg-3 mg/3 ml Soln] 3 ml INHALATION RT-QID #120 each 02/07/24 [Rx] predniSONE [Deltasone] 40 mg PO DAILY 5 Days #10 tab 02/07/24 [Rx] Follow up Appointment(s)/Referral(s): Karlie Vance MD [Primary Care Provider] - 1-2 days Richmond Salvador DO [Doctor of Osteopathic Medicine] - 03/02/24 9:30 am Patient Instructions/Handouts: COPD (Chronic Obstructive Pulmonary Disease) (DC), Chronic Lung Disease and Infection Prevention (DC) Activity/Diet/Wound Care/Special Instructions: Activity: As tolerated. Take breaks as needed. Diet: Heart healthy and carb consistent diet. Avoid salts, or foods with hidden salts such as canned or boxed foods and frozen dinners. Extra salt makes your heart work harder and traps the fluid in your body for longer. Special Instructions: Take all of your medications as directed and remember to keep all of your doctor's appointments and follow-up as needed. Patient requires nebulizer with DuoNeb treatments to manage COPD exacerbation. Thank you for allowing us to participate in your care, it was truly a pleasure having you for our patient!!! Discharge Disposition: HOME SELF-CARE
== END 2024-02-07 15:38 | disposition home or self-care (01) ==
LOC: EC 07:47 → 6NMEDSUR 10:11
PROVIDERS: ADMIT Internal Medicine; ATTEND Internal Medicine
DX: J44.1 Chronic obstructive pulmonary disease with (acute) exacerbation (principal); J44.0 Chronic obstructive pulmonary disease with (acute) lower respiratory infection; J20.9 Acute bronchitis, unspecified; I11.9 Hypertensive heart disease without heart failure; E03.9 Hypothyroidism, unspecified; E11.65 Type 2 diabetes mellitus with hyperglycemia; E78.5 Hyperlipidemia, unspecified; D50.9 Iron deficiency anemia, unspecified; F32.A Depression, unspecified; F41.9 Anxiety disorder, unspecified; E66.01 Morbid (severe) obesity due to excess calories; Z68.42 Body mass index [BMI] 45.0-49.9, adult; Z11.52 Encounter for screening for COVID-19; Z11.59 Encounter for screening for other viral diseases; Z79.890 Hormone replacement therapy; Z79.84 Long term (current) use of oral hypoglycemic drugs; Z79.85 Long-term (current) use of injectable non-insulin antidiabetic drugs; Z79.52 Long term (current) use of systemic steroids; Z79.899 Other long term (current) drug therapy; Z88.5 Allergy status to narcotic agent; Z88.6 Allergy status to analgesic agent; Z88.8 Allergy status to other drugs, medicaments and biological substances; Z87.891 Personal history of nicotine dependence; Z98.84 Bariatric surgery status
CPT/HCPCS: 96376 ×2; 96372 ×2; 96361; 96365; 96375; 99285; 36415; 94640 ×4; 94760; 93005; 83880; 80053; 83605; 83735; 84484; 85025; 87040; 71046; G0378 ×2; J1644 ×2; J2930 ×2; J0696

== ENCOUNTER → 2024-02-16 | Outpatient (CLI) | payer MEDICARE, OTHER ==
[2024-02-16 14:09] VITALS: BP 127/62; PULSE 79; TEMP 98.2; BMI 47.0
--- NOTE | 2024-02-16 15:11 | P.BASOAP ---
Subjective Progress Note Date: 02/16/24 Patient presents with 4 pound weight loss. Recommend continued dressing with dietitian for weight loss management. Patient drinking high carbohydrate beverages. Modification of diet advised to low-carb 1000 kcal daily Objective - Vital Signs Vital signs: Vital Signs Temp 98.2 F 02/16/24 13:53 Pulse 79 02/16/24 13:53 Resp BP 127/62 02/16/24 13:53 Pulse Ox FiO2 Intake & Output 02/15/24 02/16/24 02/16/24 18:59 06:59 18:59 Weight 134.263 kg Assessment/Plan Plan: Date: 02/16/24 Initial Weight: 160.163 kg Initial BMI: 56.1 Current Weight: 134.263 kg Current BMI: 47.0 Type of Surgery: Total Volume in Band: Previous Volume: Volume Removed: Volume Added: Band Size:
== END ==
LOC: BARWHC3 12:48
PROVIDERS: ATTEND Surgery Plastic and Reconstructive Surgery
DX: E66.01 Morbid (severe) obesity due to excess calories (principal); R63.4 Abnormal weight loss; Z87.891 Personal history of nicotine dependence; Z71.3 Dietary counseling and surveillance; Z88.8 Allergy status to other drugs, medicaments and biological substances; Z88.5 Allergy status to narcotic agent; Z68.42 Body mass index [BMI] 45.0-49.9, adult
CPT/HCPCS: 99211

== ENCOUNTER 2024-04-17 13:10 | Emergency (ER) | payer MEDICARE, OTHER ==
[2024-04-17 13:21] VITALS: RESP 18; TEMP 98.2
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
[2024-04-17] MEDS: LIDOCAINE 1% INJ 10MG/ML (20 ML MDV) SQ ONE (14:01)
[2024-04-17 14:51] VITALS: BP 124/68; PULSE 76
== END 2024-04-17 14:52 | disposition home or self-care (01) ==
LOC: EC 13:10
DX: L02.412 Cutaneous abscess of left axilla (principal); Z87.891 Personal history of nicotine dependence; Z88.5 Allergy status to narcotic agent; Z88.6 Allergy status to analgesic agent; Z88.8 Allergy status to other drugs, medicaments and biological substances
CPT/HCPCS: 99283; 10060; J2001

== ENCOUNTER → 2024-05-01 | Outpatient (CLI) | payer MEDICARE, OTHER ==
--- NOTE | 2024-05-02 09:25 | MM ---
Reason for Exam: Screening (asymptomatic). Last mammogram was performed 1 year(s) and 2 month(s) ago. Patient History: Menarche at age 10. First Full-Term at age 28. Late child-bearing (after 28). Left ovary removed at age 36. Right ovary removed at age 36. Hysterectomy at age 36. Postmenopausal. Risk Values: Amparo 5 year model risk: 2.0%. NCI Lifetime model risk: 10.0%. Prior Study Comparison: 07/09/2021 Bilateral Screening Mammogram, [facility]. 03/16/2023 Bilateral MG 3D screening mammo w/cad, [facility]. Tissue Density: There are scattered areas of fibroglandular density. Findings: Analyzed By CAD. A few scattered benign secretory and round/punctate calcifications redemonstrated. There is no suspicious group of microcalcifications or new suspicious mass in either breast. Overall Assessment: Benign, BI-RAD 2 Management: Screening Mammogram of both breasts in 1 year. . Patient should continue monthly self-breast exams. A clinical breast exam by your physician is recommended on an annual basis. This exam should not preclude additional follow-up of suspicious palpable abnormalities. Note on Amparo scores and lifetime risk: 1. A Amparo score greater than 3% is considered moderate risk. If this is the case, consider specialist referral to assess eligibility for a risk reducing agent. 2. If overall lifetime risk for the development of breast cancer is 20% or higher, the patient may qualify for future screening with alternating mammogram and breast MRI. Electronically signed and approved by: Emeka Hussein M.D. Radiologist
== END | disposition home or self-care (01) ==
LOC: RADMAMWWP 15:01
PROVIDERS: ATTEND Family Medicine
DX: Z12.31 Encounter for screening mammogram for malignant neoplasm of breast (principal); Z78.0 Asymptomatic menopausal state
CPT/HCPCS: 77063; 77067

== ENCOUNTER 2024-05-13 15:46 | Emergency (ER) | payer MEDICARE, OTHER ==
[2024-05-13 15:57] VITALS: RESP 18; TEMP 98
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
[2024-05-13] MEDS: SULFAMETH-TMP DS STARTER PACK 2 TAB BTL PO STA (18:06)
[2024-05-13] MEDS: SULFAMETHOX-TMP 800-160MG 1 EACH TAB PO STA (18:08)
[2024-05-13 18:24] VITALS: BP 130/81; PULSE 75
== END 2024-05-13 17:55 | disposition home or self-care (01) ==
LOC: EC 15:46
DX: L02.412 Cutaneous abscess of left axilla (principal); Z87.891 Personal history of nicotine dependence; Z88.6 Allergy status to analgesic agent; Z88.5 Allergy status to narcotic agent; Z88.8 Allergy status to other drugs, medicaments and biological substances
CPT/HCPCS: 99282

== ENCOUNTER 2024-05-17 20:44 | Emergency (ER) | payer MEDICARE, OTHER ==
[2024-05-17 21:23] VITALS: RESP 18; TEMP 97.9
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
[2024-05-17] MEDS: LIDOCAINE 1% INJ 10MG/ML (20 ML MDV) SQ ONE (22:40)
[2024-05-17] MEDS: CEPHALEXIN 500 MG CAP PO STA (23:33)
[2024-05-17] MEDS: SULFAMETHOX-TMP 800-160MG 1 EACH TAB PO STA (23:33)
[2024-05-17 23:47] VITALS: BP 145/78; PULSE 79
== END 2024-05-17 23:46 | disposition home or self-care (01) ==
LOC: EC 20:44
DX: L02.412 Cutaneous abscess of left axilla (principal); Z87.891 Personal history of nicotine dependence; Z88.8 Allergy status to other drugs, medicaments and biological substances
CPT/HCPCS: 87070; 87205; 99283; 10060; J2001

== ENCOUNTER 2024-06-05 19:15 | Emergency (ER) | payer MEDICARE, OTHER ==
[2024-06-05] MEDS ORDERED: ACETAMINOPHEN TAB 500 MG TAB ONE (23:12)
--- NOTE | 2024-07-19 10:05 | XR ---
EXAMINATION TYPE: XR knee complete bilateral DATE OF EXAM: 06/05/2024 INDICATION: Patient age:Female; 58 years old; Reason for study: FALL; [facility]. COMPARISON: Left knee radiograph 08/11/2023, 03/09/2023, right knee radiograph 12/17/2022 TECHNIQUE: Both knees were examined in Frontal, lateral and oblique projections. FINDINGS: No evidence of any acute osseous pathology, soft tissue swelling, or joint effusion is no kiran. Mild right tricompartmental joint space narrowing with marginal spurring. Postsurgical changes f rom total left knee arthroplasty. Hardware appears intact with appropriate alignment. Distal femoral bilateral bone infarcts noted. IMPRESSION: 1. No acute osseous pathology. 2. Mild tricompartmental osteoarthritic changes of the right knee. 3. Post left knee thoracoplasty changes. Hardware appears intact. [facility], , 07/19/2024 10:03 AM
== END 2024-06-06 00:16 | disposition home or self-care (01) ==
LOC: EC 20:27
DX: S83.92XA Sprain of unspecified site of left knee, initial encounter (principal); S83.91XA Sprain of unspecified site of right knee, initial encounter; W10.8XXA Fall (on) (from) other stairs and steps, initial encounter; Z88.6 Allergy status to analgesic agent; Z88.5 Allergy status to narcotic agent; Z88.1 Allergy status to other antibiotic agents
CPT/HCPCS: 99283

== ENCOUNTER 2024-08-15 00:08 | Emergency (ER) | payer MEDICARE, OTHER ==
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
[2024-08-15 01:48] VITALS: BP 128/74; PULSE 76; RESP 17; TEMP 98.1
== END 2024-08-15 01:47 | disposition home or self-care (01) ==
LOC: EC 00:08
CPT/HCPCS: 36415; 82272; 99284

== ENCOUNTER 2024-09-01 15:09 | Emergency (ER) | payer MEDICARE, OTHER ==
[2024-09-01 15:16] VITALS: RESP 18
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
[2024-09-01 16:59] LABS: Basophils % (A) 0 %; Eosinophils # (A) 0.2 k/uL (0-0.7); Eosinophils % (A) 2 %; HCT 42.3 % (34.0-46.0); HGB 13.4 gm/dL (11.4-16.0); Lymphocytes # (A) 2.6 k/uL (1.0-4.8); Lymphocytes % (A) 22 %; MCH 28.9 pg (25.0-35.0); MCHC 31.8 g/dL (31.0-37.0); MCV 91.1 fL (80.0-100.0); Mean Platelet Volume 7.7; Monocytes # (A) 0.7 k/uL (0-1.0); Monocytes % (A) 6 %; Neutrophils # (A) 8.2 k/uL (1.3-7.7); Neutrophils % (A) 68 %; Platelet Count 354 k/uL (150-450); RBC 4.64 m/uL (3.80-5.40); RDW 15.4 % (11.5-15.5); WBC 11.9 k/uL (3.8-10.6)
[2024-09-01 17:09] LABS: ALT 20 U/L (4-34); AST 27 U/L (14-36); African American GFR (CKD) >90 (>60 ml/min/1.73 sqM); Albumin 3.9 g/dL (3.5-5.0); Alkaline Phosphatase 110 U/L (38-126); Anion Gap 4 mmol/L; Blood Urea Nitrogen 15 mg/dL (7-17); Carbon Dioxide 32 mmol/L (22-30); Chloride 101 mmol/L (98-107); Glucose 125 mg/dL (74-99); INR 0.9 (<1.2); Magnesium 1.7 mg/dL (1.6-2.3); Non-African American GFR(CKD) >90 (>60 ml/min/1.73 sqM); Partial Thromboplastin Time 22.9 sec (22.0-30.0); Potassium 4.6 mmol/L (3.5-5.1); Prothrombin Time 9.8 sec (10.0-12.5); Sodium 137 mmol/L (137-145); Total Bilirubin 0.5 mg/dL (0.2-1.3); Total Protein 6.6 g/dL (6.3-8.2)
[2024-09-01] MEDS: SODIUM CHLORIDE 0.9% 1,000 ML IV STA (17:10)
[2024-09-01 17:17] LABS: NT-Pro-B-Type Natriuretic Pept 106 pg/mL
--- NOTE | 2024-09-01 18:28 | XR ---
EXAMINATION TYPE: XR chest 2V DATE OF EXAM: 09/01/2024 5:56 PM COMPARISON: Chest radiographs from 02/06/2024 CLINICAL INDICATION: Female, 59 years old with history of Weakness; TECHNIQUE: XR chest 2V Frontal and lateral views of the chest. FINDINGS: Lungs/Pleura: There is no evidence of pleural effusion, focal consolidation, or pneumothorax. Pulmonary vascularity: Unremarkable. Heart/mediastinum: Cardiomediastinal silhouette is unremarkable. Musculoskeletal: No acute osseous pathology. IMPRESSION: No acute cardiopulmonary disease/process. [facility], , 09/01/2024 6:26 PM
--- NOTE | 2024-09-01 18:29 | CT ---
EXAMINATION TYPE: CT brain wo con DATE OF EXAM: 09/01/2024 5:59 PM COMPARISON: None. CLINICAL INDICATION: Female, 59 years old with history of weakness, high sugar/ blurred vision TECHNIQUE: Brain: Axial CT images of the brain were obtained with coronal and sagittal reformats created and rev iewed. Contrast used: None. Oral contrast used: None. CT DLP: 1184.4 mGycm, Automated exposure control for dose reduction was used. FINDINGS: Brain: Extra-axial spaces: No abnormal extra-axial fluid collections. Ventricular system: Within normal limits Cerebral parenchyma: No acute intraparenchymal hemorrhage or mass effect. The zambrano-white junction is well differentiated. Cerebellum: Unremarkable. Mass effect: No evidence of midline shift. Intracranial vasculature: unremarkable Soft tissues: Normal. Calvarium/osseous structures: No depressed skull fracture. Paranasal sinuses and mastoid air cells: Mild scattered paranasal sinus disease. Visualized orbits: Orbital contents are intact. IMPRESSION: No acute intracranial process. [facility], , 09/01/2024 6:27 PM
[2024-09-01 20:27] VITALS: BP 159/92; PULSE 77; TEMP 98.1
[2024-09-04 11:41] LABS: Phosphorus 3.8 (2.4-5.1)
== END 2024-09-01 20:21 | disposition home or self-care (01) ==
LOC: EC 15:09
DX: R42 Dizziness and giddiness (principal); R53.1 Weakness; Z87.891 Personal history of nicotine dependence; Z88.6 Allergy status to analgesic agent; Z88.5 Allergy status to narcotic agent; Z88.8 Allergy status to other drugs, medicaments and biological substances
CPT/HCPCS: 36415; 70450; 71046; 80053; 83605; 83735; 83880; 84100; 84484; 85025; 85610; 85730; 93005; 96360; 99285

== ENCOUNTER 2024-09-02 18:40 | Emergency (ER) | payer MEDICARE, OTHER ==
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
[2024-09-02] MEDS: SODIUM CHLORIDE 0.9% 1,000 ML IV STA (20:06)
[2024-09-02 20:19] LABS: Glucose,Whole Blood 135 mg/dL (70-110)
[2024-09-02 20:22] LABS: Basophils % (A) 0 %; Eosinophils # (A) 0.2 k/uL (0-0.7); Eosinophils % (A) 2 %; HCT 41.5 % (34.0-46.0); HGB 13.2 gm/dL (11.4-16.0); Lymphocytes # (A) 2.3 k/uL (1.0-4.8); Lymphocytes % (A) 20 %; MCH 29.3 pg (25.0-35.0); MCHC 31.9 g/dL (31.0-37.0); MCV 91.9 fL (80.0-100.0); Mean Platelet Volume 7.6; Monocytes # (A) 0.5 k/uL (0-1.0); Monocytes % (A) 5 %; Neutrophils # (A) 8.1 k/uL (1.3-7.7); Neutrophils % (A) 71 %; Platelet Count 324 k/uL (150-450); RBC 4.52 m/uL (3.80-5.40); RDW 15.6 % (11.5-15.5); WBC 11.4 k/uL (3.8-10.6)
[2024-09-02 20:24] LABS: Appearance,Urine Clear (Clear); Bilirubin,Urine Negative (Negative); Blood,Urine Negative (Negative); Color,Urine Colorless; Glucose,Urine (UA) Negative (Negative); Ketones,Urine Negative (Negative); Leukocyte Esterase,Urine Negative (Negative); Nitrite,Urine Negative (Negative); Protein,Urine Negative (Negative); Specific Gravity,Urine 1.003 (1.001-1.035); Urobilinogen,Urine <2.0 mg/dL (<2.0)
[2024-09-02 20:37] LABS: ALT 18 U/L (4-34); AST 25 U/L (14-36); African American GFR (CKD) >90 (>60 ml/min/1.73 sqM); Albumin 3.8 g/dL (3.5-5.0); Alkaline Phosphatase 115 U/L (38-126); Anion Gap 4 mmol/L; Blood Urea Nitrogen 15 mg/dL (7-17); Calcium 8.7 mg/dL (8.4-10.2); Carbon Dioxide 27 mmol/L (22-30); Chloride 104 mmol/L (98-107); Glucose 154 mg/dL (74-99); Magnesium 1.8 mg/dL (1.6-2.3); Non-African American GFR(CKD) >90 (>60 ml/min/1.73 sqM); Potassium 4.1 mmol/L (3.5-5.1); Sodium 135 mmol/L (137-145); Total Bilirubin 0.5 mg/dL (0.2-1.3); Total Protein 6.4 g/dL (6.3-8.2)
[2024-09-02 21:39] VITALS: BP 130/79; PULSE 70; RESP 18; TEMP 98.6
== END 2024-09-02 21:40 | disposition home or self-care (01) ==
LOC: EC 18:40
DX: E11.65 Type 2 diabetes mellitus with hyperglycemia (principal); E11.36 Type 2 diabetes mellitus with diabetic cataract; Z79.84 Long term (current) use of oral hypoglycemic drugs; Z79.899 Other long term (current) drug therapy; Z87.891 Personal history of nicotine dependence; Z88.5 Allergy status to narcotic agent; Z88.6 Allergy status to analgesic agent; Z88.8 Allergy status to other drugs, medicaments and biological substances
CPT/HCPCS: 36415; 80053; 81003; 82009; 83735; 85025; 96360; 96361; 99283

== ENCOUNTER 2024-10-09 12:26 | Emergency (ER) | payer MEDICARE, OTHER ==
[2024-10-09] MEDS: Acetaminophen-Codeine 300-30mg TAB PO STA (13:58)
[2024-10-09 14:15] VITALS: RESP 18
--- NOTE | 2024-10-09 15:09 | CT ---
EXAMINATION TYPE: CT brain cspine wo con DATE OF EXAM: 10/09/2024 COMPARISON: 12/17/2022 CLINICAL INDICATION: Female, 59 years old with history of fall, head injury, neck pain; PHH, pain aft er fall TECHNIQUE: CT scan of the head and cervical spine are performed without contrast. CT DLP: 1850.[address] CTDI: mGy Automated exposure control for dose reduction was used. Findings: Head CT: Ventricles, basal cisterns and sulci over convexities within normal limits and there is no mass, mass effect or shift of midline structures. No abnormal density is seen throughout the brain parenchyma and there is no acute intra or extra-axia l hemorrhage. Posterior fossa including the brainstem, fourth ventricle and cerebellar pontine angles are grossly n ormal. The intraorbital contents appear normal and symmetric. Visualized paranasal sinuses are well aerated. CT cervical spine: Craniovertebral junction relationships and prevertebral soft tissues are normal. The cervical vertebral segments are normal in height and alignment and there is no fracture subluxati on. There is moderate disc space narrowing and anterior spondylosis. There is moderate osteoarthritis of the facet joints and uncovertebral joints in the mid lower cervical spine. The bony cervical canal is widely patent and there is no bony encroachment of the neural foramina. The paraspinal soft tissues unremarkable. IMPRESSION: 1. Head CT: No acute bleed or mass effect. 2. CT cervical spine: No acute trauma. Moderate degenerative disc disease and moderate osteoarthritis in the mid lower cervical spine. [facility], , 10/09/2024 3:07 PM
--- NOTE | 2024-10-09 15:12 | CT ---
EXAMINATION TYPE: CT lumbar spine wo con DATE OF EXAM: 10/09/2024 3:03 PM COMPARISON: None CLINICAL INDICATION: Female, 59 years old with history of fall, head injury, neck pain; PHH, pain aft er fall TECHNIQUE: Unenhanced CT of the lumbar spine was performed. Bone and soft tissue window settings are submitted as well as coronal and sagittal reconstructions. CT DLP: 1725.[address] CTDI: mGy Automated exposure control for dose reduction was used. FINDINGS: The lumbar vertebral segments are normal in height and alignment and there is no fracture or subluxat ion. There is mild disc space narrowing and vacuum phenomenon at the L3-4 and L4-5 levels. There is modera te narrowing, vacuum phenomenon and spondylosis L5-S1 level. Secondary to circumferential disc bulge and mild thickening of ligamentum flavum, there is mild spina l stenosis at L3-4 level. No large lumbar disc herniations. There is mild facet arthropathy from L3 through S1. There is no bony neural foraminal encroachment. IMPRESSION: 1. No acute trauma. 2. Degenerative disc disease and arthritis lower lumbar spine as described above. 3. Mild spinal stenosis at the L3-4 level. [facility], , 10/09/2024 3:10 PM
--- NOTE | 2024-10-09 15:15 | CT ---
EXAMINATION TYPE: CT thoracic spine wo con DATE OF EXAM: 10/09/2024 COMPARISON: None CLINICAL INDICATION: Female, 59 years old with history of fall, head injury, neck pain; PHH, pain aft er fall CT DLP: 947.7 mGycm Automated exposure control for dose reduction was used. FINDINGS: The thoracic vertebral segments are normal in height and alignment is no fracture or subluxation. There is mild degenerative disease in the lower thoracic spine with mild disc space narrowing and spo ndylosis. The paraspinal soft tissues are unremarkable. There is no bony encroachment of the bony thoracic spinal canal. There are no large thoracic disc her niations. IMPRESSION: 1. No evidence of acute trauma. 2. Mild degenerative disease at multiple levels in the mid and lower thoracic spine. [facility], , 10/09/2024 3:12 PM
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
[2024-10-09 16:42] VITALS: BP 111/77; PULSE 80; TEMP 98.1
== END 2024-10-09 16:47 | disposition home or self-care (01) ==
LOC: EC 12:26
DX: S09.90XA Unspecified injury of head, initial encounter (principal); M54.9 Dorsalgia, unspecified; M54.2 Cervicalgia; Z87.891 Personal history of nicotine dependence; Z88.6 Allergy status to analgesic agent; Z88.5 Allergy status to narcotic agent; Z88.8 Allergy status to other drugs, medicaments and biological substances; W01.0XXA Fall on same level from slipping, tripping and stumbling without subsequent striking against object, initial encounter; Y92.012 Bathroom of single-family (private) house as the place of occurrence of the external cause
CPT/HCPCS: 70450; 72125; 72128; 72131; 99284

== ENCOUNTER 2024-10-27 15:50 | Emergency (ER) | payer MEDICARE, OTHER ==
[2024-10-27 15:57] VITALS: TEMP 98.2
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
--- NOTE | 2024-10-27 18:38 | XR ---
EXAMINATION TYPE: XR knee limited RT DATE OF EXAM: 10/27/2024 6:24 PM COMPARISON: Previous right knee radiograph dated 12/17/2022. CLINICAL INDICATION: Female, 59 years old with history of Right hip/knee pain while walking upstairs; [facility] TECHNIQUE: XR knee limited RT views submitted.. FINDINGS: No acute fracture or dislocation. Tricompartmental degenerative arthritis, most pronounced in the patellofemoral and lateral compartments. Sclerotic changes again noted in the distal femur com patible with either prior bone infarction or enchondroma. No focal osseous erosion or aggressive srvaanthi osteal reaction. Moderate-sized right knee suprapatellar joint effusion and prepatellar soft tissue e dain. IMPRESSION: 1. No acute fracture or dislocation in the right knee. 2. Moderate-sized right knee suprapatellar joint effusion. [facility], , 10/27/2024 6:35 PM
--- NOTE | 2024-10-27 18:39 | XR ---
EXAMINATION TYPE: XR Hip Complete RT DATE OF EXAM: 10/27/2024 6:24 PM COMPARISON: None. CLINICAL INDICATION: Female, 59 years old with history of Right hip/knee pain while walking upstairs; [facility] TECHNIQUE: XR Hip Complete RT; Frontal and lateral views FINDINGS: No acute fracture or dislocation. No extrinsic foreign body. Mild right hip degenerative os teoarthritic changes. Partially visualized right pubic bones appear intact. No soft tissue mass. IMPRESSION: No acute osseous abnormality. [facility], , 10/27/2024 6:36 PM
[2024-10-27] MEDS: ACET/COD 300 MG/30 MG STARTER PACK 6 TAB BTL PO STA (20:08)
[2024-10-27 20:11] VITALS: BP 120/70; PULSE 70; RESP 18
== END 2024-10-27 20:35 | disposition home or self-care (01) ==
LOC: EC 15:50
DX: M23.91 Unspecified internal derangement of right knee (principal); Z87.891 Personal history of nicotine dependence; J44.9 Chronic obstructive pulmonary disease, unspecified; E11.9 Type 2 diabetes mellitus without complications; G40.909 Epilepsy, unspecified, not intractable, without status epilepticus; M19.90 Unspecified osteoarthritis, unspecified site; Z88.5 Allergy status to narcotic agent; Z88.6 Allergy status to analgesic agent; Z88.8 Allergy status to other drugs, medicaments and biological substances; Y93.01 Activity, walking, marching and hiking
CPT/HCPCS: 73502; 99283

== ENCOUNTER 2024-11-17 05:01 | Emergency (ER) | payer MEDICARE, OTHER ==
[2024-11-17 05:10] VITALS: RESP 18
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
[2024-11-17] MEDS: KETOROLAC 15 MG/ML 1 ML VIAL IM STA (05:37)
[2024-11-17] MEDS: MORPHINE SULFATE 2 MG/ML SYRINGE IM STA (05:41)
[2024-11-17] MEDS: MORPHINE SULFATE 4 MG/ML SYRINGE IM STA (06:34)
[2024-11-17 06:56] VITALS: BP 150/81; PULSE 71; TEMP 98
== END 2024-11-17 07:00 | disposition home or self-care (01) ==
LOC: EC 05:01
DX: G89.29 Other chronic pain (principal); M25.561 Pain in right knee; Z87.891 Personal history of nicotine dependence; Z88.5 Allergy status to narcotic agent; Z88.6 Allergy status to analgesic agent; Z88.8 Allergy status to other drugs, medicaments and biological substances; X50.0XXA Overexertion from strenuous movement or load, initial encounter
CPT/HCPCS: 99283; 96372 ×2; J2270 ×2

== ENCOUNTER → 2024-11-23 | Outpatient (CLI) | payer MEDICARE, OTHER ==
--- NOTE | 2024-11-23 15:46 | MR ---
EXAMINATION TYPE: MR knee RT wo con DATE OF EXAM: 11/23/2024 COMPARISON: Right knee x-ray October 27, 2024 HISTORY: Right knee pain and swelling since 10-23-24, no known injury TECHNIQUE: Multiplanar, multisequence images of the knee is performed without IV contrast. FINDINGS: MEDIAL MENISCUS: There is triangular increased signal posterior horn about superior articular surface . LATERAL MENISCUS: Anterior and posterior horns are intact without tear. CRUCIATE LIGAMENTS: The anterior and posterior cruciate ligaments are intact and unremarkable. Sugges tion of 6 mm thin-walled cyst anterior to the ACL coronal image 14. COLLATERAL LIGAMENTS: The medial collateral ligament and lateral collateral ligament complex are inta ct. Marked fluid signal surrounds the medial collateral ligament.. EXTENSOR MECHANISM: Visualized quadriceps and patellar tendons are intact. EFFUSION: Small to moderate-size suprapatellar joint effusion. POPLITEAL CYST: There is multi septated roughly 5.0 cm moderate size popliteal/partida cyst sagittal im age 9 with some adjacent ill-defined fluid. TRICOMPARTMENT SPACES: Moderate to severe narrowing and spurring medial tibiofemoral compartment. In the distal medial femoral condyle there is linear diminished T1 signal measuring 1.5 cm transversely coronal image 20 x 1.7 cm AP diameter sagittal image 11 with significant surrounding increased T2 sig nal suspicious for subchondral insufficiency fracture. Mild increased T2 signal medial aspect of the distal lateral femoral condyle abutting the articular surface. Moderate to severe narrowing with mild spurring patellofemoral compartment with full-thickness chondromalacia patella is present. There is a speckled lesion of diminished T1 and increased T2 signal in the distal femoral diaphysis cortex cor responding to chondroid lesion on plain films. No cortical destruction or soft tissue mass. Suspected bone infarct. OTHER: Moderate to severe ill-defined deep edema along the medial aspect of the knee. IMPRESSION: 1. There is suspected subchondral insufficiency fracture of the distal medial femoral condyle with as sociated surrounding abnormal bone marrow edema as detailed above. There is significant adjacent deep subcutaneous edema surrounding the medial collateral ligament, consider sprain injury. 2. Full thickness tear posterior horn medial meniscus. 3. Fairly severe degenerative change medial tibiofemoral and patellofemoral compartments as detailed above. 4. Moderate size multiseptated leaking popliteal cyst. 5. [id number] sized suprapatellar joint effusion. [facility], , 11/23/2024 3:44 PM
== END | disposition home or self-care (01) ==
LOC: RADMRIMAIN 14:47
PROVIDERS: ATTEND Orthopaedic Surgery
DX: S83.241A Other tear of medial meniscus, current injury, right knee, initial encounter (principal); M17.11 Unilateral primary osteoarthritis, right knee; M25.461 Effusion, right knee; M71.21 Synovial cyst of popliteal space [Baker], right knee; R60.9 Edema, unspecified; X58.XXXA Exposure to other specified factors, initial encounter

== ENCOUNTER → 2024-12-04 | Outpatient (CLI) | payer MEDICARE, OTHER ==
[2024-12-04 14:18] LABS: Partial Thromboplastin Time 22.8 sec (22.0-30.0); Prothrombin Time 10.6 sec (10.0-12.5)
[2024-12-04 16:51] LABS: HCT 50.4 % (37.2-46.3); HGB 15.8 g/dL (12.0-15.0); MCH 29.8 pg (27.0-32.0); MCHC 31.3 g/dL (32.0-37.0); MCV 94.9 FL (80.0-97.0); Mean Platelet Volume 11.9 FL (9.5-12.2); NRBC Per 100 WBC 0 X 10*3/uL (0.00-0.01); Platelet Count 319 X 10*3/uL (140-440); RBC 5.31 X 10*6/uL (4.10-5.20); RDW 14.5 % (11.5-14.5); WBC 9.07 X 10*3/uL (4.50-10.00)
[2024-12-04 17:28] LABS: ALT 24 U/L (8-44); AST 26 U/L (13-35); Albumin 4.3 g/dL (3.8-4.9); Albumin/Globulin Ratio 1.72 Ratio (1.60-3.17); Alkaline Phosphatase 158 U/L (41-126); BUN/Creat Ratio 19.44 Ratio (12.00-20.00); Blood Urea Nitrogen 17.5 mg/dL (9.0-27.0); Calcium 9.9 mg/dL (8.7-10.3); Carbon Dioxide 26.4 mmol/L (21.6-31.8); Chloride 100 mmol/L (96-109); Globulin 2.5 g/dL (1.6-3.3); Glucose 123 mg/dL (70-110); Potassium 4.6 mmol/L (3.5-5.5); Sodium 139 mmol/L (135-145); Total Bilirubin 0.6 mg/dL (0.3-1.2); Total Protein 6.8 g/dL (6.2-8.2)
== END | disposition home or self-care (01) ==
LOC: LABPAT 12:12
PROVIDERS: ATTEND Orthopaedic Surgery
DX: Z01.818 Encounter for other preprocedural examination (principal); Z22.322 Carrier or suspected carrier of Methicillin resistant Staphylococcus aureus; M17.11 Unilateral primary osteoarthritis, right knee
CPT/HCPCS: 80053; 85027; 85610; 85730; 87070; 93005

== ENCOUNTER 2025-02-28 21:33 | Emergency (ER) | payer MEDICARE, OTHER ==
[2025-02-28 22:14] VITALS: TEMP 98.1
[2025-02-28 22:30] LABS: Glucose,Whole Blood 113 mg/dL (70-110)
[2025-02-28 23:16] LABS: Basophils # (A) 0.02 10*3/uL (0.00-0.10); Basophils % (A) 0.2 %; Eosinophils # (A) 0.25 10*3/uL (0.04-0.35); Eosinophils % (A) 2.3 %; HGB 14.4 g/dL (12.0-15.0); Lymphocytes # (A) 2.51 10*3/uL (0.90-5.00); Lymphocytes % (A) 23.4 %; MCH 30.6 pg (27.0-32.0); MCHC 32.7 g/dL (32.0-37.0); MCV 93.4 fL (80.0-97.0); Mean Platelet Volume 10.4 fL (9.5-12.2); Monocytes # (A) 1.25 10*3/uL (0.20-1.00); Monocytes % (A) 11.6 %; Neutrophils # (A) 6.68 10*3/uL (1.80-7.70); Neutrophils % (A) 62.2 %; Platelet Count 342 10*3/uL (140-440); RBC 4.71 10*6/uL (4.10-5.20); WBC 10.74 10*3/uL (4.50-10.00)
[2025-02-28] MEDS: SODIUM CHLORIDE 0.9% 1,000 ML IV STA (23:19)
[2025-02-28] MEDS: KETOROLAC 15 MG/ML 1 ML VIAL IVP STA (23:19)
[2025-02-28 23:20] LABS: Appearance,Urine Clear (Clear); Bilirubin,Urine Negative (Negative); Blood,Urine Negative (Negative); Color,Urine Colorless; Glucose,Urine (UA) 4+ (Negative); Ketones,Urine Negative (Negative); Leukocyte Esterase,Urine Negative (Negative); Nitrite,Urine Negative (Negative); PH, Urine 5.5 (5.0-8.0); Protein,Urine Negative (Negative); Specific Gravity,Urine 1.007 (1.001-1.035); Urobilinogen,Urine <2.0 mg/dL (<2.0)
[2025-02-28 23:38] LABS: ALT 15 U/L (4-34); AST 21 U/L (14-36); African American GFR (CKD) >90 (>60 ml/min/1.73 sqM); Albumin 4.1 g/dL (3.5-5.0); Alkaline Phosphatase 108 U/L (38-126); Anion Gap 9 mmol/L; Blood Urea Nitrogen 15 mg/dL (7-17); Calcium 9.5 mg/dL (8.4-10.2); Carbon Dioxide 26 mmol/L (22-30); Chloride 102 mmol/L (98-107); Glucose 87 mg/dL (74-99); Non-African American GFR(CKD) 80 (>60 ml/min/1.73 sqM); Potassium 3.8 mmol/L (3.5-5.1); Sodium 137 mmol/L (137-145); Total Bilirubin 0.7 mg/dL (0.2-1.3); Total Protein 6.9 g/dL (6.3-8.2)
[2025-03-01 00:11] LABS: Glucose,Whole Blood 78 mg/dL (70-110)
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
[2025-03-01 01:20] VITALS: BP 135/69; PULSE 77; RESP 16
== END 2025-03-01 01:20 | disposition home or self-care (01) ==
LOC: EC 21:33
DX: E11.65 Type 2 diabetes mellitus with hyperglycemia (principal); Z87.891 Personal history of nicotine dependence; Z88.5 Allergy status to narcotic agent; Z88.6 Allergy status to analgesic agent; Z88.8 Allergy status to other drugs, medicaments and biological substances
CPT/HCPCS: 36415 ×2; 93005; 80053; 83605; 84484; 85025; 81003; 99285; 96374; 96361; J1885

== ENCOUNTER 2025-03-04 12:47 | Emergency (ER) | payer MEDICARE, OTHER ==
[2025-03-04 12:55] VITALS: BP 126/73; PULSE 81; RESP 18; TEMP 98
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
[2025-03-04 14:05] LABS: Basophils # (A) 0.01 10*3/uL (0.00-0.10); Basophils % (A) 0.1 %; Eosinophils # (A) 0.17 10*3/uL (0.04-0.35); Eosinophils % (A) 2.2 %; HCT 47.6 % (37.2-46.3); HGB 15.6 g/dL (12.0-15.0); Lymphocytes # (A) 1.58 10*3/uL (0.90-5.00); Lymphocytes % (A) 20.5 %; MCH 30.8 pg (27.0-32.0); MCHC 32.8 g/dL (32.0-37.0); MCV 94.1 fL (80.0-97.0); Mean Platelet Volume 10.5 fL (9.5-12.2); Monocytes # (A) 0.55 10*3/uL (0.20-1.00); Monocytes % (A) 7.1 %; Neutrophils # (A) 5.37 10*3/uL (1.80-7.70); Neutrophils % (A) 69.6 %; Platelet Count 342 10*3/uL (140-440); RBC 5.06 10*6/uL (4.10-5.20); RDW 13.6 % (11.5-14.5); WBC 7.72 10*3/uL (4.50-10.00)
[2025-03-04 14:18] LABS: INR 1.2 (<1.2); Partial Thromboplastin Time 24.4 sec (22.0-30.0); Prothrombin Time 12.6 sec (10.0-12.5)
[2025-03-04 14:22] LABS: ALT 17 U/L (4-34); AST 27 U/L (14-36); African American GFR (CKD) 89 (>60 ml/min/1.73 sqM); Albumin 4.1 g/dL (3.5-5.0); Alkaline Phosphatase 106 U/L (38-126); Anion Gap 8 mmol/L; Blood Urea Nitrogen 12 mg/dL (7-17); Calcium 9.6 mg/dL (8.4-10.2); Carbon Dioxide 27 mmol/L (22-30); Chloride 99 mmol/L (98-107); Glucose 291 mg/dL (74-99); Lipase 109 U/L (23-300); Non-African American GFR(CKD) 78 (>60 ml/min/1.73 sqM); Potassium 4.5 mmol/L (3.5-5.1); Sodium 134 mmol/L (137-145); Total Bilirubin 0.9 mg/dL (0.2-1.3); Total Protein 6.8 g/dL (6.3-8.2)
[2025-03-04] MEDS: SODIUM CHLORIDE 0.9% 1,000 ML IV ONE (15:55)
[2025-03-04] MEDS: PANTOPRAZOLE 40 MG/10 ML VIAL IVP STA (15:55)
--- NOTE | 2025-03-04 16:01 | CT ---
EXAMINATION TYPE: CT angio abdomen pelvis DATE OF EXAM: 03/04/2025 3:09 PM COMPARISON: None. CLINICAL INDICATION: Female, 59 years old with history of rectal bleeding; PHH, Pt states rectal blee ding that started today. TECHNIQUE: CT angio abdomen pelvis Angiogram phase with delayed imaging CT abdomen pelvis for gastritis or hemorrhage. Multiple thin slice sub-millimeter images were obtained before and after administration of contrast. 3-D reconstructed images and maximum intensity projection images were obtained on a separate works tation. CT angio abdomen pelvis CT Contrast: Contrast used:100ml mL of Isovue 370 with IV Contrast, Oral contrast used: without Oral Contrast None CT DLP: 2825 mGycm, Automated exposure control for dose reduction was used. FINDINGS: CTA Abdomen and pelvis: The abdominal aorta does not demonstrate aneurysmal dilatation. Minimal athe rosclerotic plaque is identified within the abdominal aorta. The origins of the superior mesenteric artery, renal arteries, inferior mesenteric artery, and celiac axis are patent. The iliac vessels ar e normal in morphology LOWER CHEST: No evidence of focal consolidation, pneumothorax or pleural effusion. LIVER: Unremarkable GALLBLADDER AND BILE DUCTS: Unremarkable. PANCREAS: Unremarkable. SPLEEN: Unremarkable. ADRENAL GLANDS: Unremarkable. KIDNEYS AND URETERS: No evidence of hydronephrosis or renal calculus. The ureters are unremarkable. 6 x 1 cm simple appearing left renal cyst. No follow-up recommended. PELVIS BLADDER: Unremarkable REPRODUCTIVE: The uterus is surgically absent. ABDOMEN & PELVIS STOMACH AND BOWEL: Post surgical changes of the stomach and small bowel. Evaluation of the gastrointe stinal tract demonstrates no evidence of high density hemorrhage on arterial phase or pooling of bloo d on delayed phases. No evidence of bowel obstruction. r mild sequential wall thickening of the sigmo id: Series 401 image 132 and a nondistended section measuring up to 8 mm. The cecum is distended with fluid present. The appendix is normal. PERITONEUM: No evidence of pneumoperitoneum or free fluid. VASCULATURE: No evidence of aortic aneurysm. MUSCULOSKELETAL: Mild disc degeneration changes are present throughout the thoracolumbar spine. LYMPH NODES: No gross evidence for lymphadenopathy. SOFT TISSUE/ABDOMINAL WALL: Unremarkable IMPRESSION: 1. No evidence for gastritis or hemorrhage. 2. Mild wall thickening of the sigmoid colon circumferentially suggestive of colitis. [facility], , 03/04/2025 3:58 PM
[2025-03-04 16:09] LABS: Appearance,Urine Clear (Clear); Bilirubin,Urine Negative (Negative); Blood,Urine Small (Negative); Color,Urine Colorless; Glucose,Urine (UA) 4+ (Negative); Ketones,Urine Negative (Negative); Leukocyte Esterase,Urine Small (Negative); Mucus,Urine Rare /hpf; Nitrite,Urine Negative (Negative); Protein,Urine Negative (Negative); RBC,Urine <1 /hpf (0-5); Specific Gravity,Urine 1.008 (1.001-1.035); Squamous Epithelial Cell,Urine 2 /hpf (0-4); Urobilinogen,Urine <2.0 mg/dL (<2.0); WBC,Urine 6 /hpf (0-5)
== END 2025-03-04 17:06 | disposition home or self-care (01) ==
LOC: EC 12:47
DX: K52.9 Noninfective gastroenteritis and colitis, unspecified (principal); J44.9 Chronic obstructive pulmonary disease, unspecified; E11.9 Type 2 diabetes mellitus without complications; E78.5 Hyperlipidemia, unspecified; G40.909 Epilepsy, unspecified, not intractable, without status epilepticus; E07.9 Disorder of thyroid, unspecified; K21.9 Gastro-esophageal reflux disease without esophagitis; I10 Essential (primary) hypertension; Z98.84 Bariatric surgery status; Z87.891 Personal history of nicotine dependence; Z88.5 Allergy status to narcotic agent; Z88.6 Allergy status to analgesic agent; Z88.8 Allergy status to other drugs, medicaments and biological substances
CPT/HCPCS: 36415; 86900; 86901; 80053; 83605; 83690; 85025; 85610; 85730; 86850; 82272; 81001; 74174; 99285; 96374; 96361; Q9967; J2470

== ENCOUNTER → 2025-03-07 | Outpatient (CLI) | payer MEDICARE, OTHER ==
[2025-03-07 16:48] VITALS: BP 120/74; PULSE 77; RESP 16; TEMP 97; BMI 39.6
--- NOTE | 2025-03-07 17:46 | P.BASOAP ---
Subjective Progress Note Date: 03/07/25 She comes in with blood in stools. SHe has lost 50 pounds. in 1 year. She had knee replacement. 296 to 249 pounds. Needs EGD/Colon. Wants panniculectomy. Needs new labs. She remarried her . She is walking much. She has wax buildup. Objective - Vital Signs Vital signs: Vital Signs Temp 97 F L 03/07/25 16:46 Pulse 77 03/07/25 16:46 Resp 16 03/07/25 16:46 BP 120/74 03/07/25 16:46 Pulse Ox FiO2 Intake & Output 03/06/25 03/07/25 03/07/25 18:59 06:59 18:59 Weight 112.945 kg Assessment/Plan Plan: Date: 03/07/25 Initial Weight: 160.163 kg Initial BMI: 56.1 Current Weight: 112.945 kg Current BMI: 39.6 Type of Surgery: Diandra-en-Y Gastric Bypass Total Volume in Band: Previous Volume: Volume Removed: Volume Added: Band Size:
== END ==
LOC: BARWHC3 15:21
PROVIDERS: ATTEND Surgery Plastic and Reconstructive Surgery
DX: E66.01 Morbid (severe) obesity due to excess calories (principal); Z87.891 Personal history of nicotine dependence; Z88.5 Allergy status to narcotic agent; Z88.6 Allergy status to analgesic agent; Z88.8 Allergy status to other drugs, medicaments and biological substances; Z68.39 Body mass index [BMI] 39.0-39.9, adult
CPT/HCPCS: 99211

== ENCOUNTER → 2025-03-09 | Outpatient (CLI) | payer MEDICARE, OTHER ==
[2025-03-09 11:24] LABS: INR 0.9 (<1.2); Prothrombin Time 10.3 sec (10.0-12.5)
[2025-03-09 16:57] LABS: HCT 48.2 % (37.2-46.3); HGB 15.2 g/dL (12.0-15.0); MCHC 31.5 g/dL (32.0-37.0); MCV 95.3 FL (80.0-97.0); NRBC Per 100 WBC 0 X 10*3/uL (0.00-0.01); Platelet Count 374 X 10*3/uL (140-440); RBC 5.06 X 10*6/uL (4.10-5.20)
[2025-03-09 17:01] LABS: Prealbumin 23.4 mg/dL (18.0-42.0)
[2025-03-09 17:06] LABS: % Iron Saturation 19.77 (12.00-45.00); Chol/HDL Ratio 2.96 Ratio; Iron 69 UG/DL (50-170); Phosphorus 4.1 mg/dL (2.4-5.1); Total Iron Binding Capacity 349 UG/DL (228-460)
[2025-03-09 17:07] LABS: ALT 17 U/L (8-44); AST 22 U/L (13-35); Albumin 4.2 g/dL (3.8-4.9); Albumin/Globulin Ratio 1.45 Ratio (1.60-3.17); Alkaline Phosphatase 139 U/L (41-126); Blood Urea Nitrogen 10.4 mg/dL (9.0-27.0); Calcium 9.6 mg/dL (8.7-10.3); Carbon Dioxide 22.4 mmol/L (21.6-31.8); Chloride 100 mmol/L (96-109); Ferritin 55.8 ng/mL (10.0-291.0); Globulin 2.9 g/dL (1.6-3.3); Glucose 302 mg/dL (70-110); LDL Cholesterol,Calculated 89.1 mg/dL (0.0-131.0); Potassium 4.7 mmol/L (3.5-5.5); Sodium 137 mmol/L (135-145); Total Bilirubin 0.5 mg/dL (0.3-1.2); Total Protein 7.1 g/dL (6.2-8.2)
== END | disposition home or self-care (01) ==
LOC: LABWHC1 09:56
PROVIDERS: ATTEND Surgery Plastic and Reconstructive Surgery
DX: E55.9 Vitamin D deficiency, unspecified (principal); E89.1 Postprocedural hypoinsulinemia; E44.0 Moderate protein-calorie malnutrition; E45 Retarded development following protein-calorie malnutrition; D50.8 Other iron deficiency anemias; D50.9 Iron deficiency anemia, unspecified; K74.1 Hepatic sclerosis; N19 Unspecified kidney failure; K50.90 Crohn's disease, unspecified, without complications; T56.894A Toxic effect of other metals, undetermined, initial encounter
CPT/HCPCS: 36415; 80053; 80061; 82306; 82525; 82607; 82728; 82746; 83036; 83540; 83550; 83735; 83970; 84100; 84134; 84255; 84425; 84443; 84590; 84630; 85027; 85610; 85730

== ENCOUNTER 2025-03-21 20:08 | Emergency (ER) | payer MEDICARE, OTHER ==
[2025-03-21 20:14] LABS: Glucose,Whole Blood 323 mg/dL (70-110)
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
[2025-03-21] MEDS: SODIUM CHLORIDE 0.9% 1,000 ML IV STA (21:41)
[2025-03-21 21:56] LABS: Basophils # (A) 0.02 10*3/uL (0.00-0.10); Basophils % (A) 0.2 %; Eosinophils # (A) 0.17 10*3/uL (0.04-0.35); Eosinophils % (A) 1.8 %; HCT 41.3 % (37.2-46.3); HGB 13.7 g/dL (12.0-15.0); Lymphocytes # (A) 2.24 10*3/uL (0.90-5.00); Lymphocytes % (A) 23.2 %; MCH 30.9 pg (27.0-32.0); MCHC 33.2 g/dL (32.0-37.0); Mean Platelet Volume 10.2 fL (9.5-12.2); Monocytes # (A) 1.01 10*3/uL (0.20-1.00); Monocytes % (A) 10.5 %; Neutrophils # (A) 6.19 10*3/uL (1.80-7.70); Neutrophils % (A) 64.1 %; Platelet Count 330 10*3/uL (140-440); RBC 4.44 10*6/uL (4.10-5.20); WBC 9.65 10*3/uL (4.50-10.00)
[2025-03-21 22:17] LABS: African American GFR (CKD) >90 (>60 ml/min/1.73 sqM); Anion Gap 8 mmol/L; Blood Urea Nitrogen 13 mg/dL (7-17); Calcium 9.5 mg/dL (8.4-10.2); Carbon Dioxide 27 mmol/L (22-30); Chloride 102 mmol/L (98-107); Glucose 153 mg/dL (74-99); Magnesium 2.1 mg/dL (1.6-2.3); Non-African American GFR(CKD) >90 (>60 ml/min/1.73 sqM); Potassium 3.5 mmol/L (3.5-5.1); Sodium 137 mmol/L (137-145)
[2025-03-22 00:26] LABS: Appearance,Urine Clear (Clear); Bilirubin,Urine Negative (Negative); Blood,Urine Negative (Negative); Color,Urine Colorless; Glucose,Urine (UA) 4+ (Negative); Ketones,Urine Negative (Negative); Leukocyte Esterase,Urine Negative (Negative); Nitrite,Urine Negative (Negative); Protein,Urine Negative (Negative); Specific Gravity,Urine 1.008 (1.001-1.035); Urobilinogen,Urine <2.0 mg/dL (<2.0)
[2025-03-22 00:55] VITALS: BP 134/76; PULSE 72; RESP 19; TEMP 97.7
== END 2025-03-22 01:07 | disposition home or self-care (01) ==
LOC: EC 20:08
DX: E11.65 Type 2 diabetes mellitus with hyperglycemia (principal); Z79.84 Long term (current) use of oral hypoglycemic drugs; Z87.891 Personal history of nicotine dependence; Z88.5 Allergy status to narcotic agent; Z88.6 Allergy status to analgesic agent; Z88.8 Allergy status to other drugs, medicaments and biological substances
CPT/HCPCS: 36415; 80048; 81003; 83735; 85025; 93005; 96360; 99285

== ENCOUNTER → 2025-04-11 | Outpatient (CLI) | payer MEDICARE, OTHER ==
[2025-04-11 15:47] VITALS: BP 143/83; PULSE 60; RESP 16; TEMP 98.3; BMI 40.4
--- NOTE | 2025-04-11 16:28 | P.BASOAP ---
Subjective Progress Note Date: 04/11/25 EGD dysphagia is resolved. Colon in 2026. Bowels is working. She ate chicken nuggets and fries at [facility] Objective - Vital Signs Vital signs: Vital Signs Temp 98.3 F 04/11/25 15:42 Pulse 60 04/11/25 15:42 Resp 16 04/11/25 15:42 BP 143/83 04/11/25 15:42 Pulse Ox FiO2 Intake & Output 04/10/25 04/11/25 04/11/25 18:59 06:59 18:59 Weight 115.212 kg Assessment/Plan Plan: Date: 04/11/25 Initial Weight: 160.163 kg Initial BMI: 56.1 Current Weight: 115.212 kg Current BMI: 40.4 Type of Surgery: Diandra-en-Y Gastric Bypass Total Volume in Band: Previous Volume: Volume Removed: Volume Added: Band Size:
== END ==
LOC: BARWHC3 14:47
PROVIDERS: ATTEND Surgery Plastic and Reconstructive Surgery
DX: E66.01 Morbid (severe) obesity due to excess calories (principal); Z87.891 Personal history of nicotine dependence; Z88.8 Allergy status to other drugs, medicaments and biological substances; Z88.5 Allergy status to narcotic agent; Z88.6 Allergy status to analgesic agent; Z68.41 Body mass index [BMI] 40.0-44.9, adult
CPT/HCPCS: 99211

== ENCOUNTER 2025-05-14 09:07 | Emergency (ER) | payer MEDICARE, OTHER ==
[2025-05-14 09:16] VITALS: BP 132/55; PULSE 76; RESP 17; TEMP 98.2
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
[2025-05-14] MEDS: ACETAMINOPHEN TAB 325 MG TAB PO STA ×2 (09:43→11:26)
[2025-05-14] MEDS: MECLIZINE 12.5 MG TAB PO STA (09:44)
--- NOTE | 2025-05-14 10:13 | CT ---
EXAMINATION TYPE: CT brain sallyine wo con DATE OF EXAM: 05/14/2025 10:01 AM COMPARISON: 10/09/2024 CLINICAL INDICATION: Female, 59 years old with history of pain, Pt coming in for fall from standing, per pt she tripped and fell walking up her ramp. Pt states she injured her knees, back, and head. Per pt her knees and back were hurting prior to the fall. Pt did not have LOC. Pt not on blood thinners, pain Technique: Examination of the head was done in axial plane without intravenous contrast. Coronal and sagittal reconstructions performed. CT of the cervical spine was obtained in axial plane without intravenous injection of contrast mater ial. Coronal and sagittal reformatted images were obtained from the axial views for evaluation of f ractures, spinal alignment and canal. CT DLP: 1671.1 mGycm, Automated exposure control for dose reduction was used. FINDINGS: Head: There is no evidence of acute intracranial hemorrhage, acute ischemic changes, mass, mass-effect, or extra-axial fluid collection. There is no effacement of cerebral sulci or basal subarachnoid cister ns. There is no hydrocephalus. There is no midline shift. Whelan-white matter distinction is preserv ed. Mild atherosclerotic calcifications in the carotid siphons. Small amount of opacification inferior right mastoid air cells. Correlate for any mastoid pain to exc lude mastoiditis. Globes are intact. No calvarial fracture. Cervical spine: No craniocervical junction abnormality, predental space widening, or prevertebral soft tissue swellin g. Some degenerative change at C1 dens articulation. Moderately advanced discogenic endplate degenerative changes as well as hypertrophic facet and uncove rtebral joint arthropathy mid to lower cervical spine. Changes are greater towards the right. Degenerative grade 1 anterolisthesis C3-C4. Remaining alignment is maintained. Suspect disc osteophyte complex contribute to possible moderate spinal canal stenosis at C6-C7. Artif act from the patient's shoulders limits detailed assessment of the spinal canal. Variable mild and mo derate neuroforaminal stenoses throughout. No acute fracture seen of the cervical spine. Sagittal and coronal reformatted images confirm above findings. COMBINED IMPRESSION: 1. No acute intracranial abnormality seen. 2. No acute fracture of cervical spine. 3. Moderate to advanced spondylotic change especially mid to lower cervical spine. Degenerative grade 1 anterolisthesis C3-C4. Possible moderate focal spinal canal stenosis at C6-C7. [facility], , 05/14/2025 10:10 AM
--- NOTE | 2025-05-14 10:52 | XR ---
EXAMINATION TYPE: XR elbow complete LT DATE OF EXAM: 05/14/2025 10:34 AM COMPARISON: Correlation all CT 07/20/2014 CLINICAL INDICATION: Female, 59 years old with history of fall, pain; PHH, pain TECHNIQUE: 3 views FINDINGS: Partially visualized medial plate and screw fixation across the proximal ulna. There is deg enerative spurring at the radial capitellar and ulnar trochlear joints with chronic loose bodies viktor uring up to 1.3 cm anterior aspect of the radial neck. There is elevation of the anterior fat pad of the elbow. Otherwise, no acute fracture, subluxation, dislocation is seen. IMPRESSION: 1. 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 Plate and screw fixation across th e proximal ulna was present at that time as well. 2. A small anterior elbow joint effusion is nonspecific. It may be reactive to the underlying OA. No acute osseous abnormality is seen. Follow-up if concern for internal derangement. [facility], , 05/14/2025 10:50 AM
--- NOTE | 2025-05-14 10:56 | XR ---
EXAMINATION TYPE: XR lumbar spine 3V, XR knee complete 3 views each side bilateral DATE OF EXAM: 05/14/2025 10:33 AM COMPARISON: 05/23/2015 CLINICAL INDICATION: Female, 59 years old with history of fall, pain; PHH, pain FINDINGS: Lumbar spine: Vertebral body heights are preserved and alignment is maintained. Accentuated lower lumbar lordosis. Moderate facet arthropathy. Moderate degenerative disc disease at L3-L4 and L5-S1 with narrowed disc space. 5 lumbar type vertebral bodies. Bilateral knees: There are bilateral total knee arthroplasties present. Both distal femoral and proximal tibial compon ents of the prostheses appear well seated. No periprosthetic fractures seen. Mild anterior soft tissu e swelling and small bilateral knee joint effusions. IMPRESSION: 1. Lumbar spine: Moderate degenerative disc disease L3-L4 and L5-S1. Moderate facet arthropathy mid t o lower lumbar spine. No vertebral compression collapse or malalignment. 2. Bilateral knees: Anterior soft tissue swelling and underlying small knee joint effusions, possibly related to soft tissue injury/contusion. Clinically correlate. Otherwise, uncomplicated appearance t o the bilateral total knee arthroplasties. [facility], , 05/14/2025 10:53 AM
[2025-05-14] MEDS: KETOROLAC 15 MG/ML 1 ML VIAL IVP STA (11:16)
== END 2025-05-14 11:20 | disposition home or self-care (01) ==
LOC: EC 09:07
DX: S50.02XA Contusion of left elbow, initial encounter (principal); S80.02XA Contusion of left knee, initial encounter; S80.01XA Contusion of right knee, initial encounter; S09.90XA Unspecified injury of head, initial encounter; M54.9 Dorsalgia, unspecified; Z87.891 Personal history of nicotine dependence; Z88.6 Allergy status to analgesic agent; Z88.8 Allergy status to other drugs, medicaments and biological substances; W01.0XXA Fall on same level from slipping, tripping and stumbling without subsequent striking against object, initial encounter; Y93.01 Activity, walking, marching and hiking; Y92.29 Other specified public building as the place of occurrence of the external cause
CPT/HCPCS: 70450; 72100; 72125; 99284

== ENCOUNTER 2025-05-23 11:36 | Emergency (ER) | payer MEDICARE, OTHER ==
[2025-05-23 11:42] VITALS: RESP 18; TEMP 98.5
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
[2025-05-23 14:13] VITALS: BP 132/77; PULSE 75
--- NOTE | 2025-05-23 14:22 | XR ---
EXAMINATION TYPE: XR knee complete RT DATE OF EXAM: 05/23/2025 1:23 PM COMPARISON: 05/14/2025 CLINICAL INDICATION: Female, 59 years old with history of pain, pain TECHNIQUE: 3 view(s) obtained. FINDINGS: No acute fracture or dislocation evident. Small joint effusion may be present. Tibial femoral compone nts are present. Some increased density is within the distal femoral metaphysis, stable. Follow up exams can be performed 7-10 days for continued pain IMPRESSION: 1. . No acute osseous abnormality [facility], Workstation: [facility], 05/23/2025 2:20 PM
== END 2025-05-23 14:13 | disposition home or self-care (01) ==
LOC: EC 11:36
DX: S80.211A Abrasion, right knee, initial encounter (principal); Z88.5 Allergy status to narcotic agent; Z88.6 Allergy status to analgesic agent; Z87.891 Personal history of nicotine dependence; Z88.8 Allergy status to other drugs, medicaments and biological substances; W01.0XXA Fall on same level from slipping, tripping and stumbling without subsequent striking against object, initial encounter
CPT/HCPCS: 99283

== ENCOUNTER 2025-05-25 15:03 | Emergency (ER) | payer MEDICARE, OTHER ==
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
[2025-05-25] MEDS: ACETAMINOPHEN TAB 500 MG TAB PO STA (16:32)
[2025-05-25 16:35] VITALS: BP 124/78; PULSE 78; RESP 18; TEMP 97.8
== END 2025-05-25 16:35 | disposition home or self-care (01) ==
LOC: EC 15:03
DX: S06.0XAA Concussion with loss of consciousness status unknown, initial encounter (principal); R40.2412 Glasgow coma scale score 13-15, at arrival to emergency department; Z87.891 Personal history of nicotine dependence; Z88.5 Allergy status to narcotic agent; Z88.6 Allergy status to analgesic agent; Z88.8 Allergy status to other drugs, medicaments and biological substances; W19.XXXA Unspecified fall, initial encounter
CPT/HCPCS: 70450; 99284